=== PATIENT | male | born 1940 | race African-American/Black ===

== ENCOUNTER 2016-04-18 02:26 | Inpatient (IN) | payer MEDICARE, MEDICAID ==
[2016-04-18] VITALS (22 sets, daily range): BP systolic 93–148; BP diastolic 13–70
[~2016-04-18] VITALS: Ht 170.2 cm; Wt 54.4 kg
[~2016-04-18 02:26] MED LIST: ARICEPT23 MG ORAL; ATENOLOL5 GM GT; BENICAR20 MG ORAL; CLONIDINE HCL0.1 MG PO; DIGOXIN ELIX0.125 MG GT; DOXAZOSIN MESYLA2 MG ORAL; FERROUS SULFAT325 M2 ORAL; GUAIFENESI100 MG/5 M ORAL; HUMALOG 75/255 UNIT1 SUBQ; LACTULOSE20 GM/301 ORAL; LANTUS SOL100 UNIT/1 SUBQ; LO-DOSE ASPIRIN81 MG ORAL; LOVASTATIN40 MG ORAL; LOVENOX10 M4 SUBQ; MEMANTINE HCL5 MG PO; NORVASC5 MG ORAL; OMEPRAZOLE40 M1 ORAL; PROVENTIL2 MG ORAL; TYLENOL650 MG GT
[2016-04-18] MEDS ORDERED: NS 1000ml 1,600 ML IVLG ONE (02:30)
[2016-04-18] MEDS ORDERED: Ampicillin/Sulbactam Sod 3 GM in NS 100 ML IV SCH (02:30)
[2016-04-18] MEDS ORDERED: PREDNISONE10 MG ORAL (02:41)
[2016-04-18] MEDS ORDERED: Acetaminophen 650 MG SUPP RECTAL ONE (02:45)
[2016-04-18] MEDS ORDERED: Lidocaine 1% Plain 30 ml INJ ONE (02:47)
[2016-04-18] MEDS ORDERED: Lidocaine 1% MPF 10mg/ml 5ml ONE (02:49)
[2016-04-18] MEDS: metroNIDAZOLE 500mg 100 ML IV SCH ×4 (03:38→21:43)
[2016-04-18 03:40] LABS: ALANINE AMINOTRANSFERASE 57 U/L (3-41); ALBUMIN/GLOBULIN RATIO 0.6 (1.0-2.7); ANION GAP 11 (5-15); ASPARTATE AMINO TRANSFERASE 37 U/L (5-40); CALCIUM 9.3 mg/dL (8.6-10.2); CARBON DIOXIDE 35 mEQ/L (20-30); CHLORIDE 116 mEQ/L (98-107); HEMOLYSIS 11; LIPASE 74 U/L (< 60); TOTAL PROTEIN 7.2 g/dL (6.6-8.7)
[2016-04-18 03:41] LABS: TROPONIN I < 0.30 ng/mL (<=0.30)
[2016-04-18 03:43] LABS: REFLEX LACTIC ACID YES OR NO YES
[2016-04-18 03:44] LABS: SODIUM 162 mEQ/L (135-145)
[2016-04-18 03:51] LABS: BASOPHILS % (AUTO) 0.5 % (0.0-2.0); CKMB 1.6 ng/mL (< 6.7); EOSINOPHILS % (AUTO) 0.3 % (0.0-3.0); LYMPHOCYTES % (AUTO) 12.8 % (20.0-45.0); MEAN CORPUSCULAR HEMOGLOBIN 33.2 PG (27.0-31.0); MEAN CORPUSCULAR HGB CONC 31.8 G/DL (32.0-36.0); MEAN CORPUSCULAR VOLUME 104 FL (80-99); MEAN PLATELET VOLUME 9.2 FL (6.5-10.1); MONOCYTES % (AUTO) 2.9 % (1.0-10.0); NEUTROPHILS % (AUTO) 83.5 % (45.0-75.0); PLATELET COUNT 140 K/UL (150-450); RED CELL DISTRIBUTION WIDTH 13.3 % (11.6-14.8); WHITE BLOOD COUNT 13.3 K/UL (4.8-10.8)
--- NOTE | 2016-04-18 04:13 | Emergency Room Report ---
History of Present Illness General Chief Complaint: Fever Source: Patient, Medical Record, EMS Present Illness HPI Patient is a 75-year-old male was brought in by ambulance after increased fever. Patient noted have increased difficulty breathing. He was noted to be hypotensive. Patient was noted to have prior history of bullous impetigo. He has no known drug allergies. He was noted to have increased respiratory rate. Allergies: Coded Allergies: No Known Allergies (Unverified , 10/19/15) Patient History Reviewed Nursing Documentation: PMH: Agreed, PSxH: Agreed Nursing Documentation-PMH Past Medical History: No History, Except For Hx Cardiac Problems: Yes - Atrial flutter, Hypercholesterolemia Hx Hypertension: Yes Hx Diabetes: Yes Hx Cancer: No Hx Gastrointestinal Problems: Yes - dysphagia Hx Neurological Problems: Yes - Cognitive Deficits, Apraxia Hx Cerebrovascular Accident: Yes - Encephalopathy Hx Dementia: Yes Hx Speech Problem: Yes Hx Aphasia: Yes Review of Systems All Other Systems: limited - by nonverbal Physical Exam Vital Signs Date Time Temp Pulse Resp B/P Pulse Ox O2 Delivery O2 Flow Rate FiO2 04/18/16 02:21 104.0 138 17 96/54 95 Room Air Sp02 EP Interpretation: normal General Appearance: severe distress, thin, Chronically Ill ENT: dry mucus membranes Neck: limited range of motion Respiratory: rales Cardiovascular #1: no edema, tachycardia Gastrointestinal: non tender, soft Musculoskeletal: normal inspection, decreased range of motion Neurologic: alert, responsive, motor weakness Skin: other - multiple bullous lesions Procedures Critical Care Time Critical Care Time Patient had a critical medical condition which untreated could potentially result in life or limb threatening injury. Total critical care time excluding procedures approximately 45 minutes. Central Line Central Line : Consent: Emergent Central Line Lumen: triple Maximal Sterile Barrier Tech: yes cap, yes mask, yes sterile gown, yes sterile gloves, yes large sterile sheet, yes hand hygiene, yes chlorhexidine prep Central Line Postion: subclavian (L) Anesthesia: Lidocaine cc's of anesthesia: 3 Complications: none Central Line Post Position: sutured, good blood return, position confirmed w / CXR Attempts: Other - 3 initially attempted left IJ without success under ultrasound guidance Patient Tolerated: Well Complications: None Medical Decision Making Diagnostic Impression: Primary Impression: Septic shock Additional Impressions: Dehydration Hypernatremia ER Course The patient presented for fever. Differential diagnosis included wasn't limited to septic shock, dehydration, urinary tract infection, adrenal insufficiency among others.Because of complexity of patient's case laboratory testing and imaging studies were ordered. The patient was started on IV fluid. Patient was noted to have a poor IV access and a the left subclavian central line was placed emergently for IV access. The patient started on IV fluids as well as IV antibiotics. The patient noted be hypernatremic with a serum sodium greater than 160. Patient started on normal saline. Dr. Izaguirre was contacted for inpatient management because he is the covering physician for the patient long-term. Labs Test 04/18/16 03:08 04/18/16 03:55 04/18/16 04:01 White Blood Count 13.3 K/UL (4.8-10.8) Red Blood Count 3.40 M/UL (4.70-6.10) Hemoglobin 11.3 G/DL (14.2-18.0) Hematocrit 35.4 % (42.0-52.0) Mean Corpuscular Volume 104 FL (80-99) Mean Corpuscular Hemoglobin 33.2 PG (27.0-31.0) Mean Corpuscular Hemoglobin Concent 31.8 G/DL (32.0-36.0) Red Cell Distribution Width 13.3 % (11.6-14.8) Platelet Count 140 K/UL (150-450) Mean Platelet Volume 9.2 FL (6.5-10.1) Neutrophils (%) (Auto) 83.5 % (45.0-75.0) Lymphocytes (%) (Auto) 12.8 % (20.0-45.0) Monocytes (%) (Auto) 2.9 % (1.0-10.0) Eosinophils (%) (Auto) 0.3 % (0.0-3.0) Basophils (%) (Auto) 0.5 % (0.0-2.0) Sodium Level 162 mEQ/L (135-145) Potassium Level 4.0 mEQ/L (3.4-4.9) Chloride Level 116 mEQ/L (98-107) Carbon Dioxide Level 35 mEQ/L (20-30) Anion Gap 11 (5-15) Blood Urea Nitrogen 40 mg/dL (7-23) Creatinine 1.0 mg/dL (0.7-1.2) Estimat Glomerular Filtration Rate mL/min (>60) Glucose Level 246 mg/dL (74-106) Lactic Acid Level 2.00 mmol/L (0.66-2.22) Calcium Level 9.3 mg/dL (8.6-10.2) Total Bilirubin 0.4 mg/dL (0.0-1.2) Aspartate Amino Transf (AST/SGOT) 37 U/L (5-40) Alanine Aminotransferase (ALT/SGPT) 57 U/L (3-41) Alkaline Phosphatase 61 U/L (40-129) Total Creatine Kinase 125 U/L (38-174) Creatine Kinase MB 1.6 ng/mL (< 6.7) Creatine Kinase MB Relative Index 1.2 Troponin I < 0.30 ng/mL (<=0.30) Pro-B-Type Natriuretic Peptide 364 pg/mL (0-450) Total Protein 7.2 g/dL (6.6-8.7) Albumin 2.9 g/dL (3.5-5.2) Globulin 4.3 g/dL Albumin/Globulin Ratio 0.6 (1.0-2.7) Lipase 74 U/L (< 60) EKG Diagnostic Results Rate: tachycardiac - 145 Rhythm: other - sinus tachycardia ST Segments: no acute changes Rhythm Strip Diag. Results EP Interpretation: yes Rhythm: no PVC's, no ectopy Chest X-Ray Diagnostic Results EP Interpretation: Yes Findings: no consolidation, no effusion, no pneumothorax, no acute cardiopulmonary disease Number of Views: 1 Last Vital Signs Date Time Temp Pulse Resp B/P Pulse Ox O2 Delivery O2 Flow Rate FiO2 04/18/16 02:21 104.0 138 17 96/54 95 Room Air Status: unchanged Disposition: ADMITTED INPATIENT Condition: Critical Referrals: NON PHYSICIAN (PCP) Delfino Benitez Apr 18, 2016 04:13
[2016-04-18 04:17] LABS: APPEARANCE,URINE CLEAR; KETONES,URINE NEGATIVE (NEGATIVE); LEUKOCYTE ESTERASE ,URINE 1+ (NEGATIVE); NITRITE,URINE NEGATIVE (NEGATIVE); PH,URINE 6 (4.5-8.0); PROTEIN,URINE 2+ (NEGATIVE); UROBILINOGEN,URINE 4 MG/DL (0.0-1.0)
[2016-04-18] MEDS ORDERED: Unasyn 3gm Inj ONE (04:24)
[2016-04-18 04:32] LABS: RBC,URINE 0-2 /HPF (0 - 0); SQUAMOUS EPITHELIAL CELL,UR MANY /LPF (NONE/OCC); WBC,URINE 0-2 /HPF (0 - 0)
[2016-04-18 04:33] LABS: BACTERIA,URINE FEW /HPF
[2016-04-18] MEDS ORDERED: Nitroglycerin Subl 0.4mg tab (Bottle Of 25) SL PRN (07:45)
[2016-04-18] MEDS ORDERED: Miralax 17gm pkt ORAL PRN (07:45)
[2016-04-18] MEDS ORDERED: DuoNeb 0.5-3(2.5)mg/3ml neb HHN PRN (07:45)
[2016-04-18] MEDS ORDERED: Morphine Sulfate 2mg/ml Inj IVP PRN (07:45)
[2016-04-18] MEDS ORDERED: Lactulose 20gm/30ml UDC ORAL PRN (08:00)
--- NOTE | 2016-04-18 08:22 | Consultation ---
Consult Note Consult Note ID CONSULT: Dict# [id number] Assessment/Plan ASSESSMENT: 75 y/o male with: // Probable HCAP / aspiration PNA - CXR 04/18: pending - h/o MSSA // r/o bacteremia // Sepsis // Leukocytosis // Fever // Bullous impetigo, on chronic steroids // Hypernatremia / electrolyte imbalance // DM2 - HbA1c 8.1% // Dementia, h/o CVA // Functional quadriplegia / bedbound // Dysphagia SP PEG // NH resident // Negative MRSA, VRE screens // NKDA // Full Code PLAN: - continue IV vancomycin, cefepime, flagyl d# . DC unasyn - check influenza, legionella UAg - continue chronic steroids for impetigo, may need stress dose if unstable - f/u cultures - monitor CBC, temperatures - monitor BMP - monitor CXR - aspiration precautions - wound care Thanks! Will follow DOLORES FANG Apr 18, 2016 08:22
[2016-04-18] MEDS ORDERED: Ferrous Sulfate 300 MG/5 ML UDC NG SCH (09:00)
[2016-04-18] MEDS ORDERED: Aspirin EC 81mg tab ORAL SCH (09:00)
[2016-04-18] MEDS ORDERED: PredniSONE 20mg tab ORAL SCH (09:00)
[2016-04-18] MEDS ORDERED: Heparin 5000 units/ml inj SUBQ SCH (09:00)
--- NOTE | 2016-04-18 09:02 | Pulmonolgy Critical Care Note ---
Critical Care - Asmt/Plan Problems: (1) Septic shock (2) Hypernatremia (3) CVA (cerebral vascular accident) (4) halfway resident (5) Diabetes (6) G tube feedings (7) Left hemiparesis (8) ATN (acute tubular necrosis) Respiratory: monitor respiratory rate Cardiac: continue to monitor HR/BP Renal: F/U I&O, keep IV fluid, check electrolytes Infectious Disease: check cultures, continue antibiotics Gastrointestinal: continue feedings/current rate Endocrine: monitor blood sugar, continue sliding scale insulin Hematologic: monitor H/H, transfuse if hgb<8.5 Neurologic: PRN Ativan, PRN Morphine, keep patient comfortable Prophylaxis: Protonix Disposition: keep in ICU Discussed with: field nurse case managerpay station department manager - Objective Last 24 Hour Vital Signs Date Time Temp Pulse Resp B/P Pulse Ox O2 Delivery O2 Flow Rate FiO2 04/18/16 07:00 120 36 126/46 97 Nasal Cannula 3.0 04/18/16 06:00 97.4 120 36 110/58 98 Nasal Cannula 3.0 04/18/16 05:30 97.0 125 40 96/58 98 Nasal Cannula 3.0 04/18/16 05:00 100.4 125 36 97/59 98 Nasal Cannula 3.0 04/18/16 05:00 100.4 125 36 97/59 98 Nasal Cannula 3.0 04/18/16 04:27 100.4 130 35 98/61 98 Nasal Cannula 3.0 04/18/16 04:08 100.4 04/18/16 02:45 104.0 144 36 96/54 96 Room Air 04/18/16 02:21 104.0 138 17 96/54 95 Room Air Status: sedated Condition: critical HEENT: atraumatic Neck: full ROM Lungs: clear Heart: HR/BP stable, regular Abdomen: soft, active bowel sounds, feeding tube Extremities: no C/C/E, edema Critical Care - Subjective ROS Limited/Unobtainable: Yes ICU Day: 1 Interval Events: 75-year-old male with end stage dementia, Gtube, bed bound, spending last chapter of his life in a bed in a alf with multiple decubiti, was brought in by ambulance after increased fever increased difficulty breathing hypotensive. Patient was noted to have prior history of bullous impetigo. He was hypotensive with increased respiratory rate, therefore was admitted to ICU for further care Fluids: NS 100 cc.hour I&O: Intake and Output 04/17/16 04/18/16 19:00 07:00 Intake Total 1000 ml Balance 1000 ml Intake IV Total 1000 ml # Voids 100 CXR: clear Labs: Laboratory Tests Test 04/18/16 03:08 04/18/16 03:55 04/18/16 04:01 White Blood Count 13.3 K/UL (4.8-10.8) H Red Blood Count 3.40 M/UL (4.70-6.10) L Hemoglobin 11.3 G/DL (14.2-18.0) L Hematocrit 35.4 % (42.0-52.0) L Mean Corpuscular Volume 104 FL (80-99) H Mean Corpuscular Hemoglobin 33.2 PG (27.0-31.0) H Mean Corpuscular Hemoglobin Concent 31.8 G/DL (32.0-36.0) L Red Cell Distribution Width 13.3 % (11.6-14.8) Platelet Count 140 K/UL (150-450) L Mean Platelet Volume 9.2 FL (6.5-10.1) Neutrophils (%) (Auto) 83.5 % (45.0-75.0) H Lymphocytes (%) (Auto) 12.8 % (20.0-45.0) L Monocytes (%) (Auto) 2.9 % (1.0-10.0) Eosinophils (%) (Auto) 0.3 % (0.0-3.0) Basophils (%) (Auto) 0.5 % (0.0-2.0) Sodium Level 162 mEQ/L (135-145) *H Potassium Level 4.0 mEQ/L (3.4-4.9) Chloride Level 116 mEQ/L (98-107) H Carbon Dioxide Level 35 mEQ/L (20-30) H Anion Gap 11 (5-15) Blood Urea Nitrogen 40 mg/dL (7-23) H Creatinine 1.0 mg/dL (0.7-1.2) Estimat Glomerular Filtration Rate mL/min (>60) Glucose Level 246 mg/dL (74-106) H Plasma/Serum Osmolality Pending Lactic Acid Level 2.00 mmol/L (0.66-2.22) Calcium Level 9.3 mg/dL (8.6-10.2) Total Bilirubin 0.4 mg/dL (0.0-1.2) Aspartate Amino Transf (AST/SGOT) 37 U/L (5-40) Alanine Aminotransferase (ALT/SGPT) 57 U/L (3-41) H Alkaline Phosphatase 61 U/L (40-129) Total Creatine Kinase 125 U/L (38-174) Creatine Kinase MB 1.6 ng/mL (< 6.7) Creatine Kinase MB Relative Index 1.2 Troponin I < 0.30 ng/mL (<=0.30) Pro-B-Type Natriuretic Peptide 364 pg/mL (0-450) Total Protein 7.2 g/dL (6.6-8.7) Albumin 2.9 g/dL (3.5-5.2) L Globulin 4.3 g/dL Albumin/Globulin Ratio 0.6 (1.0-2.7) L Lipase 74 U/L (< 60) H Urine Color Yellow Urine Appearance Clear Urine pH 6 (4.5-8.0) Urine Specific Russell 1.010 (1.005-1.035) Urine Protein 2+ (NEGATIVE) H Urine Glucose (UA) 1+ (NEGATIVE) H Urine Ketones Negative (NEGATIVE) Urine Occult Blood 1+ (NEGATIVE) H Urine Nitrite Negative (NEGATIVE) Urine Bilirubin Negative (NEGATIVE) Urine Urobilinogen 4 MG/DL (0.0-1.0) H Urine Leukocyte Esterase 1+ (NEGATIVE) H Urine RBC 0-2 /HPF (0 - 0) H Urine WBC 0-2 /HPF (0 - 0) Urine Squamous Epithelial Cells Many /LPF (NONE/OCC) H Urine Bacteria Few /HPF (NONE) Prothrombin Time 10.0 SEC (9.30-11.50) Prothromb Time International Ratio 1.0 (0.9-1.1) Activated Partial Thromboplast Time 19 SEC (23-33) JAVIER WETZEL Apr 18, 2016 09:02
[2016-04-18 09:59] LABS: ALANINE AMINOTRANSFERASE 47 U/L (3-41); ALBUMIN/GLOBULIN RATIO 0.6 (1.0-2.7); ASPARTATE AMINO TRANSFERASE 28 U/L (5-40); CALCIUM 8.9 mg/dL (8.6-10.2); CARBON DIOXIDE 36 mEQ/L (20-30); CHLORIDE 121 mEQ/L (98-107); CREATININE 0.8 mg/dL (0.7-1.2); HEMOLYSIS 7; MAGNESIUM 2.5 mg/dL (1.7-2.5); PHOSPHORUS 4.4 mg/dL (2.5-4.8); POTASSIUM 3.7 mEQ/L (3.4-4.9); TOTAL PROTEIN 6.6 g/dL (6.6-8.7)
[2016-04-18] MEDS: Pantoprazole Inj IVP SCH (10:03)
[2016-04-18] MEDS: Digoxin 0.125mg tab ORAL SCH (10:03)
[2016-04-18] MEDS: Enoxaparin 40mg Inj SUBQ SCH (10:04)
[2016-04-18 10:12] LABS: ANION GAP 8 (5-15)
[2016-04-18 10:15] LABS: SODIUM 165 mEQ/L (135-145)
--- NOTE | 2016-04-18 10:22 | Consultation ---
Consult Note Consult Note asked to eval for renal failure- Chief Complaint: Fever Patient is a 75-year-old male was brought in by ambulance after increased fever. Patient noted have increased difficulty breathing. He was noted to be hypotensive. Patient was noted to have prior history of bullous impetigo. He has no known drug allergies. He was noted to have increased respiratory rate. Past Medical History: Hx Cardiac Problems: Yes - Atrial flutter, Hypercholesterolemia Hx Hypertension: Yes Hx Diabetes: Yes Hx Gastrointestinal Problems: Yes - dysphagia Hx Neurological Problems: Yes - Cognitive Deficits, Apraxia Hx Cerebrovascular Accident: Yes - Encephalopathy Hx Dementia: Yes Hx Speech Problem: Yes Hx Aphasia: Yes Patient examined- data reviewed- discussed with RN . Assessment/Plan Renal impression: Acute Renal failure- due to sepsis and shock Dehydration and volume depletion component- and HyperNatremia Other: -CVA (cerebral vascular accident) -Diabetes -G tube feedings -Left hemiparesis Plan: Hydrate- Antibiotics- Monitor renal parameters- Avoid Nephrotoxics- CRISTY MADDOX Apr 18, 2016 10:22
--- NOTE | 2016-04-18 10:37 | Consultation ---
DATE OF CONSULTATION: 04/18/2016 INFECTIOUS DISEASES CONSULTATION CONSULTING PHYSICIAN: Conner Bains M.D. REQUESTING PHYSICIAN: Adalid Izaguirre M.D. REASON FOR CONSULTATION: Sepsis. HISTORY OF PRESENT ILLNESS: This is a 75-year-old male, demented, diabetic male, half-way resident, admitted on 04/18/2016 with fever and shortness of breath. A chest x-ray is pending. He meets sepsis criteria, has evidence of a leukocytosis and fever at 104 degrees. Also evidence of non-bullous impetigo, for which he is on chronic steroids. Lesions are not grossly infected. Cultures and imaging are pending. He has been started on empiric vancomycin, Unasyn, cefepime, and Flagyl and ID now consulted to assist in management. PAST MEDICAL HISTORY: 1. Bullous impetigo, on chronic steroids. 2. Diabetes type 2, hemoglobin A1c 8.1%. 3. Stroke with functional quadriplegia and bedbound. 4. Hyperlipidemia. 5. Atrial fibrillation/flutter. 6. Dementia. 7. Dysphagia. PAST SURGICAL HISTORY: PEG tube placement. ALLERGIES: No known drug allergies. MEDICATIONS: 1. Vancomycin. 2. Unasyn. 3. Cefepime. 4. Flagyl. 5. Subcutaneous heparin. FAMILY HISTORY: Noncontributory. SOCIAL HISTORY: The patient is a resident of a half-way. No active tobacco, alcohol, or illicit drug abuse. REVIEW OF SYSTEMS: Unable to obtain. PHYSICAL EXAMINATION: VITAL SIGNS: Maximum temperature 104, blood pressure 124/46, heart rate 120, respiratory rate 36, and saturating 97% on three liters nasal cannula. GENERAL: The patient is nonverbal. HEENT: No thrush. CARDIOVASCULAR: Tachycardic, no murmurs. PULMONARY: Coarse breath sounds bilaterally. ABDOMINAL: Bowel sounds present. Soft, nondistended, and nontender. PEG tube in place. EXTREMITIES: Contracted and no edema. SKIN: Multiple skin lesions and bullae documented pectorally. LABORATORY DATA: White blood cell count 13.3 with left shift. Hemoglobin 11.3, platelets 140, sodium 162, potassium 4, chloride 116, bicarb 35, BUN 40, and creatinine 1. Lactic acid 2. AST 37, ALT 57, alkaline phosphatase 61, total bilirubin 0.4, albumin 3.9. Troponin negative x1. Lipase 74. Urinalysis is negative. MICROBIOLOGY: 1. 01// blood culture pending. 2. 04/18/2016 wound culture pending. IMAGIN. 04/18/2016 chest x-ray pending. 2. 04/18/2016 renal ultrasound pending. ASSESSMENT: 1. Probable healthcare-associated or aspiration pneumonia. Chest x-ray is pending. He has a history of MSSA pneumonia in October 2015. 2. Rule out bacteremia. 3. Sepsis. 4. Leukocytosis. 5. Fever. 6. Bullous impetigo, on chronic steroids. 7. Hypernatremia/electrolyte imbalance. 8. Diabetes type 2, hemoglobin A1c 8.1%. 9. Dementia and history of stroke. 10. Functional quadriplegia/bedbound. 11. Dysphagia, status post percutaneous endoscopic gastrostomy tube. 12. penitentiary resident. 13. Negative methicillin-resistant Staphylococcus aureus and vancomycin-resistant Enterococcus screens. 14. No known drug allergies. 15. Full Code. PLAN: 1. Continue IV vancomycin, cefepime, and Flagyl, day #1 of 7. Discontinue Unasyn. 2. Check influenza screen and Legionella urine antigen. 3. Follow up cultures. 4. Monitor CBC and temperatures. 5. Monitor BMP. 6. Monitor chest x-ray. 7. Aspiration precautions. 8. Wound care. Thank you. We will follow. Conner Bains M.D. DR: MADELYN JOB#: [id number] CC: Adalid Izaguirre M.D.; Fax#: [phone] Dwyer M.D; Fax#: [phone]
[2016-04-18] MEDS: Cefepime HCl 1 GM in D5W 55 ML IVPB SCH ×2 (10:46→20:56)
[2016-04-18] MEDS: Vancomycin 1250mg/D5W 250ml IVPB SCH ×2 (11:52)
[2016-04-18] MEDS: NovoLOG Insulin Flexpen SUBQ SCH ×2 (11:56→16:42)
[2016-04-18] MEDS: Levemir Flexpen SUBQ SCH ×2 (11:57→18:37)
[2016-04-18 13:16] LABS: ABG ALLEN TEST POSITIVE; ABG BASE EXCESS 4.3; ABG PCO2 42.7 mmHg (35.0-45.0)
[2016-04-18] MEDS: Hydrocortisone 100mg Inj IV SCH ×2 (14:17→21:43)
[2016-04-18 16:21] LABS: APPEARANCE,URINE CLEAR; KETONES,URINE 1+ (NEGATIVE); LEUKOCYTE ESTERASE ,URINE 1+ (NEGATIVE); NITRITE,URINE NEGATIVE (NEGATIVE); PH,URINE 5 (4.5-8.0); PROTEIN,URINE 2+ (NEGATIVE); UROBILINOGEN,URINE NORMAL MG/DL (0.0-1.0)
[2016-04-18 16:41] LABS: RBC,URINE 0-2 /HPF (0 - 0); WBC,URINE 0-2 /HPF (0 - 0)
[2016-04-18 16:42] LABS: BACTERIA,URINE MODERATE /HPF
--- NOTE | 2016-04-18 19:27 | History & Physical ---
History and Physical History & Physicial Dictated for Int Med-Dr Izaguirre no. [id number]. RENETTA OLVERA Apr 18, 2016 19:27
[2016-04-19] VITALS (25 sets, daily range): BP systolic 96–147; BP diastolic 36–85
[2016-04-19] MEDS: NovoLOG Insulin Flexpen SUBQ SCH ×4 (00:11→18:01)
[2016-04-19] MEDS ORDERED: Vancomycin 1 GM in D5W 275 ML IV SCH (00:30)
[2016-04-19 05:40] LABS: MEAN CORPUSCULAR HEMOGLOBIN 32.8 PG (27.0-31.0); MEAN CORPUSCULAR VOLUME 106 FL (80-99); MEAN PLATELET VOLUME 11.6 FL (6.5-10.1); PLATELET COUNT 122 K/UL (150-450); RED BLOOD COUNT 3.29 M/UL (4.70-6.10); RED CELL DISTRIBUTION WIDTH 13.1 % (11.6-14.8); WHITE BLOOD COUNT 15.2 K/UL (4.8-10.8)
[2016-04-19] MEDS: metroNIDAZOLE 500mg 100 ML IV SCH ×3 (06:25→22:11)
--- NOTE | 2016-04-19 06:27 | Consultation ---
DATE OF CONSULTATION: 04/18/2016 ENDOCRINOLOGY CONSULTATION CONSULTING PHYSICIAN: Ben Shankar M.D. REFERRING PHYSICIAN: Torsten Landeros M.D. REASON FOR CONSULTATION: Diabetes management and adrenal insufficiency. HISTORY OF PRESENT ILLNESS: This is a 75-year-old unfortunate male, who lives in a halfway facility. The patient was brought to the hospital with sepsis picture and has history of pemphigus, was started on IV antibiotic and since he was hypotensive, hydrocortisone 100 mg every [address] Landeros, which improved his blood pressure. Endocrinology was consulted in order to assist in the management of hyperglycemia as well as evaluation for adrenal insufficiency. There is no history of adrenal insufficiency per record. PAST MEDICAL HISTORY: 1. Dysphagia. 2. Diabetes. 3. G-tube feeding. 4. Left hemiparesis. 5. Pemphigus. SOCIAL HISTORY: Lives in a halfway facility. No smoking, alcohol, or drug use. FAMILY HISTORY: Noncontributory. REVIEW OF SYSTEMS: Unobtainable. PHYSICAL EXAMINATION: GENERAL: The patient is lethargic. VITAL SIGNS: Temperature 97.4, heart rate 120, pulse rate of 36, and blood pressure 110/58. HEENT: Pupils are equal and reactive to light. Sclerae are nonicteric. The patient appears wasted and cachectic. HEART: Regular. LUNGS: Crackles. ABDOMEN: Positive bowel sounds. EXTREMITIES: Positive for edema. LABORATORY VALUES: WBC 13.3, hemoglobin 11, hematocrit 35.4, and platelets of 140,000. Sodium 162, potassium 4.0, chloride 116, bicarb 35, BUN 40, creatinine 1.3, and glucose of 246. Lipase 74. DIAGNOSES: 1. Sepsis. 2. Pneumonia. 3. Pemphigus. 4. Possible adrenal insufficiency. 5. Diabetes out of control, exacerbated by steroids. PLAN: 1. Add Levemir 10 units twice a day. 2. Continue sliding scale with NovoLog. 3. Currently the patient in on stress dose hydrocortisone. Once the dose is tapered down, we will convert to dexamethasone and will perform a Cortrosyn stimulation test at that point. The clinical suspicion for adrenal insufficiency is low since the patient was hypernatremic on presentation. Thank you, Dr. Landeros, for the request of this consultation. Ben Shankar M.D. DR: LINDA JOB#: [id number] CC: SHELIA
[2016-04-19] MEDS: Levemir Flexpen SUBQ SCH ×2 (06:28→18:00)
[2016-04-19] MEDS: Hydrocortisone 100mg Inj IV SCH ×3 (06:35→22:11)
[2016-04-19 07:07] LABS: MAGNESIUM 2.5 mg/dL (1.7-2.5); PHOSPHORUS 3.7 mg/dL (2.5-4.8)
[2016-04-19 07:12] LABS: URIC ACID 5.5 mg/dL (3.0-7.5)
[2016-04-19 07:31] LABS: ALANINE AMINOTRANSFERASE 35 U/L (3-41); ALBUMIN/GLOBULIN RATIO 0.6 (1.0-2.7); ANION GAP 11 (5-15); ASPARTATE AMINO TRANSFERASE 18 U/L (5-40); CALCIUM 8.8 mg/dL (8.6-10.2); CARBON DIOXIDE 32 mEQ/L (20-30); CHLORIDE 117 mEQ/L (98-107); CREATININE 0.8 mg/dL (0.7-1.2); SODIUM 160 mEQ/L (135-145); TOTAL PROTEIN 6.8 g/dL (6.6-8.7)
[2016-04-19] MEDS: Enoxaparin 40mg Inj SUBQ SCH (08:11)
[2016-04-19] MEDS: Pantoprazole Inj IVP SCH (08:11)
[2016-04-19] MEDS: Cefepime HCl 1 GM in D5W 55 ML IVPB SCH ×2 (08:12→20:35)
[2016-04-19] MEDS: Digoxin 0.125mg tab ORAL SCH (08:12)
--- NOTE | 2016-04-19 08:31 | Infectious Diseases Prog Note ---
Assessment/Plan Assessment/Plan ASSESSMENT: 75 y/o male with: // Probable HCAP / aspiration PNA - CXR 04/18: pending - negative: influenza - h/o MSSA // r/o bacteremia - BCx NGTD // Sepsis // Leukocytosis - worse ( on stress steroids ) // Fever - improved // Bullous impetigo, on chronic steroids // Hypernatremia / electrolyte imbalance // DM2 - HbA1c 8.1% // Dementia, h/o CVA // Functional quadriplegia / bedbound // Dysphagia SP PEG // [facility] resident // Negative MRSA, VRE screens // NKDA // Full Code PLAN: - continue IV vancomycin, cefepime, flagyl d# . - taper steroids per pulm - f/u cultures, legionella UAg - monitor CBC, temperatures - monitor BMP - monitor CXR - aspiration precautions - wound care Subjective Allergies: Coded Allergies: No Known Allergies (Unverified , 10/19/15) Subjective fevers improved Objective Vital Signs Last 24 Hour Vital Signs Date Time Temp Pulse Resp B/P Pulse Ox O2 Delivery O2 Flow Rate FiO2 04/19/16 08:12 112 04/19/16 06:00 112 33 112/51 97 Nasal Cannula 3.0 04/19/16 05:00 115 33 96/51 97 Nasal Cannula 3.0 04/19/16 04:00 97.9 115 30 116/40 97 Nasal Cannula 3.0 04/19/16 04:00 111 04/19/16 03:00 117 34 111/36 97 Nasal Cannula 3.0 04/19/16 02:00 120 38 132/60 97 Nasal Cannula 3.0 04/19/16 01:00 119 39 132/60 97 Nasal Cannula 3.0 04/19/16 00:00 97.2 113 31 124/66 97 Nasal Cannula 3.0 04/19/16 00:00 108 04/18/16 23:00 110 31 127/50 97 Nasal Cannula 3.0 04/18/16 22:00 111 31 121/70 97 Nasal Cannula 3.0 113 04/18/16 21:00 111 30 108/41 97 Nasal Cannula 3.0 04/18/16 20:00 98.5 115 34 109/43 98 Nasal Cannula 3.0 04/18/16 20:00 115 04/18/16 19:00 110 30 102/55 99 Nasal Cannula 3.0 04/18/16 18:00 117 28 93/45 99 Nasal Cannula 3.0 04/18/16 17:00 122 35 118/19 98 Nasal Cannula 3.0 04/18/16 16:00 124 04/18/16 16:00 97.2 123 30 113/20 98 Nasal Cannula 3.0 04/18/16 15:00 128 38 113/70 98 Nasal Cannula 3.0 04/18/16 14:00 129 45 116/16 98 Nasal Cannula 3.0 04/18/16 13:00 132 48 121/28 93 Nasal Cannula 3.0 04/18/16 12:00 98.3 133 48 121/38 93 Nasal Cannula 3.0 04/18/16 12:00 134 04/18/16 11:00 124 38 110/25 93 Nasal Cannula 3.0 04/18/16 10:03 117 04/18/16 10:00 115 38 148/25 99 Nasal Cannula 3.0 04/18/16 09:00 98.5 117 36 127/13 98 Nasal Cannula 3.0 Height (Feet): 5 Height (Inches): 7.00 Weight (Pounds): 120 General Appearance: no acute distress Respiratory/Chest: no respiratory distress Cardiovascular: normal rate, regular rhythm Abdomen: normal bowel sounds, soft, non tender, non distended Microbiology Date/Time Source Procedure Growth Status 04/18/16 03:08 Blood Blood Culture - Preliminary NO GROWTH AFTER 24 HOURS Resulted 04/18/16 03:08 Blood Blood Culture - Preliminary NO GROWTH AFTER 24 HOURS Resulted 04/18/16 09:50 Nasopharynx Influenza Types A,B Antigen (DALJIT) - Final Complete Laboratory Tests Test 04/18/16 09:20 04/18/16 13:12 04/18/16 14:00 04/18/16 17:40 Sodium Level 165 mEQ/L (135-145) *H Potassium Level 3.7 mEQ/L (3.4-4.9) Chloride Level 121 mEQ/L (98-107) H Carbon Dioxide Level 36 mEQ/L (20-30) H Anion Gap 8 (5-15) Blood Urea Nitrogen 34 mg/dL (7-23) H Creatinine 0.8 mg/dL (0.7-1.2) Estimat Glomerular Filtration Rate mL/min (>60) Glucose Level 140 mg/dL (74-106) #H Lactic Acid Level 1.40 mmol/L (0.66-2.22) Uric Acid 5.0 mg/dL (3.0-7.5) Calcium Level 8.9 mg/dL (8.6-10.2) Phosphorus Level 4.4 mg/dL (2.5-4.8) Magnesium Level 2.5 mg/dL (1.7-2.5) Total Bilirubin 0.7 mg/dL (0.0-1.2) Aspartate Amino Transf (AST/SGOT) 28 U/L (5-40) Alanine Aminotransferase (ALT/SGPT) 47 U/L (3-41) H Alkaline Phosphatase 54 U/L (40-129) Total Creatine Kinase 153 U/L (38-174) Total Protein 6.6 g/dL (6.6-8.7) Albumin 2.7 g/dL (3.5-5.2) L Globulin 3.9 g/dL Albumin/Globulin Ratio 0.6 (1.0-2.7) L Free Thyroxine 0.74 ng/dL (0.86-1.85) L Arterial Blood pH 7.440 (7.350-7.450) Arterial Blood Partial Pressure CO2 42.7 mmHg (35.0-45.0) Arterial Blood Partial Pressure O2 58.3 mmHg (75.0-100.0) L Arterial Blood HCO3 28.8 mmol/L (22.0-26.0) H Arterial Blood Oxygen Saturation 90.3 % (92.0-98.0) L Arterial Blood Base Excess 4.3 Fredi Test Positive Urine Color Yellow Urine Appearance Clear Urine pH 5 (4.5-8.0) Urine Specific [place] 1.020 (1.005-1.035) Urine Protein 2+ (NEGATIVE) H Urine Glucose (UA) Negative (NEGATIVE) Urine Ketones 1+ (NEGATIVE) H Urine Occult Blood 1+ (NEGATIVE) H Urine Nitrite Negative (NEGATIVE) Urine Bilirubin Negative (NEGATIVE) Urine Urobilinogen Normal MG/DL (0.0-1.0) Urine Leukocyte Esterase 1+ (NEGATIVE) H Urine RBC 0-2 /HPF (0 - 0) H Urine WBC 0-2 /HPF (0 - 0) Urine Squamous Epithelial Cells None /LPF (NONE/OCC) Urine Bacteria Moderate /HPF (NONE) H Urine Eosinophils None seen Urine Random Sodium 14 mmol/L Urine Random Chloride 26 mmol/L Urine Potassium Timed 115 mmol/L Urine Legionella Antigen Pending Test 04/19/16 05:00 White Blood Count 15.2 K/UL (4.8-10.8) H Red Blood Count 3.29 M/UL (4.70-6.10) L Hemoglobin 10.8 G/DL (14.2-18.0) L Hematocrit 34.8 % (42.0-52.0) L Mean Corpuscular Volume 106 FL (80-99) H Mean Corpuscular Hemoglobin 32.8 PG (27.0-31.0) H Mean Corpuscular Hemoglobin Concent 31.0 G/DL (32.0-36.0) L Red Cell Distribution Width 13.1 % (11.6-14.8) Platelet Count 122 K/UL (150-450) L Mean Platelet Volume 11.6 FL (6.5-10.1) H Neutrophils (%) (Auto) % (45.0-75.0) Lymphocytes (%) (Auto) % (20.0-45.0) Monocytes (%) (Auto) % (1.0-10.0) Eosinophils (%) (Auto) % (0.0-3.0) Basophils (%) (Auto) % (0.0-2.0) Neutrophils % (Manual) Pending Lymphocytes % (Manual) Pending Platelet Estimate Pending Platelet Morphology Pending Sodium Level 160 mEQ/L (135-145) H Potassium Level 4.0 mEQ/L (3.4-4.9) Chloride Level 117 mEQ/L (98-107) H Carbon Dioxide Level 32 mEQ/L (20-30) H Anion Gap 11 (5-15) Blood Urea Nitrogen 36 mg/dL (7-23) H Creatinine 0.8 mg/dL (0.7-1.2) Estimat Glomerular Filtration Rate mL/min (>60) Glucose Level 161 mg/dL (74-106) H Uric Acid 5.5 mg/dL (3.0-7.5) Calcium Level 8.8 mg/dL (8.6-10.2) Phosphorus Level 3.7 mg/dL (2.5-4.8) Magnesium Level 2.5 mg/dL (1.7-2.5) Total Bilirubin 0.6 mg/dL (0.0-1.2) Gamma Glutamyl Transpeptidase 30 U/L (8-61) Aspartate Amino Transf (AST/SGOT) 18 U/L (5-40) Alanine Aminotransferase (ALT/SGPT) 35 U/L (3-41) Alkaline Phosphatase 54 U/L (40-129) Total Creatine Kinase 111 U/L (38-174) C-Reactive Protein, Quantitative 8.0 mg/dL (< 0.5) H Pro-B-Type Natriuretic Peptide 270 pg/mL (0-450) Total Protein 6.8 g/dL (6.6-8.7) Albumin 2.6 g/dL (3.5-5.2) L Globulin 4.2 g/dL Albumin/Globulin Ratio 0.6 (1.0-2.7) L Digoxin Level < 0.3 ng/mL (0.5-2.0) L Current Medications Medications (Trade) Dose Ordered Sig/Joy Route PRN Reason Start Time Stop Time Status Last Admin Dose Admin Acetaminophen (Tylenol) 650 mg Q4H PRN ORAL fever 04/18/16 07:45 05/18/16 07:44 Albuterol/ Ipratropium (DuoNeb 0.5-3(2.5)mg/3ml) 3 ml Q4H PRN HHN Shortness of Breath 04/18/16 07:45 04/23/16 07:44 Cefepime HCl/ Dextrose (Maxipime/D5W 50ml) 55 ml @ 110 mls/hr EVERY 12 HOURS IVPB 04/18/16 09:00 04/25/16 08:59 04/19/16 08:12 Dextrose (Dextrose 50%) STAT PRN IV Hypoglycemia 04/18/16 09:30 05/18/16 09:29 Digoxin (Lanoxin) 0.125 mg DAILY ORAL 04/18/16 09:00 05/18/16 08:59 04/19/16 08:12 Enoxaparin Sodium (Lovenox) 40 mg DAILY SUBQ 04/18/16 09:00 05/18/16 08:59 04/19/16 08:11 Hydrocortisone (Solu-CORTEF) 100 mg EVERY 8 HOURS IV 04/18/16 14:00 05/18/16 13:59 04/19/16 06:35 Insulin Aspart (NovoLOG) EVERY 6 HOURS SUBQ 04/19/16 00:00 05/19/16 00:00 04/19/16 06:27 Insulin Detemir (Levemir) 10 units Q12HR@0600,1800 SUBQ 04/19/16 06:00 05/19/16 05:59 04/19/16 06:28 Lactulose (Cephulac) 30 gm DAILYPRN PRN ORAL Constipation 04/18/16 08:00 05/18/16 07:59 Metronidazole 100 ml @ 100 mls/hr Q8HR IV 04/18/16 14:00 04/25/16 13:59 04/19/16 06:25 Morphine Sulfate (Morphine Sulfate) 2 mg Q4H PRN IVP Moderate Pain (Pain Scale 4-6) 04/18/16 07:45 04/25/16 07:44 04/18/16 15:10 Nitroglycerin 0.4 mg 0.4 mg Q5MIN X3 DOSES PRN SL Prn Chest Pain 04/18/16 07:45 05/18/16 07:44 Ondansetron HCl (Zofran) 4 mg Q4H PRN IVP Nausea & Vomiting 04/18/16 08:00 05/18/16 07:59 04/19/16 08:11 Pantoprazole (Protonix) 40 mg DAILY IVP 04/18/16 09:00 05/18/16 08:59 04/19/16 08:11 Polyethylene Glycol (Miralax) 17 gm DAILYPRN PRN ORAL Constipation 04/18/16 07:45 05/18/16 07:44 Sodium Chloride 1,000 ml @ 100 mls/hr Q10H IV 04/18/16 09:00 05/18/16 08:59 04/19/16 06:26 Temazepam (Restoril) 15 mg HSPRN PRN ORAL Insomnia 04/18/16 07:45 04/25/16 07:44 Vancomycin HCl 1 ea 1 ea DAILYPRN PRN MISC Per rx protocol 04/18/16 10:30 05/18/16 10:29 Vancomycin HCl/ Dextrose (Vancomycin/D5W 250ml) 275 ml @ 183.333 mls/hr Q24H IVPB 04/18/16 11:00 04/23/16 10:59 04/18/16 11:52 DOLORES FANG Apr 19, 2016 08:30
[2016-04-19 09:20] LABS: BAND NEUTROPHILS % (MANUAL) 10 % (0-8); BASOPHILS % (MANUAL) 0 % (0-2); EOSINOPHILS % (MANUAL) 0 % (0-3); LYMPHOCYTES % (MANUAL) 6 % (20-45); NEUTROPHILS % (MANUAL) 83 % (45-75); PLATELET ESTIMATE ADEQUATE; PLATELET MORPHOLOGY NORMAL; TOTAL CELLS COUNTED 100
[2016-04-19 09:21] LABS: HYPOCHROMASIA 1+; MACROCYTES 1+
--- NOTE | 2016-04-19 09:38 | History and Physical Report ---
DATE OF ADMISSION: 04/18/2016 CHIEF COMPLAINT: The patient is a 75-year-old male, presents with complaint of fever. HISTORY OF PRESENT ILLNESS: The [facility] is a resident of [facility]. According to staff at the [facility] facility, the patient began to experience fever yesterday, 04/17/2016. The patient presented to [place] emergency room. The patient was admitted for fever to rule out sepsis. PAST MEDICAL HISTORY: Significant for, 1. Cerebrovascular disease, status post cerebrovascular accident. 2. Left hemiplegia. 3. Dysphasia. 4. Atrial flutter. 5. Atrial fibrillation. 6. Hypertension. 7. Diabetes type 2. PAST SURGICAL HISTORY: Significant for PEG placement. CURRENT MEDICATIONS: 1. Tylenol 650 mg one tablet p.o. q.4 hours p.r.n. 2. Albuterol sulfate 3 mg p.r.n. 3. Aspirin 81 mg one tablet p.o. daily. 4. Atenolol 25 mg per G-tube daily. 5. Digoxin 50 mcg per G-tube daily. 6. Lovenox 40 mg subcutaneously daily. 7. Iron sulfate 325 mg one tablet p.o. daily. 8. Lantus insulin subcutaneously at nightly. 9. Lispro insulin sliding scale. 10. Lovastatin 40 mg one tablet p.o. at nightly. 11. Benicar 20 mg one tablet p.o. daily. 12. Omeprazole 40 mg one tablet p.o. daily. 13. Prednisone 10 mg one tablet p.o. daily. ALLERGIES: No known drug allergies. SOCIAL HISTORY: The patient is resident of a [facility] facility. The patient denies tobacco or alcohol use. REVIEW OF SYSTEMS: Unable to assess secondary to patient's mental status. PHYSICAL EXAMINATION: VITAL SIGNS: Temperature 97.2, pulse tachycardic at 123, respirations 30, blood pressure 113/45. GENERAL: The patient is thin-appearing frail elderly male in moderate respiratory distress. HEENT: Within normal limits. NECK: Supple without lymphadenopathy. CHEST: Coarse rales bilaterally without rhonchi. There are expiratory wheezes bilaterally. CARDIOVASCULAR: Irregular rhythm rate. S1, S2 normal without murmurs, rubs, or gallops. ABDOMEN: Soft, nontender, and nondistended. Positive bowel sounds. No hepatosplenomegaly. Currently, no rebound or guarding. EXTREMITIES: No clubbing, cyanosis, or edema. RECTAL: Refused. GENITAL: Refused. NEUROLOGIC: The patient does have a left weakness when compared to the right. LABORATORY STUDIES: WBC 13.3, hemoglobin 11.2, hematocrit 35.4, platelets 140,000. Sodium elevated 165, potassium 3.7, chloride 121, CO2 36, BUN 34, creatinine 0.8, and glucose 140. ASSESSMENT: This is a 75-year-old male. 1. Fever. 2. Leukocytosis. 3. Probable sepsis. 4. Hypernatremia. 5. Cerebrovascular disease. 6. Left hemiplegia. 7. Dysphagia. 8. Atrial fibrillation. 9. Hypertension. 10. Diabetes type 2. TREATMENT: 1. Leukocytosis/fever. The patient has been started empirically on vancomycin. The patient was started on cefepime in the emergency room. Influenza A and B were negative. Await blood culture results. Await urine culture results. 2. Cerebrovascular disease with left hemiplegia. 3. Dysphagia. 4. Atrial fibrillation. Continue digoxin as above. 5. Cardiology consultation with Dr. Conner Bains. 6. Hypertension. The patient is currently hypotensive. 7. Diabetes type 2. Continue NovoLog sliding scale. 8. Dysphagia. The patient currently has a PEG in place. Marco Thomas M.D. DR: Ananya JOB#: [id number] CC:
[2016-04-19 09:54] LABS: ABG BASE EXCESS -0.7; ABG PCO2 50.8 mmHg (35.0-45.0)
[2016-04-19 09:55] LABS: ABG ALLEN TEST POSITIVE
--- NOTE | 2016-04-19 09:58 | Diagnostic Imaging Report ---
Indications: Elevated renal function tests Technique: Transabdominal real-time grayscale and duplex Doppler imaging of the kidneys, retroperitoneum, and urinary bladder was performed Findings: Comparison: Abdominal ultrasound 10/22/15 Right kidney measures 10.8 cm in length. Normal contour, echotexture, cortical thickness. 11 mm circumscribed anechoic focus lower pole cortex. No stones, other focal lesions, hydronephrosis, or obvious perinephric abnormalities. Left kidney measures 11 cm in length. Normal contour, echotexture, cortical thickness. No stones, other focal lesions, hydronephrosis, or obvious perinephric abnormalities. The intrahepatic portion of inferior vena cava is patent and normal caliber. The urinary bladder is minimally distended, contains Pitts catheter. IMPRESSION: Right renal cortical cyst Otherwise sonographically unremarkable kidneys, unchanged
--- NOTE | 2016-04-19 10:30 | General Progress Note ---
Assessment/Plan Problem List: (1) Hypernatremia ICD Codes: E87.0 - Hyperosmolality and hypernatremia SNOMED: 73457252 (2) Altered level of consciousness ICD Codes: R40.4 - Transient alteration of awareness SNOMED: 6923040 (3) Diabetes ICD Codes: E11.9 - Type 2 diabetes mellitus without complications SNOMED: 85573404 Assessment/Plan reduce IVHC to 50 mg every 8 hours continue Levemir 10 units bid + SSI Subjective ROS Limited/Unobtainable: Yes Allergies: Coded Allergies: No Known Allergies (Unverified , 10/19/15) Subjective events noted - interval notes reviewed Objective Last 24 Hour Vital Signs Date Time Temp Pulse Resp B/P Pulse Ox O2 Delivery O2 Flow Rate FiO2 04/19/16 10:00 107 33 120/43 97 Nasal Cannula 3.0 04/19/16 09:00 99 33 124/56 100 Nasal Cannula 3.0 04/19/16 08:12 112 04/19/16 08:00 107 04/19/16 08:00 98.0 131 33 131/56 97 Nasal Cannula 3.0 04/19/16 07:13 100 Nasal Cannula 2.0 28 04/19/16 07:12 114 20 Nasal Cannula 2.0 28 04/19/16 07:10 Nasal Cannula 2.0 28 04/19/16 07:00 109 33 124/65 97 Nasal Cannula 3.0 04/19/16 06:00 112 33 112/51 97 Nasal Cannula 3.0 04/19/16 05:00 115 33 96/51 97 Nasal Cannula 3.0 04/19/16 04:00 97.9 115 30 116/40 97 Nasal Cannula 3.0 04/19/16 04:00 111 04/19/16 03:00 117 34 111/36 97 Nasal Cannula 3.0 04/19/16 02:00 120 38 132/60 97 Nasal Cannula 3.0 04/19/16 01:00 119 39 132/60 97 Nasal Cannula 3.0 04/19/16 00:00 97.2 113 31 124/66 97 Nasal Cannula 3.0 04/19/16 00:00 108 04/18/16 23:00 110 31 127/50 97 Nasal Cannula 3.0 04/18/16 22:00 111 31 121/70 97 Nasal Cannula 3.0 113 04/18/16 21:00 111 30 108/41 97 Nasal Cannula 3.0 04/18/16 20:00 98.5 115 34 109/43 98 Nasal Cannula 3.0 04/18/16 20:00 115 04/18/16 19:00 110 30 102/55 99 Nasal Cannula 3.0 04/18/16 18:00 117 28 93/45 99 Nasal Cannula 3.0 04/18/16 17:00 122 35 118/19 98 Nasal Cannula 3.0 04/18/16 16:00 124 04/18/16 16:00 97.2 123 30 113/20 98 Nasal Cannula 3.0 04/18/16 15:00 128 38 113/70 98 Nasal Cannula 3.0 04/18/16 14:00 129 45 116/16 98 Nasal Cannula 3.0 04/18/16 13:00 132 48 121/28 93 Nasal Cannula 3.0 04/18/16 12:00 98.3 133 48 121/38 93 Nasal Cannula 3.0 04/18/16 12:00 134 04/18/16 11:00 124 38 110/25 93 Nasal Cannula 3.0 Intake and Output 04/18/16 04/19/16 19:00 07:00 Intake Total 1650.333 ml 1855 ml Output Total 540 ml 420 ml Balance 1110.333 ml 1435 ml Intake Free Water 250 ml 160 ml IV Total 1330.333 ml 1305 ml Tube Feeding 70 ml 390 ml Output Urine Total 540 ml 420 ml Laboratory Tests 04/18/16 13:12: Arterial Blood pH 7.440, Arterial Blood Partial Pressure CO2 42.7, Arterial Blood Partial Pressure O2 58.3L, Arterial Blood HCO3 28.8H, Arterial Blood Oxygen Saturation 90.3L, Arterial Blood Base Excess 4.3, Fredi Test Positive 04/18/16 14:00: Urine Color Yellow, Urine Appearance Clear, Urine pH 5, Urine Specific [place] 1.020, Urine Protein 2+H, Urine Glucose (UA) Negative, Urine Ketones 1+H, Urine Occult Blood 1+H, Urine Nitrite Negative, Urine Bilirubin Negative, Urine Urobilinogen Normal, Urine Leukocyte Esterase 1+H, Urine RBC 0-2H, Urine WBC 0-2 , Urine Squamous Epithelial Cells None, Urine Bacteria ModerateH, Urine Eosinophils None seen, Urine Random Sodium 14, Urine Random Chloride 26, Urine Potassium Timed 115 04/18/16 17:40: Urine Legionella Antigen [Pending] 04/19/16 05:00: White Blood Count 15.2H, Red Blood Count 3.29L, Hemoglobin 10.8L, Hematocrit 34.8L, Mean Corpuscular Volume 106H, Mean Corpuscular Hemoglobin 32.8H, Mean Corpuscular Hemoglobin Concent 31.0L, Red Cell Distribution Width 13.1, Platelet Count 122L, Mean Platelet Volume 11.6H, Neutrophils (%) (Auto) , Lymphocytes (%) (Auto) , Monocytes (%) (Auto) , Eosinophils (%) (Auto) , Basophils (%) (Auto) , Differential Total Cells Counted 100, Neutrophils % ( Manual) 83H, Lymphocytes % (Manual) 6L, Monocytes % (Manual) 1, Eosinophils % ( Manual) 0, Basophils % (Manual) 0, Band Neutrophils 10H, Platelet Estimate Adequate, Platelet Morphology Normal, Hypochromasia 1+, Macrocytosis 1+, Sodium Level 160H, Potassium Level 4.0, Chloride Level 117H, Carbon Dioxide Level 32H, Anion Gap 11, Blood Urea Nitrogen 36H, Creatinine 0.8, Estimat Glomerular Filtration Rate , Glucose Level 161H, Uric Acid 5.5, Calcium Level 8.8, Phosphorus Level 3.7, Magnesium Level 2.5, Total Bilirubin 0.6, Gamma Glutamyl Transpeptidase 30, Aspartate Amino Transf (AST/SGOT) 18, Alanine Aminotransferase (ALT/SGPT) 35, Alkaline Phosphatase 54, Total Creatine Kinase 111, C-Reactive Protein, Quantitative 8.0H, Pro-B-Type Natriuretic Peptide 270, Total Protein 6.8, Albumin 2.6L, Globulin 4.2, Albumin/Globulin Ratio 0.6L, Digoxin Level < 0.3L 04/19/16 09:45: Arterial Blood pH 7.322L, Arterial Blood Partial Pressure CO2 50.8H, Arterial Blood Partial Pressure O2 103.6H, Arterial Blood HCO3 25.7, Arterial Blood Oxygen Saturation 96.9, Arterial Blood Base Excess -0.7, Fredi Test Positive Height (Feet): 5 Height (Inches): 7.00 Weight (Pounds): 120 General Appearance: moderate distress EENT: pale conjunctivae Neck: normal alignment Cardiovascular: normal rate Respiratory/Chest: decreased breath sounds Abdomen: normal bowel sounds Objective Current Medications Medications (Trade) Dose Ordered Sig/Joy Route PRN Reason Start Time Stop Time Status Last Admin Dose Admin Acetaminophen (Tylenol) 650 mg Q4H PRN ORAL fever 04/18/16 07:45 05/18/16 07:44 Albuterol/ Ipratropium (DuoNeb 0.5-3(2.5)mg/3ml) 3 ml Q4H PRN HHN Shortness of Breath 04/18/16 07:45 04/23/16 07:44 Cefepime HCl/ Dextrose (Maxipime/D5W 50ml) 55 ml @ 110 mls/hr EVERY 12 HOURS IVPB 04/18/16 09:00 04/25/16 08:59 04/19/16 08:12 Dextrose (Dextrose 50%) STAT PRN IV Hypoglycemia 04/18/16 09:30 05/18/16 09:29 Digoxin (Lanoxin) 0.125 mg DAILY ORAL 04/18/16 09:00 05/18/16 08:59 04/19/16 08:12 Enoxaparin Sodium (Lovenox) 40 mg DAILY SUBQ 04/18/16 09:00 05/18/16 08:59 04/19/16 08:11 Hydrocortisone (Solu-CORTEF) 100 mg EVERY 8 HOURS IV 04/18/16 14:00 05/18/16 13:59 04/19/16 06:35 Insulin Aspart (NovoLOG) EVERY 6 HOURS SUBQ 04/19/16 00:00 05/19/16 00:00 04/19/16 06:27 Insulin Detemir (Levemir) 10 units Q12HR@0600,1800 SUBQ 04/19/16 06:00 05/19/16 05:59 04/19/16 06:28 Lactulose (Cephulac) 30 gm DAILYPRN PRN ORAL Constipation 04/18/16 08:00 05/18/16 07:59 Metronidazole 100 ml @ 100 mls/hr Q8HR IV 04/18/16 14:00 04/25/16 13:59 04/19/16 06:25 Morphine Sulfate (Morphine Sulfate) 2 mg Q4H PRN IVP Moderate Pain (Pain Scale 4-6) 04/18/16 07:45 04/25/16 07:44 04/18/16 15:10 Nitroglycerin 0.4 mg 0.4 mg Q5MIN X3 DOSES PRN SL Prn Chest Pain 04/18/16 07:45 05/18/16 07:44 Ondansetron HCl (Zofran) 4 mg Q4H PRN IVP Nausea & Vomiting 04/18/16 08:00 05/18/16 07:59 04/19/16 08:11 Pantoprazole (Protonix) 40 mg DAILY IVP 04/18/16 09:00 05/18/16 08:59 04/19/16 08:11 Polyethylene Glycol (Miralax) 17 gm DAILYPRN PRN ORAL Constipation 04/18/16 07:45 05/18/16 07:44 Sodium Chloride 1,000 ml @ 100 mls/hr Q10H IV 04/18/16 09:00 05/18/16 08:59 04/19/16 06:26 Temazepam (Restoril) 15 mg HSPRN PRN ORAL Insomnia 04/18/16 07:45 04/25/16 07:44 Vancomycin HCl 1 ea 1 ea DAILYPRN PRN MISC Per rx protocol 04/18/16 10:30 05/18/16 10:29 Vancomycin HCl/ Dextrose (Vancomycin/D5W 250ml) 275 ml @ 183.333 mls/hr Q24H IVPB 04/18/16 11:00 04/23/16 10:59 04/18/16 11:52 Item Value Date Time Bedside Blood Glucose 127 mg/dl H 04/19/16 0628 Bedside Blood Glucose 219 mg/dl H 04/19/16 0011 Bedside Blood Glucose 183 mg/dl H 04/18/16 1845 Bedside Blood Glucose 192 mg/dl H 04/18/16 1157 Bedside Blood Glucose 141 mg/dl H 04/18/16 1027 JAGRUTI MANN Apr 19, 2016 10:30
[2016-04-19] MEDS: Vancomycin 1250mg/D5W 250ml IVPB SCH ×2 (11:00)
--- NOTE | 2016-04-19 11:55 | General Progress Note ---
Assessment/Plan Status: stable - from renal stand Assessment/Plan Acute Renal failure- due to sepsis and shock Dehydration and volume depletion component- and HyperNatremia Other: -CVA (cerebral vascular accident) -Diabetes -G tube feedings -Left hemiparesis Plan: Hydrate- Antibiotics- Monitor renal parameters- Avoid Nephrotoxics- Subjective ROS Limited/Unobtainable: No Constitutional: Reports: malaise, weakness Allergies: Coded Allergies: No Known Allergies (Unverified , 10/19/15) Objective Last 24 Hour Vital Signs Date Time Temp Pulse Resp B/P Pulse Ox O2 Delivery O2 Flow Rate FiO2 04/19/16 11:00 110 32 136/85 99 Nasal Cannula 3.0 04/19/16 10:00 107 33 120/43 97 Nasal Cannula 3.0 04/19/16 09:00 99 33 124/56 100 Nasal Cannula 3.0 04/19/16 08:12 112 04/19/16 08:00 107 04/19/16 08:00 98.0 131 33 131/56 97 Nasal Cannula 3.0 04/19/16 07:13 100 Nasal Cannula 2.0 28 04/19/16 07:12 114 20 Nasal Cannula 2.0 28 04/19/16 07:10 Nasal Cannula 2.0 28 04/19/16 07:00 109 33 124/65 97 Nasal Cannula 3.0 04/19/16 06:00 112 33 112/51 97 Nasal Cannula 3.0 04/19/16 05:00 115 33 96/51 97 Nasal Cannula 3.0 04/19/16 04:00 97.9 115 30 116/40 97 Nasal Cannula 3.0 04/19/16 04:00 111 04/19/16 03:00 117 34 111/36 97 Nasal Cannula 3.0 04/19/16 02:00 120 38 132/60 97 Nasal Cannula 3.0 04/19/16 01:00 119 39 132/60 97 Nasal Cannula 3.0 04/19/16 00:00 97.2 113 31 124/66 97 Nasal Cannula 3.0 04/19/16 00:00 108 04/18/16 23:00 110 31 127/50 97 Nasal Cannula 3.0 04/18/16 22:00 111 31 121/70 97 Nasal Cannula 3.0 113 04/18/16 21:00 111 30 108/41 97 Nasal Cannula 3.0 04/18/16 20:00 98.5 115 34 109/43 98 Nasal Cannula 3.0 04/18/16 20:00 115 04/18/16 19:00 110 30 102/55 99 Nasal Cannula 3.0 04/18/16 18:00 117 28 93/45 99 Nasal Cannula 3.0 04/18/16 17:00 122 35 118/19 98 Nasal Cannula 3.0 04/18/16 16:00 124 04/18/16 16:00 97.2 123 30 113/20 98 Nasal Cannula 3.0 04/18/16 15:00 128 38 113/70 98 Nasal Cannula 3.0 04/18/16 14:00 129 45 116/16 98 Nasal Cannula 3.0 04/18/16 13:00 132 48 121/28 93 Nasal Cannula 3.0 04/18/16 12:00 98.3 133 48 121/38 93 Nasal Cannula 3.0 04/18/16 12:00 134 Intake and Output 04/18/16 04/19/16 19:00 07:00 Intake Total 1650.333 ml 1855 ml Output Total 540 ml 420 ml Balance 1110.333 ml 1435 ml Intake Free Water 250 ml 160 ml IV Total 1330.333 ml 1305 ml Tube Feeding 70 ml 390 ml Output Urine Total 540 ml 420 ml Laboratory Tests 04/18/16 13:12: Arterial Blood pH 7.440, Arterial Blood Partial Pressure CO2 42.7, Arterial Blood Partial Pressure O2 58.3L, Arterial Blood HCO3 28.8H, Arterial Blood Oxygen Saturation 90.3L, Arterial Blood Base Excess 4.3, Fredi Test Positive 04/18/16 14:00: Urine Color Yellow, Urine Appearance Clear, Urine pH 5, Urine Specific [place] 1.020, Urine Protein 2+H, Urine Glucose (UA) Negative, Urine Ketones 1+H, Urine Occult Blood 1+H, Urine Nitrite Negative, Urine Bilirubin Negative, Urine Urobilinogen Normal, Urine Leukocyte Esterase 1+H, Urine RBC 0-2H, Urine WBC 0-2 , Urine Squamous Epithelial Cells None, Urine Bacteria ModerateH, Urine Eosinophils None seen, Urine Random Sodium 14, Urine Random Chloride 26, Urine Potassium Timed 115 04/18/16 17:40: Urine Legionella Antigen [Pending] 04/19/16 05:00: White Blood Count 15.2H, Red Blood Count 3.29L, Hemoglobin 10.8L, Hematocrit 34.8L, Mean Corpuscular Volume 106H, Mean Corpuscular Hemoglobin 32.8H, Mean Corpuscular Hemoglobin Concent 31.0L, Red Cell Distribution Width 13.1, Platelet Count 122L, Mean Platelet Volume 11.6H, Neutrophils (%) (Auto) , Lymphocytes (%) (Auto) , Monocytes (%) (Auto) , Eosinophils (%) (Auto) , Basophils (%) (Auto) , Differential Total Cells Counted 100, Neutrophils % ( Manual) 83H, Lymphocytes % (Manual) 6L, Monocytes % (Manual) 1, Eosinophils % ( Manual) 0, Basophils % (Manual) 0, Band Neutrophils 10H, Platelet Estimate Adequate, Platelet Morphology Normal, Hypochromasia 1+, Macrocytosis 1+, Sodium Level 160H, Potassium Level 4.0, Chloride Level 117H, Carbon Dioxide Level 32H, Anion Gap 11, Blood Urea Nitrogen 36H, Creatinine 0.8, Estimat Glomerular Filtration Rate , Glucose Level 161H, Uric Acid 5.5, Calcium Level 8.8, Phosphorus Level 3.7, Magnesium Level 2.5, Total Bilirubin 0.6, Gamma Glutamyl Transpeptidase 30, Aspartate Amino Transf (AST/SGOT) 18, Alanine Aminotransferase (ALT/SGPT) 35, Alkaline Phosphatase 54, Total Creatine Kinase 111, C-Reactive Protein, Quantitative 8.0H, Pro-B-Type Natriuretic Peptide 270, Total Protein 6.8, Albumin 2.6L, Globulin 4.2, Albumin/Globulin Ratio 0.6L, Digoxin Level < 0.3L 04/19/16 09:45: Arterial Blood pH 7.322L, Arterial Blood Partial Pressure CO2 50.8H, Arterial Blood Partial Pressure O2 103.6H, Arterial Blood HCO3 25.7, Arterial Blood Oxygen Saturation 96.9, Arterial Blood Base Excess -0.7, Fredi Test Positive Height (Feet): 5 Height (Inches): 7.00 Weight (Pounds): 120 General Appearance: mild distress Cardiovascular: tachycardia Respiratory/Chest: decreased breath sounds Abdomen: distended CRISTY MADDOX Apr 19, 2016 11:55
--- NOTE | 2016-04-19 11:58 | Pulmonolgy Critical Care Note ---
Critical Care - Asmt/Plan Problems: (1) Septic shock (2) Hypernatremia (3) CVA (cerebral vascular accident) (4) senior living resident (5) Diabetes (6) G tube feedings (7) Left hemiparesis (8) ATN (acute tubular necrosis) Respiratory: adjust tidal volume, monitor respiratory rate Cardiac: continue to monitor HR/BP Renal: F/U I&O, keep IV fluid, check electrolytes Infectious Disease: check cultures, continue antibiotics Gastrointestinal: continue feedings/current rate Endocrine: monitor blood sugar, check TSH Neurologic: PRN Ativan, PRN Morphine, keep patient comfortable Prophylaxis: Protonix Disposition: transfer to [facility] Notes Reviewed: pepper cutter, cardio, renal Discussed with: nurses, supervisor case loadinglearning and development manager - Objective Last 24 Hour Vital Signs Date Time Temp Pulse Resp B/P Pulse Ox O2 Delivery O2 Flow Rate FiO2 04/19/16 11:00 110 32 136/85 99 Nasal Cannula 3.0 04/19/16 10:00 107 33 120/43 97 Nasal Cannula 3.0 04/19/16 09:00 99 33 124/56 100 Nasal Cannula 3.0 04/19/16 08:12 112 04/19/16 08:00 107 04/19/16 08:00 98.0 131 33 131/56 97 Nasal Cannula 3.0 04/19/16 07:13 100 Nasal Cannula 2.0 28 04/19/16 07:12 114 20 Nasal Cannula 2.0 28 04/19/16 07:10 Nasal Cannula 2.0 28 04/19/16 07:00 109 33 124/65 97 Nasal Cannula 3.0 04/19/16 06:00 112 33 112/51 97 Nasal Cannula 3.0 04/19/16 05:00 115 33 96/51 97 Nasal Cannula 3.0 04/19/16 04:00 97.9 115 30 116/40 97 Nasal Cannula 3.0 04/19/16 04:00 111 04/19/16 03:00 117 34 111/36 97 Nasal Cannula 3.0 04/19/16 02:00 120 38 132/60 97 Nasal Cannula 3.0 04/19/16 01:00 119 39 132/60 97 Nasal Cannula 3.0 04/19/16 00:00 97.2 113 31 124/66 97 Nasal Cannula 3.0 04/19/16 00:00 108 04/18/16 23:00 110 31 127/50 97 Nasal Cannula 3.0 04/18/16 22:00 111 31 121/70 97 Nasal Cannula 3.0 113 04/18/16 21:00 111 30 108/41 97 Nasal Cannula 3.0 04/18/16 20:00 98.5 115 34 109/43 98 Nasal Cannula 3.0 04/18/16 20:00 115 04/18/16 19:00 110 30 102/55 99 Nasal Cannula 3.0 04/18/16 18:00 117 28 93/45 99 Nasal Cannula 3.0 04/18/16 17:00 122 35 118/19 98 Nasal Cannula 3.0 04/18/16 16:00 124 04/18/16 16:00 97.2 123 30 113/20 98 Nasal Cannula 3.0 04/18/16 15:00 128 38 113/70 98 Nasal Cannula 3.0 04/18/16 14:00 129 45 116/16 98 Nasal Cannula 3.0 04/18/16 13:00 132 48 121/28 93 Nasal Cannula 3.0 04/18/16 12:00 98.3 133 48 121/38 93 Nasal Cannula 3.0 04/18/16 12:00 134 Status: somnolent Condition: critical HEENT: atraumatic, normocephalic Lungs: clear Heart: HR/BP unstable Abdomen: soft, non-tender Extremities: no C/C/E, edema Decubiti: stage Micro: Microbiology Date/Time Source Procedure Growth Status 04/18/16 03:08 Blood Blood Culture - Preliminary NO GROWTH AFTER 24 HOURS Resulted 04/18/16 03:08 Blood Blood Culture - Preliminary Resulted 04/18/16 09:50 Nasopharynx Influenza Types A,B Antigen (DALJIT) - Final Complete 04/18/16 14:00 Urine,Clean Catch Urine Culture - Preliminary NO GROWTH Resulted 04/18/16 07:45 Arm Right Gram Stain - Final Resulted 04/18/16 07:45 Arm Right Wound Culture - Preliminary Resulted Accucheck: 127 Critical Care - Subjective ROS Limited/Unobtainable: No ICU Day: 3 Condition: critical FI02: 28 Sputum Amount: Small Fluids: 1/2 NS 100 cc.hour Tube Feeding Amount: 45 I&O: Intake and Output 04/18/16 04/19/16 19:00 07:00 Intake Total 1650.333 ml 1855 ml Output Total 540 ml 420 ml Balance 1110.333 ml 1435 ml Intake Free Water 250 ml 160 ml IV Total 1330.333 ml 1305 ml Tube Feeding 70 ml 390 ml Output Urine Total 540 ml 420 ml CXR: no change, elevated right diagphragm Labs: Laboratory Tests Test 04/18/16 13:12 04/18/16 14:00 04/18/16 17:40 04/19/16 05:00 Arterial Blood pH 7.440 (7.350-7.450) Arterial Blood Partial Pressure CO2 42.7 mmHg (35.0-45.0) Arterial Blood Partial Pressure O2 58.3 mmHg (75.0-100.0) L Arterial Blood HCO3 28.8 mmol/L (22.0-26.0) H Arterial Blood Oxygen Saturation 90.3 % (92.0-98.0) L Arterial Blood Base Excess 4.3 Fredi Test Positive Urine Color Yellow Urine Appearance Clear Urine pH 5 (4.5-8.0) Urine Specific [place] 1.020 (1.005-1.035) Urine Protein 2+ (NEGATIVE) H Urine Glucose (UA) Negative (NEGATIVE) Urine Ketones 1+ (NEGATIVE) H Urine Occult Blood 1+ (NEGATIVE) H Urine Nitrite Negative (NEGATIVE) Urine Bilirubin Negative (NEGATIVE) Urine Urobilinogen Normal MG/DL (0.0-1.0) Urine Leukocyte Esterase 1+ (NEGATIVE) H Urine RBC 0-2 /HPF (0 - 0) H Urine WBC 0-2 /HPF (0 - 0) Urine Squamous Epithelial Cells None /LPF (NONE/OCC) Urine Bacteria Moderate /HPF (NONE) H Urine Eosinophils None seen Urine Random Sodium 14 mmol/L Urine Random Chloride 26 mmol/L Urine Potassium Timed 115 mmol/L Urine Legionella Antigen Pending White Blood Count 15.2 K/UL (4.8-10.8) H Red Blood Count 3.29 M/UL (4.70-6.10) L Hemoglobin 10.8 G/DL (14.2-18.0) L Hematocrit 34.8 % (42.0-52.0) L Mean Corpuscular Volume 106 FL (80-99) H Mean Corpuscular Hemoglobin 32.8 PG (27.0-31.0) H Mean Corpuscular Hemoglobin Concent 31.0 G/DL (32.0-36.0) L Red Cell Distribution Width 13.1 % (11.6-14.8) Platelet Count 122 K/UL (150-450) L Mean Platelet Volume 11.6 FL (6.5-10.1) H Neutrophils (%) (Auto) % (45.0-75.0) Lymphocytes (%) (Auto) % (20.0-45.0) Monocytes (%) (Auto) % (1.0-10.0) Eosinophils (%) (Auto) % (0.0-3.0) Basophils (%) (Auto) % (0.0-2.0) Differential Total Cells Counted 100 Neutrophils % (Manual) 83 % (45-75) H Lymphocytes % (Manual) 6 % (20-45) L Monocytes % (Manual) 1 % (1-10) Eosinophils % (Manual) 0 % (0-3) Basophils % (Manual) 0 % (0-2) Band Neutrophils 10 % (0-8) H Platelet Estimate Adequate Platelet Morphology Normal Hypochromasia 1+ Macrocytosis 1+ Sodium Level 160 mEQ/L (135-145) H Potassium Level 4.0 mEQ/L (3.4-4.9) Chloride Level 117 mEQ/L (98-107) H Carbon Dioxide Level 32 mEQ/L (20-30) H Anion Gap 11 (5-15) Blood Urea Nitrogen 36 mg/dL (7-23) H Creatinine 0.8 mg/dL (0.7-1.2) Estimat Glomerular Filtration Rate mL/min (>60) Glucose Level 161 mg/dL (74-106) H Uric Acid 5.5 mg/dL (3.0-7.5) Calcium Level 8.8 mg/dL (8.6-10.2) Phosphorus Level 3.7 mg/dL (2.5-4.8) Magnesium Level 2.5 mg/dL (1.7-2.5) Total Bilirubin 0.6 mg/dL (0.0-1.2) Gamma Glutamyl Transpeptidase 30 U/L (8-61) Aspartate Amino Transf (AST/SGOT) 18 U/L (5-40) Alanine Aminotransferase (ALT/SGPT) 35 U/L (3-41) Alkaline Phosphatase 54 U/L (40-129) Total Creatine Kinase 111 U/L (38-174) C-Reactive Protein, Quantitative 8.0 mg/dL (< 0.5) H Pro-B-Type Natriuretic Peptide 270 pg/mL (0-450) Total Protein 6.8 g/dL (6.6-8.7) Albumin 2.6 g/dL (3.5-5.2) L Globulin 4.2 g/dL Albumin/Globulin Ratio 0.6 (1.0-2.7) L Digoxin Level < 0.3 ng/mL (0.5-2.0) L Test 04/19/16 09:45 Arterial Blood pH 7.322 (7.350-7.450) Arterial Blood Partial Pressure CO2 50.8 mmHg (35.0-45.0) H Arterial Blood Partial Pressure O2 103.6 mmHg (75.0-100.0) H Arterial Blood HCO3 25.7 mmol/L (22.0-26.0) Arterial Blood Oxygen Saturation 96.9 % (92.0-98.0) Arterial Blood Base Excess -0.7 Fredi Test Positive JAVIER BANKS Apr 19, 2016 11:58
--- NOTE | 2016-04-19 19:23 | Internal Med Progress Note ---
Subjective Date of Service: Apr 19, 2016 Physician Name Renetta Olvera Attending Physician Adalid Izaguirre MD Current Medications Medications (Trade) Dose Ordered Sig/Joy Route PRN Reason Start Time Stop Time Status Last Admin Dose Admin Acetaminophen (Tylenol) 650 mg Q4H PRN ORAL fever 04/18/16 07:45 05/18/16 07:44 Albuterol/ Ipratropium (DuoNeb 0.5-3(2.5)mg/3ml) 3 ml Q4H PRN HHN Shortness of Breath 04/18/16 07:45 04/23/16 07:44 Cefepime HCl/ Dextrose (Maxipime/D5W 50ml) 55 ml @ 110 mls/hr EVERY 12 HOURS IVPB 04/18/16 09:00 04/25/16 08:59 04/19/16 08:12 Dextrose (Dextrose 50%) STAT PRN IV Hypoglycemia 04/18/16 09:30 05/18/16 09:29 Digoxin (Lanoxin) 0.125 mg DAILY ORAL 04/18/16 09:00 05/18/16 08:59 04/19/16 08:12 Enoxaparin Sodium (Lovenox) 40 mg DAILY SUBQ 04/18/16 09:00 05/18/16 08:59 04/19/16 08:11 Hydrocortisone (Solu-CORTEF) 100 mg EVERY 8 HOURS IV 04/18/16 14:00 05/18/16 13:59 04/19/16 14:00 Insulin Aspart (NovoLOG) EVERY 6 HOURS SUBQ 04/19/16 00:00 05/19/16 00:00 04/19/16 18:01 Insulin Detemir (Levemir) 10 units Q12HR@0600,1800 SUBQ 04/19/16 06:00 05/19/16 05:59 04/19/16 18:00 Lactulose (Cephulac) 30 gm DAILYPRN PRN ORAL Constipation 04/18/16 08:00 05/18/16 07:59 Metronidazole 100 ml @ 100 mls/hr Q8HR IV 04/18/16 14:00 04/25/16 13:59 04/19/16 14:00 Morphine Sulfate (Morphine Sulfate) 2 mg Q4H PRN IVP Moderate Pain (Pain Scale 4-6) 04/18/16 07:45 04/25/16 07:44 04/18/16 15:10 Nitroglycerin 0.4 mg 0.4 mg Q5MIN X3 DOSES PRN SL Prn Chest Pain 04/18/16 07:45 05/18/16 07:44 Ondansetron HCl (Zofran) 4 mg Q4H PRN IVP Nausea & Vomiting 04/18/16 08:00 05/18/16 07:59 04/19/16 08:11 Pantoprazole (Protonix) 40 mg DAILY IVP 04/18/16 09:00 05/18/16 08:59 04/19/16 08:11 Polyethylene Glycol (Miralax) 17 gm DAILYPRN PRN ORAL Constipation 04/18/16 07:45 05/18/16 07:44 Sodium Chloride 1,000 ml @ 100 mls/hr Q10H IV 04/18/16 09:00 05/18/16 08:59 04/19/16 14:51 Temazepam (Restoril) 15 mg HSPRN PRN ORAL Insomnia 04/18/16 07:45 04/25/16 07:44 Vancomycin HCl 1 ea 1 ea DAILYPRN PRN MISC Per rx protocol 04/18/16 10:30 05/18/16 10:29 Vancomycin HCl/ Dextrose (Vancomycin/D5W 250ml) 275 ml @ 183.333 mls/hr Q24H IVPB 04/18/16 11:00 04/23/16 10:59 04/19/16 11:00 Allergies: Coded Allergies: No Known Allergies (Unverified , 10/19/15) ROS Limited/Unobtainable: Yes Subjective 75 YO M admitted with fever. Cover for Int Med-Dr Izaguirre. ICU Objective Last Vital Signs Date Time Temp Pulse Resp B/P Pulse Ox O2 Delivery O2 Flow Rate FiO2 04/19/16 19:00 95 22 131/59 99 Nasal Cannula 3.0 04/19/16 16:01 98.0 04/19/16 07:13 28 Laboratory Tests Test 04/19/16 05:00 04/19/16 09:45 White Blood Count 15.2 K/UL (4.8-10.8) H Red Blood Count 3.29 M/UL (4.70-6.10) L Hemoglobin 10.8 G/DL (14.2-18.0) L Hematocrit 34.8 % (42.0-52.0) L Mean Corpuscular Volume 106 FL (80-99) H Mean Corpuscular Hemoglobin 32.8 PG (27.0-31.0) H Mean Corpuscular Hemoglobin Concent 31.0 G/DL (32.0-36.0) L Red Cell Distribution Width 13.1 % (11.6-14.8) Platelet Count 122 K/UL (150-450) L Mean Platelet Volume 11.6 FL (6.5-10.1) H Neutrophils (%) (Auto) % (45.0-75.0) Lymphocytes (%) (Auto) % (20.0-45.0) Monocytes (%) (Auto) % (1.0-10.0) Eosinophils (%) (Auto) % (0.0-3.0) Basophils (%) (Auto) % (0.0-2.0) Differential Total Cells Counted 100 Neutrophils % (Manual) 83 % (45-75) H Lymphocytes % (Manual) 6 % (20-45) L Monocytes % (Manual) 1 % (1-10) Eosinophils % (Manual) 0 % (0-3) Basophils % (Manual) 0 % (0-2) Band Neutrophils 10 % (0-8) H Platelet Estimate Adequate Platelet Morphology Normal Hypochromasia 1+ Macrocytosis 1+ Sodium Level 160 mEQ/L (135-145) H Potassium Level 4.0 mEQ/L (3.4-4.9) Chloride Level 117 mEQ/L (98-107) H Carbon Dioxide Level 32 mEQ/L (20-30) H Anion Gap 11 (5-15) Blood Urea Nitrogen 36 mg/dL (7-23) H Creatinine 0.8 mg/dL (0.7-1.2) Estimat Glomerular Filtration Rate mL/min (>60) Glucose Level 161 mg/dL (74-106) H Uric Acid 5.5 mg/dL (3.0-7.5) Calcium Level 8.8 mg/dL (8.6-10.2) Phosphorus Level 3.7 mg/dL (2.5-4.8) Magnesium Level 2.5 mg/dL (1.7-2.5) Total Bilirubin 0.6 mg/dL (0.0-1.2) Gamma Glutamyl Transpeptidase 30 U/L (8-61) Aspartate Amino Transf (AST/SGOT) 18 U/L (5-40) Alanine Aminotransferase (ALT/SGPT) 35 U/L (3-41) Alkaline Phosphatase 54 U/L (40-129) Total Creatine Kinase 111 U/L (38-174) C-Reactive Protein, Quantitative 8.0 mg/dL (< 0.5) H Pro-B-Type Natriuretic Peptide 270 pg/mL (0-450) Total Protein 6.8 g/dL (6.6-8.7) Albumin 2.6 g/dL (3.5-5.2) L Globulin 4.2 g/dL Albumin/Globulin Ratio 0.6 (1.0-2.7) L Digoxin Level < 0.3 ng/mL (0.5-2.0) L Arterial Blood pH 7.322 (7.350-7.450) Arterial Blood Partial Pressure CO2 50.8 mmHg (35.0-45.0) H Arterial Blood Partial Pressure O2 103.6 mmHg (75.0-100.0) H Arterial Blood HCO3 25.7 mmol/L (22.0-26.0) Arterial Blood Oxygen Saturation 96.9 % (92.0-98.0) Arterial Blood Base Excess -0.7 Fredi Test Positive Microbiology Date/Time Source Procedure Growth Status 04/18/16 03:08 Blood Blood Culture - Preliminary NO GROWTH AFTER 24 HOURS Resulted 04/18/16 03:08 Blood Blood Culture - Preliminary Resulted 04/18/16 09:50 Nasopharynx Influenza Types A,B Antigen (DALJIT) - Final Complete 04/18/16 14:00 Urine,Clean Catch Urine Culture - Preliminary NO GROWTH Resulted 04/18/16 07:45 Arm Right Gram Stain - Final Resulted 04/18/16 07:45 Arm Right Wound Culture - Preliminary Resulted Intake and Output 04/18/16 04/19/16 19:00 07:00 Intake Total 1650.333 ml 1855 ml Output Total 540 ml 420 ml Balance 1110.333 ml 1435 ml Intake Free Water 250 ml 160 ml IV Total 1330.333 ml 1305 ml Tube Feeding 70 ml 390 ml Output Urine Total 540 ml 420 ml Assessment/Plan Problem List: (1) Leukocytosis (2) Pemphigus Assessment & Plan: On chronic prednisone therapy. (3) Sepsis Assessment & Plan: Await culture results. See ID note. (4) Cerebral vascular disease (5) Hemiplegia affecting left nondominant side (6) Aphasia as late effect of cerebrovascular accident (7) Atrial fibrillation Assessment & Plan: Cont novolog and levemir. See endocrinology note. (8) Hypertension (9) Diabetes mellitus (10) Dysphagia as late effect of cerebrovascular accident (CVA) (11) Pneumonia Assessment & Plan: ?aspiration? See pulmonary note. Cont vanco, flagyl and cefepime per ID (12) G tube feedings (13) Atrial fibrillation and flutter (14) Septic shock (15) Hypernatremia Assessment & Plan: See nephrology note. Status: not improved RENETTA OLVERA Apr 19, 2016 19:23
[2016-04-20] VITALS (10 sets, daily range): BP systolic 115–154; BP diastolic 51–77
[2016-04-20] MEDS: NovoLOG Insulin Flexpen SUBQ SCH ×4 (00:32→19:18)
[2016-04-20] MEDS ORDERED: Nitroglycerin Subl 0.4mg tab (Bottle Of 25) SL PRN (05:45)
[2016-04-20] MEDS: metroNIDAZOLE 500mg 100 ML IV SCH ×3 (06:02→22:59)
[2016-04-20] MEDS: Levemir Flexpen SUBQ SCH ×2 (06:07→19:18)
[2016-04-20] MEDS: Hydrocortisone 100mg Inj IV SCH ×3 (06:12→22:17)
[2016-04-20 06:23] LABS: ALANINE AMINOTRANSFERASE 26 U/L (3-41); ALBUMIN/GLOBULIN RATIO 0.5 (1.0-2.7); ANION GAP 9 (5-15); ASPARTATE AMINO TRANSFERASE 14 U/L (5-40); CALCIUM 8.5 mg/dL (8.6-10.2); CARBON DIOXIDE 29 mEQ/L (20-30); CHLORIDE 115 mEQ/L (98-107); CREATININE 0.7 mg/dL (0.7-1.2); CRP QUANT 5.1 mg/dL (< 0.5); HEMOLYSIS 8; MAGNESIUM 2.5 mg/dL (1.7-2.5); PHOSPHORUS 3.1 mg/dL (2.5-4.8); SODIUM 153 mEQ/L (135-145); TOTAL PROTEIN 6.4 g/dL (6.6-8.7)
[2016-04-20 06:31] LABS: MEAN CORPUSCULAR HEMOGLOBIN 33.4 PG (27.0-31.0); MEAN CORPUSCULAR HGB CONC 30.9 G/DL (32.0-36.0); MEAN CORPUSCULAR VOLUME 108 FL (80-99); MEAN PLATELET VOLUME 10.5 FL (6.5-10.1); PLATELET COUNT 100 K/UL (150-450); RED BLOOD COUNT 2.86 M/UL (4.70-6.10); RED CELL DISTRIBUTION WIDTH 13.2 % (11.6-14.8); WHITE BLOOD COUNT 12.6 K/UL (4.8-10.8)
[2016-04-20] MEDS ORDERED: Morphine Sulfate 2mg/ml Inj IVP PRN (07:45)
[2016-04-20] MEDS ORDERED: DuoNeb 0.5-3(2.5)mg/3ml neb HHN PRN (07:45)
[2016-04-20] MEDS ORDERED: Miralax 17gm pkt ORAL PRN (07:45)
[2016-04-20] MEDS ORDERED: Lactulose 20gm/30ml UDC ORAL PRN (08:00)
--- NOTE | 2016-04-20 08:20 | General Progress Note ---
Assessment/Plan Status: stable - from renal stand- Assessment/Plan Acute Renal failure- due to sepsis and shock Dehydration and volume depletion component- and HyperNatremia improving Other: -CVA (cerebral vascular accident) -Diabetes -G tube feedings -Left hemiparesis Plan: Hydrate- Antibiotics- Monitor renal parameters- Avoid Nephrotoxics- per orders- Subjective ROS Limited/Unobtainable: Yes Allergies: Coded Allergies: No Known Allergies (Unverified , 10/19/15) Objective Last 24 Hour Vital Signs Date Time Temp Pulse Resp B/P Pulse Ox O2 Delivery O2 Flow Rate FiO2 04/20/16 05:00 99 30 122/62 100 Nasal Cannula 1.0 04/20/16 04:22 101 04/20/16 04:00 97.6 90 28 136/51 100 Nasal Cannula 3.0 04/20/16 03:00 104 30 130/60 100 Nasal Cannula 3.0 04/20/16 02:00 103 34 154/77 99 Nasal Cannula 3.0 04/20/16 01:00 99 29 150/71 100 Nasal Cannula 3.0 04/20/16 00:00 97.0 85 24 115/51 100 Nasal Cannula 3.0 04/19/16 23:14 94 04/19/16 23:00 95 29 122/60 100 Nasal Cannula 3.0 04/19/16 22:00 101 31 137/71 99 Nasal Cannula 3.0 04/19/16 21:00 89 25 130/51 99 Nasal Cannula 3.0 04/19/16 20:00 103 04/19/16 20:00 97.2 103 29 136/52 99 Nasal Cannula 3.0 04/19/16 19:44 Nasal Cannula 2.0 28 04/19/16 19:44 100 Nasal Cannula 2.0 28 04/19/16 19:43 105 20 Nasal Cannula 2.0 28 04/19/16 19:00 95 22 131/59 99 Nasal Cannula 3.0 04/19/16 18:00 90 25 127/57 100 Nasal Cannula 3.0 04/19/16 17:00 100 27 118/50 100 Nasal Cannula 3.0 04/19/16 16:01 98.0 97 22 124/54 100 Nasal Cannula 3.0 04/19/16 16:00 97 22 124/54 100 Nasal Cannula 3.0 04/19/16 16:00 97 04/19/16 15:00 113 24 120/57 100 Nasal Cannula 3.0 04/19/16 14:00 103 24 131/50 99 Nasal Cannula 3.0 04/19/16 13:00 102 27 147/71 99 Nasal Cannula 3.0 04/19/16 12:00 102 04/19/16 12:00 98.1 102 32 131/82 99 Nasal Cannula 3.0 04/19/16 11:00 110 32 136/85 99 Nasal Cannula 3.0 04/19/16 10:00 107 33 120/43 97 Nasal Cannula 3.0 04/19/16 09:00 99 33 124/56 100 Nasal Cannula 3.0 Intake and Output 04/19/16 04/20/16 19:00 07:00 Intake Total 2381.3 ml 2050 ml Output Total 465 ml 375 ml Balance 1916.3 ml 1675 ml Intake Free Water 120 ml 500 ml IV Total 1721.3 ml 1100 ml Tube Feeding 540 ml 450 ml Output Urine Total 465 ml 375 ml Laboratory Tests 04/19/16 09:45: Arterial Blood pH 7.322L, Arterial Blood Partial Pressure CO2 50.8H, Arterial Blood Partial Pressure O2 103.6H, Arterial Blood HCO3 25.7, Arterial Blood Oxygen Saturation 96.9, Arterial Blood Base Excess -0.7, Fredi Test Positive 04/20/16 04:00: White Blood Count 12.6H, Red Blood Count 2.86L, Hemoglobin 9.5L, Hematocrit 30.9L, Mean Corpuscular Volume 108H, Mean Corpuscular Hemoglobin 33.4H, Mean Corpuscular Hemoglobin Concent 30.9L, Red Cell Distribution Width 13.2, Platelet Count 100L, Mean Platelet Volume 10.5H, Neutrophils (%) (Auto) , Lymphocytes (%) (Auto) , Monocytes (%) (Auto) , Eosinophils (%) (Auto) , Basophils (%) (Auto) , Neutrophils % (Manual) [Pending], Lymphocytes % (Manual) [Pending], Platelet Estimate [Pending], Platelet Morphology [Pending], Erythrocyte Sedimentation Rate [Pending], Sodium Level 153H, Potassium Level 4.0 , Chloride Level 115H, Carbon Dioxide Level 29, Anion Gap 9, Blood Urea Nitrogen 36H, Creatinine 0.7, Estimat Glomerular Filtration Rate , Glucose Level 238H, Calcium Level 8.5L, Phosphorus Level 3.1, Magnesium Level 2.5, Total Bilirubin 0.3, Aspartate Amino Transf (AST/SGOT) 14, Alanine Aminotransferase (ALT/SGPT) 26, Alkaline Phosphatase 52, C-Reactive Protein, Quantitative 5.1H, Total Protein 6.4L, Albumin 2.2L, Globulin 4.2, Albumin/ Globulin Ratio 0.5L Height (Feet): 5 Height (Inches): 7.00 Weight (Pounds): 120 General Appearance: no apparent distress Neck: stiff neck Cardiovascular: tachycardia Respiratory/Chest: decreased breath sounds Abdomen: distended Objective no change in PE CRISTY MADDOX Apr 20, 2016 08:20
[2016-04-20 08:42] LABS: ERYTHROCYTE SEDIMENTATION RATE 120 MM/HR (0-20)
[2016-04-20] MEDS: Pantoprazole Inj IVP SCH (08:59)
[2016-04-20] MEDS: Digoxin 0.125mg tab ORAL SCH (08:59)
[2016-04-20] MEDS: Enoxaparin 40mg Inj SUBQ SCH (09:00)
--- NOTE | 2016-04-20 09:08 | Cardiology Report ---
APPROVED REPORT EXAM: Two-dimensional and M-mode echocardiogram with Doppler and color Doppler. INDICATION Ejection Fraction Technically difficult study due to poor acoustic windows. Lack of parasternal windows. M-mode measurements not obtainable due to cardiac structure. Normal left ventricular chamber size, systolic function and wall motion. Left ventricular ejection fraction estimated to be 70-75 %. No evidence of left ventricular hypertrophy. Small posterior pericardial effusion. All other cardiac chamber sizes are within normal limits. Focal aortic valve sclerosis with adequate cusp excursion Thickened mitral valve leaflets with normal excursion. Mitral annulus and aortic root calcification. Pulmonic valve not well visualized. Normal tricuspid valve structure. IVC not obtainable. A color flow and spectral Doppler study was performed and revealed: No aortic regurgitation. Mild mitral regurgitation. Left ventricular diastolic dysfunction grade 1. No tricuspid regurgitation. Tricuspid systolic velocities suggests peak right ventricular systolic pressure of 17 mmHg
[2016-04-20] MEDS: Cefepime HCl 1 GM in D5W 55 ML IVPB SCH ×2 (09:45→22:17)
[2016-04-20 11:36] LABS: LYMPHOCYTES % (MANUAL) 12 % (20-45); NEUTROPHILS % (MANUAL) 86 % (45-75); NUCLEATED RED BLOOD CELLS 1 /100 WBC; TOTAL CELLS COUNTED 100
[2016-04-20 11:37] LABS: ANISOCYTOSIS 1+; BAND NEUTROPHILS % (MANUAL) 0 % (0-8); BASOPHILS % (MANUAL) 0 % (0-2); EOSINOPHILS % (MANUAL) 0 % (0-3); HYPOCHROMASIA 2+; MACROCYTES 1+; PLATELET ESTIMATE DECREASED; PLATELET MORPHOLOGY NORMAL
[2016-04-20] MEDS: Vancomycin 1.25 GM in D5W 275 ML IVPB SCH (12:00)
--- NOTE | 2016-04-20 16:23 | Pulmonology Progress Note ---
Assessment/Plan Assessment/Plan Assessment/Plan Problems: (1) Septic shock (2) Pneumonia (3) ATN (acute tubular necrosis) (4) Diabetes (5) G tube feedings (6) Left hemiparesis (7) CVA (cerebral vascular accident) (8) detention resident (9) Gastrostomy in place Assessment/Plan on Flagy, zoyn, vanco blood culture are most likely contaminated check electrolytes continue IV fluids aspiration precaution wound care gtube site care Subjective ROS Limited/Unobtainable: No Constitutional: Reports: anorexia Gastrointestinal/Abdominal: Reports: bloating, constipation, nausea Allergies: Coded Allergies: No Known Allergies (Unverified , 10/19/15) Objective Last 24 Hour Vital Signs Date Time Temp Pulse Resp B/P Pulse Ox O2 Delivery O2 Flow Rate FiO2 04/20/16 16:07 98.4 97 22 123/56 100 Nasal Cannula 2.0 04/20/16 12:00 97.9 79 19 124/61 100 Nasal Cannula 04/20/16 08:59 90 04/20/16 08:00 97.7 90 19 134/67 97 Nasal Cannula 04/20/16 05:00 99 30 122/62 100 Nasal Cannula 1.0 04/20/16 04:22 101 04/20/16 04:00 97.6 90 28 136/51 100 Nasal Cannula 3.0 04/20/16 03:00 104 30 130/60 100 Nasal Cannula 3.0 04/20/16 02:00 103 34 154/77 99 Nasal Cannula 3.0 04/20/16 01:00 99 29 150/71 100 Nasal Cannula 3.0 04/20/16 00:00 97.0 85 24 115/51 100 Nasal Cannula 3.0 04/19/16 23:14 94 04/19/16 23:00 95 29 122/60 100 Nasal Cannula 3.0 04/19/16 22:00 101 31 137/71 99 Nasal Cannula 3.0 04/19/16 21:00 89 25 130/51 99 Nasal Cannula 3.0 04/19/16 20:00 103 04/19/16 20:00 97.2 103 29 136/52 99 Nasal Cannula 3.0 04/19/16 19:44 Nasal Cannula 2.0 28 04/19/16 19:44 100 Nasal Cannula 2.0 28 04/19/16 19:43 105 20 Nasal Cannula 2.0 28 04/19/16 19:00 95 22 131/59 99 Nasal Cannula 3.0 04/19/16 18:00 90 25 127/57 100 Nasal Cannula 3.0 04/19/16 17:00 100 27 118/50 100 Nasal Cannula 3.0 Intake and Output 04/19/16 04/20/16 19:00 07:00 Intake Total 2381.3 ml 2095 ml Output Total 465 ml 375 ml Balance 1916.3 ml 1720 ml Intake Free Water 120 ml 500 ml IV Total 1721.3 ml 1100 ml Tube Feeding 540 ml 495 ml Output Urine Total 465 ml 375 ml General Appearance: no acute distress HEENT: normocephalic, atraumatic, PERRL Respiratory/Chest: chest wall non-tender, decreased breath sounds, accessory muscle use Cardiovascular: normal peripheral pulses, normal rate, regular rhythm, no JVD Abdomen: hypoactive bowel sounds, distended, guarding, tender, rebound tenderness Genitourinary: normal external genitalia Extremities: no cyanosis Skin: no rash, no lesions Neurologic/Psychiatric: machine preservative filler II-XII grossly normal, no motor/sensory deficits Microbiology Date/Time Source Procedure Growth Status 04/18/16 03:08 Blood Blood Culture - Preliminary Resulted 04/18/16 03:08 Blood Blood Culture - Preliminary Staphylococcus Sp Coag Neg Resulted 04/18/16 09:50 Nasopharynx Influenza Types A,B Antigen (DALJIT) - Final Complete 04/18/16 02:30 Nasal Nares MRSA Culture - Final NO METHICILLIN RESISTANT STAPH AUREUS... Complete 04/18/16 14:00 Urine,Clean Catch Urine Culture - Preliminary NO GROWTH AFTER 24 HOURS Resulted 04/18/16 07:45 Arm Right Gram Stain - Final Resulted 04/18/16 07:45 Wound Culture - Preliminary Gram Negative Bacillus 1 Resulted 04/18/16 02:30 Rectum VRE Culture - Final Enterococcus Faecalis - Vre Complete Laboratory Tests 04/20/16 04:00: White Blood Count 12.6H, Red Blood Count 2.86L, Hemoglobin 9.5L, Hematocrit 30.9L, Mean Corpuscular Volume 108H, Mean Corpuscular Hemoglobin 33.4H, Mean Corpuscular Hemoglobin Concent 30.9L, Red Cell Distribution Width 13.2, Platelet Count 100L, Mean Platelet Volume 10.5H, Neutrophils (%) (Auto) , Lymphocytes (%) (Auto) , Monocytes (%) (Auto) , Eosinophils (%) (Auto) , Basophils (%) (Auto) , Differential Total Cells Counted 100, Neutrophils % ( Manual) 86H, Lymphocytes % (Manual) 12L, Monocytes % (Manual) 2, Eosinophils % ( Manual) 0, Basophils % (Manual) 0, Band Neutrophils 0, Nucleated Red Blood Cells 1, Platelet Estimate DecreasedL, Platelet Morphology Normal, Hypochromasia 2+, Anisocytosis 1+, Macrocytosis 1+, Erythrocyte Sedimentation Rate 120H, Sodium Level 153H, Potassium Level 4.0, Chloride Level 115H, Carbon Dioxide Level 29, Anion Gap 9, Blood Urea Nitrogen 36H, Creatinine 0.7, Estimat Glomerular Filtration Rate , Glucose Level 238H, Calcium Level 8.5L, Phosphorus Level 3.1, Magnesium Level 2.5, Total Bilirubin 0.3, Aspartate Amino Transf (AST /SGOT) 14, Alanine Aminotransferase (ALT/SGPT) 26, Alkaline Phosphatase 52, C- Reactive Protein, Quantitative 5.1H, Total Protein 6.4L, Albumin 2.2L, Globulin 4.2, Albumin/Globulin Ratio 0.5L Current Medications Medications (Trade) Dose Ordered Sig/Joy Route PRN Reason Start Time Stop Time Status Last Admin Dose Admin Acetaminophen (Tylenol) 650 mg Q4H PRN ORAL fever 04/20/16 07:45 05/20/16 07:44 Albuterol/ Ipratropium (DuoNeb 0.5-3(2.5)mg/3ml) 3 ml Q4H PRN HHN Shortness of Breath 04/20/16 07:45 04/25/16 07:44 Cefepime HCl 1 gm/ Dextrose 55 ml @ 110 mls/hr EVERY 12 HOURS IVPB 04/20/16 09:00 04/27/16 08:59 04/20/16 09:45 Dextrose (Dextrose 50%) STAT PRN IV Hypoglycemia 04/20/16 09:30 05/20/16 09:29 Digoxin (Lanoxin) 0.125 mg DAILY ORAL 04/20/16 09:00 05/20/16 08:59 04/20/16 08:59 Enoxaparin Sodium (Lovenox) 40 mg DAILY SUBQ 04/20/16 09:00 05/20/16 08:59 Hydrocortisone (Solu-CORTEF) 100 mg EVERY 8 HOURS IV 04/20/16 06:00 05/20/16 05:59 04/20/16 14:18 Insulin Aspart (NovoLOG) EVERY 6 HOURS SUBQ 04/20/16 06:00 05/20/16 05:59 04/20/16 12:07 Insulin Detemir (Levemir) 10 units Q12HR@0600,1800 SUBQ 04/20/16 06:00 05/20/16 05:59 04/20/16 06:07 Lactulose (Cephulac) 30 gm DAILYPRN PRN ORAL Constipation 04/20/16 08:00 05/20/16 07:59 Metronidazole 100 ml @ 100 mls/hr Q8HR IV 04/20/16 06:00 04/27/16 05:59 04/20/16 14:18 Morphine Sulfate (Morphine Sulfate) 2 mg Q4H PRN IVP Moderate Pain (Pain Scale 4-6) 04/20/16 07:45 04/27/16 07:44 Nitroglycerin (Ntg) 0.4 mg Q5MIN X3 DOSES PRN SL Prn Chest Pain 04/20/16 05:45 05/20/16 05:44 Ondansetron HCl (Zofran) 4 mg Q4H PRN IVP Nausea & Vomiting 04/20/16 08:00 05/20/16 07:59 Pantoprazole (Protonix) 40 mg DAILY IVP 04/20/16 09:00 05/20/16 08:59 04/20/16 08:59 Polyethylene Glycol (Miralax) 17 gm DAILYPRN PRN ORAL Constipation 04/20/16 07:45 05/20/16 07:44 Sodium Chloride 1,000 ml @ 100 mls/hr Q10H IV 04/20/16 05:45 05/20/16 05:44 04/20/16 14:18 Temazepam (Restoril) 15 mg HSPRN PRN ORAL Insomnia 04/20/16 07:45 04/27/16 07:44 Vancomycin HCl (Vanco rx to dose) 1 ea DAILYPRN PRN MISC Per rx protocol 04/20/16 10:30 05/20/16 10:29 Vancomycin HCl/ Dextrose (Vancomycin/D5W 250ml) 275 ml @ 183.333 mls/hr Q24H IVPB 04/20/16 11:00 04/25/16 10:59 04/20/16 12:00 JAVIER BANKS Apr 20, 2016 16:23
--- NOTE | 2016-04-20 17:31 | Infectious Diseases Prog Note ---
Assessment/Plan Assessment/Plan ASSESSMENT: 75 y/o male with: // CONS bacteremia 05/09 - TTE(-) SBE // Probable HCAP / aspiration PNA - CXR 04/18: pending - negative: influenza - h/o MSSA // Sepsis // Leukocytosis - improved ( on stress steroids ) // Fever - resolved // Bullous impetigo, on chronic steroids // Hypernatremia / electrolyte imbalance // DM2 - HbA1c 8.1% // Dementia, h/o CVA // Functional quadriplegia / bedbound // Dysphagia SP PEG // [facility] resident // Negative MRSA, VRE screens // NKDA // Full Code PLAN: - continue IV vancomycin, cefepime, flagyl d# - - repeat BCx AM to document clearance. - taper steroids per pulm - f/u cultures, legionella UAg - monitor CBC, temperatures - monitor BMP - monitor CXR - aspiration precautions - wound care Subjective Allergies: Coded Allergies: No Known Allergies (Unverified , 10/19/15) Subjective fevers resolved BCx+ Objective Vital Signs Last 24 Hour Vital Signs Date Time Temp Pulse Resp B/P Pulse Ox O2 Delivery O2 Flow Rate FiO2 04/20/16 16:07 98.4 97 22 123/56 100 Nasal Cannula 2.0 04/20/16 12:00 97.9 79 19 124/61 100 Nasal Cannula 04/20/16 08:59 90 04/20/16 08:00 97.7 90 19 134/67 97 Nasal Cannula 04/20/16 05:00 99 30 122/62 100 Nasal Cannula 1.0 04/20/16 04:22 101 04/20/16 04:00 97.6 90 28 136/51 100 Nasal Cannula 3.0 04/20/16 03:00 104 30 130/60 100 Nasal Cannula 3.0 04/20/16 02:00 103 34 154/77 99 Nasal Cannula 3.0 04/20/16 01:00 99 29 150/71 100 Nasal Cannula 3.0 04/20/16 00:00 97.0 85 24 115/51 100 Nasal Cannula 3.0 04/19/16 23:14 94 04/19/16 23:00 95 29 122/60 100 Nasal Cannula 3.0 04/19/16 22:00 101 31 137/71 99 Nasal Cannula 3.0 04/19/16 21:00 89 25 130/51 99 Nasal Cannula 3.0 04/19/16 20:00 103 04/19/16 20:00 97.2 103 29 136/52 99 Nasal Cannula 3.0 04/19/16 19:44 Nasal Cannula 2.0 28 04/19/16 19:44 100 Nasal Cannula 2.0 28 04/19/16 19:43 105 20 Nasal Cannula 2.0 28 04/19/16 19:00 95 22 131/59 99 Nasal Cannula 3.0 04/19/16 18:00 90 25 127/57 100 Nasal Cannula 3.0 Height (Feet): 5 Height (Inches): 7.00 Weight (Pounds): 120 General Appearance: no acute distress Respiratory/Chest: no respiratory distress Cardiovascular: normal rate, regular rhythm Abdomen: normal bowel sounds, soft, non tender, non distended Microbiology Date/Time Source Procedure Growth Status 04/18/16 03:08 Blood Blood Culture - Preliminary Resulted 04/18/16 03:08 Blood Blood Culture - Preliminary Staphylococcus Sp Coag Neg Resulted 04/18/16 09:50 Nasopharynx Influenza Types A,B Antigen (DALJIT) - Final Complete 04/18/16 02:30 Nasal Nares MRSA Culture - Final NO METHICILLIN RESISTANT STAPH AUREUS... Complete 04/18/16 14:00 Urine,Clean Catch Urine Culture - Preliminary NO GROWTH AFTER 24 HOURS Resulted 04/18/16 07:45 Arm Right Gram Stain - Final Resulted 04/18/16 07:45 Wound Culture - Preliminary Gram Negative Bacillus 1 Resulted 04/18/16 02:30 Rectum VRE Culture - Final Enterococcus Faecalis - Vre Complete Laboratory Tests Test 04/20/16 04:00 White Blood Count 12.6 K/UL (4.8-10.8) H Red Blood Count 2.86 M/UL (4.70-6.10) L Hemoglobin 9.5 G/DL (14.2-18.0) L Hematocrit 30.9 % (42.0-52.0) L Mean Corpuscular Volume 108 FL (80-99) H Mean Corpuscular Hemoglobin 33.4 PG (27.0-31.0) H Mean Corpuscular Hemoglobin Concent 30.9 G/DL (32.0-36.0) L Red Cell Distribution Width 13.2 % (11.6-14.8) Platelet Count 100 K/UL (150-450) L Mean Platelet Volume 10.5 FL (6.5-10.1) H Neutrophils (%) (Auto) % (45.0-75.0) Lymphocytes (%) (Auto) % (20.0-45.0) Monocytes (%) (Auto) % (1.0-10.0) Eosinophils (%) (Auto) % (0.0-3.0) Basophils (%) (Auto) % (0.0-2.0) Differential Total Cells Counted 100 Neutrophils % (Manual) 86 % (45-75) H Lymphocytes % (Manual) 12 % (20-45) L Monocytes % (Manual) 2 % (1-10) Eosinophils % (Manual) 0 % (0-3) Basophils % (Manual) 0 % (0-2) Band Neutrophils 0 % (0-8) Nucleated Red Blood Cells 1 /100 WBC Platelet Estimate Decreased L Platelet Morphology Normal Hypochromasia 2+ Anisocytosis 1+ Macrocytosis 1+ Erythrocyte Sedimentation Rate 120 MM/HR (0-20) H Sodium Level 153 mEQ/L (135-145) H Potassium Level 4.0 mEQ/L (3.4-4.9) Chloride Level 115 mEQ/L (98-107) H Carbon Dioxide Level 29 mEQ/L (20-30) Anion Gap 9 (5-15) Blood Urea Nitrogen 36 mg/dL (7-23) H Creatinine 0.7 mg/dL (0.7-1.2) Estimat Glomerular Filtration Rate mL/min (>60) Glucose Level 238 mg/dL (74-106) H Calcium Level 8.5 mg/dL (8.6-10.2) L Phosphorus Level 3.1 mg/dL (2.5-4.8) Magnesium Level 2.5 mg/dL (1.7-2.5) Total Bilirubin 0.3 mg/dL (0.0-1.2) Aspartate Amino Transf (AST/SGOT) 14 U/L (5-40) Alanine Aminotransferase (ALT/SGPT) 26 U/L (3-41) Alkaline Phosphatase 52 U/L (40-129) C-Reactive Protein, Quantitative 5.1 mg/dL (< 0.5) H Total Protein 6.4 g/dL (6.6-8.7) L Albumin 2.2 g/dL (3.5-5.2) L Globulin 4.2 g/dL Albumin/Globulin Ratio 0.5 (1.0-2.7) L Current Medications Medications (Trade) Dose Ordered Sig/Joy Route PRN Reason Start Time Stop Time Status Last Admin Dose Admin Acetaminophen (Tylenol) 650 mg Q4H PRN ORAL fever 04/20/16 07:45 05/20/16 07:44 Albuterol/ Ipratropium (DuoNeb 0.5-3(2.5)mg/3ml) 3 ml Q4H PRN HHN Shortness of Breath 04/20/16 07:45 04/25/16 07:44 Cefepime HCl 1 gm/ Dextrose 55 ml @ 110 mls/hr EVERY 12 HOURS IVPB 04/20/16 09:00 04/27/16 08:59 04/20/16 09:45 Dextrose (Dextrose 50%) STAT PRN IV Hypoglycemia 04/20/16 09:30 05/20/16 09:29 Digoxin (Lanoxin) 0.125 mg DAILY ORAL 04/20/16 09:00 05/20/16 08:59 04/20/16 08:59 Enoxaparin Sodium (Lovenox) 40 mg DAILY SUBQ 04/20/16 09:00 05/20/16 08:59 Hydrocortisone (Solu-CORTEF) 100 mg EVERY 8 HOURS IV 04/20/16 06:00 05/20/16 05:59 04/20/16 14:18 Insulin Aspart (NovoLOG) EVERY 6 HOURS SUBQ 04/20/16 06:00 05/20/16 05:59 04/20/16 12:07 Insulin Detemir (Levemir) 10 units Q12HR@0600,1800 SUBQ 04/20/16 06:00 05/20/16 05:59 04/20/16 06:07 Lactulose (Cephulac) 30 gm DAILYPRN PRN ORAL Constipation 04/20/16 08:00 05/20/16 07:59 Metronidazole 100 ml @ 100 mls/hr Q8HR IV 04/20/16 06:00 04/27/16 05:59 04/20/16 14:18 Morphine Sulfate (Morphine Sulfate) 2 mg Q4H PRN IVP Moderate Pain (Pain Scale 4-6) 04/20/16 07:45 04/27/16 07:44 Nitroglycerin (Ntg) 0.4 mg Q5MIN X3 DOSES PRN SL Prn Chest Pain 04/20/16 05:45 05/20/16 05:44 Ondansetron HCl (Zofran) 4 mg Q4H PRN IVP Nausea & Vomiting 04/20/16 08:00 05/20/16 07:59 Pantoprazole (Protonix) 40 mg DAILY IVP 04/20/16 09:00 05/20/16 08:59 04/20/16 08:59 Polyethylene Glycol (Miralax) 17 gm DAILYPRN PRN ORAL Constipation 04/20/16 07:45 05/20/16 07:44 Sodium Chloride 1,000 ml @ 100 mls/hr Q10H IV 04/20/16 05:45 05/20/16 05:44 04/20/16 14:18 Temazepam (Restoril) 15 mg HSPRN PRN ORAL Insomnia 04/20/16 07:45 04/27/16 07:44 Vancomycin HCl (Vanco rx to dose) 1 ea DAILYPRN PRN MISC Per rx protocol 04/20/16 10:30 05/20/16 10:29 Vancomycin HCl/ Dextrose (Vancomycin/D5W 250ml) 275 ml @ 183.333 mls/hr Q24H IVPB 04/20/16 11:00 04/25/16 10:59 04/20/16 12:00 DOLORES FANG Apr 20, 2016 17:31
--- NOTE | 2016-04-20 20:11 | Internal Med Progress Note ---
Subjective Date of Service: Apr 20, 2016 Physician Name Renetta Olvera Attending Physician Adalid Izaguirre MD Current Medications Medications (Trade) Dose Ordered Sig/Joy Route PRN Reason Start Time Stop Time Status Last Admin Dose Admin Acetaminophen (Tylenol) 650 mg Q4H PRN ORAL fever 04/20/16 07:45 05/20/16 07:44 Albuterol/ Ipratropium (DuoNeb 0.5-3(2.5)mg/3ml) 3 ml Q4H PRN HHN Shortness of Breath 04/20/16 07:45 04/25/16 07:44 Cefepime HCl 1 gm/ Dextrose 55 ml @ 110 mls/hr EVERY 12 HOURS IVPB 04/20/16 09:00 04/27/16 08:59 04/20/16 09:45 Dextrose (Dextrose 50%) STAT PRN IV Hypoglycemia 04/20/16 09:30 05/20/16 09:29 Digoxin (Lanoxin) 0.125 mg DAILY ORAL 04/20/16 09:00 05/20/16 08:59 04/20/16 08:59 Enoxaparin Sodium (Lovenox) 40 mg DAILY SUBQ 04/20/16 09:00 05/20/16 08:59 Hydrocortisone (Solu-CORTEF) 100 mg EVERY 8 HOURS IV 04/20/16 06:00 05/20/16 05:59 04/20/16 14:18 Insulin Aspart (NovoLOG) EVERY 6 HOURS SUBQ 04/20/16 06:00 05/20/16 05:59 04/20/16 19:18 Insulin Detemir (Levemir) 10 units Q12HR@0600,1800 SUBQ 04/20/16 06:00 05/20/16 05:59 04/20/16 19:18 Lactulose (Cephulac) 30 gm DAILYPRN PRN ORAL Constipation 04/20/16 08:00 05/20/16 07:59 Metronidazole 100 ml @ 100 mls/hr Q8HR IV 04/20/16 06:00 04/27/16 05:59 04/20/16 14:18 Morphine Sulfate (Morphine Sulfate) 2 mg Q4H PRN IVP Moderate Pain (Pain Scale 4-6) 04/20/16 07:45 04/27/16 07:44 Nitroglycerin (Ntg) 0.4 mg Q5MIN X3 DOSES PRN SL Prn Chest Pain 04/20/16 05:45 05/20/16 05:44 Ondansetron HCl (Zofran) 4 mg Q4H PRN IVP Nausea & Vomiting 04/20/16 08:00 05/20/16 07:59 Pantoprazole (Protonix) 40 mg DAILY IVP 04/20/16 09:00 05/20/16 08:59 04/20/16 08:59 Polyethylene Glycol (Miralax) 17 gm DAILYPRN PRN ORAL Constipation 04/20/16 07:45 05/20/16 07:44 Sodium Chloride 1,000 ml @ 100 mls/hr Q10H IV 04/20/16 05:45 05/20/16 05:44 04/20/16 14:18 Temazepam (Restoril) 15 mg HSPRN PRN ORAL Insomnia 04/20/16 07:45 04/27/16 07:44 Vancomycin HCl (Vanco rx to dose) 1 ea DAILYPRN PRN MISC Per rx protocol 04/20/16 10:30 05/20/16 10:29 Vancomycin HCl/ Dextrose (Vancomycin/D5W 250ml) 275 ml @ 183.333 mls/hr Q24H IVPB 04/20/16 11:00 04/25/16 10:59 04/20/16 12:00 Allergies: Coded Allergies: No Known Allergies (Unverified , 10/19/15) ROS Limited/Unobtainable: Yes Subjective 75 YO M admitted with fever, now with pneumonia. Cover for Int Med-Dr Izaguirre. Tolerating nasal canula Objective Last Vital Signs Date Time Temp Pulse Resp B/P Pulse Ox O2 Delivery O2 Flow Rate FiO2 04/20/16 20:07 98.3 94 20 126/69 100 Nasal Cannula 2.0 04/20/16 19:44 28 General Appearance: lethargic, thin EENT: normal ENT inspection Neck: non-tender, normal alignment, supple Cardiovascular: normal peripheral pulses, normal rate, regular rhythm, no gallop/murmur, no JVD Respiratory/Chest: chest wall non-tender, crackles/rales, rhonchi - bilaterally , expiratory wheezing Abdomen: normal bowel sounds, non tender, soft, no organomegaly, no mass Skin: normal pigmentation, warm/dry Laboratory Tests Test 04/20/16 04:00 White Blood Count 12.6 K/UL (4.8-10.8) H Red Blood Count 2.86 M/UL (4.70-6.10) L Hemoglobin 9.5 G/DL (14.2-18.0) L Hematocrit 30.9 % (42.0-52.0) L Mean Corpuscular Volume 108 FL (80-99) H Mean Corpuscular Hemoglobin 33.4 PG (27.0-31.0) H Mean Corpuscular Hemoglobin Concent 30.9 G/DL (32.0-36.0) L Red Cell Distribution Width 13.2 % (11.6-14.8) Platelet Count 100 K/UL (150-450) L Mean Platelet Volume 10.5 FL (6.5-10.1) H Neutrophils (%) (Auto) % (45.0-75.0) Lymphocytes (%) (Auto) % (20.0-45.0) Monocytes (%) (Auto) % (1.0-10.0) Eosinophils (%) (Auto) % (0.0-3.0) Basophils (%) (Auto) % (0.0-2.0) Differential Total Cells Counted 100 Neutrophils % (Manual) 86 % (45-75) H Lymphocytes % (Manual) 12 % (20-45) L Monocytes % (Manual) 2 % (1-10) Eosinophils % (Manual) 0 % (0-3) Basophils % (Manual) 0 % (0-2) Band Neutrophils 0 % (0-8) Nucleated Red Blood Cells 1 /100 WBC Platelet Estimate Decreased L Platelet Morphology Normal Hypochromasia 2+ Anisocytosis 1+ Macrocytosis 1+ Erythrocyte Sedimentation Rate 120 MM/HR (0-20) H Sodium Level 153 mEQ/L (135-145) H Potassium Level 4.0 mEQ/L (3.4-4.9) Chloride Level 115 mEQ/L (98-107) H Carbon Dioxide Level 29 mEQ/L (20-30) Anion Gap 9 (5-15) Blood Urea Nitrogen 36 mg/dL (7-23) H Creatinine 0.7 mg/dL (0.7-1.2) Estimat Glomerular Filtration Rate mL/min (>60) Glucose Level 238 mg/dL (74-106) H Calcium Level 8.5 mg/dL (8.6-10.2) L Phosphorus Level 3.1 mg/dL (2.5-4.8) Magnesium Level 2.5 mg/dL (1.7-2.5) Total Bilirubin 0.3 mg/dL (0.0-1.2) Aspartate Amino Transf (AST/SGOT) 14 U/L (5-40) Alanine Aminotransferase (ALT/SGPT) 26 U/L (3-41) Alkaline Phosphatase 52 U/L (40-129) C-Reactive Protein, Quantitative 5.1 mg/dL (< 0.5) H Total Protein 6.4 g/dL (6.6-8.7) L Albumin 2.2 g/dL (3.5-5.2) L Globulin 4.2 g/dL Albumin/Globulin Ratio 0.5 (1.0-2.7) L Microbiology Date/Time Source Procedure Growth Status 04/18/16 03:08 Blood Blood Culture - Preliminary Resulted 04/18/16 03:08 Blood Blood Culture - Preliminary Staphylococcus Sp Coag Neg Resulted 04/18/16 09:50 Nasopharynx Influenza Types A,B Antigen (DALJIT) - Final Complete 04/18/16 02:30 Nasal Nares MRSA Culture - Final NO METHICILLIN RESISTANT STAPH AUREUS... Complete 04/18/16 14:00 Urine,Clean Catch Urine Culture - Preliminary NO GROWTH AFTER 24 HOURS Resulted 04/18/16 07:45 Arm Right Gram Stain - Final Resulted 04/18/16 07:45 Wound Culture - Preliminary Gram Negative Bacillus 1 Resulted 04/18/16 02:30 Rectum VRE Culture - Final Enterococcus Faecalis - Vre Complete Intake and Output 04/19/16 04/20/16 19:00 07:00 Intake Total 2381.3 ml 2095 ml Output Total 465 ml 375 ml Balance 1916.3 ml 1720 ml Intake Free Water 120 ml 500 ml IV Total 1721.3 ml 1100 ml Tube Feeding 540 ml 495 ml Output Urine Total 465 ml 375 ml Assessment/Plan Problem List: (1) Leukocytosis (2) Pemphigus Assessment & Plan: On chronic prednisone therapy. (3) Sepsis Assessment & Plan: Await culture results. See ID note. (4) Cerebral vascular disease (5) Hemiplegia affecting left nondominant side (6) Aphasia as late effect of cerebrovascular accident (7) Atrial fibrillation Assessment & Plan: Cont novolog and levemir. See endocrinology note. (8) Hypertension (9) Diabetes mellitus (10) Dysphagia as late effect of cerebrovascular accident (CVA) (11) Pneumonia Assessment & Plan: ?aspiration? See pulmonary note. Cont vanco, flagyl and cefepime per ID (12) G tube feedings (13) Atrial fibrillation and flutter (14) Septic shock (15) Hypernatremia Assessment & Plan: See nephrology note. Status: unchanged RENETTA OLVERA Apr 20, 2016 20:11
[2016-04-21] VITALS: BP 133/79
[2016-04-21] MEDS: NovoLOG Insulin Flexpen SUBQ SCH ×5 (00:18→23:56)
[2016-04-21 04:00] VITALS: BP 147/75
[2016-04-21] MEDS: metroNIDAZOLE 500mg 100 ML IV SCH ×3 (05:04→22:28)
[2016-04-21] MEDS: Hydrocortisone 100mg Inj IV SCH (05:20)
[2016-04-21] MEDS: Levemir Flexpen SUBQ SCH ×2 (06:39→18:41)
[2016-04-21 07:42] LABS: MEAN CORPUSCULAR HEMOGLOBIN 32.3 PG (27.0-31.0); MEAN CORPUSCULAR HGB CONC 30.6 G/DL (32.0-36.0); MEAN CORPUSCULAR VOLUME 106 FL (80-99); MEAN PLATELET VOLUME 11.5 FL (6.5-10.1); PLATELET COUNT 111 K/UL (150-450); RED BLOOD COUNT 3.01 M/UL (4.70-6.10); RED CELL DISTRIBUTION WIDTH 12.8 % (11.6-14.8); WHITE BLOOD COUNT 10.5 K/UL (4.8-10.8)
[2016-04-21 07:56] LABS: ALANINE AMINOTRANSFERASE 21 U/L (3-41); ALBUMIN/GLOBULIN RATIO 0.6 (1.0-2.7); ANION GAP 8 (5-15); ASPARTATE AMINO TRANSFERASE 14 U/L (5-40); CALCIUM 8.7 mg/dL (8.6-10.2); CARBON DIOXIDE 32 mEQ/L (20-30); CHLORIDE 114 mEQ/L (98-107); CREATININE 0.7 mg/dL (0.7-1.2); CRP QUANT 2.2 mg/dL (< 0.5); HEMOLYSIS 3; MAGNESIUM 2.5 mg/dL (1.7-2.5); PHOSPHORUS 2.4 mg/dL (2.5-4.8); SODIUM 154 mEQ/L (135-145); TOTAL PROTEIN 6.1 g/dL (6.6-8.7)
[2016-04-21 08:09] VITALS: BP 159/96
[2016-04-21 08:25] LABS: HEMOLYSIS 10; IRON 107 ug/dL (59-158); TOTAL IRON BINDING CAPACITY 143 ug/dL (250-400)
[2016-04-21 08:26] LABS: LACTATE DEHYDROGENASE 151 U/L (135-230)
[2016-04-21 08:35] LABS: BAND NEUTROPHILS % (MANUAL) 2 % (0-8); BASOPHILS % (MANUAL) 0 % (0-2); EOSINOPHILS % (MANUAL) 0 % (0-3); HYPOCHROMASIA 1+; LYMPHOCYTES % (MANUAL) 6 % (20-45); NEUTROPHILS % (MANUAL) 90 % (45-75); PLATELET ESTIMATE DECREASED; PLATELET MORPHOLOGY NORMAL; TOTAL CELLS COUNTED 100
[2016-04-21 08:54] LABS: ERYTHROCYTE SEDIMENTATION RATE 120 MM/HR (0-20)
[2016-04-21] MEDS: Enoxaparin 40mg Inj SUBQ SCH (09:00)
[2016-04-21 09:25] LABS: PATH BLOOD SMEAR/OMC SENT TO PATHOLOGIST
[2016-04-21] MEDS: Digoxin 0.125mg tab ORAL SCH (10:09)
[2016-04-21] MEDS: Pantoprazole Inj IVP SCH (10:09)
[2016-04-21] MEDS: Cefepime HCl 1 GM in D5W 55 ML IVPB SCH ×2 (10:16→21:30)
[2016-04-21 10:48] LABS: RETICULOCYTE COUNT 0.5 % (0.0-2.0)
[2016-04-21] MEDS: Vancomycin 1.25 GM in D5W 275 ML IVPB SCH (11:00)
--- NOTE | 2016-04-21 11:35 | General Progress Note ---
Assessment/Plan Status: stable - from renal stand Assessment/Plan Acute Renal failure- due to sepsis and shock Dehydration and volume depletion component- and HyperNatremia improving Other: -CVA (cerebral vascular accident) -Diabetes -G tube feedings -Left hemiparesis Plan: Hydrate- with D5 DC HydroCortisone Antibiotics- Monitor renal parameters- Avoid Nephrotoxics- per orders- Subjective ROS Limited/Unobtainable: Yes Allergies: Coded Allergies: No Known Allergies (Unverified , 10/19/15) Objective Last 24 Hour Vital Signs Date Time Temp Pulse Resp B/P Pulse Ox O2 Delivery O2 Flow Rate FiO2 04/21/16 10:09 88 04/21/16 08:09 98.8 103 22 159/96 100 Nasal Cannula 2.0 04/21/16 07:10 103 20 Nasal Cannula 2.0 28 04/21/16 07:10 99 Nasal Cannula 2.0 28 04/21/16 07:10 Nasal Cannula 2.0 28 04/21/16 04:00 98.2 106 22 147/75 99 Nasal Cannula 2.0 04/21/16 00:00 97.9 97 22 133/79 100 Nasal Cannula 2.0 04/20/16 20:07 98.3 94 20 126/69 100 Nasal Cannula 2.0 04/20/16 19:44 98 Nasal Cannula 2.0 28 04/20/16 19:44 Nasal Cannula 2.0 28 04/20/16 19:43 96 24 Nasal Cannula 2.0 28 04/20/16 16:07 98.4 97 22 123/56 100 Nasal Cannula 2.0 04/20/16 12:00 97.9 79 19 124/61 100 Nasal Cannula Intake and Output 04/20/16 04/21/16 19:00 07:00 Intake Total 2845 ml 935 ml Output Total 350 ml Balance 2495 ml 935 ml Intake Free Water 400 ml 100 ml IV Total 1950 ml 655 ml Tube Feeding 495 ml 180 ml Output Urine Total 350 ml # Bowel Movements 1 Laboratory Tests 04/21/16 05:15: White Blood Count 10.5, Red Blood Count 3.01L, Hemoglobin 9.7L, Hematocrit 31.8L , Mean Corpuscular Volume 106H, Mean Corpuscular Hemoglobin 32.3H, Mean Corpuscular Hemoglobin Concent 30.6L, Red Cell Distribution Width 12.8, Platelet Count 111L, Mean Platelet Volume 11.5H, Neutrophils (%) (Auto) , Lymphocytes (%) (Auto) , Monocytes (%) (Auto) , Eosinophils (%) (Auto) , Basophils (%) (Auto) , Differential Total Cells Counted 100, Neutrophils % ( Manual) 90H, Lymphocytes % (Manual) 6L, Monocytes % (Manual) 2, Eosinophils % ( Manual) 0, Basophils % (Manual) 0, Band Neutrophils 2, Platelet Estimate DecreasedL, Platelet Morphology Normal, Hypochromasia 1+, Erythrocyte Sedimentation Rate 120H, Reticulocyte Count 0.5, Prothrombin Time 10.0, Prothromb Time International Ratio 1.0, Activated Partial Thromboplast Time 24, Sodium Level 154H, Potassium Level 4.0, Chloride Level 114H, Carbon Dioxide Level 32H, Anion Gap 8, Blood Urea Nitrogen 30H, Creatinine 0.7, Estimat Glomerular Filtration Rate , Glucose Level 242H, Calcium Level 8.7, Phosphorus Level 2.4L, Magnesium Level 2.5, Iron Level 107, Total Iron Binding Capacity 143L, Percent Iron Saturation 75H, Unsaturated Iron Binding 36L, Total Bilirubin 0.3, Aspartate Amino Transf (AST/SGOT) 14, Alanine Aminotransferase ( ALT/SGPT) 21, Alkaline Phosphatase 51, Lactate Dehydrogenase 151, C-Reactive Protein, Quantitative 2.2H, Total Protein 6.1L, Albumin 2.5L, Globulin 3.6, Albumin/Globulin Ratio 0.6L, Carcinoembryonic Antigen 6.1H, Vitamin B12 Level 1091H, Folate [Pending] Height (Feet): 5 Height (Inches): 7.00 Weight (Pounds): 120 General Appearance: no apparent distress Objective no change in PE CRISTY MADDOX Apr 21, 2016 11:35
[2016-04-21 11:52] VITALS: BP 142/87
[2016-04-21] MEDS ORDERED: Vancomycin 1.5 GM in NS 325 ML IVPB ONE (13:30)
--- NOTE | 2016-04-21 15:34 | Infectious Diseases Prog Note ---
Assessment/Plan Assessment/Plan ASSESSMENT: 75 y/o male with: // CONS bacteremia 05/09 - repeat BCx pending - TTE(-) SBE // Probable HCAP / aspiration PNA - CXR 04/18: pending - negative: influenza, legionella UAg - h/o MSSA // Sepsis SP // Leukocytosis - resolved ( on stress steroids ) // Fever - resolved // Bullous impetigo, on chronic steroids // Hypernatremia / electrolyte imbalance // DM2 - HbA1c 8.1% // Dementia, h/o CVA // Functional quadriplegia / bedbound // Dysphagia SP PEG // [facility] resident // Negative MRSA, VRE screens // NKDA // Full Code PLAN: - continue IV vancomycin, cefepime, flagyl d# - - f/u repeat BCx to document clearance. - taper steroids per pulm - f/u cultures - monitor CBC, temperatures - monitor BMP - monitor CXR - aspiration precautions - wound care Subjective Allergies: Coded Allergies: No Known Allergies (Unverified , 10/19/15) Subjective fevers, leukocytosis resolved BCx CONS Objective Vital Signs Last 24 Hour Vital Signs Date Time Temp Pulse Resp B/P Pulse Ox O2 Delivery O2 Flow Rate FiO2 04/21/16 11:52 98.6 103 22 142/87 100 Nasal Cannula 2.0 04/21/16 10:09 88 04/21/16 08:09 98.8 103 22 159/96 100 Nasal Cannula 2.0 04/21/16 07:10 103 20 Nasal Cannula 2.0 28 04/21/16 07:10 99 Nasal Cannula 2.0 28 04/21/16 07:10 Nasal Cannula 2.0 28 04/21/16 04:00 98.2 106 22 147/75 99 Nasal Cannula 2.0 04/21/16 00:00 97.9 97 22 133/79 100 Nasal Cannula 2.0 04/20/16 20:07 98.3 94 20 126/69 100 Nasal Cannula 2.0 04/20/16 19:44 98 Nasal Cannula 2.0 28 04/20/16 19:44 Nasal Cannula 2.0 28 04/20/16 19:43 96 24 Nasal Cannula 2.0 28 04/20/16 16:07 98.4 97 22 123/56 100 Nasal Cannula 2.0 Height (Feet): 5 Height (Inches): 7.00 Weight (Pounds): 120 General Appearance: no acute distress Respiratory/Chest: no respiratory distress Cardiovascular: normal rate, regular rhythm Abdomen: normal bowel sounds, soft, non tender, non distended Laboratory Tests Test 04/21/16 05:15 04/21/16 11:25 White Blood Count 10.5 K/UL (4.8-10.8) Red Blood Count 3.01 M/UL (4.70-6.10) L Hemoglobin 9.7 G/DL (14.2-18.0) L Hematocrit 31.8 % (42.0-52.0) L Mean Corpuscular Volume 106 FL (80-99) H Mean Corpuscular Hemoglobin 32.3 PG (27.0-31.0) H Mean Corpuscular Hemoglobin Concent 30.6 G/DL (32.0-36.0) L Red Cell Distribution Width 12.8 % (11.6-14.8) Platelet Count 111 K/UL (150-450) L Mean Platelet Volume 11.5 FL (6.5-10.1) H Neutrophils (%) (Auto) % (45.0-75.0) Lymphocytes (%) (Auto) % (20.0-45.0) Monocytes (%) (Auto) % (1.0-10.0) Eosinophils (%) (Auto) % (0.0-3.0) Basophils (%) (Auto) % (0.0-2.0) Differential Total Cells Counted 100 Neutrophils % (Manual) 90 % (45-75) H Lymphocytes % (Manual) 6 % (20-45) L Monocytes % (Manual) 2 % (1-10) Eosinophils % (Manual) 0 % (0-3) Basophils % (Manual) 0 % (0-2) Band Neutrophils 2 % (0-8) Platelet Estimate Decreased L Platelet Morphology Normal Hypochromasia 1+ Erythrocyte Sedimentation Rate 120 MM/HR (0-20) H Reticulocyte Count 0.5 % (0.0-2.0) Prothrombin Time 10.0 SEC (9.30-11.50) Prothromb Time International Ratio 1.0 (0.9-1.1) Activated Partial Thromboplast Time 24 SEC (23-33) Sodium Level 154 mEQ/L (135-145) H Potassium Level 4.0 mEQ/L (3.4-4.9) Chloride Level 114 mEQ/L (98-107) H Carbon Dioxide Level 32 mEQ/L (20-30) H Anion Gap 8 (5-15) Blood Urea Nitrogen 30 mg/dL (7-23) H Creatinine 0.7 mg/dL (0.7-1.2) Estimat Glomerular Filtration Rate mL/min (>60) Glucose Level 242 mg/dL (74-106) H Calcium Level 8.7 mg/dL (8.6-10.2) Phosphorus Level 2.4 mg/dL (2.5-4.8) L Magnesium Level 2.5 mg/dL (1.7-2.5) Iron Level 107 ug/dL (59-158) Total Iron Binding Capacity 143 ug/dL (250-400) L Percent Iron Saturation 75 % (15-50) H Unsaturated Iron Binding 36 ug/dL (112-346) L Total Bilirubin 0.3 mg/dL (0.0-1.2) Aspartate Amino Transf (AST/SGOT) 14 U/L (5-40) Alanine Aminotransferase (ALT/SGPT) 21 U/L (3-41) Alkaline Phosphatase 51 U/L (40-129) Lactate Dehydrogenase 151 U/L (135-230) C-Reactive Protein, Quantitative 2.2 mg/dL (< 0.5) H Total Protein 6.1 g/dL (6.6-8.7) L Albumin 2.5 g/dL (3.5-5.2) L Globulin 3.6 g/dL Albumin/Globulin Ratio 0.6 (1.0-2.7) L Carcinoembryonic Antigen 6.1 ng/mL H Vitamin B12 Level 1091 pg/mL (211-946) H Folate Pending Vancomycin Level Trough 9.3 ug/mL (5.0-12.0) Current Medications Medications (Trade) Dose Ordered Sig/Joy Route PRN Reason Start Time Stop Time Status Last Admin Dose Admin Acetaminophen (Tylenol) 650 mg Q4H PRN ORAL fever 04/20/16 07:45 05/20/16 07:44 Albuterol/ Ipratropium (DuoNeb 0.5-3(2.5)mg/3ml) 3 ml Q4H PRN HHN Shortness of Breath 04/20/16 07:45 04/25/16 07:44 Cefepime HCl 1 gm/ Dextrose 55 ml @ 110 mls/hr EVERY 12 HOURS IVPB 04/20/16 09:00 04/27/16 08:59 04/21/16 10:16 Dextrose 1,000 ml @ 75 mls/hr [id number] IV 04/21/16 12:15 05/21/16 12:14 04/21/16 14:37 Dextrose (Dextrose 50%) STAT PRN IV Hypoglycemia 04/20/16 09:30 05/20/16 09:29 Digoxin (Lanoxin) 0.125 mg DAILY ORAL 04/20/16 09:00 05/20/16 08:59 04/21/16 10:09 Enoxaparin Sodium (Lovenox) 40 mg DAILY SUBQ 04/20/16 09:00 05/20/16 08:59 Insulin Aspart (NovoLOG) EVERY 6 HOURS SUBQ 04/20/16 06:00 05/20/16 05:59 04/21/16 13:00 Insulin Detemir (Levemir) 10 units Q12HR@0600,1800 SUBQ 04/20/16 06:00 05/20/16 05:59 04/21/16 06:39 Lactulose (Cephulac) 30 gm DAILYPRN PRN ORAL Constipation 04/20/16 08:00 05/20/16 07:59 Metronidazole (Flagyl) 100 ml @ 100 mls/hr Q8HR IV 04/20/16 06:00 04/27/16 05:59 04/21/16 13:17 Morphine Sulfate (Morphine Sulfate) 2 mg Q4H PRN IVP Moderate Pain (Pain Scale 4-6) 04/20/16 07:45 04/27/16 07:44 Nitroglycerin (Ntg) 0.4 mg Q5MIN X3 DOSES PRN SL Prn Chest Pain 04/20/16 05:45 05/20/16 05:44 Ondansetron HCl (Zofran) 4 mg Q4H PRN IVP Nausea & Vomiting 04/20/16 08:00 05/20/16 07:59 Pantoprazole (Protonix) 40 mg DAILY IVP 04/20/16 09:00 05/20/16 08:59 04/21/16 10:09 Polyethylene Glycol (Miralax) 17 gm DAILYPRN PRN ORAL Constipation 04/20/16 07:45 05/20/16 07:44 Temazepam (Restoril) 15 mg HSPRN PRN ORAL Insomnia 04/20/16 07:45 04/27/16 07:44 Vancomycin HCl 1 ea 1 ea DAILYPRN PRN MISC Per rx protocol 04/20/16 10:30 05/20/16 10:29 Vancomycin HCl/ Dextrose (Vancomycin/D5W) 275 ml @ 183.708 mls/hr Q12HR IVPB 04/21/16 21:00 04/26/16 20:59 DOLORES FANG Apr 21, 2016 15:34
--- NOTE | 2016-04-21 15:50 | Diagnostic Imaging Report ---
Indications: Shortness of breath Technique: Portable AP chest Findings: Comparison: 10/19/15 Left costophrenic angle excluded from image. Patient rotated. Patient's left hand versus other external artifact overlies lower left hemithorax. These factors limit evaluation. Elevation apparent hemidiaphragm with overlying right mid and lower lung linear densities, increased interstitial markings in both lung bases persist, unchanged. Cardiomediastinal silhouette stable, given differences due to patient rotation. Central venous catheter has been placed via left subclavian vein, tip in proximal aspect of superior vena cava. No pneumothorax, apical pleural cap, or mediastinal widening. No right pleural abnormality demonstrated. IMPRESSION: Interval central venous catheter placement, in acceptable position; no evidence of acute complication No evidence of acute cardiopulmonary disease, given limitations described, unchanged Stable chronic changes as described
--- NOTE | 2016-04-21 15:53 | Diagnostic Imaging Report ---
Indications: DYSPNEA Technique: Portable AP chest Findings: Comparison: 04/18/16 Elevation of the apparent right hemidiaphragm persists, decreased. Linear densities in the overlying right lung base persist, decreased. Left lung, bilateral pleural surfaces remain clear. Cardiomediastinal silhouette stable. Central venous catheter remains in place. No new abnormality identified. IMPRESSION: Improvement in right lung base atelectasis/volume loss since one day prior No new abnormality
--- NOTE | 2016-04-21 15:53 | Cardiology Report ---
APPROVED REPORT EKG Measurement Heart [id number] Sinus tachycardia T wave abnormality, consider inferior ischemia Abnormal ECG
[2016-04-21 15:56] VITALS: BP 152/96
--- NOTE | 2016-04-21 16:16 | Wound Care Consultation ---
Wound Assessment Wound Assessment #1: Wound Present on Admission: Yes New Wound: No Status Change of Wound: No Wound Location Body Site Modif: mid Wound Location Body Site: sacral Wound Type: pressure ulcer Rachel Test: Does not Rachel Pressure Ulcer Stage: deep tissue injury Wound Thickness: Full Thickness Wound Length: 3.0 Wound Width: 4.0 Wound Depth: utd Percent of Wound [place]/Red: 50 Percent of Wound Black/Brown: 50 Wound Drainage Amount: None Wound Drainage Odor: None/Absent Tissue Surrounding Wound: Intact Wound Assessment #2: Wound Number: #2 Wound Present on Admission: Yes New Wound: No Status Change of Wound: No Wound Location Body Site Modif: left, lateral Wound Location Body Site: metatarsal head - 5th Wound Type: pressure ulcer Rachel Test: Does not Rachel Pressure Ulcer Stage: deep tissue injury Wound Thickness: Full Thickness Wound Length: 3.0 Wound Width: 3.0 Wound Depth: utd Percent of Wound Purple/Maroon: 100 Wound Drainage Amount: None Wound Drainage Odor: None/Absent Tissue Surrounding Wound: Erythemic Wound General Appearance: Asymptomatic Wound Assessment #3: Wound Number: #3 Wound Present on Admission: Yes New Wound: No Status Change of Wound: No Wound Location Body Site Modif: right, lateral - big toe Wound Location Body Site: toe Wound Type: blister - open Rachel Test: Does not Rachel Blisters: Denuded Blister Wound Thickness: Partial Thickness Wound Length: 3.5 Wound Width: 4.0 Wound Depth: 0.1 Percent of Wound [place]/Red: 100 Wound Drainage Description: Serosanguineous Wound Drainage Amount: Scant Wound Drainage Odor: None/Absent Tissue Surrounding Wound: Erythemic Wound General Appearance: Well Approximated, Draining Wound Assessment #4: Wound Number: #4 Wound Present on Admission: Yes New Wound: No Status Change of Wound: No Wound Location Body Site Modif: right, anterior Wound Location Body Site: toe Wound Type: blister Rachel Test: Does not Rachel Blisters: Reabsorbed Blister Wound Drainage Amount: None Wound Drainage Odor: None/Absent Tissue Surrounding Wound: Erythemic Wound General Appearance: Reddened Wound Assessment #5: Wound Number: #5 Wound Present on Admission: Yes New Wound: No Status Change of Wound: No Wound Location Body Site Modif: left Wound Location Body Site: buttocks Wound Type: pressure ulcer Rachel Test: Does not Rachel Pressure Ulcer Stage: II Wound Thickness: Partial Thickness Wound Length: 1.0 Wound Width: 1.0 Wound Depth: 0.1 Percent of Wound [place]/Red: 100 Wound Drainage Description: Serosanguineous Wound Drainage Amount: None Wound Drainage Odor: None/Absent Tissue Surrounding Wound: Erythemic Wound General Appearance: Reddened Wound Comment #1 With multiple open draining and intact blister all over the body #2 Left lateral big toe open blister #3 Right anterior big toe reabsorbed blister #4 Sacral DTI with old full thickness scar #5 Left buttock stage II pressure ulcer #6 Left 5th metatarsal head DTI purple/maroon in color Recommendation -keep clean and dry -Turn and reposition -Local wound per protocol for intact blister and open blister -Local wound with Triad cream and dry drg for stage II on left buttock and DTI on sacral -Low air low overlay mattress -Optimize nutrition -Assess and f/u accordingly for any changes TIMA ESPINAL RN Apr 21, 2016 16:16
--- NOTE | 2016-04-21 17:02 | Cardiac Electrophysiology PN ---
Subjective Subjective [id number] Objective Last 24 Hour Vital Signs Date Time Temp Pulse Resp B/P Pulse Ox O2 Delivery O2 Flow Rate FiO2 04/21/16 15:56 97.9 112 23 152/96 95 Nasal Cannula 2.0 04/21/16 11:52 98.6 103 22 142/87 100 Nasal Cannula 2.0 04/21/16 10:09 88 04/21/16 08:09 98.8 103 22 159/96 100 Nasal Cannula 2.0 04/21/16 07:10 103 20 Nasal Cannula 2.0 28 04/21/16 07:10 99 Nasal Cannula 2.0 28 04/21/16 07:10 Nasal Cannula 2.0 28 04/21/16 04:00 98.2 106 22 147/75 99 Nasal Cannula 2.0 04/21/16 00:00 97.9 97 22 133/79 100 Nasal Cannula 2.0 04/20/16 20:07 98.3 94 20 126/69 100 Nasal Cannula 2.0 04/20/16 19:44 98 Nasal Cannula 2.0 28 04/20/16 19:44 Nasal Cannula 2.0 28 04/20/16 19:43 96 24 Nasal Cannula 2.0 28 Intake and Output 04/20/16 04/21/16 19:00 07:00 Intake Total 2845 ml 935 ml Output Total 350 ml Balance 2495 ml 935 ml Intake Free Water 400 ml 100 ml IV Total 1950 ml 655 ml Tube Feeding 495 ml 180 ml Output Urine Total 350 ml # Bowel Movements 1 Laboratory Tests Test 04/21/16 05:15 04/21/16 11:25 White Blood Count 10.5 K/UL (4.8-10.8) Red Blood Count 3.01 M/UL (4.70-6.10) L Hemoglobin 9.7 G/DL (14.2-18.0) L Hematocrit 31.8 % (42.0-52.0) L Mean Corpuscular Volume 106 FL (80-99) H Mean Corpuscular Hemoglobin 32.3 PG (27.0-31.0) H Mean Corpuscular Hemoglobin Concent 30.6 G/DL (32.0-36.0) L Red Cell Distribution Width 12.8 % (11.6-14.8) Platelet Count 111 K/UL (150-450) L Mean Platelet Volume 11.5 FL (6.5-10.1) H Neutrophils (%) (Auto) % (45.0-75.0) Lymphocytes (%) (Auto) % (20.0-45.0) Monocytes (%) (Auto) % (1.0-10.0) Eosinophils (%) (Auto) % (0.0-3.0) Basophils (%) (Auto) % (0.0-2.0) Differential Total Cells Counted 100 Neutrophils % (Manual) 90 % (45-75) H Lymphocytes % (Manual) 6 % (20-45) L Monocytes % (Manual) 2 % (1-10) Eosinophils % (Manual) 0 % (0-3) Basophils % (Manual) 0 % (0-2) Band Neutrophils 2 % (0-8) Platelet Estimate Decreased L Platelet Morphology Normal Hypochromasia 1+ Erythrocyte Sedimentation Rate 120 MM/HR (0-20) H Reticulocyte Count 0.5 % (0.0-2.0) Prothrombin Time 10.0 SEC (9.30-11.50) Prothromb Time International Ratio 1.0 (0.9-1.1) Activated Partial Thromboplast Time 24 SEC (23-33) Sodium Level 154 mEQ/L (135-145) H Potassium Level 4.0 mEQ/L (3.4-4.9) Chloride Level 114 mEQ/L (98-107) H Carbon Dioxide Level 32 mEQ/L (20-30) H Anion Gap 8 (5-15) Blood Urea Nitrogen 30 mg/dL (7-23) H Creatinine 0.7 mg/dL (0.7-1.2) Estimat Glomerular Filtration Rate mL/min (>60) Glucose Level 242 mg/dL (74-106) H Calcium Level 8.7 mg/dL (8.6-10.2) Phosphorus Level 2.4 mg/dL (2.5-4.8) L Magnesium Level 2.5 mg/dL (1.7-2.5) Iron Level 107 ug/dL (59-158) Total Iron Binding Capacity 143 ug/dL (250-400) L Percent Iron Saturation 75 % (15-50) H Unsaturated Iron Binding 36 ug/dL (112-346) L Total Bilirubin 0.3 mg/dL (0.0-1.2) Aspartate Amino Transf (AST/SGOT) 14 U/L (5-40) Alanine Aminotransferase (ALT/SGPT) 21 U/L (3-41) Alkaline Phosphatase 51 U/L (40-129) Lactate Dehydrogenase 151 U/L (135-230) C-Reactive Protein, Quantitative 2.2 mg/dL (< 0.5) H Total Protein 6.1 g/dL (6.6-8.7) L Albumin 2.5 g/dL (3.5-5.2) L Globulin 3.6 g/dL Albumin/Globulin Ratio 0.6 (1.0-2.7) L Carcinoembryonic Antigen 6.1 ng/mL H Vitamin B12 Level 1091 pg/mL (211-946) H Folate Pending Vancomycin Level Trough 9.3 ug/mL (5.0-12.0) HERLINDA BURNETT Apr 21, 2016 17:01
--- NOTE | 2016-04-21 17:03 | Pulmonology Progress Note ---
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 Assessment/Plan on bekah Dumont vanco blood culture are most likely contaminated check electrolytes continue IV fluids aspiration precaution wound care gtube site care Subjective Allergies: Coded Allergies: No Known Allergies (Unverified , 10/19/15) Objective Last 24 Hour Vital Signs Date Time Temp Pulse Resp B/P Pulse Ox O2 Delivery O2 Flow Rate FiO2 04/21/16 15:56 97.9 112 23 152/96 95 Nasal Cannula 2.0 04/21/16 11:52 98.6 103 22 142/87 100 Nasal Cannula 2.0 04/21/16 10:09 88 04/21/16 08:09 98.8 103 22 159/96 100 Nasal Cannula 2.0 04/21/16 07:10 103 20 Nasal Cannula 2.0 28 04/21/16 07:10 99 Nasal Cannula 2.0 28 04/21/16 07:10 Nasal Cannula 2.0 28 04/21/16 04:00 98.2 106 22 147/75 99 Nasal Cannula 2.0 04/21/16 00:00 97.9 97 22 133/79 100 Nasal Cannula 2.0 04/20/16 20:07 98.3 94 20 126/69 100 Nasal Cannula 2.0 04/20/16 19:44 98 Nasal Cannula 2.0 28 04/20/16 19:44 Nasal Cannula 2.0 28 04/20/16 19:43 96 24 Nasal Cannula 2.0 28 Intake and Output 04/20/16 04/21/16 19:00 07:00 Intake Total 2845 ml 935 ml Output Total 350 ml Balance 2495 ml 935 ml Intake Free Water 400 ml 100 ml IV Total 1950 ml 655 ml Tube Feeding 495 ml 180 ml Output Urine Total 350 ml # Bowel Movements 1 Laboratory Tests 04/21/16 05:15: White Blood Count 10.5, Red Blood Count 3.01L, Hemoglobin 9.7L, Hematocrit 31.8L , Mean Corpuscular Volume 106H, Mean Corpuscular Hemoglobin 32.3H, Mean Corpuscular Hemoglobin Concent 30.6L, Red Cell Distribution Width 12.8, Platelet Count 111L, Mean Platelet Volume 11.5H, Neutrophils (%) (Auto) , Lymphocytes (%) (Auto) , Monocytes (%) (Auto) , Eosinophils (%) (Auto) , Basophils (%) (Auto) , Differential Total Cells Counted 100, Neutrophils % ( Manual) 90H, Lymphocytes % (Manual) 6L, Monocytes % (Manual) 2, Eosinophils % ( Manual) 0, Basophils % (Manual) 0, Band Neutrophils 2, Platelet Estimate DecreasedL, Platelet Morphology Normal, Hypochromasia 1+, Erythrocyte Sedimentation Rate 120H, Reticulocyte Count 0.5, Prothrombin Time 10.0, Prothromb Time International Ratio 1.0, Activated Partial Thromboplast Time 24, Sodium Level 154H, Potassium Level 4.0, Chloride Level 114H, Carbon Dioxide Level 32H, Anion Gap 8, Blood Urea Nitrogen 30H, Creatinine 0.7, Estimat Glomerular Filtration Rate , Glucose Level 242H, Calcium Level 8.7, Phosphorus Level 2.4L, Magnesium Level 2.5, Iron Level 107, Total Iron Binding Capacity 143L, Percent Iron Saturation 75H, Unsaturated Iron Binding 36L, Total Bilirubin 0.3, Aspartate Amino Transf (AST/SGOT) 14, Alanine Aminotransferase ( ALT/SGPT) 21, Alkaline Phosphatase 51, Lactate Dehydrogenase 151, C-Reactive Protein, Quantitative 2.2H, Total Protein 6.1L, Albumin 2.5L, Globulin 3.6, Albumin/Globulin Ratio 0.6L, Carcinoembryonic Antigen 6.1H, Vitamin B12 Level 1091H, Folate [Pending] 04/21/16 11:25: Vancomycin Level Trough 9.3 Current Medications Medications (Trade) Dose Ordered Sig/Joy Route PRN Reason Start Time Stop Time Status Last Admin Dose Admin Acetaminophen (Tylenol) 650 mg Q4H PRN ORAL fever 04/20/16 07:45 05/20/16 07:44 Albuterol/ Ipratropium (DuoNeb 0.5-3(2.5)mg/3ml) 3 ml Q4H PRN HHN Shortness of Breath 04/20/16 07:45 04/25/16 07:44 Cefepime HCl 1 gm/ Dextrose 55 ml @ 110 mls/hr EVERY 12 HOURS IVPB 04/20/16 09:00 04/27/16 08:59 04/21/16 10:16 Dextrose 1,000 ml @ 75 mls/hr [id number] IV 04/21/16 12:15 05/21/16 12:14 04/21/16 14:37 Dextrose (Dextrose 50%) STAT PRN IV Hypoglycemia 04/20/16 09:30 05/20/16 09:29 Digoxin (Lanoxin) 0.125 mg DAILY ORAL 04/20/16 09:00 05/20/16 08:59 04/21/16 10:09 Enoxaparin Sodium (Lovenox) 40 mg DAILY SUBQ 04/20/16 09:00 05/20/16 08:59 Insulin Aspart (NovoLOG) EVERY 6 HOURS SUBQ 04/20/16 06:00 05/20/16 05:59 04/21/16 13:00 Insulin Detemir (Levemir) 10 units Q12HR@0600,1800 SUBQ 04/20/16 06:00 05/20/16 05:59 04/21/16 06:39 Lactulose (Cephulac) 30 gm DAILYPRN PRN ORAL Constipation 04/20/16 08:00 05/20/16 07:59 Metronidazole (Flagyl) 100 ml @ 100 mls/hr Q8HR IV 04/20/16 06:00 04/27/16 05:59 04/21/16 13:17 Morphine Sulfate (Morphine Sulfate) 2 mg Q4H PRN IVP Moderate Pain (Pain Scale 4-6) 04/20/16 07:45 04/27/16 07:44 Nitroglycerin (Ntg) 0.4 mg Q5MIN X3 DOSES PRN SL Prn Chest Pain 04/20/16 05:45 05/20/16 05:44 Ondansetron HCl (Zofran) 4 mg Q4H PRN IVP Nausea & Vomiting 04/20/16 08:00 05/20/16 07:59 Pantoprazole (Protonix) 40 mg DAILY IVP 04/20/16 09:00 05/20/16 08:59 04/21/16 10:09 Polyethylene Glycol (Miralax) 17 gm DAILYPRN PRN ORAL Constipation 04/20/16 07:45 05/20/16 07:44 Temazepam (Restoril) 15 mg HSPRN PRN ORAL Insomnia 04/20/16 07:45 04/27/16 07:44 Vancomycin HCl 1 ea 1 ea DAILYPRN PRN MISC Per rx protocol 04/20/16 10:30 05/20/16 10:29 Vancomycin HCl/ Dextrose (Vancomycin/D5W) 275 ml @ 183.708 mls/hr Q12HR IVPB 04/21/16 21:00 04/26/16 20:59 JAVIER BANKS Apr 21, 2016 17:03
--- NOTE | 2016-04-21 19:22 | Internal Med Progress Note ---
Subjective Date of Service: Apr 21, 2016 Physician Name Renetta Olvera Attending Physician Adalid Izaguirre MD Current Medications Medications (Trade) Dose Ordered Sig/Joy Route PRN Reason Start Time Stop Time Status Last Admin Dose Admin Acetaminophen (Tylenol) 650 mg Q4H PRN ORAL fever 04/20/16 07:45 05/20/16 07:44 Albuterol/ Ipratropium (DuoNeb 0.5-3(2.5)mg/3ml) 3 ml Q4H PRN HHN Shortness of Breath 04/20/16 07:45 04/25/16 07:44 Cefepime HCl 1 gm/ Dextrose 55 ml @ 110 mls/hr EVERY 12 HOURS IVPB 04/20/16 09:00 04/27/16 08:59 04/21/16 10:16 Dextrose 1,000 ml @ 75 mls/hr [id number] IV 04/21/16 12:15 05/21/16 12:14 04/21/16 14:37 Dextrose (Dextrose 50%) STAT PRN IV Hypoglycemia 04/20/16 09:30 05/20/16 09:29 Digoxin (Lanoxin) 0.125 mg DAILY ORAL 04/20/16 09:00 05/20/16 08:59 04/21/16 10:09 Enoxaparin Sodium (Lovenox) 40 mg DAILY SUBQ 04/20/16 09:00 05/20/16 08:59 Insulin Aspart (NovoLOG) EVERY 6 HOURS SUBQ 04/20/16 06:00 05/20/16 05:59 04/21/16 18:40 Insulin Detemir (Levemir) 10 units Q12HR@0600,1800 SUBQ 04/20/16 06:00 05/20/16 05:59 04/21/16 18:41 Lactulose (Cephulac) 30 gm DAILYPRN PRN ORAL Constipation 04/20/16 08:00 05/20/16 07:59 Metoprolol Tartrate (Lopressor) 25 mg Q12HR ORAL 04/21/16 21:00 05/21/16 20:59 Metronidazole (Flagyl) 100 ml @ 100 mls/hr Q8HR IV 04/20/16 06:00 04/27/16 05:59 04/21/16 13:17 Morphine Sulfate (Morphine Sulfate) 2 mg Q4H PRN IVP Moderate Pain (Pain Scale 4-6) 04/20/16 07:45 04/27/16 07:44 Nitroglycerin (Ntg) 0.4 mg Q5MIN X3 DOSES PRN SL Prn Chest Pain 04/20/16 05:45 05/20/16 05:44 Ondansetron HCl (Zofran) 4 mg Q4H PRN IVP Nausea & Vomiting 04/20/16 08:00 05/20/16 07:59 Pantoprazole (Protonix) 40 mg DAILY IVP 04/20/16 09:00 05/20/16 08:59 04/21/16 10:09 Polyethylene Glycol (Miralax) 17 gm DAILYPRN PRN ORAL Constipation 04/20/16 07:45 05/20/16 07:44 Temazepam (Restoril) 15 mg HSPRN PRN ORAL Insomnia 04/20/16 07:45 04/27/16 07:44 Vancomycin HCl 1 ea 1 ea DAILYPRN PRN MISC Per rx protocol 04/20/16 10:30 05/20/16 10:29 Vancomycin HCl/ Dextrose (Vancomycin/D5W) 275 ml @ 183.708 mls/hr Q12HR IVPB 04/21/16 21:00 04/26/16 20:59 Allergies: Coded Allergies: No Known Allergies (Unverified , 10/19/15) ROS Limited/Unobtainable: No Constitutional: Reports: no symptoms HEENT: Reports: no symptoms Cardiovascular: Reports: no symptoms Respiratory: Reports: cough, shortness of breath Gastrointestinal/Abdominal: Reports: no symptoms Genitourinary: Reports: no symptoms Neurologic/Psychiatric: Reports: no symptoms Subjective 75 YO M admitted with fever, now with pneumonia. Cover for Int Hernando-Dr Izaguirre. Tolerating nasal canula Objective Last Vital Signs Date Time Temp Pulse Resp B/P Pulse Ox O2 Delivery O2 Flow Rate FiO2 04/21/16 15:56 97.9 112 23 152/96 95 Nasal Cannula 2.0 04/21/16 07:10 28 Laboratory Tests Test 04/21/16 05:15 04/21/16 11:25 White Blood Count 10.5 K/UL (4.8-10.8) Red Blood Count 3.01 M/UL (4.70-6.10) L Hemoglobin 9.7 G/DL (14.2-18.0) L Hematocrit 31.8 % (42.0-52.0) L Mean Corpuscular Volume 106 FL (80-99) H Mean Corpuscular Hemoglobin 32.3 PG (27.0-31.0) H Mean Corpuscular Hemoglobin Concent 30.6 G/DL (32.0-36.0) L Red Cell Distribution Width 12.8 % (11.6-14.8) Platelet Count 111 K/UL (150-450) L Mean Platelet Volume 11.5 FL (6.5-10.1) H Neutrophils (%) (Auto) % (45.0-75.0) Lymphocytes (%) (Auto) % (20.0-45.0) Monocytes (%) (Auto) % (1.0-10.0) Eosinophils (%) (Auto) % (0.0-3.0) Basophils (%) (Auto) % (0.0-2.0) Differential Total Cells Counted 100 Neutrophils % (Manual) 90 % (45-75) H Lymphocytes % (Manual) 6 % (20-45) L Monocytes % (Manual) 2 % (1-10) Eosinophils % (Manual) 0 % (0-3) Basophils % (Manual) 0 % (0-2) Band Neutrophils 2 % (0-8) Platelet Estimate Decreased L Platelet Morphology Normal Hypochromasia 1+ Erythrocyte Sedimentation Rate 120 MM/HR (0-20) H Reticulocyte Count 0.5 % (0.0-2.0) Prothrombin Time 10.0 SEC (9.30-11.50) Prothromb Time International Ratio 1.0 (0.9-1.1) Activated Partial Thromboplast Time 24 SEC (23-33) Sodium Level 154 mEQ/L (135-145) H Potassium Level 4.0 mEQ/L (3.4-4.9) Chloride Level 114 mEQ/L (98-107) H Carbon Dioxide Level 32 mEQ/L (20-30) H Anion Gap 8 (5-15) Blood Urea Nitrogen 30 mg/dL (7-23) H Creatinine 0.7 mg/dL (0.7-1.2) Estimat Glomerular Filtration Rate mL/min (>60) Glucose Level 242 mg/dL (74-106) H Calcium Level 8.7 mg/dL (8.6-10.2) Phosphorus Level 2.4 mg/dL (2.5-4.8) L Magnesium Level 2.5 mg/dL (1.7-2.5) Iron Level 107 ug/dL (59-158) Total Iron Binding Capacity 143 ug/dL (250-400) L Percent Iron Saturation 75 % (15-50) H Unsaturated Iron Binding 36 ug/dL (112-346) L Total Bilirubin 0.3 mg/dL (0.0-1.2) Aspartate Amino Transf (AST/SGOT) 14 U/L (5-40) Alanine Aminotransferase (ALT/SGPT) 21 U/L (3-41) Alkaline Phosphatase 51 U/L (40-129) Lactate Dehydrogenase 151 U/L (135-230) C-Reactive Protein, Quantitative 2.2 mg/dL (< 0.5) H Total Protein 6.1 g/dL (6.6-8.7) L Albumin 2.5 g/dL (3.5-5.2) L Globulin 3.6 g/dL Albumin/Globulin Ratio 0.6 (1.0-2.7) L Carcinoembryonic Antigen 6.1 ng/mL H Vitamin B12 Level 1091 pg/mL (211-946) H Folate Pending Vancomycin Level Trough 9.3 ug/mL (5.0-12.0) Intake and Output 04/20/16 04/21/16 19:00 07:00 Intake Total 2845 ml 935 ml Output Total 350 ml Balance 2495 ml 935 ml Intake Free Water 400 ml 100 ml IV Total 1950 ml 655 ml Tube Feeding 495 ml 180 ml Output Urine Total 350 ml # Bowel Movements 1 Objective General Appearance: lethargic, thin EENT: normal ENT inspection Neck: non-tender, normal alignment, supple Cardiovascular: normal peripheral pulses, normal rate, regular rhythm, no gallop/murmur, no JVD Respiratory/Chest: chest wall non-tender, crackles/rales, rhonchi - bilaterally , expiratory wheezing Abdomen: normal bowel sounds, non tender, soft, no organomegaly, no mass Skin: normal pigmentation, warm/dry Assessment/Plan Problem List: (1) Leukocytosis (2) Pemphigus Assessment & Plan: On chronic prednisone therapy. (3) Sepsis Assessment & Plan: Await culture results. See ID note. (4) Cerebral vascular disease (5) Hemiplegia affecting left nondominant side (6) Aphasia as late effect of cerebrovascular accident (7) Atrial fibrillation Assessment & Plan: Cont novolog and levemir. See endocrinology note. (8) Hypertension (9) Diabetes mellitus (10) Dysphagia as late effect of cerebrovascular accident (CVA) (11) Pneumonia Assessment & Plan: ?aspiration? See pulmonary note. Cont vanco, flagyl and cefepime per ID (12) G tube feedings (13) Atrial fibrillation and flutter (14) Septic shock (15) Hypernatremia Assessment & Plan: See nephrology note. Status: not improved RENETTA OLVERA Apr 21, 2016 19:22
[2016-04-21 20:00] VITALS: BP 141/83
[2016-04-21] MEDS: Metoprolol 25mg tab ORAL SCH (21:29)
--- NOTE | 2016-04-21 22:07 | Consultation ---
DATE OF CONSULTATION: CARDIOLOGY CONSULTATION CONSULTING PHYSICIAN: Abilio Sauceda M.D. REFERRING PHYSICIAN: Adalid Izaguirre M.D. REASON FOR CONSULTATION: Tachycardia and atrial fibrillation. HISTORY OF PRESENT ILLNESS: The patient is a 75-year-old gentleman with history of dementia and dysphagia status post G-tube placement. 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 The patient was admitted on 04/18/2015 with fever and shortness of breath and was diagnosed with sepsis. The patient had leukocytosis and temperature of 104 degrees. Initial EKG showed sinus tachycardia at a rate of 145 beats per minute with T-wave abnormalities and inferior ischemia. The patient, however, is nonverbal and is unable to provide any information. A Cardiology consultation is obtained for further evaluation. PAST MEDICAL HISTORY: Includes: 1. Hypertension. 2. Diabetes. 3. Hyperlipidemia. 4. Atrial fibrillation. 5. Bullous-impetigo, on chronic steroids. 6. Stroke with functional quadriplegia. 7. Dementia. 8. Dysphagia, status post PEG placement. MEDICATIONS: Per reconciliation. ALLERGIES: He has no known drug allergies. SOCIAL HISTORY: He lives in a [facility]. He does not smoke or drink alcohol. REVIEW OF SYSTEMS: Cannot be obtained. PHYSICAL EXAMINATION: VITAL SIGNS: Blood pressure is 152/96, pulse 112, respirations 22, and temperature 97.9 degrees. HEENT: Head and neck shows no JVD. LUNGS: Coarse rhonchi bilaterally. CARDIOVASCULAR: Shows tachycardic. S1 and S2 with no gallop or murmur. ABDOMEN: Soft. Status post G-tube. EXTREMITIES: No pitting edema. Lower extremities are contracted. DIAGNOSTIC DATA: Echocardiogram showed ejection fraction of 75% with no evidence of pericardial effusion. LABORATORY DATA: Labs show white count of 10.5, hemoglobin 9.7, hematocrit 31.8, and platelet count of 111,000. Sodium 154, potassium is 4.0, BUN of 30, creatinine of 0.7, and glucose of 242. His INR is 1. Digoxin level is negative. ASSESSMENT AND PLAN: 1. Atrial fibrillation with rapid ventricular response. The patient has been in sinus tachycardia. We will continue on digoxin 4.5 mg through G-tube daily. Since his blood pressure is also elevated, I will start him on beta allyssa, that would also help with his atrial fibrillation and tachycardia. At this time, the patient is not a candidate for anticoagulation. 2. Broad-spectrum sepsis. The patient is on intravenous antibiotic by vancomycin and cefepime under the management of Dr. Bains for bacteremia and aspiration pneumonia. 3. Severe hypernatremia. The patient needs more free water through the G-tube. Further evaluation by Dr. Caro. 4. Dysphagia, status post PEG placement. 5. Dementia with functional quadriplegia. Thank very much, Dr. Izaguirre, for allowing me to participate in the care of this patient. Please do not hesitate to contact me for any questions regarding my evaluation. Abilio Sauceda M.D. DR: LEE JOB#: [id number] CC:
[2016-04-21] MEDS: Vancomycin 750mg/D5W 275ml IVPB SCH ×2 (23:36)
[2016-04-22] VITALS (7 sets, daily range): BP systolic 113–165; BP diastolic 64–77
[2016-04-22] MEDS: metroNIDAZOLE 500mg 100 ML IV SCH ×2 (05:02→14:06)
[2016-04-22 06:41] LABS: BASOPHILS % (AUTO) 0.2 % (0.0-2.0); EOSINOPHILS % (AUTO) 0.8 % (0.0-3.0); LYMPHOCYTES % (AUTO) 19.3 % (20.0-45.0); MEAN CORPUSCULAR HEMOGLOBIN 32.7 PG (27.0-31.0); MEAN CORPUSCULAR VOLUME 106 FL (80-99); MEAN PLATELET VOLUME 11.5 FL (6.5-10.1); MONOCYTES % (AUTO) 3.9 % (1.0-10.0); NEUTROPHILS % (AUTO) 75.7 % (45.0-75.0); PLATELET COUNT 102 K/UL (150-450); RED BLOOD COUNT 2.86 M/UL (4.70-6.10); RED CELL DISTRIBUTION WIDTH 12.8 % (11.6-14.8); WHITE BLOOD COUNT 7.6 K/UL (4.8-10.8)
--- NOTE | 2016-04-22 07:04 | General Progress Note ---
Assessment/Plan Problem List: (1) Hypernatremia ICD Codes: E87.0 - Hyperosmolality and hypernatremia SNOMED: 05517683 (2) Altered level of consciousness ICD Codes: R40.4 - Transient alteration of awareness SNOMED: 0416570 (3) Diabetes ICD Codes: E11.9 - Type 2 diabetes mellitus without complications SNOMED: 73422451 Assessment/Plan he is off of IVHC since yesterday am will order random serum Cortisol and ACTH glucose values on the lower side DC Levemir continue Novolog sliding scale Subjective ROS Limited/Unobtainable: Yes Allergies: Coded Allergies: No Known Allergies (Unverified , 10/19/15) Subjective events noted - interval notes reviewed Objective Last 24 Hour Vital Signs Date Time Temp Pulse Resp B/P Pulse Ox O2 Delivery O2 Flow Rate FiO2 04/22/16 04:00 99.1 107 24 116/71 99 Nasal Cannula 5.0 04/22/16 02:37 105 18 100 Nasal Cannula 4.0 04/22/16 02:35 100 18 99 Nasal Cannula 4.0 04/22/16 00:00 98.4 89 24 113/77 100 Nasal Cannula 5.0 04/21/16 21:29 90 145/85 04/21/16 20:26 Nasal Cannula 2.0 28 04/21/16 20:25 99 Nasal Cannula 2.0 28 04/21/16 20:25 108 18 Nasal Cannula 2.0 28 04/21/16 20:00 98.3 101 21 141/83 100 Nasal Cannula 2.0 04/21/16 15:56 97.9 112 23 152/96 95 Nasal Cannula 2.0 04/21/16 11:52 98.6 103 22 142/87 100 Nasal Cannula 2.0 04/21/16 10:09 88 04/21/16 08:09 98.8 103 22 159/96 100 Nasal Cannula 2.0 04/21/16 07:10 103 20 Nasal Cannula 2.0 28 04/21/16 07:10 99 Nasal Cannula 2.0 28 04/21/16 07:10 Nasal Cannula 2.0 28 Intake and Output 04/21/16 04/22/16 19:00 07:00 Intake Total 1370 ml 875 ml Output Total 250 ml 800 ml Balance 1120 ml 75 ml Intake Free Water 350 ml 250 ml IV Total 700 ml 505 ml Tube Feeding 320 ml 120 ml Output Urine Total 250 ml 800 ml # Voids 1 Laboratory Tests 04/21/16 11:25: Vancomycin Level Trough 9.3 04/22/16 04:30: White Blood Count 7.6, Red Blood Count 2.86L, Hemoglobin 9.4L, Hematocrit 30.2L , Mean Corpuscular Volume 106H, Mean Corpuscular Hemoglobin 32.7H, Mean Corpuscular Hemoglobin Concent 31.0L, Red Cell Distribution Width 12.8, Platelet Count 102L, Mean Platelet Volume 11.5H, Neutrophils (%) (Auto) 75.7H, Lymphocytes (%) (Auto) 19.3L, Monocytes (%) (Auto) 3.9, Eosinophils (%) (Auto) 0.8, Basophils (%) (Auto) 0.2, Sodium Level [Pending], Potassium Level [Pending] , Chloride Level [Pending], Carbon Dioxide Level [Pending], Blood Urea Nitrogen [Pending], Creatinine [Pending], Estimat Glomerular Filtration Rate [Pending], Glucose Level [Pending], Uric Acid [Pending], Calcium Level [Pending], Phosphorus Level [Pending], Magnesium Level [Pending], Total Bilirubin [Pending] , Aspartate Amino Transf (AST/SGOT) [Pending], Alanine Aminotransferase (ALT/ SGPT) [Pending], Alkaline Phosphatase [Pending], C-Reactive Protein, Quantitative [Pending], Pro-B-Type Natriuretic Peptide [Pending], Total Protein [Pending], Albumin [Pending], Globulin [Pending] Height (Feet): 5 Height (Inches): 7.00 Weight (Pounds): 120 General Appearance: moderate distress EENT: pale conjunctivae Neck: normal alignment Cardiovascular: tachycardia Respiratory/Chest: decreased breath sounds Abdomen: normal bowel sounds Edema: no edema noted Arm (L), no edema noted Arm (R), no edema noted Leg (L), no edema noted Leg (R), no edema noted Pedal (L), no edema noted Pedal (R), no edema noted Generalized Objective Current Medications Medications (Trade) Dose Ordered Sig/Joy Route PRN Reason Start Time Stop Time Status Last Admin Dose Admin Acetaminophen (Tylenol) 650 mg Q4H PRN ORAL fever 04/20/16 07:45 05/20/16 07:44 Albuterol/ Ipratropium (DuoNeb 0.5-3(2.5)mg/3ml) 3 ml Q4H PRN HHN Shortness of Breath 04/20/16 07:45 04/25/16 07:44 04/22/16 02:33 Cefepime HCl 1 gm/ Dextrose 55 ml @ 110 mls/hr EVERY 12 HOURS IVPB 04/20/16 09:00 04/27/16 08:59 04/21/16 21:30 Dextrose 1,000 ml @ 75 mls/hr [id number] IV 04/21/16 12:15 05/21/16 12:14 04/22/16 01:22 Dextrose (Dextrose 50%) STAT PRN IV Hypoglycemia 04/20/16 09:30 05/20/16 09:29 Digoxin (Lanoxin) 0.125 mg DAILY ORAL 04/20/16 09:00 05/20/16 08:59 04/21/16 10:09 Enoxaparin Sodium (Lovenox) 40 mg DAILY SUBQ 04/20/16 09:00 05/20/16 08:59 Lactulose (Cephulac) 30 gm DAILYPRN PRN ORAL Constipation 04/20/16 08:00 05/20/16 07:59 Metoprolol Tartrate (Lopressor) 25 mg Q12HR ORAL 04/21/16 21:00 05/21/16 20:59 04/21/16 21:29 Metronidazole (Flagyl) 100 ml @ 100 mls/hr Q8HR IV 04/20/16 06:00 04/27/16 05:59 04/22/16 05:02 Morphine Sulfate (Morphine Sulfate) 2 mg Q4H PRN IVP Moderate Pain (Pain Scale 4-6) 04/20/16 07:45 04/27/16 07:44 Nitroglycerin (Ntg) 0.4 mg Q5MIN X3 DOSES PRN SL Prn Chest Pain 04/20/16 05:45 05/20/16 05:44 Ondansetron HCl (Zofran) 4 mg Q4H PRN IVP Nausea & Vomiting 04/20/16 08:00 05/20/16 07:59 Pantoprazole (Protonix) 40 mg DAILY IVP 04/20/16 09:00 05/20/16 08:59 04/21/16 10:09 Polyethylene Glycol (Miralax) 17 gm DAILYPRN PRN ORAL Constipation 04/20/16 07:45 05/20/16 07:44 Temazepam (Restoril) 15 mg HSPRN PRN ORAL Insomnia 04/20/16 07:45 04/27/16 07:44 Vancomycin HCl 1 ea 1 ea DAILYPRN PRN MISC Per rx protocol 04/20/16 10:30 05/20/16 10:29 Vancomycin HCl/ Dextrose (Vancomycin/D5W) 275 ml @ 183.708 mls/hr Q12HR IVPB 04/21/16 21:00 04/26/16 20:59 04/21/16 23:36 Item Value Date Time Bedside Blood Glucose 124 mg/dl H 04/22/16 0548 Bedside Blood Glucose 61 mg/dl L 04/22/16 0000 Bedside Blood Glucose 252 mg/dl H 04/21/16 1841 Bedside Blood Glucose 329 mg/dl H 04/21/16 1300 Bedside Blood Glucose 192 mg/dl H 04/21/16 0639 JAGRUTI MANN Apr 22, 2016 07:04
[2016-04-22 07:15] LABS: ALANINE AMINOTRANSFERASE 16 U/L (3-41); ALBUMIN/GLOBULIN RATIO 0.7 (1.0-2.7); ANION GAP 3 (5-15); ASPARTATE AMINO TRANSFERASE 16 U/L (5-40); CARBON DIOXIDE 35 mEQ/L (20-30); CHLORIDE 115 mEQ/L (98-107); CREATININE 0.6 mg/dL (0.7-1.2); CRP QUANT 1.1 mg/dL (< 0.5); HEMOLYSIS 17; MAGNESIUM 2.1 mg/dL (1.7-2.5); PHOSPHORUS 1.8 mg/dL (2.5-4.8); POTASSIUM 3.8 mEQ/L (3.4-4.9); SODIUM 153 mEQ/L (135-145); TOTAL PROTEIN 5.3 g/dL (6.6-8.7); URIC ACID 4.3 mg/dL (3.0-7.5)
[2016-04-22] MEDS: Digoxin 0.125mg tab ORAL SCH (08:55)
[2016-04-22] MEDS: Metoprolol 25mg tab ORAL SCH ×2 (08:55→21:53)
[2016-04-22] MEDS: Pantoprazole Inj IVP SCH (08:56)
[2016-04-22] MEDS: Cefepime HCl 1 GM in D5W 55 ML IVPB SCH ×2 (08:57→21:53)
[2016-04-22] MEDS: Enoxaparin 40mg Inj SUBQ SCH (09:00)
[2016-04-22] MEDS: Vancomycin 750mg/D5W 275ml IVPB SCH ×4 (10:12→22:58)
[2016-04-22] MEDS: NovoLOG Insulin Flexpen SUBQ SCH ×2 (12:05→19:25)
--- NOTE | 2016-04-22 12:09 | Internal Med Progress Note ---
Subjective Date of Service: Apr 22, 2016 Physician Name Renetta Olvera Attending Physician Adalid Izaguirre MD Current Medications Medications (Trade) Dose Ordered Sig/Joy Route PRN Reason Start Time Stop Time Status Last Admin Dose Admin Acetaminophen (Tylenol) 650 mg Q4H PRN ORAL fever 04/20/16 07:45 05/20/16 07:44 Albuterol/ Ipratropium (DuoNeb 0.5-3(2.5)mg/3ml) 3 ml Q4H PRN HHN Shortness of Breath 04/20/16 07:45 04/25/16 07:44 04/22/16 02:33 Cefepime HCl 1 gm/ Dextrose 55 ml @ 110 mls/hr EVERY 12 HOURS IVPB 04/20/16 09:00 04/27/16 08:59 04/22/16 08:57 Dextrose 1,000 ml @ 75 mls/hr [id number] IV 04/21/16 12:15 05/21/16 12:14 04/22/16 01:22 Dextrose (Dextrose 50%) STAT PRN IV Hypoglycemia 04/20/16 09:30 05/20/16 09:29 Digoxin (Lanoxin) 0.125 mg DAILY ORAL 04/20/16 09:00 05/20/16 08:59 04/22/16 08:55 Enoxaparin Sodium (Lovenox) 40 mg DAILY SUBQ 04/20/16 09:00 05/20/16 08:59 Insulin Aspart (NovoLOG) EVERY 6 HOURS SUBQ 04/22/16 12:00 05/22/16 11:59 04/22/16 12:05 Lactulose (Cephulac) 30 gm DAILYPRN PRN ORAL Constipation 04/20/16 08:00 05/20/16 07:59 Metoprolol Tartrate (Lopressor) 25 mg Q12HR ORAL 04/21/16 21:00 05/21/16 20:59 04/22/16 08:55 Metronidazole (Flagyl) 100 ml @ 100 mls/hr Q8HR IV 04/20/16 06:00 04/27/16 05:59 04/22/16 05:02 Morphine Sulfate (Morphine Sulfate) 2 mg Q4H PRN IVP Moderate Pain (Pain Scale 4-6) 04/20/16 07:45 04/27/16 07:44 Nitroglycerin (Ntg) 0.4 mg Q5MIN X3 DOSES PRN SL Prn Chest Pain 04/20/16 05:45 05/20/16 05:44 Ondansetron HCl (Zofran) 4 mg Q4H PRN IVP Nausea & Vomiting 04/20/16 08:00 05/20/16 07:59 Pantoprazole (Protonix) 40 mg DAILY IVP 04/20/16 09:00 05/20/16 08:59 04/22/16 08:56 Polyethylene Glycol (Miralax) 17 gm DAILYPRN PRN ORAL Constipation 04/20/16 07:45 05/20/16 07:44 Temazepam (Restoril) 15 mg HSPRN PRN ORAL Insomnia 04/20/16 07:45 04/27/16 07:44 Vancomycin HCl 1 ea 1 ea DAILYPRN PRN MISC Per rx protocol 04/20/16 10:30 05/20/16 10:29 Vancomycin HCl/ Dextrose (Vancomycin/D5W) 275 ml @ 183.708 mls/hr Q12HR IVPB 04/21/16 21:00 04/26/16 20:59 04/22/16 10:12 Allergies: Coded Allergies: No Known Allergies (Unverified , 10/19/15) ROS Limited/Unobtainable: Yes Subjective 75 YO M admitted with fever, now with pneumonia. Cover for Int Hernando-Dr Izaguirre. Tolerating nasal canula Objective Last Vital Signs Date Time Temp Pulse Resp B/P Pulse Ox O2 Delivery O2 Flow Rate FiO2 04/22/16 11:42 98.8 99 18 140/76 99 Nasal Cannula 4.0 04/22/16 07:54 28 Laboratory Tests Test 04/22/16 04:30 04/22/16 06:00 White Blood Count 7.6 K/UL (4.8-10.8) Red Blood Count 2.86 M/UL (4.70-6.10) L Hemoglobin 9.4 G/DL (14.2-18.0) L Hematocrit 30.2 % (42.0-52.0) L Mean Corpuscular Volume 106 FL (80-99) H Mean Corpuscular Hemoglobin 32.7 PG (27.0-31.0) H Mean Corpuscular Hemoglobin Concent 31.0 G/DL (32.0-36.0) L Red Cell Distribution Width 12.8 % (11.6-14.8) Platelet Count 102 K/UL (150-450) L Mean Platelet Volume 11.5 FL (6.5-10.1) H Neutrophils (%) (Auto) 75.7 % (45.0-75.0) H Lymphocytes (%) (Auto) 19.3 % (20.0-45.0) L Monocytes (%) (Auto) 3.9 % (1.0-10.0) Eosinophils (%) (Auto) 0.8 % (0.0-3.0) Basophils (%) (Auto) 0.2 % (0.0-2.0) Sodium Level 153 mEQ/L (135-145) H Potassium Level 3.8 mEQ/L (3.4-4.9) Chloride Level 115 mEQ/L (98-107) H Carbon Dioxide Level 35 mEQ/L (20-30) H Anion Gap 3 (5-15) L Blood Urea Nitrogen 22 mg/dL (7-23) Creatinine 0.6 mg/dL (0.7-1.2) L Estimat Glomerular Filtration Rate mL/min (>60) Glucose Level 116 mg/dL (74-106) #H Uric Acid 4.3 mg/dL (3.0-7.5) Calcium Level 8.0 mg/dL (8.6-10.2) L Phosphorus Level 1.8 mg/dL (2.5-4.8) L Magnesium Level 2.1 mg/dL (1.7-2.5) Total Bilirubin < 0.2 mg/dL (0.0-1.2) Aspartate Amino Transf (AST/SGOT) 16 U/L (5-40) Alanine Aminotransferase (ALT/SGPT) 16 U/L (3-41) Alkaline Phosphatase 43 U/L (40-129) C-Reactive Protein, Quantitative 1.1 mg/dL (< 0.5) H Pro-B-Type Natriuretic Peptide 586 pg/mL (0-450) H Total Protein 5.3 g/dL (6.6-8.7) L Albumin 2.2 g/dL (3.5-5.2) L Globulin 3.1 g/dL Albumin/Globulin Ratio 0.7 (1.0-2.7) L Stool Occult Blood Pending Microbiology Date/Time Source Procedure Growth Status 04/21/16 05:15 Blood Blood Culture - Preliminary Resulted Intake and Output 04/21/16 04/22/16 19:00 07:00 Intake Total 1370 ml 875 ml Output Total 250 ml 800 ml Balance 1120 ml 75 ml Intake Free Water 350 ml 250 ml IV Total 700 ml 505 ml Tube Feeding 320 ml 120 ml Output Urine Total 250 ml 800 ml # Voids 1 Objective General Appearance: lethargic, thin EENT: normal ENT inspection Neck: non-tender, normal alignment, supple Cardiovascular: normal peripheral pulses, normal rate, regular rhythm, no gallop/murmur, no JVD Respiratory/Chest: chest wall non-tender, crackles/rales, rhonchi - bilaterally , expiratory wheezing Abdomen: normal bowel sounds, non tender, soft, no organomegaly, no mass Skin: normal pigmentation, warm/dry Assessment/Plan Problem List: (1) Leukocytosis (2) Pemphigus Assessment & Plan: On chronic prednisone therapy. (3) Sepsis Assessment & Plan: Await culture results. See ID note. (4) Cerebral vascular disease (5) Hemiplegia affecting left nondominant side (6) Aphasia as late effect of cerebrovascular accident (7) Atrial fibrillation Assessment & Plan: Cont novolog; D/C levemir. See endocrinology note. (8) Hypertension (9) Diabetes mellitus (10) Dysphagia as late effect of cerebrovascular accident (CVA) (11) Pneumonia Assessment & Plan: ?aspiration? See pulmonary note. Cont vanco, flagyl and cefepime per ID (12) G tube feedings (13) Atrial fibrillation and flutter (14) Septic shock (15) Hypernatremia Assessment & Plan: See nephrology note. Status: not improved RENETTA OLVERA Apr 22, 2016 12:09
[2016-04-22] MEDS ORDERED: Potassium Phosphate 30 MM in NS 275 ML IV ONE (15:00)
--- NOTE | 2016-04-22 15:43 | Cardiac Electrophysiology PN ---
Assessment/Plan Assessment/Plan 1. Atrial fibrillation with rapid ventricular response. We will continue on digoxin 0.125 mg through G-tube daily and Lopressor 25 bid. At this time, the patient is not a candidate for anticoagulation. 2. Broad-spectrum sepsis. On vancomycin and cefepime under the management of Dr. Bains for bacteremia and aspiration pneumonia. 3. Severe hypernatremia. Na still 153 today. The patient needs more free water through the G-tube. Further evaluation by Dr. Caro. 4. Dysphagia, status post PEG placement. 5. Dementia with functional quadriplegia. Subjective Subjective Opens eyes but nonverbal on Med Surge. On IV antibiotics. Objective Last 24 Hour Vital Signs Date Time Temp Pulse Resp B/P Pulse Ox O2 Delivery O2 Flow Rate FiO2 04/22/16 11:42 98.8 99 18 140/76 99 Nasal Cannula 4.0 04/22/16 08:55 101 144/73 04/22/16 08:55 101 04/22/16 08:23 98.4 97 18 165/76 99 Nasal Cannula 4.0 04/22/16 07:54 Nasal Cannula 2.0 28 04/22/16 07:53 99 Nasal Cannula 2.0 28 04/22/16 07:52 99 18 Nasal Cannula 2.0 28 04/22/16 04:00 99.1 107 24 116/71 99 Nasal Cannula 5.0 04/22/16 02:37 105 18 100 Nasal Cannula 4.0 04/22/16 02:35 100 18 99 Nasal Cannula 4.0 04/22/16 00:00 98.4 89 24 113/77 100 Nasal Cannula 5.0 04/21/16 21:29 90 145/85 04/21/16 20:26 Nasal Cannula 2.0 28 04/21/16 20:25 99 Nasal Cannula 2.0 28 04/21/16 20:25 108 18 Nasal Cannula 2.0 28 04/21/16 20:00 98.3 101 21 141/83 100 Nasal Cannula 2.0 04/21/16 15:56 97.9 112 23 152/96 95 Nasal Cannula 2.0 Intake and Output 04/21/16 04/22/16 19:00 07:00 Intake Total 1370 ml 875 ml Output Total 250 ml 800 ml Balance 1120 ml 75 ml Intake Free Water 350 ml 250 ml IV Total 700 ml 505 ml Tube Feeding 320 ml 120 ml Output Urine Total 250 ml 800 ml # Voids 1 Laboratory Tests Test 04/22/16 04:30 04/22/16 06:00 White Blood Count 7.6 K/UL (4.8-10.8) Red Blood Count 2.86 M/UL (4.70-6.10) L Hemoglobin 9.4 G/DL (14.2-18.0) L Hematocrit 30.2 % (42.0-52.0) L Mean Corpuscular Volume 106 FL (80-99) H Mean Corpuscular Hemoglobin 32.7 PG (27.0-31.0) H Mean Corpuscular Hemoglobin Concent 31.0 G/DL (32.0-36.0) L Red Cell Distribution Width 12.8 % (11.6-14.8) Platelet Count 102 K/UL (150-450) L Mean Platelet Volume 11.5 FL (6.5-10.1) H Neutrophils (%) (Auto) 75.7 % (45.0-75.0) H Lymphocytes (%) (Auto) 19.3 % (20.0-45.0) L Monocytes (%) (Auto) 3.9 % (1.0-10.0) Eosinophils (%) (Auto) 0.8 % (0.0-3.0) Basophils (%) (Auto) 0.2 % (0.0-2.0) Sodium Level 153 mEQ/L (135-145) H Potassium Level 3.8 mEQ/L (3.4-4.9) Chloride Level 115 mEQ/L (98-107) H Carbon Dioxide Level 35 mEQ/L (20-30) H Anion Gap 3 (5-15) L Blood Urea Nitrogen 22 mg/dL (7-23) Creatinine 0.6 mg/dL (0.7-1.2) L Estimat Glomerular Filtration Rate mL/min (>60) Glucose Level 116 mg/dL (74-106) #H Uric Acid 4.3 mg/dL (3.0-7.5) Calcium Level 8.0 mg/dL (8.6-10.2) L Phosphorus Level 1.8 mg/dL (2.5-4.8) L Magnesium Level 2.1 mg/dL (1.7-2.5) Total Bilirubin < 0.2 mg/dL (0.0-1.2) Aspartate Amino Transf (AST/SGOT) 16 U/L (5-40) Alanine Aminotransferase (ALT/SGPT) 16 U/L (3-41) Alkaline Phosphatase 43 U/L (40-129) C-Reactive Protein, Quantitative 1.1 mg/dL (< 0.5) H Pro-B-Type Natriuretic Peptide 586 pg/mL (0-450) H Total Protein 5.3 g/dL (6.6-8.7) L Albumin 2.2 g/dL (3.5-5.2) L Globulin 3.1 g/dL Albumin/Globulin Ratio 0.7 (1.0-2.7) L Stool Occult Blood Negative (NEGATIVE) Microbiology Date/Time Source Procedure Growth Status 04/21/16 05:15 Blood Blood Culture - Preliminary Resulted Objective HEENT: Head and neck shows no JVD. LUNGS: Coarse rhonchi bilaterally. CARDIOVASCULAR: Tachycardic with no gallop or murmur. ABDOMEN: Soft. Status post G-tube. EXTREMITIES: No pitting edema. Lower extremities are contracted with multiple ulcers.. HERLINDA BURNETT Apr 22, 2016 15:43
--- NOTE | 2016-04-22 17:41 | Infectious Diseases Prog Note ---
Assessment/Plan Assessment/Plan ASSESSMENT: 75 y/o male with: // CONS bacteremia 05/09 - repeat BCx GPC clusters 04/08 - TTE(-) SBE // Probable HCAP / aspiration PNA - CXR 04/19: Improvement in right lung base atelectasis/volume loss - negative: influenza, legionella UAg - h/o MSSA // Sepsis SP // Leukocytosis - resolved ( on stress steroids ) // Fever - resolved // Bullous impetigo, on chronic steroids // Hypernatremia / electrolyte imbalance // DM2 - HbA1c 8.1% // Dementia, h/o CVA // Functional quadriplegia / bedbound // Dysphagia SP PEG // [facility] resident // Negative MRSA, VRE screens // NKDA // Full Code PLAN: - continue IV vancomycin, cefepime, flagyl d# / - f/u repeat BCx AM - taper steroids per pulm - f/u cultures - monitor CBC, temperatures - monitor BMP - monitor CXR - aspiration precautions - wound care Subjective Allergies: Coded Allergies: No Known Allergies (Unverified , 10/19/15) Subjective fevers, leukocytosis resolved repeat BCx again positive Objective Vital Signs Last 24 Hour Vital Signs Date Time Temp Pulse Resp B/P Pulse Ox O2 Delivery O2 Flow Rate FiO2 04/22/16 16:19 98.4 95 18 138/72 99 Nasal Cannula 4.0 04/22/16 11:42 98.8 99 18 140/76 99 Nasal Cannula 4.0 04/22/16 08:55 101 144/73 04/22/16 08:55 101 04/22/16 08:23 98.4 97 18 165/76 99 Nasal Cannula 4.0 04/22/16 07:54 Nasal Cannula 2.0 28 04/22/16 07:53 99 Nasal Cannula 2.0 28 04/22/16 07:52 99 18 Nasal Cannula 2.0 28 04/22/16 04:00 99.1 107 24 116/71 99 Nasal Cannula 5.0 04/22/16 02:37 105 18 100 Nasal Cannula 4.0 04/22/16 02:35 100 18 99 Nasal Cannula 4.0 04/22/16 00:00 98.4 89 24 113/77 100 Nasal Cannula 5.0 04/21/16 21:29 90 145/85 04/21/16 20:26 Nasal Cannula 2.0 28 04/21/16 20:25 99 Nasal Cannula 2.0 28 04/21/16 20:25 108 18 Nasal Cannula 2.0 28 04/21/16 20:00 98.3 101 21 141/83 100 Nasal Cannula 2.0 Height (Feet): 5 Height (Inches): 7.00 Weight (Pounds): 120 General Appearance: no acute distress Respiratory/Chest: no respiratory distress Cardiovascular: normal rate, regular rhythm Abdomen: normal bowel sounds, soft, non tender, non distended Skin: lesions Microbiology Date/Time Source Procedure Growth Status 04/21/16 05:15 Blood Blood Culture - Preliminary Resulted Laboratory Tests Test 04/22/16 04:30 04/22/16 06:00 White Blood Count 7.6 K/UL (4.8-10.8) Red Blood Count 2.86 M/UL (4.70-6.10) L Hemoglobin 9.4 G/DL (14.2-18.0) L Hematocrit 30.2 % (42.0-52.0) L Mean Corpuscular Volume 106 FL (80-99) H Mean Corpuscular Hemoglobin 32.7 PG (27.0-31.0) H Mean Corpuscular Hemoglobin Concent 31.0 G/DL (32.0-36.0) L Red Cell Distribution Width 12.8 % (11.6-14.8) Platelet Count 102 K/UL (150-450) L Mean Platelet Volume 11.5 FL (6.5-10.1) H Neutrophils (%) (Auto) 75.7 % (45.0-75.0) H Lymphocytes (%) (Auto) 19.3 % (20.0-45.0) L Monocytes (%) (Auto) 3.9 % (1.0-10.0) Eosinophils (%) (Auto) 0.8 % (0.0-3.0) Basophils (%) (Auto) 0.2 % (0.0-2.0) Sodium Level 153 mEQ/L (135-145) H Potassium Level 3.8 mEQ/L (3.4-4.9) Chloride Level 115 mEQ/L (98-107) H Carbon Dioxide Level 35 mEQ/L (20-30) H Anion Gap 3 (5-15) L Blood Urea Nitrogen 22 mg/dL (7-23) Creatinine 0.6 mg/dL (0.7-1.2) L Estimat Glomerular Filtration Rate mL/min (>60) Glucose Level 116 mg/dL (74-106) #H Uric Acid 4.3 mg/dL (3.0-7.5) Calcium Level 8.0 mg/dL (8.6-10.2) L Phosphorus Level 1.8 mg/dL (2.5-4.8) L Magnesium Level 2.1 mg/dL (1.7-2.5) Total Bilirubin < 0.2 mg/dL (0.0-1.2) Aspartate Amino Transf (AST/SGOT) 16 U/L (5-40) Alanine Aminotransferase (ALT/SGPT) 16 U/L (3-41) Alkaline Phosphatase 43 U/L (40-129) C-Reactive Protein, Quantitative 1.1 mg/dL (< 0.5) H Pro-B-Type Natriuretic Peptide 586 pg/mL (0-450) H Total Protein 5.3 g/dL (6.6-8.7) L Albumin 2.2 g/dL (3.5-5.2) L Globulin 3.1 g/dL Albumin/Globulin Ratio 0.7 (1.0-2.7) L Stool Occult Blood Negative (NEGATIVE) Current Medications Medications (Trade) Dose Ordered Sig/Joy Route PRN Reason Start Time Stop Time Status Last Admin Dose Admin Acetaminophen (Tylenol) 650 mg Q4H PRN ORAL fever 04/20/16 07:45 05/20/16 07:44 Albuterol/ Ipratropium (DuoNeb 0.5-3(2.5)mg/3ml) 3 ml Q4H PRN HHN Shortness of Breath 04/20/16 07:45 04/25/16 07:44 04/22/16 02:33 Cefepime HCl 1 gm/ Dextrose 55 ml @ 110 mls/hr EVERY 12 HOURS IVPB 04/20/16 09:00 04/27/16 08:59 04/22/16 08:57 Dextrose 1,000 ml @ 75 mls/hr [id number] IV 04/21/16 12:15 05/21/16 12:14 04/22/16 14:08 Dextrose (Dextrose 50%) STAT PRN IV Hypoglycemia 04/20/16 09:30 05/20/16 09:29 Digoxin (Lanoxin) 0.125 mg DAILY ORAL 04/20/16 09:00 05/20/16 08:59 04/22/16 08:55 Enoxaparin Sodium (Lovenox) 40 mg DAILY SUBQ 04/20/16 09:00 05/20/16 08:59 Insulin Aspart EVERY 6 HOURS SUBQ 04/22/16 12:00 05/22/16 11:59 04/22/16 12:05 Lactulose (Cephulac) 30 gm DAILYPRN PRN ORAL Constipation 04/20/16 08:00 05/20/16 07:59 Metoprolol Tartrate (Lopressor) 25 mg Q12HR ORAL 04/21/16 21:00 05/21/16 20:59 04/22/16 08:55 Metronidazole (Flagyl) 100 ml @ 100 mls/hr Q8HR IV 04/20/16 06:00 04/27/16 05:59 04/22/16 14:06 Morphine Sulfate (Morphine Sulfate) 2 mg Q4H PRN IVP Moderate Pain (Pain Scale 4-6) 04/20/16 07:45 04/27/16 07:44 Nitroglycerin (Ntg) 0.4 mg Q5MIN X3 DOSES PRN SL Prn Chest Pain 04/20/16 05:45 05/20/16 05:44 Ondansetron HCl (Zofran) 4 mg Q4H PRN IVP Nausea & Vomiting 04/20/16 08:00 05/20/16 07:59 Pantoprazole (Protonix) 40 mg DAILY IVP 04/20/16 09:00 05/20/16 08:59 04/22/16 08:56 Polyethylene Glycol (Miralax) 17 gm DAILYPRN PRN ORAL Constipation 04/20/16 07:45 05/20/16 07:44 Potassium Phosphate/Sodium Chloride (Potassium Phosphate/Sodium Chloride) 285 ml @ 47.5 mls/hr ONCE ONCE IV 04/22/16 15:00 04/22/16 20:59 04/22/16 17:26 Temazepam (Restoril) 15 mg HSPRN PRN ORAL Insomnia 04/20/16 07:45 04/27/16 07:44 Vancomycin HCl 1 ea 1 ea DAILYPRN PRN MISC Per rx protocol 04/20/16 10:30 05/20/16 10:29 Vancomycin HCl/ Dextrose (Vancomycin/D5W) 275 ml @ 183.708 mls/hr Q12HR IVPB 04/21/16 21:00 04/26/16 20:59 04/22/16 10:12 DOLORES FANG Apr 22, 2016 17:41
--- NOTE | 2016-04-22 18:00 | Pulmonology Progress Note ---
Assessment/Plan Problems: (1) Septic shock (2) Pneumonia (3) ATN (acute tubular necrosis) (4) Diabetes (5) G tube feedings (6) Left hemiparesis (7) CVA (cerebral vascular accident) (8) prison resident (9) Gastrostomy in place Assessment/Plan on bekah Dumont vanco blood culture are most likely contaminated check electrolytes continue IV fluids aspiration precaution wound care gtube site care Subjective ROS Limited/Unobtainable: Yes Constitutional: Reports: anorexia, fatigue Respiratory: Reports: dyspnea at rest, dyspnea on exertion, productive cough, shortness of breath, sputum Neurologic: Reports: confusion, numbness, weakness Allergies: Coded Allergies: No Known Allergies (Unverified , 10/19/15) Objective Last 24 Hour Vital Signs Date Time Temp Pulse Resp B/P Pulse Ox O2 Delivery O2 Flow Rate FiO2 04/22/16 16:19 98.4 95 18 138/72 99 Nasal Cannula 4.0 04/22/16 11:42 98.8 99 18 140/76 99 Nasal Cannula 4.0 04/22/16 08:55 101 144/73 04/22/16 08:55 101 04/22/16 08:23 98.4 97 18 165/76 99 Nasal Cannula 4.0 04/22/16 07:54 Nasal Cannula 2.0 28 04/22/16 07:53 99 Nasal Cannula 2.0 28 04/22/16 07:52 99 18 Nasal Cannula 2.0 28 04/22/16 04:00 99.1 107 24 116/71 99 Nasal Cannula 5.0 04/22/16 02:37 105 18 100 Nasal Cannula 4.0 04/22/16 02:35 100 18 99 Nasal Cannula 4.0 04/22/16 00:00 98.4 89 24 113/77 100 Nasal Cannula 5.0 04/21/16 21:29 90 145/85 04/21/16 20:26 Nasal Cannula 2.0 28 04/21/16 20:25 99 Nasal Cannula 2.0 28 04/21/16 20:25 108 18 Nasal Cannula 2.0 28 04/21/16 20:00 98.3 101 21 141/83 100 Nasal Cannula 2.0 Intake and Output 04/21/16 04/22/16 19:00 07:00 Intake Total 1370 ml 875 ml Output Total 250 ml 800 ml Balance 1120 ml 75 ml Intake Free Water 350 ml 250 ml IV Total 700 ml 505 ml Tube Feeding 320 ml 120 ml Output Urine Total 250 ml 800 ml # Voids 1 General Appearance: no acute distress HEENT: normocephalic, atraumatic, PERRL Respiratory/Chest: chest wall non-tender, decreased breath sounds, accessory muscle use, rhonchi Cardiovascular: normal peripheral pulses, normal rate, regular rhythm, no JVD Abdomen: normal bowel sounds, soft, non tender, no organomegaly Genitourinary: normal external genitalia Extremities: no cyanosis Skin: no rash, no lesions Neurologic/Psychiatric: abnormal CN, motor weakness, sensory deficit, disoriented, aphasia Microbiology Date/Time Source Procedure Growth Status 04/21/16 05:15 Blood Blood Culture - Preliminary Resulted Laboratory Tests 04/22/16 04:30: White Blood Count 7.6, Red Blood Count 2.86L, Hemoglobin 9.4L, Hematocrit 30.2L , Mean Corpuscular Volume 106H, Mean Corpuscular Hemoglobin 32.7H, Mean Corpuscular Hemoglobin Concent 31.0L, Red Cell Distribution Width 12.8, Platelet Count 102L, Mean Platelet Volume 11.5H, Neutrophils (%) (Auto) 75.7H, Lymphocytes (%) (Auto) 19.3L, Monocytes (%) (Auto) 3.9, Eosinophils (%) (Auto) 0.8, Basophils (%) (Auto) 0.2, Sodium Level 153H, Potassium Level 3.8, Chloride Level 115H, Carbon Dioxide Level 35H, Anion Gap 3L, Blood Urea Nitrogen 22, Creatinine 0.6L, Estimat Glomerular Filtration Rate , Glucose Level 116#H, Uric Acid 4.3, Calcium Level 8.0L, Phosphorus Level 1.8L, Magnesium Level 2.1, Total Bilirubin < 0.2, Aspartate Amino Transf (AST/SGOT) 16, Alanine Aminotransferase (ALT/SGPT) 16, Alkaline Phosphatase 43, C-Reactive Protein, Quantitative 1.1H, Pro-B-Type Natriuretic Peptide 586H, Total Protein 5.3L, Albumin 2.2L, Globulin 3.1, Albumin/Globulin Ratio 0.7L 04/22/16 06:00: Stool Occult Blood Negative Current Medications Medications (Trade) Dose Ordered Sig/Joy Route PRN Reason Start Time Stop Time Status Last Admin Dose Admin Acetaminophen (Tylenol) 650 mg Q4H PRN ORAL fever 04/20/16 07:45 05/20/16 07:44 Albuterol/ Ipratropium (DuoNeb 0.5-3(2.5)mg/3ml) 3 ml Q4H PRN HHN Shortness of Breath 04/20/16 07:45 04/25/16 07:44 04/22/16 02:33 Cefepime HCl 1 gm/ Dextrose 55 ml @ 110 mls/hr EVERY 12 HOURS IVPB 04/20/16 09:00 04/27/16 08:59 04/22/16 08:57 Dextrose 1,000 ml @ 75 mls/hr [id number] IV 04/21/16 12:15 05/21/16 12:14 04/22/16 14:08 Dextrose (Dextrose 50%) STAT PRN IV Hypoglycemia 04/20/16 09:30 05/20/16 09:29 Digoxin (Lanoxin) 0.125 mg DAILY ORAL 04/20/16 09:00 05/20/16 08:59 04/22/16 08:55 Enoxaparin Sodium (Lovenox) 40 mg DAILY SUBQ 04/20/16 09:00 05/20/16 08:59 Insulin Aspart EVERY 6 HOURS SUBQ 04/22/16 12:00 05/22/16 11:59 04/22/16 12:05 Lactulose (Cephulac) 30 gm DAILYPRN PRN ORAL Constipation 04/20/16 08:00 05/20/16 07:59 Metoprolol Tartrate (Lopressor) 25 mg Q12HR ORAL 04/21/16 21:00 05/21/16 20:59 04/22/16 08:55 Metronidazole (Flagyl) 100 ml @ 100 mls/hr Q8HR IV 04/20/16 06:00 04/27/16 05:59 04/22/16 14:06 Morphine Sulfate (Morphine Sulfate) 2 mg Q4H PRN IVP Moderate Pain (Pain Scale 4-6) 04/20/16 07:45 04/27/16 07:44 Nitroglycerin (Ntg) 0.4 mg Q5MIN X3 DOSES PRN SL Prn Chest Pain 04/20/16 05:45 05/20/16 05:44 Ondansetron HCl (Zofran) 4 mg Q4H PRN IVP Nausea & Vomiting 04/20/16 08:00 05/20/16 07:59 Pantoprazole (Protonix) 40 mg DAILY IVP 04/20/16 09:00 05/20/16 08:59 04/22/16 08:56 Polyethylene Glycol (Miralax) 17 gm DAILYPRN PRN ORAL Constipation 04/20/16 07:45 05/20/16 07:44 Potassium Phosphate/Sodium Chloride (Potassium Phosphate/Sodium Chloride) 285 ml @ 47.5 mls/hr ONCE ONCE IV 04/22/16 15:00 04/22/16 20:59 04/22/16 17:26 Temazepam (Restoril) 15 mg HSPRN PRN ORAL Insomnia 04/20/16 07:45 04/27/16 07:44 Vancomycin HCl 1 ea 1 ea DAILYPRN PRN MISC Per rx protocol 04/20/16 10:30 05/20/16 10:29 Vancomycin HCl/ Dextrose (Vancomycin/D5W) 275 ml @ 183.708 mls/hr Q12HR IVPB 04/21/16 21:00 04/26/16 20:59 04/22/16 10:12 JAVIER BANKS Apr 22, 2016 18:00
[2016-04-22] MEDS: metroNIDAZOLE 500mg tab GT SCH (21:53)
[2016-04-23] MEDS: NovoLOG Insulin Flexpen SUBQ SCH ×4 (00:02→19:04)
[2016-04-23 04:00] VITALS: BP 158/80
[2016-04-23] MEDS: metroNIDAZOLE 500mg tab GT SCH ×3 (05:00→20:23)
[2016-04-23 06:57] LABS: MEAN CORPUSCULAR HEMOGLOBIN 32.9 PG (27.0-31.0); MEAN CORPUSCULAR HGB CONC 31.6 G/DL (32.0-36.0); MEAN CORPUSCULAR VOLUME 104 FL (80-99); MEAN PLATELET VOLUME 10.4 FL (6.5-10.1); PLATELET COUNT 91 K/UL (150-450); RED BLOOD COUNT 2.82 M/UL (4.70-6.10); RED CELL DISTRIBUTION WIDTH 12.4 % (11.6-14.8); WHITE BLOOD COUNT 7.8 K/UL (4.8-10.8)
[2016-04-23 07:13] LABS: ALANINE AMINOTRANSFERASE 17 U/L (3-41); ALBUMIN/GLOBULIN RATIO 0.7 (1.0-2.7); ANION GAP 9 (5-15); ASPARTATE AMINO TRANSFERASE 17 U/L (5-40); CALCIUM 8.3 mg/dL (8.6-10.2); CARBON DIOXIDE 32 mEQ/L (20-30); CHLORIDE 106 mEQ/L (98-107); CREATININE 0.5 mg/dL (0.7-1.2); HEMOLYSIS 3; POTASSIUM 4.4 mEQ/L (3.4-4.9); SODIUM 147 mEQ/L (135-145); TOTAL PROTEIN 5.4 g/dL (6.6-8.7)
[2016-04-23 07:15] LABS: CRP QUANT 1.1 mg/dL (< 0.5); MAGNESIUM 1.9 mg/dL (1.7-2.5); PHOSPHORUS 2.5 mg/dL (2.5-4.8); URIC ACID 3.3 mg/dL (3.0-7.5)
[2016-04-23 07:38] LABS: TROPONIN I < 0.30 ng/mL (<=0.30)
[2016-04-23 08:10] VITALS: BP 152/83
[2016-04-23] MEDS: Enoxaparin 40mg Inj SUBQ SCH (09:00)
[2016-04-23] MEDS: Pantoprazole Inj IVP SCH (09:18)
[2016-04-23] MEDS: Cefepime HCl 1 GM in D5W 55 ML IVPB SCH ×2 (09:19→20:14)
[2016-04-23] MEDS: Metoprolol 25mg tab ORAL SCH ×2 (09:21→20:23)
[2016-04-23] MEDS: Digoxin 0.125mg tab ORAL SCH (09:21)
[2016-04-23 10:12] LABS: BAND NEUTROPHILS % (MANUAL) 0 % (0-8); BASOPHILS % (MANUAL) 0 % (0-2); EOSINOPHILS % (MANUAL) 2 % (0-3); HYPOCHROMASIA 1+; LYMPHOCYTES % (MANUAL) 7 % (20-45); MACROCYTES 1+; NEUTROPHILS % (MANUAL) 88 % (45-75); PLATELET ESTIMATE DECREASED; PLATELET MORPHOLOGY NORMAL; TOTAL CELLS COUNTED 100
[2016-04-23 12:01] VITALS: BP 148/80
[2016-04-23] MEDS: Vancomycin 750mg/D5W 275ml IVPB SCH ×4 (12:36→21:32)
--- NOTE | 2016-04-23 15:05 | General Progress Note ---
Assessment/Plan Status: stable - from renal stand Status Narrative Na lower- Assessment/Plan Acute Renal failure- due to sepsis and shock Dehydration and volume depletion component- and HyperNatremia improving Other: -CVA (cerebral vascular accident) -Diabetes -G tube feedings -Left hemiparesis Plan: Hydrate- with D5 DC HydroCortisone Antibiotics- Monitor renal parameters- Avoid Nephrotoxics- per orders- Subjective ROS Limited/Unobtainable: No Constitutional: Reports: malaise Allergies: Coded Allergies: No Known Allergies (Unverified , 10/19/15) Objective Last 24 Hour Vital Signs Date Time Temp Pulse Resp B/P Pulse Ox O2 Delivery O2 Flow Rate FiO2 04/23/16 12:01 98.6 102 22 148/80 100 Nasal Cannula 4.0 04/23/16 09:21 113 150/77 04/23/16 09:21 113 04/23/16 08:10 98.8 107 22 152/83 100 Nasal Cannula 4.0 04/23/16 07:53 Nasal Cannula 3.0 32 04/23/16 07:53 99 Nasal Cannula 3.0 32 04/23/16 07:53 101 18 Nasal Cannula 3.0 32 04/23/16 04:00 98.2 98 22 158/80 100 Nasal Cannula 3.0 04/22/16 23:04 97.9 79 22 152/73 100 Nasal Cannula 3.0 04/22/16 21:53 96 156/64 04/22/16 20:00 97.9 96 22 156/64 100 Nasal Cannula 2.0 04/22/16 19:00 96 18 Nasal Cannula 3.0 32 04/22/16 19:00 99 Nasal Cannula 3.0 32 04/22/16 19:00 Nasal Cannula 3.0 32 04/22/16 16:19 98.4 95 18 138/72 99 Nasal Cannula 4.0 Intake and Output 04/22/16 04/23/16 19:00 07:00 Intake Total 2245 ml 1935.000 ml Output Total 400 ml 550 ml Balance 1845 ml 1385.000 ml Intake Free Water 200 ml 265 ml IV Total 1305 ml 890.000 ml Tube Feeding 740 ml 780 ml Output Urine Total 400 ml 550 ml # Bowel Movements 1 2 Laboratory Tests 04/22/16 20:00: Vancomycin Level Trough 18.0H 1/19/17 05:20: White Blood Count 7.8, Red Blood Count 2.82L, Hemoglobin 9.3L, Hematocrit 29.4L , Mean Corpuscular Volume 104H, Mean Corpuscular Hemoglobin 32.9H, Mean Corpuscular Hemoglobin Concent 31.6L, Red Cell Distribution Width 12.4, Platelet Count 91L, Mean Platelet Volume 10.4H, Neutrophils (%) (Auto) , Lymphocytes (%) (Auto) , Monocytes (%) (Auto) , Eosinophils (%) (Auto) , Basophils (%) (Auto) , Differential Total Cells Counted 100, Neutrophils % ( Manual) 88H, Lymphocytes % (Manual) 7L, Monocytes % (Manual) 3, Eosinophils % ( Manual) 2, Basophils % (Manual) 0, Band Neutrophils 0, Platelet Estimate DecreasedL, Platelet Morphology Normal, Hypochromasia 1+, Macrocytosis 1+, Sodium Level 147H, Potassium Level 4.4, Chloride Level 106, Carbon Dioxide Level 32H, Anion Gap 9, Blood Urea Nitrogen 17, Creatinine 0.5L, Estimat Glomerular Filtration Rate , Glucose Level 258#H, Uric Acid 3.3, Calcium Level 8.3L, Phosphorus Level 2.5, Magnesium Level 1.9, Total Bilirubin 0.2, Aspartate Amino Transf (AST/SGOT) 17, Alanine Aminotransferase (ALT/SGPT) 17, Alkaline Phosphatase 51, Troponin I < 0.30, C-Reactive Protein, Quantitative 1.1H, Pro-B- Type Natriuretic Peptide 602H, Total Protein 5.4L, Albumin 2.3L, Globulin 3.1, Albumin/Globulin Ratio 0.7L Height (Feet): 5 Height (Inches): 7.00 Weight (Pounds): 120 General Appearance: no apparent distress Objective no change in PE CRISTY MADDOX Apr 23, 2016 15:05
--- NOTE | 2016-04-23 15:59 | Cardiac Electrophysiology PN ---
Assessment/Plan Assessment/Plan 1. Atrial fibrillation with rapid ventricular response. Continue digoxin 0.125 mg and Lopressor 25 bid. Not a candidate for anticoagulation. 2. Broad-spectrum sepsis. On vancomycin and cefepime under the management of Dr. Bains for bacteremia and aspiration pneumonia. 3. Severe hypernatremia. Na 153 down to 17 . On free water through the G-tube by Dr. Caro. 4. Dysphagia, status post PEG placement. 5. Dementia with functional quadriplegia. Subjective Subjective Nonverbal on Med Surge, on IV antibiotics.No events overnight. Objective Last 24 Hour Vital Signs Date Time Temp Pulse Resp B/P Pulse Ox O2 Delivery O2 Flow Rate FiO2 04/23/16 12:01 98.6 102 22 148/80 100 Nasal Cannula 4.0 04/23/16 09:21 113 150/77 04/23/16 09:21 113 04/23/16 08:10 98.8 107 22 152/83 100 Nasal Cannula 4.0 04/23/16 07:53 Nasal Cannula 3.0 32 04/23/16 07:53 99 Nasal Cannula 3.0 32 04/23/16 07:53 101 18 Nasal Cannula 3.0 32 04/23/16 04:00 98.2 98 22 158/80 100 Nasal Cannula 3.0 04/22/16 23:04 97.9 79 22 152/73 100 Nasal Cannula 3.0 04/22/16 21:53 96 156/64 04/22/16 20:00 97.9 96 22 156/64 100 Nasal Cannula 2.0 04/22/16 19:00 96 18 Nasal Cannula 3.0 32 04/22/16 19:00 99 Nasal Cannula 3.0 32 04/22/16 19:00 Nasal Cannula 3.0 32 04/22/16 16:19 98.4 95 18 138/72 99 Nasal Cannula 4.0 Intake and Output 04/22/16 04/23/16 19:00 07:00 Intake Total 2245 ml 1935.000 ml Output Total 400 ml 550 ml Balance 1845 ml 1385.000 ml Intake Free Water 200 ml 265 ml IV Total 1305 ml 890.000 ml Tube Feeding 740 ml 780 ml Output Urine Total 400 ml 550 ml # Bowel Movements 1 2 Laboratory Tests Test 04/22/16 20:00 04/23/16 05:20 Vancomycin Level Trough 18.0 ug/mL (5.0-12.0) H White Blood Count 7.8 K/UL (4.8-10.8) Red Blood Count 2.82 M/UL (4.70-6.10) L Hemoglobin 9.3 G/DL (14.2-18.0) L Hematocrit 29.4 % (42.0-52.0) L Mean Corpuscular Volume 104 FL (80-99) H Mean Corpuscular Hemoglobin 32.9 PG (27.0-31.0) H Mean Corpuscular Hemoglobin Concent 31.6 G/DL (32.0-36.0) L Red Cell Distribution Width 12.4 % (11.6-14.8) Platelet Count 91 K/UL (150-450) L Mean Platelet Volume 10.4 FL (6.5-10.1) H Neutrophils (%) (Auto) % (45.0-75.0) Lymphocytes (%) (Auto) % (20.0-45.0) Monocytes (%) (Auto) % (1.0-10.0) Eosinophils (%) (Auto) % (0.0-3.0) Basophils (%) (Auto) % (0.0-2.0) Differential Total Cells Counted 100 Neutrophils % (Manual) 88 % (45-75) H Lymphocytes % (Manual) 7 % (20-45) L Monocytes % (Manual) 3 % (1-10) Eosinophils % (Manual) 2 % (0-3) Basophils % (Manual) 0 % (0-2) Band Neutrophils 0 % (0-8) Platelet Estimate Decreased L Platelet Morphology Normal Hypochromasia 1+ Macrocytosis 1+ Sodium Level 147 mEQ/L (135-145) H Potassium Level 4.4 mEQ/L (3.4-4.9) Chloride Level 106 mEQ/L (98-107) Carbon Dioxide Level 32 mEQ/L (20-30) H Anion Gap 9 (5-15) Blood Urea Nitrogen 17 mg/dL (7-23) Creatinine 0.5 mg/dL (0.7-1.2) L Estimat Glomerular Filtration Rate mL/min (>60) Glucose Level 258 mg/dL (74-106) #H Uric Acid 3.3 mg/dL (3.0-7.5) Calcium Level 8.3 mg/dL (8.6-10.2) L Phosphorus Level 2.5 mg/dL (2.5-4.8) Magnesium Level 1.9 mg/dL (1.7-2.5) Total Bilirubin 0.2 mg/dL (0.0-1.2) Aspartate Amino Transf (AST/SGOT) 17 U/L (5-40) Alanine Aminotransferase (ALT/SGPT) 17 U/L (3-41) Alkaline Phosphatase 51 U/L (40-129) Troponin I < 0.30 ng/mL (<=0.30) C-Reactive Protein, Quantitative 1.1 mg/dL (< 0.5) H Pro-B-Type Natriuretic Peptide 602 pg/mL (0-450) H Total Protein 5.4 g/dL (6.6-8.7) L Albumin 2.3 g/dL (3.5-5.2) L Globulin 3.1 g/dL Albumin/Globulin Ratio 0.7 (1.0-2.7) L Microbiology Date/Time Source Procedure Growth Status 04/21/16 08:50 Blood Blood Culture - Preliminary NO GROWTH AFTER 24 HOURS Resulted 04/21/16 05:15 Blood Blood Culture - Preliminary Staphylococcus Sp Coag Neg Resulted Objective HEENT: No JVD. LUNGS: Coarse rhonchi bilaterally. CARDIOVASCULAR: Tachycardic with no gallop or murmur. ABDOMEN: Soft. Status post G-tube. EXTREMITIES: No pitting edema. Lower extremities are contracted with multiple ulcers. HERLINDA BURNETT Apr 23, 2016 15:59
[2016-04-23 16:00] VITALS: BP 164/91
--- NOTE | 2016-04-23 16:03 | Infectious Diseases Prog Note ---
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 // Hypernatremia / electrolyte imbalance // DM2 - HbA1c 8.1% // Dementia, h/o CVA // Functional quadriplegia / bedbound // Dysphagia SP PEG // [facility] resident // Negative MRSA, VRE screens // NKDA // Full Code PLAN: - continue IV vancomycin, cefepime, flagyl d# 6 / 10 - taper steroids per pulm - f/u cultures - monitor CBC, temperatures - monitor BMP - monitor CXR - aspiration precautions - wound care Subjective Allergies: Coded Allergies: No Known Allergies (Unverified , 10/19/15) Subjective fevers, leukocytosis resolved Objective Vital Signs Last 24 Hour Vital Signs Date Time Temp Pulse Resp B/P Pulse Ox O2 Delivery O2 Flow Rate FiO2 04/23/16 12:01 98.6 102 22 148/80 100 Nasal Cannula 4.0 04/23/16 09:21 113 150/77 04/23/16 09:21 113 04/23/16 08:10 98.8 107 22 152/83 100 Nasal Cannula 4.0 04/23/16 07:53 Nasal Cannula 3.0 32 04/23/16 07:53 99 Nasal Cannula 3.0 32 04/23/16 07:53 101 18 Nasal Cannula 3.0 32 04/23/16 04:00 98.2 98 22 158/80 100 Nasal Cannula 3.0 04/22/16 23:04 97.9 79 22 152/73 100 Nasal Cannula 3.0 04/22/16 21:53 96 156/64 04/22/16 20:00 97.9 96 22 156/64 100 Nasal Cannula 2.0 04/22/16 19:00 96 18 Nasal Cannula 3.0 32 04/22/16 19:00 99 Nasal Cannula 3.0 32 04/22/16 19:00 Nasal Cannula 3.0 32 04/22/16 16:19 98.4 95 18 138/72 99 Nasal Cannula 4.0 Height (Feet): 5 Height (Inches): 7.00 Weight (Pounds): 120 General Appearance: no acute distress Respiratory/Chest: no respiratory distress Cardiovascular: normal rate, regular rhythm Abdomen: normal bowel sounds, soft, non tender, non distended Skin: lesions Microbiology Date/Time Source Procedure Growth Status 04/21/16 08:50 Blood Blood Culture - Preliminary NO GROWTH AFTER 24 HOURS Resulted 04/21/16 05:15 Blood Blood Culture - Preliminary Staphylococcus Sp Coag Neg Resulted Laboratory Tests Test 04/22/16 20:00 04/23/16 05:20 Vancomycin Level Trough 18.0 ug/mL (5.0-12.0) H White Blood Count 7.8 K/UL (4.8-10.8) Red Blood Count 2.82 M/UL (4.70-6.10) L Hemoglobin 9.3 G/DL (14.2-18.0) L Hematocrit 29.4 % (42.0-52.0) L Mean Corpuscular Volume 104 FL (80-99) H Mean Corpuscular Hemoglobin 32.9 PG (27.0-31.0) H Mean Corpuscular Hemoglobin Concent 31.6 G/DL (32.0-36.0) L Red Cell Distribution Width 12.4 % (11.6-14.8) Platelet Count 91 K/UL (150-450) L Mean Platelet Volume 10.4 FL (6.5-10.1) H Neutrophils (%) (Auto) % (45.0-75.0) Lymphocytes (%) (Auto) % (20.0-45.0) Monocytes (%) (Auto) % (1.0-10.0) Eosinophils (%) (Auto) % (0.0-3.0) Basophils (%) (Auto) % (0.0-2.0) Differential Total Cells Counted 100 Neutrophils % (Manual) 88 % (45-75) H Lymphocytes % (Manual) 7 % (20-45) L Monocytes % (Manual) 3 % (1-10) Eosinophils % (Manual) 2 % (0-3) Basophils % (Manual) 0 % (0-2) Band Neutrophils 0 % (0-8) Platelet Estimate Decreased L Platelet Morphology Normal Hypochromasia 1+ Macrocytosis 1+ Sodium Level 147 mEQ/L (135-145) H Potassium Level 4.4 mEQ/L (3.4-4.9) Chloride Level 106 mEQ/L (98-107) Carbon Dioxide Level 32 mEQ/L (20-30) H Anion Gap 9 (5-15) Blood Urea Nitrogen 17 mg/dL (7-23) Creatinine 0.5 mg/dL (0.7-1.2) L Estimat Glomerular Filtration Rate mL/min (>60) Glucose Level 258 mg/dL (74-106) #H Uric Acid 3.3 mg/dL (3.0-7.5) Calcium Level 8.3 mg/dL (8.6-10.2) L Phosphorus Level 2.5 mg/dL (2.5-4.8) Magnesium Level 1.9 mg/dL (1.7-2.5) Total Bilirubin 0.2 mg/dL (0.0-1.2) Aspartate Amino Transf (AST/SGOT) 17 U/L (5-40) Alanine Aminotransferase (ALT/SGPT) 17 U/L (3-41) Alkaline Phosphatase 51 U/L (40-129) Troponin I < 0.30 ng/mL (<=0.30) C-Reactive Protein, Quantitative 1.1 mg/dL (< 0.5) H Pro-B-Type Natriuretic Peptide 602 pg/mL (0-450) H Total Protein 5.4 g/dL (6.6-8.7) L Albumin 2.3 g/dL (3.5-5.2) L Globulin 3.1 g/dL Albumin/Globulin Ratio 0.7 (1.0-2.7) L Current Medications Medications (Trade) Dose Ordered Sig/Joy Route PRN Reason Start Time Stop Time Status Last Admin Dose Admin Acetaminophen (Tylenol) 650 mg Q4H PRN ORAL fever 04/20/16 07:45 05/20/16 07:44 Albuterol/ Ipratropium (DuoNeb 0.5-3(2.5)mg/3ml) 3 ml Q4H PRN HHN Shortness of Breath 04/20/16 07:45 04/25/16 07:44 04/22/16 02:33 Cefepime HCl/ Dextrose (Maxipime/D5W 50ml) 55 ml @ 110 mls/hr EVERY 12 HOURS IVPB 04/20/16 09:00 04/27/16 08:59 04/23/16 09:19 Dextrose 1,000 ml @ 75 mls/hr [id number] IV 04/21/16 12:15 05/21/16 12:14 04/23/16 05:00 Dextrose (Dextrose 50%) STAT PRN IV Hypoglycemia 04/20/16 09:30 05/20/16 09:29 Digoxin (Lanoxin) 0.125 mg DAILY ORAL 04/20/16 09:00 05/20/16 08:59 04/23/16 09:21 Enoxaparin Sodium (Lovenox) 40 mg DAILY SUBQ 04/20/16 09:00 05/20/16 08:59 Insulin Aspart (NovoLOG) EVERY 6 HOURS SUBQ 04/22/16 12:00 05/22/16 11:59 04/23/16 12:33 Lactulose (Cephulac) 30 gm DAILYPRN PRN ORAL Constipation 04/20/16 08:00 05/20/16 07:59 Metoprolol Tartrate (Lopressor) 25 mg Q12HR ORAL 04/21/16 21:00 05/21/16 20:59 04/23/16 09:21 Metronidazole (Flagyl) 500 mg Q8HR GT 04/22/16 22:00 04/29/16 21:59 04/23/16 14:26 Morphine Sulfate (Morphine Sulfate) 2 mg Q4H PRN IVP Moderate Pain (Pain Scale 4-6) 04/20/16 07:45 04/27/16 07:44 Nitroglycerin (Ntg) 0.4 mg Q5MIN X3 DOSES PRN SL Prn Chest Pain 04/20/16 05:45 05/20/16 05:44 Ondansetron HCl (Zofran) 4 mg Q4H PRN IVP Nausea & Vomiting 04/20/16 08:00 05/20/16 07:59 Pantoprazole (Protonix) 40 mg DAILY IVP 04/20/16 09:00 05/20/16 08:59 04/23/16 09:18 Polyethylene Glycol (Miralax) 17 gm DAILYPRN PRN ORAL Constipation 04/20/16 07:45 05/20/16 07:44 Temazepam (Restoril) 15 mg HSPRN PRN ORAL Insomnia 04/20/16 07:45 04/27/16 07:44 Vancomycin HCl 1 ea 1 ea DAILYPRN PRN MISC Per rx protocol 04/20/16 10:30 05/20/16 10:29 Vancomycin HCl/ Dextrose (Vancomycin/D5W) 275 ml @ 183.708 mls/hr Q12HR IVPB 04/21/16 21:00 04/26/16 20:59 04/23/16 12:36 DOLORES FANG Apr 23, 2016 16:03
--- NOTE | 2016-04-23 17:23 | Internal Med Progress Note ---
Subjective Date of Service: Apr 23, 2016 Physician Name Renetta Olvera Attending Physician Adalid Izaguirre MD Current Medications Medications (Trade) Dose Ordered Sig/Joy Route PRN Reason Start Time Stop Time Status Last Admin Dose Admin Acetaminophen (Tylenol) 650 mg Q4H PRN ORAL fever 04/20/16 07:45 05/20/16 07:44 Albuterol/ Ipratropium (DuoNeb 0.5-3(2.5)mg/3ml) 3 ml Q4H PRN HHN Shortness of Breath 04/20/16 07:45 04/25/16 07:44 04/22/16 02:33 Cefepime HCl/ Dextrose (Maxipime/D5W 50ml) 55 ml @ 110 mls/hr EVERY 12 HOURS IVPB 04/20/16 09:00 04/27/16 08:59 04/23/16 09:19 Dextrose 1,000 ml @ 75 mls/hr [id number] IV 04/21/16 12:15 05/21/16 12:14 04/23/16 05:00 Dextrose (Dextrose 50%) STAT PRN IV Hypoglycemia 04/20/16 09:30 05/20/16 09:29 Digoxin (Lanoxin) 0.125 mg DAILY ORAL 04/20/16 09:00 05/20/16 08:59 04/23/16 09:21 Enoxaparin Sodium (Lovenox) 40 mg DAILY SUBQ 04/20/16 09:00 05/20/16 08:59 Insulin Aspart (NovoLOG) EVERY 6 HOURS SUBQ 04/22/16 12:00 05/22/16 11:59 04/23/16 12:33 Lactulose (Cephulac) 30 gm DAILYPRN PRN ORAL Constipation 04/20/16 08:00 05/20/16 07:59 Metoprolol Tartrate (Lopressor) 25 mg Q12HR ORAL 04/21/16 21:00 05/21/16 20:59 04/23/16 09:21 Metronidazole (Flagyl) 500 mg Q8HR GT 04/22/16 22:00 04/29/16 21:59 04/23/16 14:26 Morphine Sulfate (Morphine Sulfate) 2 mg Q4H PRN IVP Moderate Pain (Pain Scale 4-6) 04/20/16 07:45 04/27/16 07:44 Nitroglycerin (Ntg) 0.4 mg Q5MIN X3 DOSES PRN SL Prn Chest Pain 04/20/16 05:45 05/20/16 05:44 Ondansetron HCl (Zofran) 4 mg Q4H PRN IVP Nausea & Vomiting 04/20/16 08:00 05/20/16 07:59 Pantoprazole (Protonix) 40 mg DAILY IVP 04/20/16 09:00 05/20/16 08:59 04/23/16 09:18 Polyethylene Glycol (Miralax) 17 gm DAILYPRN PRN ORAL Constipation 04/20/16 07:45 05/20/16 07:44 Temazepam (Restoril) 15 mg HSPRN PRN ORAL Insomnia 04/20/16 07:45 04/27/16 07:44 Vancomycin HCl 1 ea 1 ea DAILYPRN PRN MISC Per rx protocol 04/20/16 10:30 05/20/16 10:29 Vancomycin HCl/ Dextrose (Vancomycin/D5W) 275 ml @ 183.708 mls/hr Q12HR IVPB 04/21/16 21:00 04/26/16 20:59 04/23/16 12:36 Allergies: Coded Allergies: No Known Allergies (Unverified , 10/19/15) ROS Limited/Unobtainable: Yes Subjective 75 YO M admitted with fever, now with pneumonia. Cover for Int [facility]-Dr Izaguirre. Tolerating nasal canula Objective Last Vital Signs Date Time Temp Pulse Resp B/P Pulse Ox O2 Delivery O2 Flow Rate FiO2 04/23/16 16:00 98.4 103 23 164/91 98 Nasal Cannula 3.0 04/23/16 07:53 32 Laboratory Tests Test 04/22/16 20:00 04/23/16 05:20 Vancomycin Level Trough 18.0 ug/mL (5.0-12.0) H White Blood Count 7.8 K/UL (4.8-10.8) Red Blood Count 2.82 M/UL (4.70-6.10) L Hemoglobin 9.3 G/DL (14.2-18.0) L Hematocrit 29.4 % (42.0-52.0) L Mean Corpuscular Volume 104 FL (80-99) H Mean Corpuscular Hemoglobin 32.9 PG (27.0-31.0) H Mean Corpuscular Hemoglobin Concent 31.6 G/DL (32.0-36.0) L Red Cell Distribution Width 12.4 % (11.6-14.8) Platelet Count 91 K/UL (150-450) L Mean Platelet Volume 10.4 FL (6.5-10.1) H Neutrophils (%) (Auto) % (45.0-75.0) Lymphocytes (%) (Auto) % (20.0-45.0) Monocytes (%) (Auto) % (1.0-10.0) Eosinophils (%) (Auto) % (0.0-3.0) Basophils (%) (Auto) % (0.0-2.0) Differential Total Cells Counted 100 Neutrophils % (Manual) 88 % (45-75) H Lymphocytes % (Manual) 7 % (20-45) L Monocytes % (Manual) 3 % (1-10) Eosinophils % (Manual) 2 % (0-3) Basophils % (Manual) 0 % (0-2) Band Neutrophils 0 % (0-8) Platelet Estimate Decreased L Platelet Morphology Normal Hypochromasia 1+ Macrocytosis 1+ Sodium Level 147 mEQ/L (135-145) H Potassium Level 4.4 mEQ/L (3.4-4.9) Chloride Level 106 mEQ/L (98-107) Carbon Dioxide Level 32 mEQ/L (20-30) H Anion Gap 9 (5-15) Blood Urea Nitrogen 17 mg/dL (7-23) Creatinine 0.5 mg/dL (0.7-1.2) L Estimat Glomerular Filtration Rate mL/min (>60) Glucose Level 258 mg/dL (74-106) #H Uric Acid 3.3 mg/dL (3.0-7.5) Calcium Level 8.3 mg/dL (8.6-10.2) L Phosphorus Level 2.5 mg/dL (2.5-4.8) Magnesium Level 1.9 mg/dL (1.7-2.5) Total Bilirubin 0.2 mg/dL (0.0-1.2) Aspartate Amino Transf (AST/SGOT) 17 U/L (5-40) Alanine Aminotransferase (ALT/SGPT) 17 U/L (3-41) Alkaline Phosphatase 51 U/L (40-129) Troponin I < 0.30 ng/mL (<=0.30) C-Reactive Protein, Quantitative 1.1 mg/dL (< 0.5) H Pro-B-Type Natriuretic Peptide 602 pg/mL (0-450) H Total Protein 5.4 g/dL (6.6-8.7) L Albumin 2.3 g/dL (3.5-5.2) L Globulin 3.1 g/dL Albumin/Globulin Ratio 0.7 (1.0-2.7) L Microbiology Date/Time Source Procedure Growth Status 04/21/16 08:50 Blood Blood Culture - Preliminary NO GROWTH AFTER 24 HOURS Resulted 04/21/16 05:15 Blood Blood Culture - Preliminary Staphylococcus Sp Coag Neg Resulted Intake and Output 04/22/16 04/23/16 18:59 06:59 Intake Total 2105 ml 1935.000 ml Output Total 400 ml 550 ml Balance 1705 ml 1385.000 ml Intake Free Water 200 ml 265 ml IV Total 1230 ml 890.000 ml Tube Feeding 675 ml 780 ml Output Urine Total 400 ml 550 ml # Bowel Movements 1 2 Objective General Appearance: lethargic, thin EENT: normal ENT inspection Neck: non-tender, normal alignment, supple Cardiovascular: normal peripheral pulses, normal rate, regular rhythm, no gallop/murmur, no JVD Respiratory/Chest: chest wall non-tender, crackles/rales, rhonchi - bilaterally , expiratory wheezing Abdomen: normal bowel sounds, non tender, soft, no organomegaly, no mass Skin: normal pigmentation, warm/dry Assessment/Plan Problem List: (1) Leukocytosis (2) Pemphigus Assessment & Plan: D/C chronic prednisone therapy per nephrology. (3) Sepsis Assessment & Plan: Await culture results. See ID note. (4) Cerebral vascular disease (5) Hemiplegia affecting left nondominant side (6) Aphasia as late effect of cerebrovascular accident (7) Atrial fibrillation Assessment & Plan: Cont novolog; D/C levemir. See endocrinology note. (8) Hypertension (9) Diabetes mellitus (10) Dysphagia as late effect of cerebrovascular accident (CVA) (11) Pneumonia Assessment & Plan: ?aspiration? See pulmonary note. Cont vanco, flagyl and cefepime per ID (12) G tube feedings (13) Atrial fibrillation and flutter (14) Septic shock (15) Hypernatremia Assessment & Plan: See nephrology note. Status: progressing RENETTA OLVERA Apr 23, 2016 17:23
--- NOTE | 2016-04-23 18:07 | Pulmonology Progress Note ---
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 Assessment/Plan on bekah Dumont vanco blood culture are most likely contaminated check electrolytes continue IV fluids aspiration precaution wound care gtube site care all labs and notes reviewed Subjective ROS Limited/Unobtainable: Yes Allergies: Coded Allergies: No Known Allergies (Unverified , 10/19/15) All Systems: reviewed and negative except above Objective Last 24 Hour Vital Signs Date Time Temp Pulse Resp B/P Pulse Ox O2 Delivery O2 Flow Rate FiO2 04/23/16 16:00 98.4 103 23 164/91 98 Nasal Cannula 3.0 04/23/16 12:01 98.6 102 22 148/80 100 Nasal Cannula 4.0 04/23/16 09:21 113 150/77 04/23/16 09:21 113 04/23/16 08:10 98.8 107 22 152/83 100 Nasal Cannula 4.0 04/23/16 07:53 Nasal Cannula 3.0 32 04/23/16 07:53 99 Nasal Cannula 3.0 32 04/23/16 07:53 101 18 Nasal Cannula 3.0 32 04/23/16 04:00 98.2 98 22 158/80 100 Nasal Cannula 3.0 04/22/16 23:04 97.9 79 22 152/73 100 Nasal Cannula 3.0 04/22/16 21:53 96 156/64 04/22/16 20:00 97.9 96 22 156/64 100 Nasal Cannula 2.0 04/22/16 19:00 96 18 Nasal Cannula 3.0 32 04/22/16 19:00 99 Nasal Cannula 3.0 32 04/22/16 19:00 Nasal Cannula 3.0 32 Intake and Output 04/22/16 04/23/16 19:00 07:00 Intake Total 2245 ml 1935.000 ml Output Total 400 ml 550 ml Balance 1845 ml 1385.000 ml Intake Free Water 200 ml 265 ml IV Total 1305 ml 890.000 ml Tube Feeding 740 ml 780 ml Output Urine Total 400 ml 550 ml # Bowel Movements 1 2 HEENT: normocephalic, atraumatic Respiratory/Chest: chest wall non-tender, accessory muscle use, crackles/rales Cardiovascular: normal peripheral pulses, normal rate Abdomen: normal bowel sounds, no organomegaly Extremities: no cyanosis Neurologic/Psychiatric: caddy packer II-XII grossly normal, normal mood/affect Microbiology Date/Time Source Procedure Growth Status 04/21/16 08:50 Blood Blood Culture - Preliminary NO GROWTH AFTER 24 HOURS Resulted 04/21/16 05:15 Blood Blood Culture - Preliminary Staphylococcus Sp Coag Neg Resulted Laboratory Tests 04/22/16 20:00: Vancomycin Level Trough 18.0H 04/23/16 05:20: White Blood Count 7.8, Red Blood Count 2.82L, Hemoglobin 9.3L, Hematocrit 29.4L , Mean Corpuscular Volume 104H, Mean Corpuscular Hemoglobin 32.9H, Mean Corpuscular Hemoglobin Concent 31.6L, Red Cell Distribution Width 12.4, Platelet Count 91L, Mean Platelet Volume 10.4H, Neutrophils (%) (Auto) , Lymphocytes (%) (Auto) , Monocytes (%) (Auto) , Eosinophils (%) (Auto) , Basophils (%) (Auto) , Differential Total Cells Counted 100, Neutrophils % ( Manual) 88H, Lymphocytes % (Manual) 7L, Monocytes % (Manual) 3, Eosinophils % ( Manual) 2, Basophils % (Manual) 0, Band Neutrophils 0, Platelet Estimate DecreasedL, Platelet Morphology Normal, Hypochromasia 1+, Macrocytosis 1+, Sodium Level 147H, Potassium Level 4.4, Chloride Level 106, Carbon Dioxide Level 32H, Anion Gap 9, Blood Urea Nitrogen 17, Creatinine 0.5L, Estimat Glomerular Filtration Rate , Glucose Level 258#H, Uric Acid 3.3, Calcium Level 8.3L, Phosphorus Level 2.5, Magnesium Level 1.9, Total Bilirubin 0.2, Aspartate Amino Transf (AST/SGOT) 17, Alanine Aminotransferase (ALT/SGPT) 17, Alkaline Phosphatase 51, Troponin I < 0.30, C-Reactive Protein, Quantitative 1.1H, Pro-B- Type Natriuretic Peptide 602H, Total Protein 5.4L, Albumin 2.3L, Globulin 3.1, Albumin/Globulin Ratio 0.7L Current Medications Medications (Trade) Dose Ordered Sig/Joy Route PRN Reason Start Time Stop Time Status Last Admin Dose Admin Acetaminophen (Tylenol) 650 mg Q4H PRN ORAL fever 04/20/16 07:45 05/20/16 07:44 Albuterol/ Ipratropium (DuoNeb 0.5-3(2.5)mg/3ml) 3 ml Q4H PRN HHN Shortness of Breath 04/20/16 07:45 04/25/16 07:44 04/22/16 02:33 Cefepime HCl/ Dextrose (Maxipime/D5W 50ml) 55 ml @ 110 mls/hr EVERY 12 HOURS IVPB 04/20/16 09:00 04/27/16 08:59 04/23/16 09:19 Dextrose 1,000 ml @ 75 mls/hr [id number] IV 04/21/16 12:15 05/21/16 12:14 04/23/16 05:00 Dextrose (Dextrose 50%) STAT PRN IV Hypoglycemia 04/20/16 09:30 05/20/16 09:29 Digoxin (Lanoxin) 0.125 mg DAILY ORAL 04/20/16 09:00 05/20/16 08:59 04/23/16 09:21 Enoxaparin Sodium (Lovenox) 40 mg DAILY SUBQ 04/20/16 09:00 05/20/16 08:59 Insulin Aspart (NovoLOG) EVERY 6 HOURS SUBQ 04/22/16 12:00 05/22/16 11:59 04/23/16 12:33 Lactulose (Cephulac) 30 gm DAILYPRN PRN ORAL Constipation 04/20/16 08:00 05/20/16 07:59 Metoprolol Tartrate (Lopressor) 25 mg Q12HR ORAL 04/21/16 21:00 05/21/16 20:59 04/23/16 09:21 Metronidazole (Flagyl) 500 mg Q8HR GT 04/22/16 22:00 04/29/16 21:59 04/23/16 14:26 Morphine Sulfate (Morphine Sulfate) 2 mg Q4H PRN IVP Moderate Pain (Pain Scale 4-6) 04/20/16 07:45 04/27/16 07:44 Nitroglycerin (Ntg) 0.4 mg Q5MIN X3 DOSES PRN SL Prn Chest Pain 04/20/16 05:45 05/20/16 05:44 Ondansetron HCl (Zofran) 4 mg Q4H PRN IVP Nausea & Vomiting 04/20/16 08:00 05/20/16 07:59 Pantoprazole (Protonix) 40 mg DAILY IVP 04/20/16 09:00 05/20/16 08:59 04/23/16 09:18 Polyethylene Glycol (Miralax) 17 gm DAILYPRN PRN ORAL Constipation 04/20/16 07:45 05/20/16 07:44 Temazepam (Restoril) 15 mg HSPRN PRN ORAL Insomnia 04/20/16 07:45 04/27/16 07:44 Vancomycin HCl 1 ea 1 ea DAILYPRN PRN MISC Per rx protocol 04/20/16 10:30 05/20/16 10:29 Vancomycin HCl/ Dextrose (Vancomycin/D5W) 275 ml @ 183.708 mls/hr Q12HR IVPB 04/21/16 21:00 04/26/16 20:59 04/23/16 12:36 JAVIER BANKS Apr 23, 2016 18:07
[2016-04-23 20:00] VITALS: BP 156/86
[2016-04-24] VITALS: BP 163/74
[2016-04-24] MEDS: NovoLOG Insulin Flexpen SUBQ SCH ×4 (00:41→18:02)
[2016-04-24 03:58] VITALS: BP 162/76
[2016-04-24] MEDS: metroNIDAZOLE 500mg tab GT SCH ×3 (06:21→22:41)
[2016-04-24 07:43] LABS: ANION GAP 4 (5-15); CARBON DIOXIDE 36 mEQ/L (20-30); CHLORIDE 103 mEQ/L (98-107); CREATININE 0.5 mg/dL (0.7-1.2); HEMOLYSIS 1; POTASSIUM 4.2 mEQ/L (3.4-4.9); SODIUM 143 mEQ/L (135-145)
[2016-04-24 08:05] LABS: MEAN CORPUSCULAR HGB CONC 30.9 G/DL (32.0-36.0); MEAN CORPUSCULAR VOLUME 104 FL (80-99); MEAN PLATELET VOLUME 11.6 FL (6.5-10.1); PLATELET COUNT 81 K/UL (150-450); RED BLOOD COUNT 2.76 M/UL (4.70-6.10); RED CELL DISTRIBUTION WIDTH 12.6 % (11.6-14.8); WHITE BLOOD COUNT 7.7 K/UL (4.8-10.8)
[2016-04-24 08:28] VITALS: BP 163/82
[2016-04-24] MEDS: Enoxaparin 40mg Inj SUBQ SCH (09:00)
[2016-04-24] MEDS: Pantoprazole Inj IVP SCH (10:36)
[2016-04-24] MEDS: Cefepime HCl 1 GM in D5W 55 ML IVPB SCH ×2 (10:39→19:57)
[2016-04-24 10:40] LABS: BAND NEUTROPHILS % (MANUAL) 7 % (0-8); BASOPHILS % (MANUAL) 0 % (0-2); EOSINOPHILS % (MANUAL) 2 % (0-3); HYPOCHROMASIA 1+; LYMPHOCYTES % (MANUAL) 10 % (20-45); MACROCYTES 1+; NEUTROPHILS % (MANUAL) 75 % (45-75); PLATELET ESTIMATE DECREASED; PLATELET MORPHOLOGY NORMAL; TOTAL CELLS COUNTED 100
[2016-04-24] MEDS: Digoxin 0.125mg tab ORAL SCH (10:40)
[2016-04-24] MEDS: Metoprolol 25mg tab ORAL SCH ×2 (10:40→20:34)
[2016-04-24] MEDS: Vancomycin 750mg/D5W 275ml IVPB SCH ×4 (11:08→20:34)
[2016-04-24 11:47] VITALS: BP 169/77
--- NOTE | 2016-04-24 15:42 | General Progress Note ---
Assessment/Plan Status: stable - from renal stand Assessment/Plan Acute Renal failure- due to sepsis and shock Dehydration and volume depletion component- and HyperNatremia improving Other: -CVA (cerebral vascular accident) -Diabetes -G tube feedings -Left hemiparesis Plan: Hydrate- Antibiotics- Monitor renal parameters- Avoid Nephrotoxics- per orders- ? DC planning? Subjective ROS Limited/Unobtainable: No Allergies: Coded Allergies: No Known Allergies (Unverified , 10/19/15) Objective Last 24 Hour Vital Signs Date Time Temp Pulse Resp B/P Pulse Ox O2 Delivery O2 Flow Rate FiO2 04/24/16 11:47 98.4 107 20 169/77 95 Nasal Cannula 4.0 04/24/16 10:40 107 169/77 04/24/16 10:40 107 04/24/16 08:28 98.8 111 20 163/82 95 Nasal Cannula 4.0 04/24/16 07:47 Nasal Cannula 3.0 04/24/16 07:46 100 Nasal Cannula 3.0 04/24/16 07:45 101 20 Nasal Cannula 3.0 04/24/16 03:58 98.4 101 22 162/76 100 Nasal Cannula 3.0 04/24/16 00:00 98.4 97 22 163/74 100 Nasal Cannula 3.0 04/23/16 20:23 115 156/86 04/23/16 20:00 98.1 115 23 156/86 95 Nasal Cannula 3.0 04/23/16 19:30 Nasal Cannula 3.0 32 04/23/16 19:30 98 16 Nasal Cannula 3.0 32 04/23/16 19:30 99 Nasal Cannula 3.0 32 04/23/16 16:00 98.4 103 23 164/91 98 Nasal Cannula 3.0 Intake and Output 04/23/16 04/24/16 19:00 07:00 Intake Total 1755 ml 1393.708 ml Output Total 750 ml 560 ml Balance 1005 ml 833.708 ml Intake Free Water 300 ml 300 ml IV Total 675 ml 313.708 ml Tube Feeding 780 ml 780 ml Output Urine Total 750 ml 560 ml # Voids 1 # Bowel Movements 1 1 Laboratory Tests 04/24/16 04:45: White Blood Count 7.7, Red Blood Count 2.76L, Hemoglobin 8.8L, Hematocrit 28.5L , Mean Corpuscular Volume 104H, Mean Corpuscular Hemoglobin 32.0H, Mean Corpuscular Hemoglobin Concent 30.9L, Red Cell Distribution Width 12.6, Platelet Count 81L, Mean Platelet Volume 11.6H, Neutrophils (%) (Auto) , Lymphocytes (%) (Auto) , Monocytes (%) (Auto) , Eosinophils (%) (Auto) , Basophils (%) (Auto) , Differential Total Cells Counted 100, Neutrophils % ( Manual) 75, Lymphocytes % (Manual) 10L, Monocytes % (Manual) 6, Eosinophils % ( Manual) 2, Basophils % (Manual) 0, Band Neutrophils 7, Platelet Estimate DecreasedL, Platelet Morphology Normal, Hypochromasia 1+, Macrocytosis 1+ 04/24/16 06:00: Sodium Level 143, Potassium Level 4.2, Chloride Level 103, Carbon Dioxide Level 36H, Anion Gap 4L, Blood Urea Nitrogen 12, Creatinine 0.5L, Estimat Glomerular Filtration Rate , Glucose Level 210H, Calcium Level 8.0L Height (Feet): 5 Height (Inches): 7.00 Weight (Pounds): 120 General Appearance: no apparent distress Objective no change in PE CRISTY MADDOX Apr 24, 2016 15:42
[2016-04-24 16:06] VITALS: BP 165/75
--- NOTE | 2016-04-24 16:12 | Infectious Diseases Prog Note ---
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 // Hypernatremia / electrolyte imbalance // DM2 - HbA1c 8.1% // Dementia, h/o CVA // Functional quadriplegia / bedbound // Dysphagia SP PEG // [facility] resident // Negative MRSA, VRE screens // NKDA // Full Code PLAN: - continue IV vancomycin, cefepime, flagyl d# 7 / 10 - taper steroids per pulm - f/u cultures - monitor CBC, temperatures - monitor BMP - monitor CXR - aspiration precautions - wound care Subjective Allergies: Coded Allergies: No Known Allergies (Unverified , 10/19/15) Subjective fevers, leukocytosis resolved Objective Vital Signs Last 24 Hour Vital Signs Date Time Temp Pulse Resp B/P Pulse Ox O2 Delivery O2 Flow Rate FiO2 04/24/16 16:06 98.2 109 20 165/75 95 Nasal Cannula 4.0 04/24/16 11:47 98.4 107 20 169/77 95 Nasal Cannula 4.0 04/24/16 10:40 107 169/77 04/24/16 10:40 107 04/24/16 08:28 98.8 111 20 163/82 95 Nasal Cannula 4.0 04/24/16 07:47 Nasal Cannula 3.0 04/24/16 07:46 100 Nasal Cannula 3.0 04/24/16 07:45 101 20 Nasal Cannula 3.0 04/24/16 03:58 98.4 101 22 162/76 100 Nasal Cannula 3.0 04/24/16 00:00 98.4 97 22 163/74 100 Nasal Cannula 3.0 04/23/16 20:23 115 156/86 04/23/16 20:00 98.1 115 23 156/86 95 Nasal Cannula 3.0 04/23/16 19:30 Nasal Cannula 3.0 32 04/23/16 19:30 98 16 Nasal Cannula 3.0 32 04/23/16 19:30 99 Nasal Cannula 3.0 32 Height (Feet): 5 Height (Inches): 7.00 Weight (Pounds): 120 General Appearance: no acute distress Respiratory/Chest: no respiratory distress Cardiovascular: normal rate, regular rhythm Abdomen: normal bowel sounds, soft, non tender, non distended Laboratory Tests Test 04/24/16 04:45 04/24/16 06:00 White Blood Count 7.7 K/UL (4.8-10.8) Red Blood Count 2.76 M/UL (4.70-6.10) L Hemoglobin 8.8 G/DL (14.2-18.0) L Hematocrit 28.5 % (42.0-52.0) L Mean Corpuscular Volume 104 FL (80-99) H Mean Corpuscular Hemoglobin 32.0 PG (27.0-31.0) H Mean Corpuscular Hemoglobin Concent 30.9 G/DL (32.0-36.0) L Red Cell Distribution Width 12.6 % (11.6-14.8) Platelet Count 81 K/UL (150-450) L Mean Platelet Volume 11.6 FL (6.5-10.1) H Neutrophils (%) (Auto) % (45.0-75.0) Lymphocytes (%) (Auto) % (20.0-45.0) Monocytes (%) (Auto) % (1.0-10.0) Eosinophils (%) (Auto) % (0.0-3.0) Basophils (%) (Auto) % (0.0-2.0) Differential Total Cells Counted 100 Neutrophils % (Manual) 75 % (45-75) Lymphocytes % (Manual) 10 % (20-45) L Monocytes % (Manual) 6 % (1-10) Eosinophils % (Manual) 2 % (0-3) Basophils % (Manual) 0 % (0-2) Band Neutrophils 7 % (0-8) Platelet Estimate Decreased L Platelet Morphology Normal Hypochromasia 1+ Macrocytosis 1+ Sodium Level 143 mEQ/L (135-145) Potassium Level 4.2 mEQ/L (3.4-4.9) Chloride Level 103 mEQ/L (98-107) Carbon Dioxide Level 36 mEQ/L (20-30) H Anion Gap 4 (5-15) L Blood Urea Nitrogen 12 mg/dL (7-23) Creatinine 0.5 mg/dL (0.7-1.2) L Estimat Glomerular Filtration Rate mL/min (>60) Glucose Level 210 mg/dL (74-106) H Calcium Level 8.0 mg/dL (8.6-10.2) L Current Medications Medications (Trade) Dose Ordered Sig/Joy Route PRN Reason Start Time Stop Time Status Last Admin Dose Admin Acetaminophen (Tylenol) 650 mg Q4H PRN ORAL fever 04/20/16 07:45 05/20/16 07:44 Albuterol/ Ipratropium (DuoNeb 0.5-3(2.5)mg/3ml) 3 ml Q4H PRN HHN Shortness of Breath 04/20/16 07:45 04/25/16 07:44 04/22/16 02:33 Cefepime HCl/ Dextrose (Maxipime/D5W 50ml) 55 ml @ 110 mls/hr EVERY 12 HOURS IVPB 04/20/16 09:00 04/27/16 08:59 04/24/16 10:39 Dextrose 1,000 ml @ 75 mls/hr [id number] IV 04/21/16 12:15 05/21/16 12:14 04/23/16 18:55 Dextrose (Dextrose 50%) STAT PRN IV Hypoglycemia 04/20/16 09:30 05/20/16 09:29 Digoxin (Lanoxin) 0.125 mg DAILY ORAL 04/20/16 09:00 05/20/16 08:59 04/24/16 10:40 Insulin Aspart (NovoLOG) EVERY 6 HOURS SUBQ 04/22/16 12:00 05/22/16 11:59 04/24/16 12:26 Lactulose (Cephulac) 30 gm DAILYPRN PRN ORAL Constipation 04/20/16 08:00 05/20/16 07:59 Metoprolol Tartrate (Lopressor) 25 mg Q12HR ORAL 04/21/16 21:00 05/21/16 20:59 04/24/16 10:40 Metronidazole (Flagyl) 500 mg Q8HR GT 04/22/16 22:00 04/29/16 21:59 04/24/16 14:36 Morphine Sulfate (Morphine Sulfate) 2 mg Q4H PRN IVP Moderate Pain (Pain Scale 4-6) 04/20/16 07:45 04/27/16 07:44 Nitroglycerin (Ntg) 0.4 mg Q5MIN X3 DOSES PRN SL Prn Chest Pain 04/20/16 05:45 05/20/16 05:44 Ondansetron HCl (Zofran) 4 mg Q4H PRN IVP Nausea & Vomiting 04/20/16 08:00 05/20/16 07:59 Pantoprazole (Protonix) 40 mg DAILY IVP 04/20/16 09:00 05/20/16 08:59 04/24/16 10:36 Polyethylene Glycol (Miralax) 17 gm DAILYPRN PRN ORAL Constipation 04/20/16 07:45 05/20/16 07:44 Temazepam (Restoril) 15 mg HSPRN PRN ORAL Insomnia 04/20/16 07:45 04/27/16 07:44 Vancomycin HCl 1 ea 1 ea DAILYPRN PRN MISC Per rx protocol 04/20/16 10:30 05/20/16 10:29 Vancomycin HCl/ Dextrose (Vancomycin/D5W) 275 ml @ 183.708 mls/hr Q12HR IVPB 04/21/16 21:00 04/26/16 20:59 04/24/16 11:08 DOLORES FANG Apr 24, 2016 16:12
--- NOTE | 2016-04-24 16:46 | Cardiac Electrophysiology PN ---
Assessment/Plan Assessment/Plan 1. Atrial fibrillation with rapid ventricular response. Continue digoxin 0.125 mg and Lopressor 25 bid. Not a candidate for full anticoagulation.Add aspirin 325 mg GT daily. 2. Broad-spectrum sepsis. On vancomycin and cefepime under the management of Dr. Bains for bacteremia and aspiration pneumonia. 3. Severe hypernatremia. Na 153 down to 143 . On free water through the G- tube by Dr. Caro. 4. Dysphagia, status post PEG placement. 5. Dementia with functional quadriplegia. Subjective Subjective Nonverbal on IV antibiotics.No events overnight.Comfortable. Objective Last 24 Hour Vital Signs Date Time Temp Pulse Resp B/P Pulse Ox O2 Delivery O2 Flow Rate FiO2 04/24/16 16:06 98.2 109 20 165/75 95 Nasal Cannula 4.0 04/24/16 11:47 98.4 107 20 169/77 95 Nasal Cannula 4.0 04/24/16 10:40 107 169/77 04/24/16 10:40 107 04/24/16 08:28 98.8 111 20 163/82 95 Nasal Cannula 4.0 04/24/16 07:47 Nasal Cannula 3.0 04/24/16 07:46 100 Nasal Cannula 3.0 04/24/16 07:45 101 20 Nasal Cannula 3.0 04/24/16 03:58 98.4 101 22 162/76 100 Nasal Cannula 3.0 04/24/16 00:00 98.4 97 22 163/74 100 Nasal Cannula 3.0 04/23/16 20:23 115 156/86 04/23/16 20:00 98.1 115 23 156/86 95 Nasal Cannula 3.0 04/23/16 19:30 Nasal Cannula 3.0 32 04/23/16 19:30 98 16 Nasal Cannula 3.0 32 04/23/16 19:30 99 Nasal Cannula 3.0 32 Intake and Output 04/23/16 04/24/16 19:00 07:00 Intake Total 1755 ml 1393.708 ml Output Total 750 ml 560 ml Balance 1005 ml 833.708 ml Intake Free Water 300 ml 300 ml IV Total 675 ml 313.708 ml Tube Feeding 780 ml 780 ml Output Urine Total 750 ml 560 ml # Voids 1 # Bowel Movements 1 1 Laboratory Tests Test 04/24/16 04:45 04/24/16 06:00 White Blood Count 7.7 K/UL (4.8-10.8) Red Blood Count 2.76 M/UL (4.70-6.10) L Hemoglobin 8.8 G/DL (14.2-18.0) L Hematocrit 28.5 % (42.0-52.0) L Mean Corpuscular Volume 104 FL (80-99) H Mean Corpuscular Hemoglobin 32.0 PG (27.0-31.0) H Mean Corpuscular Hemoglobin Concent 30.9 G/DL (32.0-36.0) L Red Cell Distribution Width 12.6 % (11.6-14.8) Platelet Count 81 K/UL (150-450) L Mean Platelet Volume 11.6 FL (6.5-10.1) H Neutrophils (%) (Auto) % (45.0-75.0) Lymphocytes (%) (Auto) % (20.0-45.0) Monocytes (%) (Auto) % (1.0-10.0) Eosinophils (%) (Auto) % (0.0-3.0) Basophils (%) (Auto) % (0.0-2.0) Differential Total Cells Counted 100 Neutrophils % (Manual) 75 % (45-75) Lymphocytes % (Manual) 10 % (20-45) L Monocytes % (Manual) 6 % (1-10) Eosinophils % (Manual) 2 % (0-3) Basophils % (Manual) 0 % (0-2) Band Neutrophils 7 % (0-8) Platelet Estimate Decreased L Platelet Morphology Normal Hypochromasia 1+ Macrocytosis 1+ Sodium Level 143 mEQ/L (135-145) Potassium Level 4.2 mEQ/L (3.4-4.9) Chloride Level 103 mEQ/L (98-107) Carbon Dioxide Level 36 mEQ/L (20-30) H Anion Gap 4 (5-15) L Blood Urea Nitrogen 12 mg/dL (7-23) Creatinine 0.5 mg/dL (0.7-1.2) L Estimat Glomerular Filtration Rate mL/min (>60) Glucose Level 210 mg/dL (74-106) H Calcium Level 8.0 mg/dL (8.6-10.2) L Objective HEENT: No JVD. LUNGS: Coarse rhonchi bilaterally. CARDIOVASCULAR: Tachycardic with no gallop or murmur. ABDOMEN: Soft. Status post G-tube. EXTREMITIES: No pitting edema. Lower extremities are contracted with multiple ulcers. HERLINDA BURNETT Apr 24, 2016 16:46
--- NOTE | 2016-04-24 17:46 | Internal Med Progress Note ---
Subjective Date of Service: Apr 24, 2016 Physician Name Marco Thomas Attending Physician Adalid Izaguirre MD Current Medications Medications (Trade) Dose Ordered Sig/Joy Route PRN Reason Start Time Stop Time Status Last Admin Dose Admin Acetaminophen (Tylenol) 650 mg Q4H PRN ORAL fever 04/20/16 07:45 05/20/16 07:44 Albuterol/ Ipratropium (DuoNeb 0.5-3(2.5)mg/3ml) 3 ml Q4H PRN HHN Shortness of Breath 04/20/16 07:45 04/25/16 07:44 04/22/16 02:33 Aspirin (ASA) 325 mg DAILY GT 04/25/16 09:00 05/25/16 08:59 Cefepime HCl/ Dextrose (Maxipime/D5W 50ml) 55 ml @ 110 mls/hr EVERY 12 HOURS IVPB 04/20/16 09:00 04/27/16 08:59 04/24/16 10:39 Dextrose 1,000 ml @ 75 mls/hr [id number] IV 04/21/16 12:15 05/21/16 12:14 04/23/16 18:55 Dextrose (Dextrose 50%) STAT PRN IV Hypoglycemia 04/20/16 09:30 05/20/16 09:29 Digoxin (Lanoxin) 0.125 mg DAILY ORAL 04/20/16 09:00 05/20/16 08:59 04/24/16 10:40 Insulin Aspart (NovoLOG) EVERY 6 HOURS SUBQ 04/22/16 12:00 05/22/16 11:59 04/24/16 12:26 Lactulose (Cephulac) 30 gm DAILYPRN PRN ORAL Constipation 04/20/16 08:00 05/20/16 07:59 Metoprolol Tartrate (Lopressor) 25 mg Q12HR ORAL 04/21/16 21:00 05/21/16 20:59 04/24/16 10:40 Metronidazole (Flagyl) 500 mg Q8HR GT 04/22/16 22:00 04/29/16 21:59 04/24/16 14:36 Morphine Sulfate (Morphine Sulfate) 2 mg Q4H PRN IVP Moderate Pain (Pain Scale 4-6) 04/20/16 07:45 04/27/16 07:44 Nitroglycerin (Ntg) 0.4 mg Q5MIN X3 DOSES PRN SL Prn Chest Pain 04/20/16 05:45 05/20/16 05:44 Ondansetron HCl (Zofran) 4 mg Q4H PRN IVP Nausea & Vomiting 04/20/16 08:00 05/20/16 07:59 Pantoprazole (Protonix) 40 mg DAILY IVP 04/20/16 09:00 05/20/16 08:59 04/24/16 10:36 Polyethylene Glycol (Miralax) 17 gm DAILYPRN PRN ORAL Constipation 04/20/16 07:45 05/20/16 07:44 Temazepam (Restoril) 15 mg HSPRN PRN ORAL Insomnia 04/20/16 07:45 04/27/16 07:44 Vancomycin HCl 1 ea 1 ea DAILYPRN PRN MISC Per rx protocol 04/20/16 10:30 05/20/16 10:29 Vancomycin HCl/ Dextrose (Vancomycin/D5W) 275 ml @ 183.708 mls/hr Q12HR IVPB 04/21/16 21:00 04/26/16 20:59 04/24/16 11:08 Allergies: Coded Allergies: No Known Allergies (Unverified , 10/19/15) ROS Limited/Unobtainable: Yes Subjective 75 YO M admitted with fever, now with pneumonia. Cover for Int Med-Dr Izaguirre. Tolerating nasal canula Objective Last Vital Signs Date Time Temp Pulse Resp B/P Pulse Ox O2 Delivery O2 Flow Rate FiO2 04/24/16 16:06 98.2 109 20 165/75 95 Nasal Cannula 4.0 04/23/16 19:30 32 Laboratory Tests Test 04/24/16 04:45 04/24/16 06:00 White Blood Count 7.7 K/UL (4.8-10.8) Red Blood Count 2.76 M/UL (4.70-6.10) L Hemoglobin 8.8 G/DL (14.2-18.0) L Hematocrit 28.5 % (42.0-52.0) L Mean Corpuscular Volume 104 FL (80-99) H Mean Corpuscular Hemoglobin 32.0 PG (27.0-31.0) H Mean Corpuscular Hemoglobin Concent 30.9 G/DL (32.0-36.0) L Red Cell Distribution Width 12.6 % (11.6-14.8) Platelet Count 81 K/UL (150-450) L Mean Platelet Volume 11.6 FL (6.5-10.1) H Neutrophils (%) (Auto) % (45.0-75.0) Lymphocytes (%) (Auto) % (20.0-45.0) Monocytes (%) (Auto) % (1.0-10.0) Eosinophils (%) (Auto) % (0.0-3.0) Basophils (%) (Auto) % (0.0-2.0) Differential Total Cells Counted 100 Neutrophils % (Manual) 75 % (45-75) Lymphocytes % (Manual) 10 % (20-45) L Monocytes % (Manual) 6 % (1-10) Eosinophils % (Manual) 2 % (0-3) Basophils % (Manual) 0 % (0-2) Band Neutrophils 7 % (0-8) Platelet Estimate Decreased L Platelet Morphology Normal Hypochromasia 1+ Macrocytosis 1+ Sodium Level 143 mEQ/L (135-145) Potassium Level 4.2 mEQ/L (3.4-4.9) Chloride Level 103 mEQ/L (98-107) Carbon Dioxide Level 36 mEQ/L (20-30) H Anion Gap 4 (5-15) L Blood Urea Nitrogen 12 mg/dL (7-23) Creatinine 0.5 mg/dL (0.7-1.2) L Estimat Glomerular Filtration Rate mL/min (>60) Glucose Level 210 mg/dL (74-106) H Calcium Level 8.0 mg/dL (8.6-10.2) L Intake and Output 04/23/16 04/24/16 19:00 07:00 Intake Total 1755 ml 1393.708 ml Output Total 750 ml 560 ml Balance 1005 ml 833.708 ml Intake Free Water 300 ml 300 ml IV Total 675 ml 313.708 ml Tube Feeding 780 ml 780 ml Output Urine Total 750 ml 560 ml # Voids 1 # Bowel Movements 1 1 Objective General Appearance: lethargic, thin EENT: normal ENT inspection Neck: non-tender, normal alignment, supple Cardiovascular: normal peripheral pulses, normal rate, regular rhythm, no gallop/murmur, no JVD Respiratory/Chest: chest wall non-tender, crackles/rales, rhonchi - bilaterally , expiratory wheezing Abdomen: normal bowel sounds, non tender, soft, no organomegaly, no mass Skin: normal pigmentation, warm/dry Assessment/Plan Problem List: (1) Leukocytosis (2) Pemphigus Assessment & Plan: D/C chronic prednisone therapy per nephrology. (3) Sepsis Assessment & Plan: Coag neg staph. See ID note. Cont vanco (4) Cerebral vascular disease (5) Hemiplegia affecting left nondominant side (6) Aphasia as late effect of cerebrovascular accident (7) Atrial fibrillation Assessment & Plan: Cont novolog; D/C levemir. See endocrinology note. (8) Hypertension (9) Diabetes mellitus (10) Dysphagia as late effect of cerebrovascular accident (CVA) (11) Pneumonia Assessment & Plan: ?aspiration? See pulmonary note. Cont vanco, flagyl and cefepime per ID (12) G tube feedings (13) Atrial fibrillation and flutter (14) Septic shock (15) Hypernatremia Assessment & Plan: See nephrology note. Status: progressing Assessment/Plan Discharge planning: MARCO Sutton Apr 24, 2016 17:46
[2016-04-24] MEDS: DuoNeb 0.5-3(2.5)mg/3ml neb HHN SCH ×2 (19:50→23:20)
[2016-04-24 20:00] VITALS: BP 144/64
[2016-04-25] VITALS: BP 135/67
[2016-04-25] MEDS: NovoLOG Insulin Flexpen SUBQ SCH ×4 (00:37→17:10)
[2016-04-25] MEDS: DuoNeb 0.5-3(2.5)mg/3ml neb HHN SCH ×7 (03:24→23:23)
[2016-04-25 04:00] VITALS: BP 155/78
[2016-04-25] MEDS: metroNIDAZOLE 500mg tab GT SCH ×3 (06:12→21:05)
--- NOTE | 2016-04-25 07:27 | Geriatric Medicine Prog Note ---
DATE: 04/24/2016 SUBJECTIVE: The patient is more comfortable today. OBJECTIVE: VITAL SIGNS: Blood pressure 135/67, pulse 70, respiratory rate 22, and temperature 98 degrees. RESPIRATORY: Clear. CARDIOVASCULAR: Regular. LABORATORY DATA: Glucose [phone]. ASSESSMENT: Diabetes mellitus.stable PLAN: Increase Glucerna to 65 mL/hour per G-tube and Levemir insulin will be given at 5 units q.12 h. with sliding scale Novolog q.6 hrs..rs Eddie Dean M.D. DR: SEYMOUR JOB#: [id number] CC: SHELIA
[2016-04-25 08:00] VITALS: BP 131/63
[2016-04-25 08:17] LABS: ANION GAP 4 (5-15); CALCIUM 8.1 mg/dL (8.6-10.2); CARBON DIOXIDE 38 mEQ/L (20-30); CHLORIDE 100 mEQ/L (98-107); CREATININE 0.5 mg/dL (0.7-1.2); HEMOLYSIS 4; SODIUM 142 mEQ/L (135-145)
[2016-04-25] MEDS: Levemir Flexpen SUBQ SCH ×2 (09:00→21:06)
[2016-04-25 09:01] LABS: MEAN CORPUSCULAR HEMOGLOBIN 32.6 PG (27.0-31.0); MEAN CORPUSCULAR VOLUME 105 FL (80-99); MEAN PLATELET VOLUME 9.6 FL (6.5-10.1); PLATELET COUNT 86 K/UL (150-450); RED CELL DISTRIBUTION WIDTH 12.4 % (11.6-14.8); WHITE BLOOD COUNT 6.3 K/UL (4.8-10.8)
[2016-04-25] MEDS: Cefepime HCl 1 GM in D5W 55 ML IVPB SCH ×2 (09:08→21:47)
[2016-04-25] MEDS: Pantoprazole Inj IVP SCH (09:09)
--- NOTE | 2016-04-25 09:20 | Wound Care Consultation ---
Wound Assessment Wound Assessment : Wound Number: #1 Wound Present on Admission: No New Wound: Yes Status Change of Wound: No Wound Location Body Site: other - Scrotum Wound Type: blister - Ruptured Rachel Test: Does not Rachel Wound Thickness: Partial Thickness Wound Length: 8.0 Wound Width: 8.0 Wound Depth: 0.1 Percent of Wound [place]/Red: 100 Wound Drainage Amount: None Wound Drainage Odor: None/Absent Tissue Surrounding Wound: Erythemic Wound General Appearance: Reddened, Open to air Wound Comment #1 Ruptured blister to scrotum. Recommendation. -Gentle jase-care. -Keep clean and dry. -Local wound care as ordered. -Turn and reposition. -Optimize Nutrition. -Offload affected area. -Heel Protectors. -Offload feet and heels. -Assess and follow up with MD if any further changes of condition are noted. Patient has a diagnosis of Pemphigus and has history of multiple scattered blisters to generalize body since admission date. LUIS LAKE Apr 25, 2016 09:20
[2016-04-25] MEDS: Metoprolol 25mg tab ORAL SCH ×2 (09:22→21:05)
[2016-04-25] MEDS: Digoxin 0.125mg tab ORAL SCH (09:22)
[2016-04-25] MEDS: Vancomycin 750mg/D5W 275ml IVPB SCH ×4 (09:47→21:48)
--- NOTE | 2016-04-25 10:04 | Diagnostic Imaging Report ---
Indication: Shortness of breath Technique: XRAY CHEST 1 V Comparison: 04/19/16 Findings: Cardiomediastinal silhouette is stable. Left subclavian central line is again noted. Linear and interstitial opacities are again noted of the mid and lower lung mcgee. No new infiltrates are seen. Osseous structures are stable. Atherosclerotic changes are present. Impression: No significant change from 04/19/16 as above.
[2016-04-25 11:56] LABS: BAND NEUTROPHILS % (MANUAL) 4 % (0-8); BASOPHILS % (MANUAL) 0 % (0-2); EOSINOPHILS % (MANUAL) 5 % (0-3); LYMPHOCYTES % (MANUAL) 9 % (20-45); NEUTROPHILS % (MANUAL) 77 % (45-75); PLATELET ESTIMATE DECREASED; PLATELET MORPHOLOGY NORMAL; TOTAL CELLS COUNTED 100
[2016-04-25 12:01] VITALS: BP 149/57
--- NOTE | 2016-04-25 14:08 | Internal Med Progress Note ---
Subjective Date of Service: Apr 25, 2016 Physician Name Renetta Thomas Attending Physician Adalid Izaguirre MD Current Medications Medications (Trade) Dose Ordered Sig/Joy Route PRN Reason Start Time Stop Time Status Last Admin Dose Admin Acetaminophen (Tylenol) 650 mg Q4H PRN ORAL fever 04/20/16 07:45 05/20/16 07:44 Albuterol/ Ipratropium (DuoNeb 0.5-3(2.5)mg/3ml) 3 ml Q4H HHN 04/24/16 19:00 04/29/16 18:59 04/25/16 11:56 Aspirin (ASA) 325 mg DAILY GT 04/25/16 09:00 05/25/16 08:59 04/25/16 09:22 Cefepime HCl/ Dextrose (Maxipime/D5W 50ml) 55 ml @ 110 mls/hr EVERY 12 HOURS IVPB 04/20/16 09:00 04/27/16 08:59 04/25/16 09:08 Dextrose 1,000 ml @ 75 mls/hr [id number] IV 04/21/16 12:15 05/21/16 12:14 04/25/16 06:51 Dextrose (Dextrose 50%) STAT PRN IV Hypoglycemia 04/20/16 09:30 05/20/16 09:29 Digoxin (Lanoxin) 0.125 mg DAILY ORAL 04/20/16 09:00 05/20/16 08:59 04/25/16 09:22 Insulin Aspart (NovoLOG) EVERY 6 HOURS SUBQ 04/22/16 12:00 05/22/16 11:59 04/25/16 12:46 Insulin Detemir (Levemir) 5 units Q12HR SUBQ 04/25/16 09:00 05/25/16 08:59 Lactulose (Cephulac) 30 gm DAILYPRN PRN ORAL Constipation 04/20/16 08:00 05/20/16 07:59 Metoprolol Tartrate (Lopressor) 25 mg Q12HR ORAL 04/21/16 21:00 05/21/16 20:59 04/25/16 09:22 Metronidazole (Flagyl) 500 mg Q8HR GT 04/22/16 22:00 04/29/16 21:59 04/25/16 13:47 Morphine Sulfate (Morphine Sulfate) 2 mg Q4H PRN IVP Moderate Pain (Pain Scale 4-6) 04/20/16 07:45 04/27/16 07:44 Nitroglycerin (Ntg) 0.4 mg Q5MIN X3 DOSES PRN SL Prn Chest Pain 04/20/16 05:45 05/20/16 05:44 Ondansetron HCl (Zofran) 4 mg Q4H PRN IVP Nausea & Vomiting 04/20/16 08:00 05/20/16 07:59 Pantoprazole (Protonix) 40 mg DAILY IVP 04/20/16 09:00 05/20/16 08:59 04/25/16 09:09 Polyethylene Glycol (Miralax) 17 gm DAILYPRN PRN ORAL Constipation 04/20/16 07:45 05/20/16 07:44 Temazepam (Restoril) 15 mg HSPRN PRN ORAL Insomnia 04/20/16 07:45 04/27/16 07:44 Vancomycin HCl 1 ea 1 ea DAILYPRN PRN MISC Per rx protocol 04/20/16 10:30 05/20/16 10:29 Vancomycin HCl/ Dextrose (Vancomycin/D5W) 275 ml @ 183.708 mls/hr Q12HR IVPB 04/21/16 21:00 04/26/16 20:59 04/25/16 09:47 Allergies: Coded Allergies: No Known Allergies (Unverified , 10/19/15) ROS Limited/Unobtainable: Yes Subjective 75 YO M admitted with fever, now with pneumonia. Cover for Int [place]-Dr Izaguirre. Tolerating nasal canula. Increased congestion Objective Last Vital Signs Date Time Temp Pulse Resp B/P Pulse Ox O2 Delivery O2 Flow Rate FiO2 04/25/16 12:01 97.8 80 19 149/57 97 Nasal Cannula 04/25/16 11:55 3.0 04/25/16 03:35 32 Laboratory Tests Test 04/25/16 04:40 White Blood Count 6.3 K/UL (4.8-10.8) Red Blood Count 2.50 M/UL (4.70-6.10) L Hemoglobin 8.1 G/DL (14.2-18.0) L Hematocrit 26.2 % (42.0-52.0) L Mean Corpuscular Volume 105 FL (80-99) H Mean Corpuscular Hemoglobin 32.6 PG (27.0-31.0) H Mean Corpuscular Hemoglobin Concent 31.0 G/DL (32.0-36.0) L Red Cell Distribution Width 12.4 % (11.6-14.8) Platelet Count 86 K/UL (150-450) L Mean Platelet Volume 9.6 FL (6.5-10.1) Neutrophils (%) (Auto) % (45.0-75.0) Lymphocytes (%) (Auto) % (20.0-45.0) Monocytes (%) (Auto) % (1.0-10.0) Eosinophils (%) (Auto) % (0.0-3.0) Basophils (%) (Auto) % (0.0-2.0) Differential Total Cells Counted 100 Neutrophils % (Manual) 77 % (45-75) H Lymphocytes % (Manual) 9 % (20-45) L Monocytes % (Manual) 5 % (1-10) Eosinophils % (Manual) 5 % (0-3) H Basophils % (Manual) 0 % (0-2) Band Neutrophils 4 % (0-8) Platelet Estimate Decreased L Platelet Morphology Normal Red Blood Cell Morphology Normal Sodium Level 142 mEQ/L (135-145) Potassium Level 4.0 mEQ/L (3.4-4.9) Chloride Level 100 mEQ/L (98-107) Carbon Dioxide Level 38 mEQ/L (20-30) H Anion Gap 4 (5-15) L Blood Urea Nitrogen 11 mg/dL (7-23) Creatinine 0.5 mg/dL (0.7-1.2) L Estimat Glomerular Filtration Rate mL/min (>60) Glucose Level 179 mg/dL (74-106) H Calcium Level 8.1 mg/dL (8.6-10.2) L Microbiology Date/Time Source Procedure Growth Status 04/23/16 06:20 Blood Blood Culture - Preliminary NO GROWTH AFTER 48 HOURS Resulted 04/23/16 05:20 Blood Blood Culture - Preliminary NO GROWTH AFTER 48 HOURS Resulted Intake and Output 04/24/16 04/25/16 19:00 07:00 Intake Total 2095 ml 1115.00 ml Output Total 1750 ml 600 ml Balance 345 ml 515.00 ml Intake Free Water 300 ml 200 ml IV Total 1080 ml 330.00 ml Tube Feeding 715 ml 585 ml Output Urine Total 1750 ml 600 ml # Bowel Movements 1 1 Objective General Appearance: lethargic, thin EENT: normal ENT inspection Neck: non-tender, normal alignment, supple Cardiovascular: normal peripheral pulses, normal rate, regular rhythm, no gallop/murmur, no JVD Respiratory/Chest: chest wall non-tender, crackles/rales, rhonchi - bilaterally , expiratory wheezing Abdomen: normal bowel sounds, non tender, soft, no organomegaly, no mass Skin: normal pigmentation, warm/dry Assessment/Plan Problem List: (1) Leukocytosis (2) Pemphigus Assessment & Plan: D/C chronic prednisone therapy per nephrology. (3) Sepsis Assessment & Plan: Coag neg staph. See ID note. Cont vanco (4) Cerebral vascular disease (5) Hemiplegia affecting left nondominant side (6) Aphasia as late effect of cerebrovascular accident (7) Atrial fibrillation Assessment & Plan: Cont novolog; D/C levemir. See endocrinology note. (8) Hypertension (9) Diabetes mellitus (10) Dysphagia as late effect of cerebrovascular accident (CVA) (11) Pneumonia Assessment & Plan: ?aspiration? Repeat chest xray=no new infiltrates. See pulmonary note. Cont vanco, flagyl and cefepime per ID (12) G tube feedings (13) Atrial fibrillation and flutter (14) Septic shock (15) Hypernatremia Assessment & Plan: See nephrology note. Status: not improved Assessment/Plan Discharge planning: RENETTA Sutton Apr 25, 2016 14:08
[2016-04-25] MEDS ORDERED: 1/2 NS 1000ml IV ONE (15:06)
--- NOTE | 2016-04-25 15:27 | General Progress Note ---
Assessment/Plan Status: stable - from renal stand Assessment/Plan Acute Renal failure- due to sepsis and shock & Dehydration and volume depletion component- and HyperNatremia ALL IMPROVED Other: -CVA (cerebral vascular accident) -Diabetes -G tube feedings -Left hemiparesis Plan: Hydrate- Antibiotics- Monitor renal parameters- Avoid Nephrotoxics- per orders- ? DC planning? Subjective ROS Limited/Unobtainable: Yes Allergies: Coded Allergies: No Known Allergies (Unverified , 10/19/15) Objective Last 24 Hour Vital Signs Date Time Temp Pulse Resp B/P Pulse Ox O2 Delivery O2 Flow Rate FiO2 04/25/16 12:01 97.8 80 19 149/57 97 Nasal Cannula 04/25/16 11:55 99 20 100 Nasal Cannula 3.0 04/25/16 11:45 94 20 98 Nasal Cannula 3.0 04/25/16 09:22 114 131/63 04/25/16 09:22 114 04/25/16 08:00 98.1 114 18 131/63 98 Nasal Cannula 04/25/16 07:35 108 20 100 Nasal Cannula 3.0 04/25/16 07:24 101 20 97 Nasal Cannula 3.0 04/25/16 07:23 Nasal Cannula 3.0 04/25/16 07:22 97 Nasal Cannula 3.0 04/25/16 04:00 98.1 124 24 155/78 97 Nasal Cannula 3.0 04/25/16 03:35 112 16 100 Nasal Cannula 3.0 32 04/25/16 03:25 32 04/25/16 03:25 110 16 97 Nasal Cannula 3.0 32 04/25/16 00:00 98.2 89 22 135/67 Nasal Cannula 2.0 04/24/16 23:29 110 16 100 Nasal Cannula 3.0 32 04/24/16 23:22 32 04/24/16 23:21 101 16 98 Nasal Cannula 3.0 32 04/24/16 20:34 111 144/64 04/24/16 20:05 102 18 100 Nasal Cannula 3.0 32 04/24/16 20:00 98.2 111 24 144/64 100 Nasal Cannula 2.0 04/24/16 19:54 32 04/24/16 19:53 Nasal Cannula 3.0 32 04/24/16 19:53 84 20 99 Nasal Cannula 3.0 32 04/24/16 19:53 100 Nasal Cannula 3.0 32 04/24/16 19:51 113 20 Nasal Cannula 3.0 32 04/24/16 16:06 98.2 109 20 165/75 95 Nasal Cannula 4.0 Intake and Output 04/24/16 04/25/16 19:00 07:00 Intake Total 2095 ml 1115.00 ml Output Total 1750 ml 600 ml Balance 345 ml 515.00 ml Intake Free Water 300 ml 200 ml IV Total 1080 ml 330.00 ml Tube Feeding 715 ml 585 ml Output Urine Total 1750 ml 600 ml # Bowel Movements 1 1 Laboratory Tests 04/25/16 04:40: White Blood Count 6.3, Red Blood Count 2.50L, Hemoglobin 8.1L, Hematocrit 26.2L , Mean Corpuscular Volume 105H, Mean Corpuscular Hemoglobin 32.6H, Mean Corpuscular Hemoglobin Concent 31.0L, Red Cell Distribution Width 12.4, Platelet Count 86L, Mean Platelet Volume 9.6, Neutrophils (%) (Auto) , Lymphocytes (%) (Auto) , Monocytes (%) (Auto) , Eosinophils (%) (Auto) , Basophils (%) (Auto) , Differential Total Cells Counted 100, Neutrophils % ( Manual) 77H, Lymphocytes % (Manual) 9L, Monocytes % (Manual) 5, Eosinophils % ( Manual) 5H, Basophils % (Manual) 0, Band Neutrophils 4, Platelet Estimate DecreasedL, Platelet Morphology Normal, Red Blood Cell Morphology Normal, Sodium Level 142, Potassium Level 4.0, Chloride Level 100, Carbon Dioxide Level 38H, Anion Gap 4L, Blood Urea Nitrogen 11, Creatinine 0.5L, Estimat Glomerular Filtration Rate , Glucose Level 179H, Calcium Level 8.1L Height (Feet): 5 Height (Inches): 7.00 Weight (Pounds): 120 General Appearance: no apparent distress Objective no change in PE CRISTY MADDOX Apr 25, 2016 15:27
[2016-04-25] MEDS ORDERED: Tubing IV Secondary IV ONE (15:55)
[2016-04-25] MEDS ORDERED: Sterile Water Irrig 1000ml IRRIG ONE ×2 (15:55→16:05)
[2016-04-25 16:00] VITALS: BP 136/63
--- NOTE | 2016-04-25 16:04 | Infectious Diseases Prog Note ---
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 // Hypernatremia / electrolyte imbalance // DM2 - HbA1c 8.1% // Dementia, h/o CVA // Functional quadriplegia / bedbound // Dysphagia SP PEG // [facility] resident // Negative MRSA, VRE screens // NKDA // Full Code PLAN: - continue IV vancomycin, cefepime, flagyl d# 8 / 10 - taper steroids per pulm - f/u cultures - monitor CBC, temperatures - monitor BMP - monitor CXR - aspiration precautions - wound care Subjective Constitutional: Denies: anorexia, chills, drenching sweats, fatigue, fever, no symptoms, other Allergies: Coded Allergies: No Known Allergies (Unverified , 10/19/15) Objective Vital Signs Last 24 Hour Vital Signs Date Time Temp Pulse Resp B/P Pulse Ox O2 Delivery O2 Flow Rate FiO2 04/25/16 12:01 97.8 80 19 149/57 97 Nasal Cannula 04/25/16 11:55 99 20 100 Nasal Cannula 3.0 04/25/16 11:45 94 20 98 Nasal Cannula 3.0 04/25/16 09:22 114 131/63 04/25/16 09:22 114 04/25/16 08:00 98.1 114 18 131/63 98 Nasal Cannula 04/25/16 07:35 108 20 100 Nasal Cannula 3.0 04/25/16 07:24 101 20 97 Nasal Cannula 3.0 04/25/16 07:23 Nasal Cannula 3.0 04/25/16 07:22 97 Nasal Cannula 3.0 04/25/16 04:00 98.1 124 24 155/78 97 Nasal Cannula 3.0 04/25/16 03:35 112 16 100 Nasal Cannula 3.0 32 04/25/16 03:25 32 04/25/16 03:25 110 16 97 Nasal Cannula 3.0 32 04/25/16 00:00 98.2 89 22 135/67 Nasal Cannula 2.0 04/24/16 23:29 110 16 100 Nasal Cannula 3.0 32 04/24/16 23:22 32 04/24/16 23:21 101 16 98 Nasal Cannula 3.0 32 04/24/16 20:34 111 144/64 04/24/16 20:05 102 18 100 Nasal Cannula 3.0 32 04/24/16 20:00 98.2 111 24 144/64 100 Nasal Cannula 2.0 04/24/16 19:54 32 04/24/16 19:53 Nasal Cannula 3.0 32 04/24/16 19:53 84 20 99 Nasal Cannula 3.0 32 04/24/16 19:53 100 Nasal Cannula 3.0 32 04/24/16 19:51 113 20 Nasal Cannula 3.0 32 04/24/16 16:06 98.2 109 20 165/75 95 Nasal Cannula 4.0 Height (Feet): 5 Height (Inches): 7.00 Weight (Pounds): 120 HEENT: anicteric Respiratory/Chest: normal breath sounds Cardiovascular: regularly irregular Abdomen: no organomegaly Microbiology Date/Time Source Procedure Growth Status 04/23/16 06:20 Blood Blood Culture - Preliminary NO GROWTH AFTER 48 HOURS Resulted 04/23/16 05:20 Blood Blood Culture - Preliminary NO GROWTH AFTER 48 HOURS Resulted Laboratory Tests Test 04/25/16 04:40 White Blood Count 6.3 K/UL (4.8-10.8) Red Blood Count 2.50 M/UL (4.70-6.10) L Hemoglobin 8.1 G/DL (14.2-18.0) L Hematocrit 26.2 % (42.0-52.0) L Mean Corpuscular Volume 105 FL (80-99) H Mean Corpuscular Hemoglobin 32.6 PG (27.0-31.0) H Mean Corpuscular Hemoglobin Concent 31.0 G/DL (32.0-36.0) L Red Cell Distribution Width 12.4 % (11.6-14.8) Platelet Count 86 K/UL (150-450) L Mean Platelet Volume 9.6 FL (6.5-10.1) Neutrophils (%) (Auto) % (45.0-75.0) Lymphocytes (%) (Auto) % (20.0-45.0) Monocytes (%) (Auto) % (1.0-10.0) Eosinophils (%) (Auto) % (0.0-3.0) Basophils (%) (Auto) % (0.0-2.0) Differential Total Cells Counted 100 Neutrophils % (Manual) 77 % (45-75) H Lymphocytes % (Manual) 9 % (20-45) L Monocytes % (Manual) 5 % (1-10) Eosinophils % (Manual) 5 % (0-3) H Basophils % (Manual) 0 % (0-2) Band Neutrophils 4 % (0-8) Platelet Estimate Decreased L Platelet Morphology Normal Red Blood Cell Morphology Normal Sodium Level 142 mEQ/L (135-145) Potassium Level 4.0 mEQ/L (3.4-4.9) Chloride Level 100 mEQ/L (98-107) Carbon Dioxide Level 38 mEQ/L (20-30) H Anion Gap 4 (5-15) L Blood Urea Nitrogen 11 mg/dL (7-23) Creatinine 0.5 mg/dL (0.7-1.2) L Estimat Glomerular Filtration Rate mL/min (>60) Glucose Level 179 mg/dL (74-106) H Calcium Level 8.1 mg/dL (8.6-10.2) L Current Medications Medications (Trade) Dose Ordered Sig/Joy Route PRN Reason Start Time Stop Time Status Last Admin Dose Admin Acetaminophen (Tylenol) 650 mg Q4H PRN ORAL fever 04/20/16 07:45 05/20/16 07:44 Albuterol/ Ipratropium (DuoNeb 0.5-3(2.5)mg/3ml) 3 ml Q4H HHN 04/24/16 19:00 04/29/16 18:59 04/25/16 16:02 Aspirin (ASA) 325 mg DAILY GT 04/25/16 09:00 05/25/16 08:59 04/25/16 09:22 Cefepime HCl/ Dextrose (Maxipime/D5W 50ml) 55 ml @ 110 mls/hr EVERY 12 HOURS IVPB 04/20/16 09:00 04/27/16 08:59 04/25/16 09:08 Dextrose 1,000 ml @ 75 mls/hr [id number] IV 04/21/16 12:15 05/21/16 12:14 04/25/16 06:51 Dextrose (Dextrose 50%) STAT PRN IV Hypoglycemia 04/20/16 09:30 05/20/16 09:29 Digoxin (Lanoxin) 0.125 mg DAILY ORAL 04/20/16 09:00 05/20/16 08:59 04/25/16 09:22 Insulin Aspart (NovoLOG) EVERY 6 HOURS SUBQ 04/22/16 12:00 05/22/16 11:59 04/25/16 12:46 Insulin Detemir (Levemir) 5 units Q12HR SUBQ 04/25/16 09:00 05/25/16 08:59 Lactulose (Cephulac) 30 gm DAILYPRN PRN ORAL Constipation 04/20/16 08:00 05/20/16 07:59 Metoprolol Tartrate (Lopressor) 25 mg Q12HR ORAL 04/21/16 21:00 05/21/16 20:59 04/25/16 09:22 Metronidazole (Flagyl) 500 mg Q8HR GT 04/22/16 22:00 04/29/16 21:59 04/25/16 13:47 Morphine Sulfate (Morphine Sulfate) 2 mg Q4H PRN IVP Moderate Pain (Pain Scale 4-6) 04/20/16 07:45 04/27/16 07:44 Nitroglycerin (Ntg) 0.4 mg Q5MIN X3 DOSES PRN SL Prn Chest Pain 04/20/16 05:45 05/20/16 05:44 Ondansetron HCl (Zofran) 4 mg Q4H PRN IVP Nausea & Vomiting 04/20/16 08:00 05/20/16 07:59 Pantoprazole (Protonix) 40 mg DAILY IVP 04/20/16 09:00 05/20/16 08:59 04/25/16 09:09 Polyethylene Glycol (Miralax) 17 gm DAILYPRN PRN ORAL Constipation 04/20/16 07:45 05/20/16 07:44 Temazepam (Restoril) 15 mg HSPRN PRN ORAL Insomnia 04/20/16 07:45 04/27/16 07:44 Vancomycin HCl 1 ea 1 ea DAILYPRN PRN MISC Per rx protocol 04/20/16 10:30 05/20/16 10:29 Vancomycin HCl/ Dextrose (Vancomycin/D5W) 275 ml @ 183.708 mls/hr Q12HR IVPB 04/21/16 21:00 04/26/16 20:59 04/25/16 09:47 PAUL FORRESTER M.D. Apr 25, 2016 16:04
[2016-04-25] MEDS ORDERED: D5 1/2NS 1000ml IV ONE (16:05)
--- NOTE | 2016-04-25 18:00 | Cardiac Electrophysiology PN ---
Assessment/Plan Assessment/Plan 1. Atrial fibrillation with rapid ventricular response. Controlled on digoxin 0.125 mg, aspirin 325 and Lopressor 25 bid. Not a candidate for full anticoagulation. 2. Broad-spectrum sepsis. On vancomycin and cefepime under the management of Dr. Bains for bacteremia and aspiration pneumonia. 3. Severe hypernatremia. Na 153 down to 143 . On free water through the G- tube by Dr. Caro. 4. Dysphagia, status post PEG placement. 5. Dementia with functional quadriplegia. DW RN Subjective Subjective Nonverbal on IV antibiotics.No events overnight. RN at bedside. Comfortable. Objective Last 24 Hour Vital Signs Date Time Temp Pulse Resp B/P Pulse Ox O2 Delivery O2 Flow Rate FiO2 04/25/16 16:00 97.9 97 20 136/63 99 Nasal Cannula 3.0 04/25/16 15:59 117 20 100 Nasal Cannula 3.0 04/25/16 15:50 107 18 99 Nasal Cannula 3.0 04/25/16 12:01 97.8 80 19 149/57 97 Nasal Cannula 04/25/16 11:55 99 20 100 Nasal Cannula 3.0 04/25/16 11:45 94 20 98 Nasal Cannula 3.0 04/25/16 09:22 114 131/63 04/25/16 09:22 114 04/25/16 08:00 98.1 114 18 131/63 98 Nasal Cannula 04/25/16 07:35 108 20 100 Nasal Cannula 3.0 04/25/16 07:24 101 20 97 Nasal Cannula 3.0 04/25/16 07:23 Nasal Cannula 3.0 04/25/16 07:22 97 Nasal Cannula 3.0 04/25/16 04:00 98.1 124 24 155/78 97 Nasal Cannula 3.0 04/25/16 03:35 112 16 100 Nasal Cannula 3.0 32 04/25/16 03:25 32 04/25/16 03:25 110 16 97 Nasal Cannula 3.0 32 04/25/16 00:00 98.2 89 22 135/67 Nasal Cannula 2.0 04/24/16 23:29 110 16 100 Nasal Cannula 3.0 32 04/24/16 23:22 32 04/24/16 23:21 101 16 98 Nasal Cannula 3.0 32 04/24/16 20:34 111 144/64 04/24/16 20:05 102 18 100 Nasal Cannula 3.0 32 04/24/16 20:00 98.2 111 24 144/64 100 Nasal Cannula 2.0 04/24/16 19:54 32 04/24/16 19:53 Nasal Cannula 3.0 32 04/24/16 19:53 84 20 99 Nasal Cannula 3.0 32 04/24/16 19:53 100 Nasal Cannula 3.0 32 04/24/16 19:51 113 20 Nasal Cannula 3.0 32 Intake and Output 04/24/16 04/25/16 19:00 07:00 Intake Total 2095 ml 1115.00 ml Output Total 1750 ml 600 ml Balance 345 ml 515.00 ml Intake Free Water 300 ml 200 ml IV Total 1080 ml 330.00 ml Tube Feeding 715 ml 585 ml Output Urine Total 1750 ml 600 ml # Bowel Movements 1 1 Laboratory Tests Test 04/25/16 04:40 White Blood Count 6.3 K/UL (4.8-10.8) Red Blood Count 2.50 M/UL (4.70-6.10) L Hemoglobin 8.1 G/DL (14.2-18.0) L Hematocrit 26.2 % (42.0-52.0) L Mean Corpuscular Volume 105 FL (80-99) H Mean Corpuscular Hemoglobin 32.6 PG (27.0-31.0) H Mean Corpuscular Hemoglobin Concent 31.0 G/DL (32.0-36.0) L Red Cell Distribution Width 12.4 % (11.6-14.8) Platelet Count 86 K/UL (150-450) L Mean Platelet Volume 9.6 FL (6.5-10.1) Neutrophils (%) (Auto) % (45.0-75.0) Lymphocytes (%) (Auto) % (20.0-45.0) Monocytes (%) (Auto) % (1.0-10.0) Eosinophils (%) (Auto) % (0.0-3.0) Basophils (%) (Auto) % (0.0-2.0) Differential Total Cells Counted 100 Neutrophils % (Manual) 77 % (45-75) H Lymphocytes % (Manual) 9 % (20-45) L Monocytes % (Manual) 5 % (1-10) Eosinophils % (Manual) 5 % (0-3) H Basophils % (Manual) 0 % (0-2) Band Neutrophils 4 % (0-8) Platelet Estimate Decreased L Platelet Morphology Normal Red Blood Cell Morphology Normal Sodium Level 142 mEQ/L (135-145) Potassium Level 4.0 mEQ/L (3.4-4.9) Chloride Level 100 mEQ/L (98-107) Carbon Dioxide Level 38 mEQ/L (20-30) H Anion Gap 4 (5-15) L Blood Urea Nitrogen 11 mg/dL (7-23) Creatinine 0.5 mg/dL (0.7-1.2) L Estimat Glomerular Filtration Rate mL/min (>60) Glucose Level 179 mg/dL (74-106) H Calcium Level 8.1 mg/dL (8.6-10.2) L Microbiology Date/Time Source Procedure Growth Status 04/23/16 06:20 Blood Blood Culture - Preliminary NO GROWTH AFTER 48 HOURS Resulted 04/23/16 05:20 Blood Blood Culture - Preliminary NO GROWTH AFTER 48 HOURS Resulted Objective HEENT: No JVD. LUNGS: Coarse rhonchi bilaterally. CARDIOVASCULAR: Tachycardic with no gallop or murmur. ABDOMEN: Soft. Status post G-tube. EXTREMITIES: No pitting edema. Lower extremities are contracted with multiple ulcers. HERLINDA BURNTET Apr 25, 2016 18:00
[2016-04-25 19:00] VITALS: BP 130/60
[2016-04-26] VITALS (7 sets, daily range): BP systolic 106–150; BP diastolic 61–81
[2016-04-26] MEDS: NovoLOG Insulin Flexpen SUBQ SCH ×4 (00:58→17:26)
[2016-04-26] MEDS: DuoNeb 0.5-3(2.5)mg/3ml neb HHN SCH ×5 (03:24→20:13)
[2016-04-26] MEDS: metroNIDAZOLE 500mg tab GT SCH ×3 (05:45→21:00)
[2016-04-26 06:42] LABS: MEAN CORPUSCULAR HEMOGLOBIN 32.7 PG (27.0-31.0); MEAN CORPUSCULAR HGB CONC 31.1 G/DL (32.0-36.0); MEAN CORPUSCULAR VOLUME 105 FL (80-99); MEAN PLATELET VOLUME 8.7 FL (6.5-10.1); PLATELET COUNT 115 K/UL (150-450); RED BLOOD COUNT 2.39 M/UL (4.70-6.10); RED CELL DISTRIBUTION WIDTH 12.4 % (11.6-14.8); WHITE BLOOD COUNT 5.3 K/UL (4.8-10.8)
[2016-04-26 06:59] LABS: ANION GAP 5 (5-15); CALCIUM 8.1 mg/dL (8.6-10.2); CARBON DIOXIDE 39 mEQ/L (20-30); CHLORIDE 98 mEQ/L (98-107); CREATININE 0.5 mg/dL (0.7-1.2); HEMOLYSIS 5; POTASSIUM 4.2 mEQ/L (3.4-4.9); SODIUM 142 mEQ/L (135-145)
[2016-04-26] MEDS: Digoxin 0.125mg tab ORAL SCH (08:35)
[2016-04-26] MEDS: Metoprolol 25mg tab ORAL SCH ×2 (08:37→20:59)
[2016-04-26] MEDS: Levemir Flexpen SUBQ SCH ×2 (08:37→21:01)
[2016-04-26] MEDS: Pantoprazole Inj IVP SCH (09:44)
[2016-04-26] MEDS: Cefepime HCl 1 GM in D5W 55 ML IVPB SCH ×2 (09:45→20:59)
[2016-04-26] MEDS: Vancomycin 750mg/D5W 275ml IVPB SCH ×4 (10:19→21:44)
[2016-04-26 10:42] LABS: BAND NEUTROPHILS % (MANUAL) 1 % (0-8); BASOPHILS % (MANUAL) 0 % (0-2); EOSINOPHILS % (MANUAL) 0 % (0-3); LYMPHOCYTES % (MANUAL) 20 % (20-45); NEUTROPHILS % (MANUAL) 75 % (45-75); PLATELET ESTIMATE DECREASED; PLATELET MORPHOLOGY NORMAL; TOTAL CELLS COUNTED 100
[2016-04-26 10:43] LABS: HYPOCHROMASIA 1+; MACROCYTES 1+
--- NOTE | 2016-04-26 11:44 | General Progress Note ---
Assessment/Plan Status: stable - from renal stand, deteriorating - Anemia- H&H lower Assessment/Plan Acute Renal failure- due to sepsis and shock & Dehydration and volume depletion component- and HyperNatremia ALL IMPROVED Other: -CVA (cerebral vascular accident) -Diabetes -G tube feedings -Left hemiparesis Plan: Hydrate- Antibiotics- Monitor renal parameters- Avoid Nephrotoxics- per orders- ? DC planning? Subjective ROS Limited/Unobtainable: No Constitutional: Reports: malaise, weakness Allergies: Coded Allergies: No Known Allergies (Unverified , 10/19/15) Objective Last 24 Hour Vital Signs Date Time Temp Pulse Resp B/P Pulse Ox O2 Delivery O2 Flow Rate FiO2 04/26/16 11:05 102 20 99 Nasal Cannula 3.0 04/26/16 11:00 101 20 99 Nasal Cannula 3.0 04/26/16 08:37 119 146/74 04/26/16 08:35 119 04/26/16 08:00 97.9 119 19 146/74 98 Nasal Cannula 04/26/16 07:20 99 Nasal Cannula 3.0 04/26/16 07:20 103 22 99 Nasal Cannula 3.0 04/26/16 07:20 103 22 99 Nasal Cannula 3.0 04/26/16 07:20 Nasal Cannula 3.0 04/26/16 04:00 98.8 96 20 127/62 99 Nasal Cannula 2.0 04/26/16 03:32 104 20 100 Nasal Cannula 3.0 04/26/16 03:24 104 18 97 Nasal Cannula 3.0 04/26/16 00:00 98.2 101 20 122/61 96 Nasal Cannula 2.0 04/25/16 23:10 105 20 100 Nasal Cannula 3.0 04/25/16 23:03 101 18 95 Nasal Cannula 3.0 04/25/16 21:05 117 130/60 04/25/16 19:29 117 20 99 Nasal Cannula 3.0 04/25/16 19:20 93 Nasal Cannula 3.0 04/25/16 19:20 Nasal Cannula 3.0 04/25/16 19:20 115 18 93 Nasal Cannula 3.0 04/25/16 19:00 98.2 91 20 130/60 96 Nasal Cannula 3.0 04/25/16 16:00 97.9 97 20 136/63 99 Nasal Cannula 3.0 04/25/16 15:59 117 20 100 Nasal Cannula 3.0 04/25/16 15:50 107 18 99 Nasal Cannula 3.0 04/25/16 12:01 97.8 80 19 149/57 97 Nasal Cannula 04/25/16 11:55 99 20 100 Nasal Cannula 3.0 04/25/16 11:45 94 20 98 Nasal Cannula 3.0 Intake and Output 04/25/16 04/26/16 18:59 06:59 Intake Total 2187.416 ml 2170 ml Output Total 700 ml 1250 ml Balance 1487.416 ml 920 ml Intake Free Water 330 ml 330 ml IV Total 1077.416 ml 1060 ml Tube Feeding 780 ml 780 ml Output Urine Total 700 ml 1250 ml Laboratory Tests 04/26/16 06:00: White Blood Count 5.3, Red Blood Count 2.39L, Hemoglobin 7.8L, Hematocrit 25.2L , Mean Corpuscular Volume 105H, Mean Corpuscular Hemoglobin 32.7H, Mean Corpuscular Hemoglobin Concent 31.1L, Red Cell Distribution Width 12.4, Platelet Count 115L, Mean Platelet Volume 8.7, Neutrophils (%) (Auto) , Lymphocytes (%) (Auto) , Monocytes (%) (Auto) , Eosinophils (%) (Auto) , Basophils (%) (Auto) , Differential Total Cells Counted 100, Neutrophils % ( Manual) 75, Lymphocytes % (Manual) 20, Monocytes % (Manual) 4, Eosinophils % ( Manual) 0, Basophils % (Manual) 0, Band Neutrophils 1, Platelet Estimate DecreasedL, Platelet Morphology Normal, Hypochromasia 1+, Macrocytosis 1+, Sodium Level 142, Potassium Level 4.2, Chloride Level 98, Carbon Dioxide Level 39H, Anion Gap 5, Blood Urea Nitrogen 8, Creatinine 0.5L, Estimat Glomerular Filtration Rate , Glucose Level 138H, Calcium Level 8.1L Height (Feet): 5 Height (Inches): 7.00 Weight (Pounds): 120 General Appearance: no apparent distress, lethargic, confused Cardiovascular: tachycardia Respiratory/Chest: decreased breath sounds Objective no change in PE CRISTY MADDOX Apr 26, 2016 11:44
--- NOTE | 2016-04-26 17:47 | Internal Med Progress Note ---
Subjective Date of Service: Apr 26, 2016 Physician Name Marco Thomas Attending Physician Adalid Izaguirre MD Current Medications Medications (Trade) Dose Ordered Sig/Joy Route PRN Reason Start Time Stop Time Status Last Admin Dose Admin Acetaminophen (Tylenol) 650 mg Q4H PRN ORAL fever 04/20/16 07:45 05/20/16 07:44 Albuterol/ Ipratropium (DuoNeb 0.5-3(2.5)mg/3ml) 3 ml Q4H HHN 04/24/16 19:00 04/29/16 18:59 04/26/16 15:12 Aspirin (ASA) 325 mg DAILY GT 04/25/16 09:00 05/25/16 08:59 04/26/16 08:35 Cefepime HCl/ Dextrose (Maxipime/D5W) 55 ml @ 110 mls/hr EVERY 12 HOURS IVPB 04/20/16 09:00 04/28/16 00:00 04/26/16 09:45 Dextrose 1,000 ml @ 75 mls/hr [id number] IV 04/21/16 12:15 05/21/16 12:14 04/26/16 12:12 Dextrose (Dextrose 50%) STAT PRN IV Hypoglycemia 04/20/16 09:30 05/20/16 09:29 Digoxin (Lanoxin) 0.125 mg DAILY ORAL 04/20/16 09:00 05/20/16 08:59 04/26/16 08:35 Insulin Aspart (NovoLOG) EVERY 6 HOURS SUBQ 04/22/16 12:00 05/22/16 11:59 04/26/16 12:12 Insulin Detemir (Levemir) 10 units Q12HR SUBQ 04/26/16 09:00 05/26/16 08:59 04/26/16 08:37 Lactulose (Cephulac) 30 gm DAILYPRN PRN ORAL Constipation 04/20/16 08:00 05/20/16 07:59 Metoprolol Tartrate (Lopressor) 25 mg Q12HR ORAL 04/21/16 21:00 05/21/16 20:59 04/26/16 08:37 Metronidazole (Flagyl) 500 mg Q8HR GT 04/22/16 22:00 04/29/16 21:59 04/26/16 14:04 Morphine Sulfate (Morphine Sulfate) 2 mg Q4H PRN IVP Moderate Pain (Pain Scale 4-6) 04/20/16 07:45 04/27/16 07:44 Nitroglycerin (Ntg) 0.4 mg Q5MIN X3 DOSES PRN SL Prn Chest Pain 04/20/16 05:45 05/20/16 05:44 Ondansetron HCl (Zofran) 4 mg Q4H PRN IVP Nausea & Vomiting 04/20/16 08:00 05/20/16 07:59 Pantoprazole (Protonix) 40 mg DAILY IVP 04/20/16 09:00 05/20/16 08:59 04/26/16 09:44 Polyethylene Glycol (Miralax) 17 gm DAILYPRN PRN ORAL Constipation 04/20/16 07:45 05/20/16 07:44 Temazepam (Restoril) 15 mg HSPRN PRN ORAL Insomnia 04/20/16 07:45 04/27/16 07:44 Vancomycin HCl 1 ea 1 ea DAILYPRN PRN MISC Per rx protocol 04/20/16 10:30 05/20/16 10:29 Vancomycin HCl/ Dextrose (Vancomycin/D5W) 275 ml @ 183.708 mls/hr Q12HR IVPB 04/21/16 21:00 04/28/16 00:00 04/26/16 10:19 Allergies: Coded Allergies: No Known Allergies (Unverified , 10/19/15) ROS Limited/Unobtainable: Yes Subjective 75 YO M admitted with fever, now with pneumonia. Cover for Int Med-Dr Izaguirre. Tolerating nasal canula. Objective Last Vital Signs Date Time Temp Pulse Resp B/P Pulse Ox O2 Delivery O2 Flow Rate FiO2 04/26/16 16:00 98.4 45 20 150/81 96 Nasal Cannula 04/26/16 15:00 3.0 04/25/16 03:35 32 Laboratory Tests Test 04/26/16 06:00 White Blood Count 5.3 K/UL (4.8-10.8) Red Blood Count 2.39 M/UL (4.70-6.10) L Hemoglobin 7.8 G/DL (14.2-18.0) L Hematocrit 25.2 % (42.0-52.0) L Mean Corpuscular Volume 105 FL (80-99) H Mean Corpuscular Hemoglobin 32.7 PG (27.0-31.0) H Mean Corpuscular Hemoglobin Concent 31.1 G/DL (32.0-36.0) L Red Cell Distribution Width 12.4 % (11.6-14.8) Platelet Count 115 K/UL (150-450) L Mean Platelet Volume 8.7 FL (6.5-10.1) Neutrophils (%) (Auto) % (45.0-75.0) Lymphocytes (%) (Auto) % (20.0-45.0) Monocytes (%) (Auto) % (1.0-10.0) Eosinophils (%) (Auto) % (0.0-3.0) Basophils (%) (Auto) % (0.0-2.0) Differential Total Cells Counted 100 Neutrophils % (Manual) 75 % (45-75) Lymphocytes % (Manual) 20 % (20-45) Monocytes % (Manual) 4 % (1-10) Eosinophils % (Manual) 0 % (0-3) Basophils % (Manual) 0 % (0-2) Band Neutrophils 1 % (0-8) Platelet Estimate Decreased L Platelet Morphology Normal Hypochromasia 1+ Macrocytosis 1+ Sodium Level 142 mEQ/L (135-145) Potassium Level 4.2 mEQ/L (3.4-4.9) Chloride Level 98 mEQ/L (98-107) Carbon Dioxide Level 39 mEQ/L (20-30) H Anion Gap 5 (5-15) Blood Urea Nitrogen 8 mg/dL (7-23) Creatinine 0.5 mg/dL (0.7-1.2) L Estimat Glomerular Filtration Rate mL/min (>60) Glucose Level 138 mg/dL (74-106) H Calcium Level 8.1 mg/dL (8.6-10.2) L Intake and Output 04/25/16 04/26/16 19:00 07:00 Intake Total 2262.416 ml 2095 ml Output Total 700 ml 1250 ml Balance 1562.416 ml 845 ml Intake Free Water 330 ml 330 ml IV Total 1152.416 ml 985 ml Tube Feeding 780 ml 780 ml Output Urine Total 700 ml 1250 ml Objective General Appearance: lethargic, thin EENT: normal ENT inspection Neck: non-tender, normal alignment, supple Cardiovascular: normal peripheral pulses, normal rate, regular rhythm, no gallop/murmur, no JVD Respiratory/Chest: chest wall non-tender, crackles/rales, rhonchi - bilaterally , expiratory wheezing Abdomen: normal bowel sounds, non tender, soft, no organomegaly, no mass Skin: normal pigmentation, warm/dry Assessment/Plan Problem List: (1) Leukocytosis (2) Pemphigus Assessment & Plan: D/C chronic prednisone therapy per nephrology. (3) Sepsis Assessment & Plan: Coag neg staph. See ID note. Cont vanco and cefepime (4) Cerebral vascular disease (5) Hemiplegia affecting left nondominant side (6) Aphasia as late effect of cerebrovascular accident (7) Atrial fibrillation Assessment & Plan: Cont novolog; D/C levemir. See endocrinology note. (8) Hypertension (9) Diabetes mellitus (10) Dysphagia as late effect of cerebrovascular accident (CVA) (11) Pneumonia Assessment & Plan: ?aspiration? Repeat chest xray=no new infiltrates. See pulmonary note. Cont vanco, flagyl and cefepime per ID (12) G tube feedings (13) Atrial fibrillation and flutter (14) Septic shock (15) Hypernatremia Assessment & Plan: See nephrology note. Status: not improved Assessment/Plan Discharge planning: MARCO Sutton Apr 26, 2016 17:46
[2016-04-27] MEDS: DuoNeb 0.5-3(2.5)mg/3ml neb HHN SCH ×6 (03:21→23:28)
[2016-04-27 04:00] VITALS: BP 151/87
[2016-04-27] MEDS: NovoLOG Insulin Flexpen SUBQ SCH ×5 (06:00→23:52)
[2016-04-27] MEDS: metroNIDAZOLE 500mg tab GT SCH (06:03)
--- NOTE | 2016-04-27 06:37 | Geriatric Medicine Prog Note ---
DATE: 04/26/2016 SUBJECTIVE: The patient is more comfortable today. OBJECTIVE: VITAL SIGNS: Blood pressure 123/61, pulse 101, respiratory rate 20, and temperature 99.2. RESPIRATORY: Clear. LABORATORY DATA: Glucose 221,- 215. ASSESSMENT:Diabetes Mellitus in improve dcontrol control PLANS:Levemir Insuli n10u sc q12hrs and Diabetic source 30 cc/hr per GT.. Eddie Dean M.D. DR: SEYMOUR JOB#: [id number] CC: SHELIA
[2016-04-27 07:11] LABS: MEAN CORPUSCULAR HGB CONC 31.8 G/DL (32.0-36.0); MEAN CORPUSCULAR VOLUME 104 FL (80-99); MEAN PLATELET VOLUME 7.9 FL (6.5-10.1); PLATELET COUNT 107 K/UL (150-450); RED BLOOD COUNT 2.07 M/UL (4.70-6.10); RED CELL DISTRIBUTION WIDTH 13.2 % (11.6-14.8); WHITE BLOOD COUNT 5.5 K/UL (4.8-10.8)
[2016-04-27 07:25] LABS: ANION GAP 6 (5-15); CALCIUM 8.5 mg/dL (8.6-10.2); CARBON DIOXIDE 38 mEQ/L (20-30); CHLORIDE 102 mEQ/L (98-107); CREATININE 0.4 mg/dL (0.7-1.2); HEMOLYSIS 3; POTASSIUM 3.8 mEQ/L (3.4-4.9); SODIUM 146 mEQ/L (135-145)
[2016-04-27 08:32] VITALS: BP 167/75
[2016-04-27 08:39] VITALS: BP 167/75
[2016-04-27 08:55] LABS: BAND NEUTROPHILS % (MANUAL) 2 % (0-8); BASOPHILS % (MANUAL) 0 % (0-2); EOSINOPHILS % (MANUAL) 0 % (0-3); HYPOCHROMASIA 1+; LYMPHOCYTES % (MANUAL) 11 % (20-45); MACROCYTES 1+; NEUTROPHILS % (MANUAL) 83 % (45-75); PLATELET ESTIMATE DECREASED; PLATELET MORPHOLOGY NORMAL; TOTAL CELLS COUNTED 100
--- NOTE | 2016-04-27 09:04 | Infectious Diseases Prog Note ---
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 // Hypernatremia / electrolyte imbalance // DM2 - HbA1c 8.1% // Dementia, h/o CVA // Functional quadriplegia / bedbound // Dysphagia SP PEG // NH resident // Negative MRSA, VRE screens // NKDA // Full Code PLAN: - DC IV vancomycin d# -15 , DC cefepime, flagyl d# - taper steroids per pulm - f/u cultures - monitor CBC, temperatures - monitor BMP - monitor CXR - aspiration precautions - wound care - Removal of Ctr line and tip Cx - PICC if needed Subjective Allergies: Coded Allergies: No Known Allergies (Unverified , 10/19/15) Subjective low grade fever x 1 Objective Vital Signs Last 24 Hour Vital Signs Date Time Temp Pulse Resp B/P Pulse Ox O2 Delivery O2 Flow Rate FiO2 04/27/16 08:39 97.3 92 19 167/75 97 Nasal Cannula 2.0 04/27/16 04:00 98.8 110 24 151/87 97 Nasal Cannula 2.0 04/27/16 03:30 107 20 99 Nasal Cannula 3.0 04/27/16 03:21 111 22 96 Nasal Cannula 3.0 04/26/16 23:31 111 20 100 Nasal Cannula 3.0 04/26/16 23:27 99.3 120 22 106/61 100 Nasal Cannula 2.0 04/26/16 23:23 106 20 99 Nasal Cannula 3.0 04/26/16 20:59 124 147/79 04/26/16 20:00 100.0 124 24 147/79 98 Nasal Cannula 2.0 04/26/16 19:29 117 20 98 Nasal Cannula 3.0 04/26/16 19:29 117 20 96 Nasal Cannula 3.0 04/26/16 19:29 96 Nasal Cannula 3.0 04/26/16 19:29 Nasal Cannula 3.0 04/26/16 16:00 98.4 45 20 150/81 96 Nasal Cannula 04/26/16 15:00 102 20 96 Nasal Cannula 3.0 04/26/16 15:00 103 20 99 Nasal Cannula 3.0 04/26/16 12:00 97.7 105 19 124/69 100 Nasal Cannula 04/26/16 11:05 102 20 99 Nasal Cannula 3.0 04/26/16 11:00 101 20 99 Nasal Cannula 3.0 Height (Feet): 5 Height (Inches): 7.00 Weight (Pounds): 120 HEENT: atraumatic Respiratory/Chest: normal breath sounds Cardiovascular: regular rhythm Abdomen: no mass Laboratory Tests Test 04/27/16 06:00 White Blood Count 5.5 K/UL (4.8-10.8) Red Blood Count 2.07 M/UL (4.70-6.10) L Hemoglobin 6.8 G/DL (14.2-18.0) *L Hematocrit 21.5 % (42.0-52.0) L Mean Corpuscular Volume 104 FL (80-99) H Mean Corpuscular Hemoglobin 33.0 PG (27.0-31.0) H Mean Corpuscular Hemoglobin Concent 31.8 G/DL (32.0-36.0) L Red Cell Distribution Width 13.2 % (11.6-14.8) Platelet Count 107 K/UL (150-450) L Mean Platelet Volume 7.9 FL (6.5-10.1) Neutrophils (%) (Auto) % (45.0-75.0) Lymphocytes (%) (Auto) % (20.0-45.0) Monocytes (%) (Auto) % (1.0-10.0) Eosinophils (%) (Auto) % (0.0-3.0) Basophils (%) (Auto) % (0.0-2.0) Neutrophils % (Manual) Pending Lymphocytes % (Manual) Pending Platelet Estimate Pending Platelet Morphology Pending Sodium Level 146 mEQ/L (135-145) H Potassium Level 3.8 mEQ/L (3.4-4.9) Chloride Level 102 mEQ/L (98-107) Carbon Dioxide Level 38 mEQ/L (20-30) H Anion Gap 6 (5-15) Blood Urea Nitrogen 7 mg/dL (7-23) Creatinine 0.4 mg/dL (0.7-1.2) L Estimat Glomerular Filtration Rate mL/min (>60) Glucose Level 48 mg/dL (74-106) L Calcium Level 8.5 mg/dL (8.6-10.2) L Current Medications Medications (Trade) Dose Ordered Sig/Joy Route PRN Reason Start Time Stop Time Status Last Admin Dose Admin Acetaminophen (Tylenol) 650 mg Q4H PRN ORAL fever 04/20/16 07:45 05/20/16 07:44 Albuterol/ Ipratropium (DuoNeb 0.5-3(2.5)mg/3ml) 3 ml Q4H HHN 04/24/16 19:00 04/29/16 18:59 04/27/16 07:48 Aspirin (ASA) 325 mg DAILY GT 04/25/16 09:00 05/25/16 08:59 04/26/16 08:35 Cefepime HCl/ Dextrose (Maxipime/D5W) 55 ml @ 110 mls/hr EVERY 12 HOURS IVPB 04/20/16 09:00 04/28/16 00:00 04/26/16 20:59 Dextrose 1,000 ml @ 75 mls/hr [id number] IV 04/21/16 12:15 05/21/16 12:14 04/26/16 12:12 Dextrose (Dextrose 50%) STAT PRN IV Hypoglycemia 04/20/16 09:30 05/20/16 09:29 04/27/16 06:04 Digoxin (Lanoxin) 0.125 mg DAILY ORAL 04/20/16 09:00 05/20/16 08:59 04/26/16 08:35 Insulin Aspart (NovoLOG) EVERY 6 HOURS SUBQ 04/22/16 12:00 05/22/16 11:59 04/26/16 12:12 Insulin Detemir (Levemir) 10 units Q12HR SUBQ 04/26/16 09:00 05/26/16 08:59 04/26/16 21:01 Lactulose (Cephulac) 30 gm DAILYPRN PRN ORAL Constipation 04/20/16 08:00 05/20/16 07:59 Metoprolol Tartrate (Lopressor) 25 mg Q12HR ORAL 04/21/16 21:00 05/21/16 20:59 04/26/16 20:59 Metronidazole (Flagyl) 500 mg Q8HR GT 04/22/16 22:00 04/29/16 21:59 04/27/16 06:03 Nitroglycerin (Ntg) 0.4 mg Q5MIN X3 DOSES PRN SL Prn Chest Pain 04/20/16 05:45 05/20/16 05:44 Ondansetron HCl (Zofran) 4 mg Q4H PRN IVP Nausea & Vomiting 04/20/16 08:00 05/20/16 07:59 Pantoprazole (Protonix) 40 mg DAILY IVP 04/20/16 09:00 05/20/16 08:59 04/26/16 09:44 Polyethylene Glycol (Miralax) 17 gm DAILYPRN PRN ORAL Constipation 04/20/16 07:45 05/20/16 07:44 Vancomycin HCl 1 ea 1 ea DAILYPRN PRN MISC Per rx protocol 04/20/16 10:30 05/20/16 10:29 Vancomycin HCl/ Dextrose (Vancomycin/D5W) 275 ml @ 183.708 mls/hr Q12HR IVPB 04/21/16 21:00 04/28/16 23:00 04/26/16 21:44 PAUL FORRESTER M.D. Apr 27, 2016 09:04
[2016-04-27] MEDS: Vancomycin 750mg/D5W 275ml IVPB SCH ×4 (09:21→21:08)
[2016-04-27] MEDS: Metoprolol 25mg tab ORAL SCH ×2 (09:22→21:09)
[2016-04-27] MEDS: Pantoprazole Inj IVP SCH (09:22)
[2016-04-27] MEDS: Digoxin 0.125mg tab ORAL SCH (09:23)
--- NOTE | 2016-04-27 10:25 | General Progress Note ---
Assessment/Plan Status: stable - from renal stand Status Narrative worsening Anemia Assessment/Plan status: Acute Renal failure- due to sepsis and shock & Dehydration and volume depletion component- and HyperNatremia ALL IMPROVED Other: -CVA (cerebral vascular accident) -Diabetes -G tube feedings -Left hemiparesis Plan: Hydrate- Antibiotics- Monitor renal parameters- Avoid Nephrotoxics- per orders- ? transfusion? Subjective ROS Limited/Unobtainable: Yes Allergies: Coded Allergies: No Known Allergies (Unverified , 10/19/15) Objective Last 24 Hour Vital Signs Date Time Temp Pulse Resp B/P Pulse Ox O2 Delivery O2 Flow Rate FiO2 04/27/16 09:23 92 04/27/16 09:22 92 167/75 04/27/16 08:39 97.3 92 19 167/75 97 Nasal Cannula 2.0 04/27/16 07:58 99 20 99 Nasal Cannula 3.0 04/27/16 07:47 95 20 97 Nasal Cannula 3.0 04/27/16 07:46 Nasal Cannula 3.0 04/27/16 07:45 97 Nasal Cannula 3.0 04/27/16 04:00 98.8 110 24 151/87 97 Nasal Cannula 2.0 04/27/16 03:30 107 20 99 Nasal Cannula 3.0 04/27/16 03:21 111 22 96 Nasal Cannula 3.0 04/26/16 23:31 111 20 100 Nasal Cannula 3.0 04/26/16 23:27 99.3 120 22 106/61 100 Nasal Cannula 2.0 04/26/16 23:23 106 20 99 Nasal Cannula 3.0 04/26/16 20:59 124 147/79 04/26/16 20:00 100.0 124 24 147/79 98 Nasal Cannula 2.0 04/26/16 19:29 117 20 98 Nasal Cannula 3.0 04/26/16 19:29 117 20 96 Nasal Cannula 3.0 04/26/16 19:29 96 Nasal Cannula 3.0 04/26/16 19:29 Nasal Cannula 3.0 04/26/16 16:00 98.4 45 20 150/81 96 Nasal Cannula 04/26/16 15:00 102 20 96 Nasal Cannula 3.0 04/26/16 15:00 103 20 99 Nasal Cannula 3.0 04/26/16 12:00 97.7 105 19 124/69 100 Nasal Cannula 04/26/16 11:05 102 20 99 Nasal Cannula 3.0 04/26/16 11:00 101 20 99 Nasal Cannula 3.0 Intake and Output 04/26/16 04/27/16 19:00 07:00 Intake Total 1852.416 ml 1295 ml Output Total 700 ml 2025 ml Balance 1152.416 ml -730 ml Intake Free Water 360 ml 200 ml IV Total 777.416 ml 225 ml Tube Feeding 715 ml 520 ml Blood Product 250 ml Other 100 ml Output Urine Total 700 ml 2025 ml Laboratory Tests 04/27/16 06:00: White Blood Count 5.5, Red Blood Count 2.07L, Hemoglobin 6.8*L, Hematocrit 21.5L , Mean Corpuscular Volume 104H, Mean Corpuscular Hemoglobin 33.0H, Mean Corpuscular Hemoglobin Concent 31.8L, Red Cell Distribution Width 13.2, Platelet Count 107L, Mean Platelet Volume 7.9, Neutrophils (%) (Auto) , Lymphocytes (%) (Auto) , Monocytes (%) (Auto) , Eosinophils (%) (Auto) , Basophils (%) (Auto) , Differential Total Cells Counted 100, Neutrophils % ( Manual) 83H, Lymphocytes % (Manual) 11L, Monocytes % (Manual) 4, Eosinophils % ( Manual) 0, Basophils % (Manual) 0, Band Neutrophils 2, Platelet Estimate DecreasedL, Platelet Morphology Normal, Hypochromasia 1+, Macrocytosis 1+, Sodium Level 146H, Potassium Level 3.8, Chloride Level 102, Carbon Dioxide Level 38H, Anion Gap 6, Blood Urea Nitrogen 7, Creatinine 0.4L, Estimat Glomerular Filtration Rate , Glucose Level 48L, Calcium Level 8.5L Height (Feet): 5 Height (Inches): 7.00 Weight (Pounds): 120 General Appearance: no apparent distress Objective no change in PE CRISTY MADDOX Apr 27, 2016 10:25
[2016-04-27 10:48] LABS: BASOPHILS % (AUTO) 0.4 % (0.0-2.0); EOSINOPHILS % (AUTO) 0.6 % (0.0-3.0); LYMPHOCYTES % (AUTO) 13.9 % (20.0-45.0); MEAN CORPUSCULAR HEMOGLOBIN 32.6 PG (27.0-31.0); MEAN CORPUSCULAR HGB CONC 32.2 G/DL (32.0-36.0); MEAN CORPUSCULAR VOLUME 101 FL (80-99); MEAN PLATELET VOLUME 8.6 FL (6.5-10.1); MONOCYTES % (AUTO) 6.4 % (1.0-10.0); NEUTROPHILS % (AUTO) 78.7 % (45.0-75.0); PLATELET COUNT 145 K/UL (150-450); RED BLOOD COUNT 2.87 M/UL (4.70-6.10); RED CELL DISTRIBUTION WIDTH 13.4 % (11.6-14.8); WHITE BLOOD COUNT 7.3 K/UL (4.8-10.8)
--- NOTE | 2016-04-27 11:07 | Internal Med Progress Note ---
Subjective Date of Service: Apr 27, 2016 Physician Name Thomas,Renetta Attending Physician Adalid Izaguirre MD Current Medications Medications (Trade) Dose Ordered Sig/Joy Route PRN Reason Start Time Stop Time Status Last Admin Dose Admin Acetaminophen (Tylenol) 650 mg Q4H PRN ORAL fever 04/20/16 07:45 05/20/16 07:44 Albuterol/ Ipratropium (DuoNeb 0.5-3(2.5)mg/3ml) 3 ml Q4H HHN 04/24/16 19:00 04/29/16 18:59 04/27/16 07:48 Aspirin (ASA) 325 mg DAILY GT 04/25/16 09:00 05/25/16 08:59 04/27/16 09:23 Dextrose 1,000 ml @ 75 mls/hr [id number] IV 04/21/16 12:15 05/21/16 12:14 04/26/16 12:12 Dextrose (Dextrose 50%) STAT PRN IV Hypoglycemia 04/20/16 09:30 05/20/16 09:29 04/27/16 06:04 Digoxin (Lanoxin) 0.125 mg DAILY ORAL 04/20/16 09:00 05/20/16 08:59 04/27/16 09:23 Insulin Aspart (NovoLOG) EVERY 6 HOURS SUBQ 04/22/16 12:00 05/22/16 11:59 04/26/16 12:12 Lactulose (Cephulac) 30 gm DAILYPRN PRN ORAL Constipation 04/20/16 08:00 05/20/16 07:59 Metoprolol Tartrate (Lopressor) 25 mg Q12HR ORAL 04/21/16 21:00 05/21/16 20:59 04/27/16 09:22 Nitroglycerin (Ntg) 0.4 mg Q5MIN X3 DOSES PRN SL Prn Chest Pain 04/20/16 05:45 05/20/16 05:44 Ondansetron HCl (Zofran) 4 mg Q4H PRN IVP Nausea & Vomiting 04/20/16 08:00 05/20/16 07:59 Pantoprazole (Protonix) 40 mg DAILY IVP 04/20/16 09:00 05/20/16 08:59 04/27/16 09:22 Polyethylene Glycol (Miralax) 17 gm DAILYPRN PRN ORAL Constipation 04/20/16 07:45 05/20/16 07:44 Vancomycin HCl 1 ea 1 ea DAILYPRN PRN MISC Per rx protocol 04/20/16 10:30 05/20/16 10:29 Vancomycin HCl/ Dextrose (Vancomycin/D5W) 275 ml @ 183.708 mls/hr Q12HR IVPB 04/21/16 21:00 04/28/16 23:00 04/27/16 09:21 Allergies: Coded Allergies: No Known Allergies (Unverified , 10/19/15) ROS Limited/Unobtainable: Yes Subjective 75 YO M admitted with fever, now with pneumonia. Cover for Int Med-Dr Izaguirre. Tolerating nasal canula. Objective Last Vital Signs Date Time Temp Pulse Resp B/P Pulse Ox O2 Delivery O2 Flow Rate FiO2 04/27/16 09:23 92 04/27/16 09:22 167/75 04/27/16 08:39 97.3 19 97 Nasal Cannula 2.0 04/25/16 03:35 32 Laboratory Tests Test 04/27/16 06:00 04/27/16 09:45 White Blood Count 5.5 K/UL (4.8-10.8) 7.3 K/UL (4.8-10.8) Red Blood Count 2.07 M/UL (4.70-6.10) L 2.87 M/UL (4.70-6.10) L Hemoglobin 6.8 G/DL (14.2-18.0) *L 9.3 G/DL (14.2-18.0) #L Hematocrit 21.5 % (42.0-52.0) L 29.0 % (42.0-52.0) #L Mean Corpuscular Volume 104 FL (80-99) H 101 FL (80-99) H Mean Corpuscular Hemoglobin 33.0 PG (27.0-31.0) H 32.6 PG (27.0-31.0) H Mean Corpuscular Hemoglobin Concent 31.8 G/DL (32.0-36.0) L 32.2 G/DL (32.0-36.0) Red Cell Distribution Width 13.2 % (11.6-14.8) 13.4 % (11.6-14.8) Platelet Count 107 K/UL (150-450) L 145 K/UL (150-450) L Mean Platelet Volume 7.9 FL (6.5-10.1) 8.6 FL (6.5-10.1) Neutrophils (%) (Auto) % (45.0-75.0) 78.7 % (45.0-75.0) H Lymphocytes (%) (Auto) % (20.0-45.0) 13.9 % (20.0-45.0) L Monocytes (%) (Auto) % (1.0-10.0) 6.4 % (1.0-10.0) Eosinophils (%) (Auto) % (0.0-3.0) 0.6 % (0.0-3.0) Basophils (%) (Auto) % (0.0-2.0) 0.4 % (0.0-2.0) Differential Total Cells Counted 100 Neutrophils % (Manual) 83 % (45-75) H Lymphocytes % (Manual) 11 % (20-45) L Monocytes % (Manual) 4 % (1-10) Eosinophils % (Manual) 0 % (0-3) Basophils % (Manual) 0 % (0-2) Band Neutrophils 2 % (0-8) Platelet Estimate Decreased L Platelet Morphology Normal Hypochromasia 1+ Macrocytosis 1+ Sodium Level 146 mEQ/L (135-145) H Potassium Level 3.8 mEQ/L (3.4-4.9) Chloride Level 102 mEQ/L (98-107) Carbon Dioxide Level 38 mEQ/L (20-30) H Anion Gap 6 (5-15) Blood Urea Nitrogen 7 mg/dL (7-23) Creatinine 0.4 mg/dL (0.7-1.2) L Estimat Glomerular Filtration Rate mL/min (>60) Glucose Level 48 mg/dL (74-106) L Calcium Level 8.5 mg/dL (8.6-10.2) L Intake and Output 04/26/16 04/27/16 19:00 07:00 Intake Total 1852.416 ml 1295 ml Output Total 700 ml 2025 ml Balance 1152.416 ml -730 ml Intake Free Water 360 ml 200 ml IV Total 777.416 ml 225 ml Tube Feeding 715 ml 520 ml Blood Product 250 ml Other 100 ml Output Urine Total 700 ml 2025 ml Objective General Appearance: lethargic, thin EENT: normal ENT inspection Neck: non-tender, normal alignment, supple Cardiovascular: normal peripheral pulses, normal rate, regular rhythm, no gallop/murmur, no JVD Respiratory/Chest: chest wall non-tender, crackles/rales, rhonchi - bilaterally , expiratory wheezing Abdomen: normal bowel sounds, non tender, soft, no organomegaly, no mass Skin: normal pigmentation, warm/dry Assessment/Plan Problem List: (1) Leukocytosis (2) Pemphigus Assessment & Plan: D/C chronic prednisone therapy per nephrology. (3) Sepsis Assessment & Plan: Coag neg staph. See ID note. D/C vanco and cefepime. Culture PICC line tip per ID (4) Cerebral vascular disease (5) Hemiplegia affecting left nondominant side (6) Aphasia as late effect of cerebrovascular accident (7) Atrial fibrillation Assessment & Plan: Cont novolog; D/C levemir. See endocrinology note. (8) Hypertension (9) Diabetes mellitus (10) Dysphagia as late effect of cerebrovascular accident (CVA) (11) Pneumonia Assessment & Plan: ?aspiration? Repeat chest xray=no new infiltrates. See pulmonary note. D/C vanco and cefepime per ID (12) G tube feedings (13) Atrial fibrillation and flutter (14) Septic shock (15) Hypernatremia Assessment & Plan: See nephrology note. (16) Anemia Assessment & Plan: S/P transfusion 1 unit PRBC on 04/26/16. Assessment/Plan Discharge planning: RENETTA Sutton Apr 27, 2016 11:07
[2016-04-27 12:39] VITALS: BP 119/83
[2016-04-27 16:00] VITALS: BP 127/76
[2016-04-27] MEDS: Levemir Flexpen SUBQ SCH (17:58)
--- NOTE | 2016-04-27 18:49 | Cardiac Electrophysiology PN ---
Assessment/Plan Assessment/Plan 1. Atrial fibrillation with rapid ventricular response. Controlled on digoxin 0.125 mg, aspirin 325 and Lopressor 25 bid. 2. Broad-spectrum sepsis. On vancomycin and cefepime under the management of Dr. Bains for bacteremia and aspiration pneumonia. 3. Severe hypernatremia. Na 46 today . On free water through the G-tube by Dr. Caro. 4. Dysphagia, status post PEG placement. 5. Dementia with functional quadriplegia. DW RN Subjective Subjective Nonverbal on IV antibiotics. Comfortable. Objective Last 24 Hour Vital Signs Date Time Temp Pulse Resp B/P Pulse Ox O2 Delivery O2 Flow Rate FiO2 04/27/16 15:31 104 20 99 Nasal Cannula 3.0 04/27/16 15:22 97 20 98 Nasal Cannula 3.0 04/27/16 12:39 97.0 97 19 119/83 96 Nasal Cannula 2.0 04/27/16 11:46 102 20 99 Nasal Cannula 3.0 04/27/16 11:34 98 20 98 Nasal Cannula 3.0 04/27/16 09:23 92 04/27/16 09:22 92 167/75 04/27/16 08:39 97.3 92 19 167/75 97 Nasal Cannula 2.0 04/27/16 07:58 99 20 99 Nasal Cannula 3.0 04/27/16 07:47 95 20 97 Nasal Cannula 3.0 04/27/16 07:46 Nasal Cannula 3.0 04/27/16 07:45 97 Nasal Cannula 3.0 04/27/16 04:00 98.8 110 24 151/87 97 Nasal Cannula 2.0 04/27/16 03:30 107 20 99 Nasal Cannula 3.0 04/27/16 03:21 111 22 96 Nasal Cannula 3.0 04/26/16 23:31 111 20 100 Nasal Cannula 3.0 04/26/16 23:27 99.3 120 22 106/61 100 Nasal Cannula 2.0 04/26/16 23:23 106 20 99 Nasal Cannula 3.0 04/26/16 20:59 124 147/79 04/26/16 20:00 100.0 124 24 147/79 98 Nasal Cannula 2.0 04/26/16 19:29 117 20 98 Nasal Cannula 3.0 04/26/16 19:29 117 20 96 Nasal Cannula 3.0 04/26/16 19:29 96 Nasal Cannula 3.0 04/26/16 19:29 Nasal Cannula 3.0 Intake and Output 04/26/16 04/27/16 19:00 07:00 Intake Total 1852.416 ml 1370 ml Output Total 700 ml 2025 ml Balance 1152.416 ml -655 ml Intake Free Water 360 ml 200 ml IV Total 777.416 ml 300 ml Tube Feeding 715 ml 520 ml Blood Product 250 ml Other 100 ml Output Urine Total 700 ml 2025 ml Laboratory Tests Test 04/27/16 06:00 04/27/16 09:45 White Blood Count 5.5 K/UL (4.8-10.8) 7.3 K/UL (4.8-10.8) Red Blood Count 2.07 M/UL (4.70-6.10) L 2.87 M/UL (4.70-6.10) L Hemoglobin 6.8 G/DL (14.2-18.0) *L 9.3 G/DL (14.2-18.0) #L Hematocrit 21.5 % (42.0-52.0) L 29.0 % (42.0-52.0) #L Mean Corpuscular Volume 104 FL (80-99) H 101 FL (80-99) H Mean Corpuscular Hemoglobin 33.0 PG (27.0-31.0) H 32.6 PG (27.0-31.0) H Mean Corpuscular Hemoglobin Concent 31.8 G/DL (32.0-36.0) L 32.2 G/DL (32.0-36.0) Red Cell Distribution Width 13.2 % (11.6-14.8) 13.4 % (11.6-14.8) Platelet Count 107 K/UL (150-450) L 145 K/UL (150-450) L Mean Platelet Volume 7.9 FL (6.5-10.1) 8.6 FL (6.5-10.1) Neutrophils (%) (Auto) % (45.0-75.0) 78.7 % (45.0-75.0) H Lymphocytes (%) (Auto) % (20.0-45.0) 13.9 % (20.0-45.0) L Monocytes (%) (Auto) % (1.0-10.0) 6.4 % (1.0-10.0) Eosinophils (%) (Auto) % (0.0-3.0) 0.6 % (0.0-3.0) Basophils (%) (Auto) % (0.0-2.0) 0.4 % (0.0-2.0) Differential Total Cells Counted 100 Neutrophils % (Manual) 83 % (45-75) H Lymphocytes % (Manual) 11 % (20-45) L Monocytes % (Manual) 4 % (1-10) Eosinophils % (Manual) 0 % (0-3) Basophils % (Manual) 0 % (0-2) Band Neutrophils 2 % (0-8) Platelet Estimate Decreased L Platelet Morphology Normal Hypochromasia 1+ Macrocytosis 1+ Sodium Level 146 mEQ/L (135-145) H Potassium Level 3.8 mEQ/L (3.4-4.9) Chloride Level 102 mEQ/L (98-107) Carbon Dioxide Level 38 mEQ/L (20-30) H Anion Gap 6 (5-15) Blood Urea Nitrogen 7 mg/dL (7-23) Creatinine 0.4 mg/dL (0.7-1.2) L Estimat Glomerular Filtration Rate mL/min (>60) Glucose Level 48 mg/dL (74-106) L Calcium Level 8.5 mg/dL (8.6-10.2) L Objective HEENT: No JVD. LUNGS: Clear bilaterally. CARDIOVASCULAR: Tachycardic with no gallop or murmur. ABDOMEN: Status post G-tube. EXTREMITIES: No pitting edema. Lower extremities contracted with multiple ulcers. HERLINDA BURNETT Apr 27, 2016 18:49
[2016-04-27 20:00] VITALS: BP 157/76
[2016-04-27] MEDS: Heparin 5000 units/ml inj SUBQ SCH (21:12)
--- NOTE | 2016-04-27 23:29 | Pulmonology Progress Note ---
Assessment/Plan Problems: (1) Septic shock (2) Pneumonia (3) ATN (acute tubular necrosis) (4) Diabetes (5) G tube feedings (6) Left hemiparesis (7) CVA (cerebral vascular accident) (8) skilled nursing resident (9) Gastrostomy in place Assessment/Plan sepsis improved H/h unstable poor prognosis, I recommend bioethics about de-escalating the care. pt is already DNR. extremely debilitated, Subjective ROS Limited/Unobtainable: Yes Interval Events: awake Allergies: Coded Allergies: No Known Allergies (Unverified , 10/19/15) Objective Last 24 Hour Vital Signs Date Time Temp Pulse Resp B/P Pulse Ox O2 Delivery O2 Flow Rate FiO2 04/27/16 21:09 106 157/76 04/27/16 20:00 98.6 106 22 157/76 92 Nasal Cannula 3.0 04/27/16 19:30 123 16 93 Nasal Cannula 3.0 32 04/27/16 19:30 Nasal Cannula 3.0 32 04/27/16 19:30 94 Nasal Cannula 3.0 32 04/27/16 19:30 Nasal Cannula 3.0 32 04/27/16 16:00 98.2 110 18 127/76 96 Nasal Cannula 2.0 04/27/16 15:31 104 20 99 Nasal Cannula 3.0 04/27/16 15:22 97 20 98 Nasal Cannula 3.0 04/27/16 12:39 97.0 97 19 119/83 96 Nasal Cannula 2.0 04/27/16 11:46 102 20 99 Nasal Cannula 3.0 04/27/16 11:34 98 20 98 Nasal Cannula 3.0 04/27/16 09:23 92 04/27/16 09:22 92 167/75 04/27/16 08:39 97.3 92 19 167/75 97 Nasal Cannula 2.0 04/27/16 07:58 99 20 99 Nasal Cannula 3.0 04/27/16 07:47 95 20 97 Nasal Cannula 3.0 04/27/16 07:46 Nasal Cannula 3.0 04/27/16 07:45 97 Nasal Cannula 3.0 04/27/16 04:00 98.8 110 24 151/87 97 Nasal Cannula 2.0 04/27/16 03:30 107 20 99 Nasal Cannula 3.0 04/27/16 03:21 111 22 96 Nasal Cannula 3.0 04/26/16 23:31 111 20 100 Nasal Cannula 3.0 Intake and Output 04/26/16 04/27/16 19:00 07:00 Intake Total 1852.416 ml 1370 ml Output Total 700 ml 2025 ml Balance 1152.416 ml -655 ml Intake Free Water 360 ml 200 ml IV Total 777.416 ml 300 ml Tube Feeding 715 ml 520 ml Blood Product 250 ml Other 100 ml Output Urine Total 700 ml 2025 ml General Appearance: WD/WN HEENT: normocephalic Respiratory/Chest: chest wall non-tender, lungs clear Cardiovascular: normal peripheral pulses, normal rate Abdomen: normal bowel sounds, soft, non tender Genitourinary: normal external genitalia Neurologic/Psychiatric: auxiliary equipment tender II-XII grossly normal Laboratory Tests 04/27/16 06:00: White Blood Count 5.5, Red Blood Count 2.07L, Hemoglobin 6.8*L, Hematocrit 21.5L , Mean Corpuscular Volume 104H, Mean Corpuscular Hemoglobin 33.0H, Mean Corpuscular Hemoglobin Concent 31.8L, Red Cell Distribution Width 13.2, Platelet Count 107L, Mean Platelet Volume 7.9, Neutrophils (%) (Auto) , Lymphocytes (%) (Auto) , Monocytes (%) (Auto) , Eosinophils (%) (Auto) , Basophils (%) (Auto) , Differential Total Cells Counted 100, Neutrophils % ( Manual) 83H, Lymphocytes % (Manual) 11L, Monocytes % (Manual) 4, Eosinophils % ( Manual) 0, Basophils % (Manual) 0, Band Neutrophils 2, Platelet Estimate DecreasedL, Platelet Morphology Normal, Hypochromasia 1+, Macrocytosis 1+, Sodium Level 146H, Potassium Level 3.8, Chloride Level 102, Carbon Dioxide Level 38H, Anion Gap 6, Blood Urea Nitrogen 7, Creatinine 0.4L, Estimat Glomerular Filtration Rate , Glucose Level 48L, Calcium Level 8.5L 04/27/16 09:45: White Blood Count 7.3, Red Blood Count 2.87L, Hemoglobin 9.3#L, Hematocrit 29.0# L, Mean Corpuscular Volume 101H, Mean Corpuscular Hemoglobin 32.6H, Mean Corpuscular Hemoglobin Concent 32.2, Red Cell Distribution Width 13.4, Platelet Count 145L, Mean Platelet Volume 8.6, Neutrophils (%) (Auto) 78.7H, Lymphocytes (%) (Auto) 13.9L, Monocytes (%) (Auto) 6.4, Eosinophils (%) (Auto) 0.6, Basophils (%) (Auto) 0.4 Current Medications Medications (Trade) Dose Ordered Sig/Joy Route PRN Reason Start Time Stop Time Status Last Admin Dose Admin Acetaminophen (Tylenol) 650 mg Q4H PRN ORAL fever 04/20/16 07:45 05/20/16 07:44 Albuterol/ Ipratropium (DuoNeb 0.5-3(2.5)mg/3ml) 3 ml Q4H HHN 04/24/16 19:00 04/29/16 18:59 04/27/16 15:26 Aspirin (ASA) 325 mg DAILY GT 04/25/16 09:00 05/25/16 08:59 04/27/16 09:23 Dextrose 1,000 ml @ 75 mls/hr [id number] IV 04/21/16 12:15 05/21/16 12:14 04/27/16 13:00 Dextrose (Dextrose 50%) STAT PRN IV Hypoglycemia 04/20/16 09:30 05/20/16 09:29 04/27/16 06:04 Digoxin (Lanoxin) 0.125 mg DAILY ORAL 04/20/16 09:00 05/20/16 08:59 04/27/16 09:23 Heparin Sodium (Porcine) (Heparin 5000 units/ml) 5,000 units Q12HR SUBQ 04/27/16 21:00 05/27/16 20:59 04/27/16 21:12 Insulin Aspart (NovoLOG) EVERY 6 HOURS SUBQ 04/22/16 12:00 05/22/16 11:59 04/27/16 17:57 Insulin Detemir (Levemir) 5 units Q12HR@0600,1800 SUBQ 04/27/16 18:00 05/27/16 17:59 04/27/16 17:58 Lactulose (Cephulac) 30 gm DAILYPRN PRN ORAL Constipation 04/20/16 08:00 05/20/16 07:59 Metoprolol Tartrate (Lopressor) 25 mg Q12HR ORAL 04/21/16 21:00 05/21/16 20:59 04/27/16 21:09 Nitroglycerin (Ntg) 0.4 mg Q5MIN X3 DOSES PRN SL Prn Chest Pain 04/20/16 05:45 05/20/16 05:44 Ondansetron HCl (Zofran) 4 mg Q4H PRN IVP Nausea & Vomiting 04/20/16 08:00 05/20/16 07:59 Pantoprazole (Protonix) 40 mg DAILY IVP 04/20/16 09:00 05/20/16 08:59 04/27/16 09:22 Polyethylene Glycol (Miralax) 17 gm DAILYPRN PRN ORAL Constipation 04/20/16 07:45 05/20/16 07:44 Vancomycin HCl 1 ea 1 ea DAILYPRN PRN MISC Per rx protocol 04/20/16 10:30 05/20/16 10:29 Vancomycin HCl/ Dextrose (Vancomycin/D5W) 275 ml @ 183.708 mls/hr Q12HR IVPB 04/21/16 21:00 04/28/16 23:00 04/27/16 21:08 JAVIER BANKS Apr 27, 2016 23:29
[2016-04-28] VITALS (9 sets, daily range): BP systolic 120–161; BP diastolic 76–100
[2016-04-28] MEDS: DuoNeb 0.5-3(2.5)mg/3ml neb HHN SCH ×6 (03:00→23:00)
[2016-04-28] MEDS: Metoprolol 25mg tab ORAL SCH ×2 (04:03→20:10)
--- NOTE | 2016-04-28 04:37 | Geriatric Medicine Prog Note ---
04/17/16 SUBJECTIVE: He is tolerating _G- tube. OBJECTIVE: VITAL SIGNS: Blood pressure 141/70 pulse 115, and respiratory rate 16.,T98.0 RESPIRATORY: Clear. LABORATORY DATA: glucose 171. ASSESSMENT: _Diabetes Mellitus stabe Malnutrition _. PLAN: Continue diabetic source 30 cc/h with sliding saclae 6ghrs. Eddie Dean M.D. DR: SEYMOUR JOB#: [id number] CC: SHELIA
[2016-04-28] MEDS: Levemir Flexpen SUBQ SCH ×2 (05:57→17:29)
[2016-04-28] MEDS: NovoLOG Insulin Flexpen SUBQ SCH ×3 (05:59→17:28)
[2016-04-28] MEDS: Vancomycin 750mg/D5W 275ml IVPB SCH ×2 (07:58)
[2016-04-28] MEDS: Digoxin 0.125mg tab ORAL SCH (07:59)
[2016-04-28] MEDS: Pantoprazole Inj IVP SCH (08:05)
[2016-04-28] MEDS: Heparin 5000 units/ml inj SUBQ SCH ×2 (09:00→20:13)
[2016-04-28 10:37] LABS: BASOPHILS % (AUTO) 0.8 % (0.0-2.0); EOSINOPHILS % (AUTO) 1.1 % (0.0-3.0); LYMPHOCYTES % (AUTO) 12.8 % (20.0-45.0); MEAN CORPUSCULAR HEMOGLOBIN 32.8 PG (27.0-31.0); MEAN CORPUSCULAR HGB CONC 31.9 G/DL (32.0-36.0); MEAN CORPUSCULAR VOLUME 103 FL (80-99); MEAN PLATELET VOLUME 7.4 FL (6.5-10.1); MONOCYTES % (AUTO) 3.6 % (1.0-10.0); NEUTROPHILS % (AUTO) 81.7 % (45.0-75.0); PLATELET COUNT 166 K/UL (150-450); RED BLOOD COUNT 3.02 M/UL (4.70-6.10); WHITE BLOOD COUNT 10.3 K/UL (4.8-10.8)
--- NOTE | 2016-04-28 10:41 | Infectious Diseases Prog Note ---
Assessment/Plan Assessment/Plan ASSESSMENT: 75 y/o male with: // CONS bacteremia 2/ - repeat BCx CONS 04/08, probable Ctr line infection - 04/27 Cath tip NGTD - TTE(-) SBE // Probable HCAP / aspiration PNA SP Rx - CXR 04/24: Linear and interstitial opacities are again noted of the mid and lower lung mcgee. No new infiltrates are seen. 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 // Hypernatremia / electrolyte imbalance // DM2 - HbA1c 8.1% // Dementia, h/o CVA // Functional quadriplegia / bedbound // Dysphagia SP PEG // [facility] resident // Negative MRSA, VRE screens // NKDA // Full Code PLAN: - Monitor pt off of ABX for now ( 04/27 SP IV vancomycin, cefepime, flagyl d# ) - f/u final cultures - monitor CBC, temperatures - monitor BMP - monitor CXR - aspiration precautions - wound care Subjective Allergies: Coded Allergies: No Known Allergies (Unverified , 10/19/15) Subjective intermittent low grade fever, leukocytosis resolved Objective Vital Signs Last 24 Hour Vital Signs Date Time Temp Pulse Resp B/P Pulse Ox O2 Delivery O2 Flow Rate FiO2 04/28/16 08:39 97.5 110 21 161/97 97 Room Air 04/28/16 07:59 110 04/28/16 07:58 Nasal Cannula 3.0 32 04/28/16 07:57 118 20 98 Nasal Cannula 3.0 32 04/28/16 07:42 110 24 94 Nasal Cannula 3.0 04/28/16 07:40 94 Nasal Cannula 3.0 32 04/28/16 05:08 98.8 04/28/16 05:05 98.8 83 22 135/80 92 Nasal Cannula 3.0 04/28/16 04:03 146 154/83 04/28/16 03:56 100.8 146 24 154/83 92 Nasal Cannula 3.0 04/28/16 03:45 Nasal Cannula 3.0 32 04/28/16 03:44 Nasal Cannula 3.0 32 04/28/16 00:03 99.9 118 20 141/100 96 Nasal Cannula 3.0 04/27/16 23:29 120 20 98 Nasal Cannula 3.0 32 04/27/16 23:29 118 20 94 Nasal Cannula 3.0 32 04/27/16 21:09 106 157/76 04/27/16 20:00 98.6 106 22 157/76 92 Nasal Cannula 3.0 04/27/16 19:30 123 16 93 Nasal Cannula 3.0 32 04/27/16 19:30 Nasal Cannula 3.0 32 04/27/16 19:30 94 Nasal Cannula 3.0 32 04/27/16 19:30 Nasal Cannula 3.0 32 04/27/16 16:00 98.2 110 18 127/76 96 Nasal Cannula 2.0 04/27/16 15:31 104 20 99 Nasal Cannula 3.0 04/27/16 15:22 97 20 98 Nasal Cannula 3.0 04/27/16 12:39 97.0 97 19 119/83 96 Nasal Cannula 2.0 04/27/16 11:46 102 20 99 Nasal Cannula 3.0 04/27/16 11:34 98 20 98 Nasal Cannula 3.0 Height (Feet): 5 Height (Inches): 7.00 Weight (Pounds): 120 General Appearance: no acute distress Respiratory/Chest: no respiratory distress Cardiovascular: normal rate, regular rhythm Abdomen: normal bowel sounds, soft, non tender, non distended Microbiology Date/Time Source Procedure Growth Status 04/27/16 14:15 Other(Specify in comment) Catheter Tip Culture - Preliminary NO GROWTH Resulted Laboratory Tests Test 04/28/16 10:30 White Blood Count Pending Red Blood Count Pending Hemoglobin Pending Hematocrit Pending Mean Corpuscular Volume Pending Mean Corpuscular Hemoglobin Pending Mean Corpuscular Hemoglobin Concent Pending Red Cell Distribution Width Pending Platelet Count Pending Mean Platelet Volume Pending Neutrophils (%) (Auto) Pending Lymphocytes (%) (Auto) Pending Monocytes (%) (Auto) Pending Eosinophils (%) (Auto) Pending Basophils (%) (Auto) Pending Sodium Level Pending Potassium Level Pending Chloride Level Pending Carbon Dioxide Level Pending Blood Urea Nitrogen Pending Creatinine Pending Estimat Glomerular Filtration Rate Pending Glucose Level Pending Calcium Level Pending Current Medications Medications (Trade) Dose Ordered Sig/Joy Route PRN Reason Start Time Stop Time Status Last Admin Dose Admin Acetaminophen (Tylenol) 650 mg Q4H PRN ORAL fever 04/20/16 07:45 05/20/16 07:44 04/28/16 04:04 Albuterol/ Ipratropium (DuoNeb 0.5-3(2.5)mg/3ml) 3 ml Q4H HHN 04/24/16 19:00 04/29/16 18:59 04/28/16 07:49 Aspirin (ASA) 325 mg DAILY GT 04/25/16 09:00 05/25/16 08:59 04/28/16 07:59 Dextrose 1,000 ml @ 75 mls/hr [id number] IV 04/21/16 12:15 05/21/16 12:14 04/28/16 04:04 Dextrose (Dextrose 50%) STAT PRN IV Hypoglycemia 04/20/16 09:30 05/20/16 09:29 04/27/16 06:04 Digoxin (Lanoxin) 0.125 mg DAILY ORAL 04/20/16 09:00 05/20/16 08:59 04/28/16 07:59 Heparin Sodium (Porcine) (Heparin 5000 units/ml) 5,000 units Q12HR SUBQ 04/27/16 21:00 05/27/16 20:59 04/27/16 21:12 Insulin Aspart (NovoLOG) EVERY 6 HOURS SUBQ 04/22/16 12:00 05/22/16 11:59 04/28/16 05:59 Insulin Detemir (Levemir) 5 units Q12HR@0600,1800 SUBQ 04/27/16 18:00 05/27/16 17:59 04/28/16 05:57 Lactulose (Cephulac) 30 gm DAILYPRN PRN ORAL Constipation 04/20/16 08:00 05/20/16 07:59 Metoprolol Tartrate (Lopressor) 25 mg Q12HR ORAL 04/21/16 21:00 05/21/16 20:59 04/28/16 04:03 Nitroglycerin (Ntg) 0.4 mg Q5MIN X3 DOSES PRN SL Prn Chest Pain 04/20/16 05:45 05/20/16 05:44 Ondansetron HCl (Zofran) 4 mg Q4H PRN IVP Nausea & Vomiting 04/20/16 08:00 05/20/16 07:59 Pantoprazole (Protonix) 40 mg DAILY IVP 04/20/16 09:00 05/20/16 08:59 04/28/16 08:05 Polyethylene Glycol (Miralax) 17 gm DAILYPRN PRN ORAL Constipation 04/20/16 07:45 05/20/16 07:44 Vancomycin HCl 1 ea 1 ea DAILYPRN PRN MISC Per rx protocol 04/20/16 10:30 05/20/16 10:29 Vancomycin HCl/ Dextrose (Vancomycin/D5W) 275 ml @ 183.708 mls/hr Q12HR IVPB 04/21/16 21:00 04/28/16 23:00 04/28/16 07:58 DOLORES FANG Apr 28, 2016 10:41
[2016-04-28 10:54] LABS: ANION GAP 7 (5-15); CALCIUM 8.1 mg/dL (8.6-10.2); CARBON DIOXIDE 33 mEQ/L (20-30); CHLORIDE 96 mEQ/L (98-107); CREATININE 0.4 mg/dL (0.7-1.2); HEMOLYSIS 7; POTASSIUM 4.4 mEQ/L (3.4-4.9); SODIUM 136 mEQ/L (135-145)
--- NOTE | 2016-04-28 16:08 | Internal Med Progress Note ---
Subjective Date of Service: Apr 28, 2016 Physician Name Renetta Olvera Attending Physician Adalid Izaguirre MD Current Medications Medications (Trade) Dose Ordered Sig/Joy Route PRN Reason Start Time Stop Time Status Last Admin Dose Admin Acetaminophen (Tylenol) 650 mg Q4H PRN ORAL fever 04/20/16 07:45 05/20/16 07:44 04/28/16 04:04 Albuterol/ Ipratropium (DuoNeb 0.5-3(2.5)mg/3ml) 3 ml Q4H HHN 04/24/16 19:00 04/29/16 18:59 04/28/16 15:38 Aspirin (ASA) 325 mg DAILY GT 04/25/16 09:00 05/25/16 08:59 04/28/16 07:59 Dextrose (D5W 1000ml) 1,000 ml @ 75 mls/hr [id number] IV 04/21/16 12:15 05/21/16 12:14 04/28/16 04:04 Dextrose (Dextrose 50%) STAT PRN IV Hypoglycemia 04/20/16 09:30 05/20/16 09:29 04/27/16 06:04 Digoxin (Lanoxin) 0.125 mg DAILY ORAL 04/20/16 09:00 05/20/16 08:59 04/28/16 07:59 Heparin Sodium (Porcine) (Heparin 5000 units/ml) 5,000 units Q12HR SUBQ 04/27/16 21:00 05/27/16 20:59 04/27/16 21:12 Insulin Aspart (NovoLOG) EVERY 6 HOURS SUBQ 04/22/16 12:00 05/22/16 11:59 04/28/16 12:15 Insulin Detemir (Levemir) 5 units Q12HR@0600,1800 SUBQ 04/27/16 18:00 05/27/16 17:59 04/28/16 05:57 Lactulose (Cephulac) 30 gm DAILYPRN PRN ORAL Constipation 04/20/16 08:00 05/20/16 07:59 Metoprolol Tartrate (Lopressor) 25 mg Q12HR ORAL 04/21/16 21:00 05/21/16 20:59 04/28/16 04:03 Nitroglycerin (Ntg) 0.4 mg Q5MIN X3 DOSES PRN SL Prn Chest Pain 04/20/16 05:45 05/20/16 05:44 Ondansetron HCl (Zofran) 4 mg Q4H PRN IVP Nausea & Vomiting 04/20/16 08:00 05/20/16 07:59 Pantoprazole (Protonix) 40 mg DAILY IVP 04/20/16 09:00 05/20/16 08:59 04/28/16 08:05 Polyethylene Glycol 17 gm 17 gm DAILYPRN PRN ORAL Constipation 04/20/16 07:45 05/20/16 07:44 Allergies: Coded Allergies: No Known Allergies (Unverified , 10/19/15) ROS Limited/Unobtainable: Yes Subjective 75 YO M admitted with fever, now with pneumonia. Cover for Int Med-Dr Izaguirre. Tolerating nasal canula. Await hospice eval-see soc work note. Objective Last Vital Signs Date Time Temp Pulse Resp B/P Pulse Ox O2 Delivery O2 Flow Rate FiO2 04/28/16 15:46 106 24 Nasal Cannula 3.0 32 04/28/16 11:52 98.1 120/76 97 Laboratory Tests Test 04/28/16 10:30 White Blood Count 10.3 K/UL (4.8-10.8) Red Blood Count 3.02 M/UL (4.70-6.10) L Hemoglobin 9.9 G/DL (14.2-18.0) L Hematocrit 31.0 % (42.0-52.0) L Mean Corpuscular Volume 103 FL (80-99) H Mean Corpuscular Hemoglobin 32.8 PG (27.0-31.0) H Mean Corpuscular Hemoglobin Concent 31.9 G/DL (32.0-36.0) L Red Cell Distribution Width 13.0 % (11.6-14.8) Platelet Count 166 K/UL (150-450) Mean Platelet Volume 7.4 FL (6.5-10.1) Neutrophils (%) (Auto) 81.7 % (45.0-75.0) H Lymphocytes (%) (Auto) 12.8 % (20.0-45.0) L Monocytes (%) (Auto) 3.6 % (1.0-10.0) Eosinophils (%) (Auto) 1.1 % (0.0-3.0) Basophils (%) (Auto) 0.8 % (0.0-2.0) Sodium Level 136 mEQ/L (135-145) Potassium Level 4.4 mEQ/L (3.4-4.9) Chloride Level 96 mEQ/L (98-107) L Carbon Dioxide Level 33 mEQ/L (20-30) H Anion Gap 7 (5-15) Blood Urea Nitrogen 8 mg/dL (7-23) Creatinine 0.4 mg/dL (0.7-1.2) L Estimat Glomerular Filtration Rate mL/min (>60) Glucose Level 142 mg/dL (74-106) H Calcium Level 8.1 mg/dL (8.6-10.2) L Microbiology Date/Time Source Procedure Growth Status 04/27/16 14:15 Other(Specify in comment) Catheter Tip Culture - Preliminary NO GROWTH Resulted Intake and Output 04/27/16 04/28/16 19:00 07:00 Intake Total 2247.4 ml 2255 ml Output Total 350 ml 250 ml Balance 1897.4 ml 2005 ml Intake Free Water 500 ml 500 ml IV Total 967.4 ml 975 ml Tube Feeding 780 ml 780 ml Output Urine Total 350 ml 250 ml # Voids 1 Objective General Appearance: lethargic, thin EENT: normal ENT inspection Neck: non-tender, normal alignment, supple Cardiovascular: normal peripheral pulses, normal rate, regular rhythm, no gallop/murmur, no JVD Respiratory/Chest: chest wall non-tender, crackles/rales, rhonchi - bilaterally , expiratory wheezing Abdomen: normal bowel sounds, non tender, soft, no organomegaly, no mass Skin: normal pigmentation, warm/dry Assessment/Plan Problem List: (1) Leukocytosis (2) Pemphigus Assessment & Plan: D/C chronic prednisone therapy per nephrology. (3) Sepsis Assessment & Plan: Coag neg staph. See ID note. D/C vanco and cefepime. Culture PICC line tip per ID (4) Cerebral vascular disease (5) Hemiplegia affecting left nondominant side (6) Aphasia as late effect of cerebrovascular accident (7) Atrial fibrillation Assessment & Plan: Cont novolog; D/C levemir. See endocrinology note. (8) Hypertension (9) Diabetes mellitus (10) Dysphagia as late effect of cerebrovascular accident (CVA) (11) Pneumonia Assessment & Plan: ?aspiration? Repeat chest xray=no new infiltrates. See pulmonary note. D/C vanco and cefepime per ID (12) G tube feedings (13) Atrial fibrillation and flutter (14) Septic shock (15) Hypernatremia Assessment & Plan: See nephrology note. (16) Anemia Assessment & Plan: S/P transfusion 1 unit PRBC on 04/26/16. Status: not improved Assessment/Plan Discharge planning: Toshia HE[facility]. Await hospice evvalerie. RENETTA OLVERA Apr 28, 2016 16:08
--- NOTE | 2016-04-28 16:27 | Cardiac Electrophysiology PN ---
Assessment/Plan Assessment/Plan 1. Atrial fibrillation with rapid ventricular response. Controlled on digoxin 0.125 mg, aspirin 325 and Lopressor 25 bid. 2. Broad-spectrum sepsis. On vancomycin and cefepime under the management of Dr. Bains for bacteremia and aspiration pneumonia. 3. Severe hypernatremia.Corrected to 136 today . 4. Dysphagia, status post PEG placement. 5. Dementia with functional quadriplegia. DW RN Subjective Subjective Nonverbal on IV antibiotics. Comfortable.Placement pending. Objective Last 24 Hour Vital Signs Date Time Temp Pulse Resp B/P Pulse Ox O2 Delivery O2 Flow Rate FiO2 04/28/16 15:46 106 24 Nasal Cannula 3.0 32 04/28/16 15:36 99 20 Nasal Cannula 3.0 04/28/16 11:52 98.1 103 19 120/76 97 Nasal Cannula 2.0 04/28/16 11:39 116 22 Nasal Cannula 3.0 32 04/28/16 11:26 105 20 Nasal Cannula 3.0 04/28/16 08:39 97.5 110 21 161/97 97 Room Air 04/28/16 07:59 110 04/28/16 07:58 Nasal Cannula 3.0 32 04/28/16 07:57 118 20 98 Nasal Cannula 3.0 32 04/28/16 07:42 110 24 94 Nasal Cannula 3.0 04/28/16 07:40 94 Nasal Cannula 3.0 32 04/28/16 05:08 98.8 04/28/16 05:05 98.8 83 22 135/80 92 Nasal Cannula 3.0 04/28/16 04:03 146 154/83 04/28/16 03:56 100.8 146 24 154/83 92 Nasal Cannula 3.0 04/28/16 03:45 Nasal Cannula 3.0 32 04/28/16 03:44 Nasal Cannula 3.0 32 04/28/16 00:03 99.9 118 20 141/100 96 Nasal Cannula 3.0 04/27/16 23:29 120 20 98 Nasal Cannula 3.0 32 04/27/16 23:29 118 20 94 Nasal Cannula 3.0 32 04/27/16 21:09 106 157/76 04/27/16 20:00 98.6 106 22 157/76 92 Nasal Cannula 3.0 04/27/16 19:30 123 16 93 Nasal Cannula 3.0 32 04/27/16 19:30 Nasal Cannula 3.0 32 04/27/16 19:30 94 Nasal Cannula 3.0 32 04/27/16 19:30 Nasal Cannula 3.0 32 Intake and Output 04/27/16 04/28/16 19:00 07:00 Intake Total 2247.4 ml 2255 ml Output Total 350 ml 250 ml Balance 1897.4 ml 2005 ml Intake Free Water 500 ml 500 ml IV Total 967.4 ml 975 ml Tube Feeding 780 ml 780 ml Output Urine Total 350 ml 250 ml # Voids 1 Laboratory Tests Test 04/28/16 10:30 White Blood Count 10.3 K/UL (4.8-10.8) Red Blood Count 3.02 M/UL (4.70-6.10) L Hemoglobin 9.9 G/DL (14.2-18.0) L Hematocrit 31.0 % (42.0-52.0) L Mean Corpuscular Volume 103 FL (80-99) H Mean Corpuscular Hemoglobin 32.8 PG (27.0-31.0) H Mean Corpuscular Hemoglobin Concent 31.9 G/DL (32.0-36.0) L Red Cell Distribution Width 13.0 % (11.6-14.8) Platelet Count 166 K/UL (150-450) Mean Platelet Volume 7.4 FL (6.5-10.1) Neutrophils (%) (Auto) 81.7 % (45.0-75.0) H Lymphocytes (%) (Auto) 12.8 % (20.0-45.0) L Monocytes (%) (Auto) 3.6 % (1.0-10.0) Eosinophils (%) (Auto) 1.1 % (0.0-3.0) Basophils (%) (Auto) 0.8 % (0.0-2.0) Sodium Level 136 mEQ/L (135-145) Potassium Level 4.4 mEQ/L (3.4-4.9) Chloride Level 96 mEQ/L (98-107) L Carbon Dioxide Level 33 mEQ/L (20-30) H Anion Gap 7 (5-15) Blood Urea Nitrogen 8 mg/dL (7-23) Creatinine 0.4 mg/dL (0.7-1.2) L Estimat Glomerular Filtration Rate mL/min (>60) Glucose Level 142 mg/dL (74-106) H Calcium Level 8.1 mg/dL (8.6-10.2) L Microbiology Date/Time Source Procedure Growth Status 04/27/16 14:15 Other(Specify in comment) Catheter Tip Culture - Preliminary NO GROWTH Resulted Objective HEENT: No JVD. LUNGS: Clear CARDIOVASCULAR: Nl S1,S2 with no gallop or murmur. ABDOMEN: Status post G-tube. EXTREMITIES: Lower extremities contracted with multiple ulcers. HERLINDA BURNETT Apr 28, 2016 16:27
--- NOTE | 2016-04-28 16:53 | General Progress Note ---
Assessment/Plan Status: stable Assessment/Plan status: Acute Renal failure- due to sepsis and shock & Dehydration and volume depletion component- and HyperNatremia ALL IMPROVED Other: -CVA (cerebral vascular accident) -Diabetes -G tube feedings -Left hemiparesis Plan: Hydrate- Antibiotics- Monitor renal parameters- Avoid Nephrotoxics- per orders- ? transfusion? Subjective ROS Limited/Unobtainable: No Constitutional: Reports: malaise Allergies: Coded Allergies: No Known Allergies (Unverified , 10/19/15) Objective Last 24 Hour Vital Signs Date Time Temp Pulse Resp B/P Pulse Ox O2 Delivery O2 Flow Rate FiO2 04/28/16 16:00 98.8 116 17 142/81 96 Room Air 04/28/16 15:46 106 24 Nasal Cannula 3.0 32 04/28/16 15:36 99 20 Nasal Cannula 3.0 04/28/16 11:52 98.1 103 19 120/76 97 Nasal Cannula 2.0 04/28/16 11:39 116 22 Nasal Cannula 3.0 32 04/28/16 11:26 105 20 Nasal Cannula 3.0 04/28/16 08:39 97.5 110 21 161/97 97 Room Air 04/28/16 07:59 110 04/28/16 07:58 Nasal Cannula 3.0 32 04/28/16 07:57 118 20 98 Nasal Cannula 3.0 32 04/28/16 07:42 110 24 94 Nasal Cannula 3.0 04/28/16 07:40 94 Nasal Cannula 3.0 32 04/28/16 05:08 98.8 04/28/16 05:05 98.8 83 22 135/80 92 Nasal Cannula 3.0 04/28/16 04:03 146 154/83 04/28/16 03:56 100.8 146 24 154/83 92 Nasal Cannula 3.0 04/28/16 03:45 Nasal Cannula 3.0 32 04/28/16 03:44 Nasal Cannula 3.0 32 04/28/16 00:03 99.9 118 20 141/100 96 Nasal Cannula 3.0 04/27/16 23:29 120 20 98 Nasal Cannula 3.0 32 04/27/16 23:29 118 20 94 Nasal Cannula 3.0 32 04/27/16 21:09 106 157/76 04/27/16 20:00 98.6 106 22 157/76 92 Nasal Cannula 3.0 04/27/16 19:30 123 16 93 Nasal Cannula 3.0 32 04/27/16 19:30 Nasal Cannula 3.0 32 04/27/16 19:30 94 Nasal Cannula 3.0 32 04/27/16 19:30 Nasal Cannula 3.0 32 Intake and Output 04/27/16 04/28/16 19:00 07:00 Intake Total 2247.4 ml 2255 ml Output Total 350 ml 250 ml Balance 1897.4 ml 2005 ml Intake Free Water 500 ml 500 ml IV Total 967.4 ml 975 ml Tube Feeding 780 ml 780 ml Output Urine Total 350 ml 250 ml # Voids 1 Laboratory Tests 04/28/16 10:30: White Blood Count 10.3, Red Blood Count 3.02L, Hemoglobin 9.9L, Hematocrit 31.0L , Mean Corpuscular Volume 103H, Mean Corpuscular Hemoglobin 32.8H, Mean Corpuscular Hemoglobin Concent 31.9L, Red Cell Distribution Width 13.0, Platelet Count 166, Mean Platelet Volume 7.4, Neutrophils (%) (Auto) 81.7H, Lymphocytes (%) (Auto) 12.8L, Monocytes (%) (Auto) 3.6, Eosinophils (%) (Auto) 1.1, Basophils (%) (Auto) 0.8, Sodium Level 136, Potassium Level 4.4, Chloride Level 96L, Carbon Dioxide Level 33H, Anion Gap 7, Blood Urea Nitrogen 8, Creatinine 0.4L, Estimat Glomerular Filtration Rate , Glucose Level 142H, Calcium Level 8.1L Height (Feet): 5 Height (Inches): 7.00 Weight (Pounds): 120 General Appearance: no apparent distress Objective no change in PE CRISTY MADDOX Apr 28, 2016 16:53
--- NOTE | 2016-04-28 23:58 | Pulmonology Progress Note ---
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 pt is already DNR. extremely debilitated, Subjective ROS Limited/Unobtainable: Yes Allergies: Coded Allergies: No Known Allergies (Unverified , 10/19/15) Objective Last 24 Hour Vital Signs Date Time Temp Pulse Resp B/P Pulse Ox O2 Delivery O2 Flow Rate FiO2 04/28/16 23:47 Non-Rebreather 15.0 04/28/16 23:47 125 Non-Rebreather 15.0 04/28/16 21:00 98.0 127 26 136/98 97 Non-Rebreather 10.0 04/28/16 20:30 98.2 136 40 156/76 92 Nasal Cannula 2.0 04/28/16 20:10 133 142/81 04/28/16 20:00 97.6 128 17 136/98 100 Room Air 04/28/16 19:06 Nasal Cannula 3.0 04/28/16 19:05 133 Nasal Cannula 3.0 04/28/16 19:04 94 Nasal Cannula 3.0 32 04/28/16 19:04 Nasal Cannula 3.0 32 04/28/16 16:00 98.8 116 17 142/81 96 Room Air 04/28/16 15:46 106 24 Nasal Cannula 3.0 32 04/28/16 15:36 99 20 Nasal Cannula 3.0 04/28/16 11:52 98.1 103 19 120/76 97 Nasal Cannula 2.0 04/28/16 11:39 116 22 Nasal Cannula 3.0 32 04/28/16 11:26 105 20 Nasal Cannula 3.0 04/28/16 08:39 97.5 110 21 161/97 97 Room Air 04/28/16 07:59 110 04/28/16 07:58 Nasal Cannula 3.0 32 04/28/16 07:57 118 20 98 Nasal Cannula 3.0 32 04/28/16 07:42 110 24 94 Nasal Cannula 3.0 04/28/16 07:40 94 Nasal Cannula 3.0 32 04/28/16 05:08 98.8 04/28/16 05:05 98.8 83 22 135/80 92 Nasal Cannula 3.0 04/28/16 04:03 146 154/83 04/28/16 03:56 100.8 146 24 154/83 92 Nasal Cannula 3.0 04/28/16 03:45 Nasal Cannula 3.0 32 04/28/16 03:44 Nasal Cannula 3.0 32 04/28/16 00:03 99.9 118 20 141/100 96 Nasal Cannula 3.0 Intake and Output 04/27/16 04/28/16 19:00 07:00 Intake Total 2247.4 ml 2255 ml Output Total 350 ml 250 ml Balance 1897.4 ml 2005 ml Intake Free Water 500 ml 500 ml IV Total 967.4 ml 975 ml Tube Feeding 780 ml 780 ml Output Urine Total 350 ml 250 ml # Voids 1 General Appearance: no acute distress HEENT: normocephalic, atraumatic, PERRL Respiratory/Chest: chest wall non-tender, decreased breath sounds, accessory muscle use, crackles/rales Cardiovascular: bradycardia Abdomen: normal bowel sounds, soft, non tender, no organomegaly, non distended Genitourinary: normal external genitalia Extremities: no cyanosis, no clubbing Skin: rash, lesions Neurologic/Psychiatric: unresponsiveness Microbiology Date/Time Source Procedure Growth Status 04/27/16 14:15 Other(Specify in comment) Catheter Tip Culture - Preliminary NO GROWTH Resulted Laboratory Tests 04/28/16 10:30: White Blood Count 10.3, Red Blood Count 3.02L, Hemoglobin 9.9L, Hematocrit 31.0L , Mean Corpuscular Volume 103H, Mean Corpuscular Hemoglobin 32.8H, Mean Corpuscular Hemoglobin Concent 31.9L, Red Cell Distribution Width 13.0, Platelet Count 166, Mean Platelet Volume 7.4, Neutrophils (%) (Auto) 81.7H, Lymphocytes (%) (Auto) 12.8L, Monocytes (%) (Auto) 3.6, Eosinophils (%) (Auto) 1.1, Basophils (%) (Auto) 0.8, Sodium Level 136, Potassium Level 4.4, Chloride Level 96L, Carbon Dioxide Level 33H, Anion Gap 7, Blood Urea Nitrogen 8, Creatinine 0.4L, Estimat Glomerular Filtration Rate , Glucose Level 142H, Calcium Level 8.1L Current Medications Medications (Trade) Dose Ordered Sig/Joy Route PRN Reason Start Time Stop Time Status Last Admin Dose Admin Acetaminophen (Tylenol) 650 mg Q4H PRN ORAL fever 04/20/16 07:45 05/20/16 07:44 04/28/16 04:04 Albuterol/ Ipratropium (DuoNeb 0.5-3(2.5)mg/3ml) 3 ml Q4H HHN 04/24/16 19:00 04/29/16 18:59 04/28/16 15:38 Aspirin (ASA) 325 mg DAILY GT 04/25/16 09:00 05/25/16 08:59 04/28/16 07:59 Dextrose (D5W 1000ml) 1,000 ml @ 75 mls/hr [id number] IV 04/21/16 12:15 05/21/16 12:14 04/28/16 17:42 Dextrose (Dextrose 50%) STAT PRN IV Hypoglycemia 04/20/16 09:30 05/20/16 09:29 04/27/16 06:04 Digoxin (Lanoxin) 0.125 mg DAILY ORAL 04/20/16 09:00 05/20/16 08:59 04/28/16 07:59 Heparin Sodium (Porcine) (Heparin 5000 units/ml) 5,000 units Q12HR SUBQ 04/27/16 21:00 05/27/16 20:59 04/28/16 20:13 Insulin Aspart (NovoLOG) EVERY 6 HOURS SUBQ 04/22/16 12:00 05/22/16 11:59 04/28/16 17:28 Insulin Detemir (Levemir) 5 units Q12HR@0600,1800 SUBQ 04/27/16 18:00 05/27/16 17:59 04/28/16 17:29 Lactulose (Cephulac) 30 gm DAILYPRN PRN ORAL Constipation 04/20/16 08:00 05/20/16 07:59 Metoprolol Tartrate (Lopressor) 25 mg Q12HR ORAL 04/21/16 21:00 05/21/16 20:59 04/28/16 20:10 Nitroglycerin (Ntg) 0.4 mg Q5MIN X3 DOSES PRN SL Prn Chest Pain 04/20/16 05:45 05/20/16 05:44 Ondansetron HCl (Zofran) 4 mg Q4H PRN IVP Nausea & Vomiting 04/20/16 08:00 05/20/16 07:59 Pantoprazole (Protonix) 40 mg DAILY IVP 04/20/16 09:00 05/20/16 08:59 04/28/16 08:05 Polyethylene Glycol 17 gm 17 gm DAILYPRN PRN ORAL Constipation 04/20/16 07:45 05/20/16 07:44 JAVIER BANKS Apr 28, 2016 23:57
[2016-04-29] VITALS: BP_SYST 121; BP_SYST 94; BP_DIAS 51; BP_DIAS 53
[2016-04-29] MEDS: NovoLOG Insulin Flexpen SUBQ SCH ×4 (00:15→17:26)
[2016-04-29] MEDS: DuoNeb 0.5-3(2.5)mg/3ml neb HHN SCH ×4 (03:08→14:47)
[2016-04-29 04:00] VITALS: BP 122/58
[2016-04-29] MEDS: Levemir Flexpen SUBQ SCH ×2 (06:00→17:27)
[2016-04-29 08:00] VITALS: BP 130/74
[2016-04-29] MEDS: Heparin 5000 units/ml inj SUBQ SCH ×2 (09:00→20:08)
[2016-04-29] MEDS: Digoxin 0.125mg tab ORAL SCH (10:12)
[2016-04-29] MEDS: Metoprolol 25mg tab ORAL SCH ×2 (10:12→20:09)
[2016-04-29] MEDS: Pantoprazole Inj IVP SCH (10:13)
[2016-04-29 10:14] LABS: BASOPHILS % (AUTO) 0.5 % (0.0-2.0); EOSINOPHILS % (AUTO) 1.1 % (0.0-3.0); LYMPHOCYTES % (AUTO) 7.5 % (20.0-45.0); MEAN CORPUSCULAR HEMOGLOBIN 32.5 PG (27.0-31.0); MEAN CORPUSCULAR HGB CONC 31.4 G/DL (32.0-36.0); MEAN CORPUSCULAR VOLUME 104 FL (80-99); MEAN PLATELET VOLUME 7.1 FL (6.5-10.1); MONOCYTES % (AUTO) 6.1 % (1.0-10.0); NEUTROPHILS % (AUTO) 84.8 % (45.0-75.0); PLATELET COUNT 190 K/UL (150-450); RED CELL DISTRIBUTION WIDTH 12.6 % (11.6-14.8); WHITE BLOOD COUNT 11.4 K/UL (4.8-10.8)
[2016-04-29 10:34] LABS: ANION GAP 6 (5-15); CALCIUM 8.2 mg/dL (8.6-10.2); CARBON DIOXIDE 36 mEQ/L (20-30); CHLORIDE 100 mEQ/L (98-107); CREATININE 0.4 mg/dL (0.7-1.2); HEMOLYSIS 1; POTASSIUM 4.2 mEQ/L (3.4-4.9); SODIUM 142 mEQ/L (135-145)
[2016-04-29 12:00] VITALS: BP 109/65
--- NOTE | 2016-04-29 12:52 | Internal Med Progress Note ---
Subjective Date of Service: Apr 29, 2016 Physician Name Marco Olvera Attending Physician Adalid Izaguirre MD Current Medications Medications (Trade) Dose Ordered Sig/Joy Route PRN Reason Start Time Stop Time Status Last Admin Dose Admin Acetaminophen (Tylenol) 650 mg Q4H PRN ORAL fever 04/20/16 07:45 05/20/16 07:44 04/29/16 00:12 Albuterol/ Ipratropium (DuoNeb 0.5-3(2.5)mg/3ml) 3 ml Q4H HHN 04/24/16 19:00 04/29/16 18:59 04/29/16 11:12 Aspirin (ASA) 325 mg DAILY GT 04/25/16 09:00 05/25/16 08:59 04/29/16 10:11 Dextrose (D5W 1000ml) 1,000 ml @ 75 mls/hr [id number] IV 04/21/16 12:15 05/21/16 12:14 04/29/16 06:23 Dextrose (Dextrose 50%) STAT PRN IV Hypoglycemia 04/20/16 09:30 05/20/16 09:29 04/27/16 06:04 Digoxin (Lanoxin) 0.125 mg DAILY ORAL 04/20/16 09:00 05/20/16 08:59 04/29/16 10:12 Heparin Sodium (Porcine) (Heparin 5000 units/ml) 5,000 units Q12HR SUBQ 04/27/16 21:00 05/27/16 20:59 04/28/16 20:13 Insulin Aspart (NovoLOG) EVERY 6 HOURS SUBQ 04/22/16 12:00 05/22/16 11:59 04/29/16 11:31 Insulin Detemir (Levemir) 5 units Q12HR@0600,1800 SUBQ 04/27/16 18:00 05/27/16 17:59 04/29/16 06:00 Lactulose (Cephulac) 30 gm DAILYPRN PRN ORAL Constipation 04/20/16 08:00 05/20/16 07:59 Metoprolol Tartrate (Lopressor) 25 mg Q12HR ORAL 04/21/16 21:00 05/21/16 20:59 04/29/16 10:12 Nitroglycerin (Ntg) 0.4 mg Q5MIN X3 DOSES PRN SL Prn Chest Pain 04/20/16 05:45 05/20/16 05:44 Ondansetron HCl (Zofran) 4 mg Q4H PRN IVP Nausea & Vomiting 04/20/16 08:00 05/20/16 07:59 Pantoprazole (Protonix) 40 mg DAILY IVP 04/20/16 09:00 05/20/16 08:59 04/29/16 10:13 Polyethylene Glycol 17 gm 17 gm DAILYPRN PRN ORAL Constipation 04/20/16 07:45 05/20/16 07:44 Allergies: Coded Allergies: No Known Allergies (Unverified , 10/19/15) ROS Limited/Unobtainable: Yes Subjective 75 YO M admitted with fever, now with pneumonia. Cover for Int Med-Dr Izaguirre. Deteriorating respiratory status-on nonrebreather. Await hospice eval-see soc work note. Objective Last Vital Signs Date Time Temp Pulse Resp B/P Pulse Ox O2 Delivery O2 Flow Rate FiO2 04/29/16 12:00 97.6 94 19 109/65 100 Venturi Mask 04/29/16 11:12 15.0 100 Laboratory Tests Test 04/29/16 09:45 White Blood Count 11.4 K/UL (4.8-10.8) H Red Blood Count 2.90 M/UL (4.70-6.10) L Hemoglobin 9.4 G/DL (14.2-18.0) L Hematocrit 30.0 % (42.0-52.0) L Mean Corpuscular Volume 104 FL (80-99) H Mean Corpuscular Hemoglobin 32.5 PG (27.0-31.0) H Mean Corpuscular Hemoglobin Concent 31.4 G/DL (32.0-36.0) L Red Cell Distribution Width 12.6 % (11.6-14.8) Platelet Count 190 K/UL (150-450) Mean Platelet Volume 7.1 FL (6.5-10.1) Neutrophils (%) (Auto) 84.8 % (45.0-75.0) H Lymphocytes (%) (Auto) 7.5 % (20.0-45.0) L Monocytes (%) (Auto) 6.1 % (1.0-10.0) Eosinophils (%) (Auto) 1.1 % (0.0-3.0) Basophils (%) (Auto) 0.5 % (0.0-2.0) Sodium Level 142 mEQ/L (135-145) Potassium Level 4.2 mEQ/L (3.4-4.9) Chloride Level 100 mEQ/L (98-107) Carbon Dioxide Level 36 mEQ/L (20-30) H Anion Gap 6 (5-15) Blood Urea Nitrogen 9 mg/dL (7-23) Creatinine 0.4 mg/dL (0.7-1.2) L Estimat Glomerular Filtration Rate mL/min (>60) Glucose Level 144 mg/dL (74-106) H Calcium Level 8.2 mg/dL (8.6-10.2) L Microbiology Date/Time Source Procedure Growth Status 04/27/16 14:15 Other(Specify in comment) Catheter Tip Culture - Preliminary NO GROWTH AFTER 48 HOURS Resulted Intake and Output 04/28/16 04/29/16 19:00 07:00 Intake Total 1097.4 ml 1815 ml Output Total 1800 ml 1700 ml Balance -702.6 ml 115 ml Intake Free Water 250 ml IV Total 967.4 ml 850 ml Tube Feeding 130 ml 715 ml Output Urine Total 1800 ml 1700 ml Objective General Appearance: lethargic, thin EENT: normal ENT inspection Neck: non-tender, normal alignment, supple Cardiovascular: normal peripheral pulses, normal rate, regular rhythm, no gallop/murmur, no JVD Respiratory/Chest: Non-rebreatherchest wall non-tender, crackles/rales, rhonchi - bilaterally, expiratory wheezing Abdomen: normal bowel sounds, non tender, soft, no organomegaly, no mass Skin: normal pigmentation, warm/dry Assessment/Plan Problem List: (1) Leukocytosis (2) Pemphigus Assessment & Plan: D/C chronic prednisone therapy per nephrology. (3) Sepsis Assessment & Plan: Coag neg staph. See ID note. D/C vanco and cefepime. Culture PICC line tip per ID (4) Cerebral vascular disease (5) Hemiplegia affecting left nondominant side (6) Aphasia as late effect of cerebrovascular accident (7) Atrial fibrillation Assessment & Plan: Cont novolog; D/C levemir. See endocrinology note. (8) Hypertension (9) Diabetes mellitus (10) Dysphagia as late effect of cerebrovascular accident (CVA) (11) Pneumonia Assessment & Plan: ?aspiration? Repeat chest xray=no new infiltrates. See pulmonary note. D/C vanco and cefepime per ID (12) G tube feedings (13) Atrial fibrillation and flutter (14) Septic shock (15) Hypernatremia Assessment & Plan: See nephrology note. (16) Anemia Assessment & Plan: S/P transfusion 1 unit PRBC on 04/26/16. (17) Respiratory failure Assessment & Plan: worsening; on non-rebreather Status: deteriorating Assessment/Plan Prognosis is guarded. MARCO OLVERA Apr 29, 2016 12:52
--- NOTE | 2016-04-29 14:57 | General Progress Note ---
Assessment/Plan Status: stable Assessment/Plan status: Acute Renal failure- due to sepsis and shock & Dehydration and volume depletion component- and HyperNatremia ALL IMPROVED Other: -CVA (cerebral vascular accident) -Diabetes -G tube feedings -Left hemiparesis Plan: Hydrate- Antibiotics- Monitor renal parameters- Avoid Nephrotoxics- per orders- ? transfusion? Subjective ROS Limited/Unobtainable: No Constitutional: Reports: malaise Allergies: Coded Allergies: No Known Allergies (Unverified , 10/19/15) Objective Last 24 Hour Vital Signs Date Time Temp Pulse Resp B/P Pulse Ox O2 Delivery O2 Flow Rate FiO2 04/29/16 12:00 97.6 94 19 109/65 100 Venturi Mask 04/29/16 11:12 103 20 100 Non-Rebreather 15.0 100 04/29/16 11:12 103 20 100 Non-Rebreather 15.0 04/29/16 10:12 112 130/74 04/29/16 10:12 112 04/29/16 08:00 98.1 112 20 130/74 100 Venturi Mask 04/29/16 07:18 Non-Rebreather 15.0 100 04/29/16 07:18 106 22 100 Non-Rebreather 15.0 04/29/16 07:18 100 Non-Rebreather 15.0 100 04/29/16 07:18 104 20 100 Non-Rebreather 15.0 100 04/29/16 04:00 98.2 109 20 122/58 100 Non-Rebreather 15.0 04/29/16 03:17 120 20 98 Non-Rebreather 15.0 100 04/29/16 03:08 112 24 99 Non-Rebreather 15.0 04/29/16 01:18 99.0 04/29/16 01:17 99.0 04/29/16 00:00 101.1 80 20 121/53 100 Non-Rebreather 10.0 04/28/16 23:47 Non-Rebreather 15.0 04/28/16 23:47 125 Non-Rebreather 15.0 04/28/16 21:00 98.0 127 26 136/98 97 Non-Rebreather 10.0 04/28/16 20:30 98.2 136 40 156/76 92 Nasal Cannula 2.0 04/28/16 20:10 133 142/81 04/28/16 20:00 97.6 128 17 136/98 100 Room Air 04/28/16 19:06 Nasal Cannula 3.0 04/28/16 19:05 133 Nasal Cannula 3.0 04/28/16 19:04 94 Nasal Cannula 3.0 32 04/28/16 19:04 Nasal Cannula 3.0 32 04/28/16 16:00 98.8 116 17 142/81 96 Room Air 04/28/16 15:46 106 24 Nasal Cannula 3.0 32 04/28/16 15:36 99 20 Nasal Cannula 3.0 Intake and Output 04/28/16 04/29/16 19:00 07:00 Intake Total 1097.4 ml 1880 ml Output Total 1800 ml 1700 ml Balance -702.6 ml 180 ml Intake Free Water 250 ml IV Total 967.4 ml 850 ml Tube Feeding 130 ml 780 ml Output Urine Total 1800 ml 1700 ml Laboratory Tests 04/29/16 09:45: White Blood Count 11.4H, Red Blood Count 2.90L, Hemoglobin 9.4L, Hematocrit 30.0L, Mean Corpuscular Volume 104H, Mean Corpuscular Hemoglobin 32.5H, Mean Corpuscular Hemoglobin Concent 31.4L, Red Cell Distribution Width 12.6, Platelet Count 190, Mean Platelet Volume 7.1, Neutrophils (%) (Auto) 84.8H, Lymphocytes (%) (Auto) 7.5L, Monocytes (%) (Auto) 6.1, Eosinophils (%) (Auto) 1.1, Basophils (%) (Auto) 0.5, Sodium Level 142, Potassium Level 4.2, Chloride Level 100, Carbon Dioxide Level 36H, Anion Gap 6, Blood Urea Nitrogen 9, Creatinine 0.4L, Estimat Glomerular Filtration Rate , Glucose Level 144H, Calcium Level 8.2L Height (Feet): 5 Height (Inches): 7.00 Weight (Pounds): 120 General Appearance: no apparent distress Objective no change in PE CRISTY MADDOX Apr 29, 2016 14:57
[2016-04-29 16:00] VITALS: BP 136/64
--- NOTE | 2016-04-29 17:31 | Cardiac Electrophysiology PN ---
Assessment/Plan Assessment/Plan 1. Atrial fibrillation with rapid ventricular response. Controlled on digoxin 0.125 mg and Lopressor 25 bid. 2. Broad-spectrum sepsis. On vancomycin and cefepime under the management of Dr. Bains for bacteremia and aspiration pneumonia. 3. Severe hypernatremia. Na 142 today . 4. Dysphagia, status post PEG placement. 5. Dementia with functional quadriplegia. DW RN Subjective Subjective Nonverbal on IV antibiotics. Comfortable.No events overnight. Objective Last 24 Hour Vital Signs Date Time Temp Pulse Resp B/P Pulse Ox O2 Delivery O2 Flow Rate FiO2 04/29/16 16:00 97.7 80 22 136/64 100 Non-Rebreather 15.0 04/29/16 14:47 104 20 97 Non-Rebreather 15.0 04/29/16 14:47 106 20 99 Non-Rebreather 15.0 100 04/29/16 12:00 97.6 94 19 109/65 100 Venturi Mask 04/29/16 11:12 103 20 100 Non-Rebreather 15.0 100 04/29/16 11:12 103 20 100 Non-Rebreather 15.0 04/29/16 10:12 112 130/74 04/29/16 10:12 112 04/29/16 08:00 98.1 112 20 130/74 100 Venturi Mask 04/29/16 07:18 Non-Rebreather 15.0 100 04/29/16 07:18 106 22 100 Non-Rebreather 15.0 04/29/16 07:18 100 Non-Rebreather 15.0 100 04/29/16 07:18 104 20 100 Non-Rebreather 15.0 100 04/29/16 04:00 98.2 109 20 122/58 100 Non-Rebreather 15.0 04/29/16 03:17 120 20 98 Non-Rebreather 15.0 100 04/29/16 03:08 112 24 99 Non-Rebreather 15.0 04/29/16 01:18 99.0 04/29/16 01:17 99.0 04/29/16 00:00 101.1 80 20 121/53 100 Non-Rebreather 10.0 04/28/16 23:47 Non-Rebreather 15.0 04/28/16 23:47 125 Non-Rebreather 15.0 04/28/16 21:00 98.0 127 26 136/98 97 Non-Rebreather 10.0 04/28/16 20:30 98.2 136 40 156/76 92 Nasal Cannula 2.0 04/28/16 20:10 133 142/81 04/28/16 20:00 97.6 128 17 136/98 100 Room Air 04/28/16 19:06 Nasal Cannula 3.0 04/28/16 19:05 133 Nasal Cannula 3.0 04/28/16 19:04 94 Nasal Cannula 3.0 32 04/28/16 19:04 Nasal Cannula 3.0 32 Intake and Output 04/28/16 04/29/16 19:00 07:00 Intake Total 1097.4 ml 1880 ml Output Total 1800 ml 1700 ml Balance -702.6 ml 180 ml Intake Free Water 250 ml IV Total 967.4 ml 850 ml Tube Feeding 130 ml 780 ml Output Urine Total 1800 ml 1700 ml Laboratory Tests Test 04/29/16 09:45 White Blood Count 11.4 K/UL (4.8-10.8) H Red Blood Count 2.90 M/UL (4.70-6.10) L Hemoglobin 9.4 G/DL (14.2-18.0) L Hematocrit 30.0 % (42.0-52.0) L Mean Corpuscular Volume 104 FL (80-99) H Mean Corpuscular Hemoglobin 32.5 PG (27.0-31.0) H Mean Corpuscular Hemoglobin Concent 31.4 G/DL (32.0-36.0) L Red Cell Distribution Width 12.6 % (11.6-14.8) Platelet Count 190 K/UL (150-450) Mean Platelet Volume 7.1 FL (6.5-10.1) Neutrophils (%) (Auto) 84.8 % (45.0-75.0) H Lymphocytes (%) (Auto) 7.5 % (20.0-45.0) L Monocytes (%) (Auto) 6.1 % (1.0-10.0) Eosinophils (%) (Auto) 1.1 % (0.0-3.0) Basophils (%) (Auto) 0.5 % (0.0-2.0) Sodium Level 142 mEQ/L (135-145) Potassium Level 4.2 mEQ/L (3.4-4.9) Chloride Level 100 mEQ/L (98-107) Carbon Dioxide Level 36 mEQ/L (20-30) H Anion Gap 6 (5-15) Blood Urea Nitrogen 9 mg/dL (7-23) Creatinine 0.4 mg/dL (0.7-1.2) L Estimat Glomerular Filtration Rate mL/min (>60) Glucose Level 144 mg/dL (74-106) H Calcium Level 8.2 mg/dL (8.6-10.2) L Microbiology Date/Time Source Procedure Growth Status 04/27/16 14:15 Other(Specify in comment) Catheter Tip Culture - Preliminary NO GROWTH AFTER 48 HOURS Resulted Objective HEENT: No JVD. LUNGS: Clear CARDIOVASCULAR: Nl S1,S2 with no gallop or murmur. ABDOMEN: G-tube intact EXTREMITIES: Lower extremities contracted with multiple ulcers. HERLINDA BURNETT Apr 29, 2016 17:31
--- NOTE | 2016-04-29 18:23 | Infectious Diseases Prog Note ---
Assessment/Plan Assessment/Plan ASSESSMENT: 75 y/o male with: // CONS bacteremia / - repeat BCx CONS 04/08, probable Ctr line infection - 04/27 Cath tip NGTD - TTE(-) SBE // Probable HCAP / aspiration PNA SP Rx - CXR 04/24: Linear and interstitial opacities are again noted of the mid and lower lung mcgee. No new infiltrates are seen. 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 // Hypernatremia / electrolyte imbalance // DM2 - HbA1c 8.1% // Dementia, h/o CVA // Functional quadriplegia / bedbound // Dysphagia SP PEG // [facility] resident // Negative MRSA, VRE screens // NKDA // Full Code PLAN: - Monitor pt off of ABX for now ( 04/27 SP IV vancomycin, cefepime, flagyl d# ) - f/u final cultures - monitor CBC, temperatures - monitor BMP - monitor CXR - aspiration precautions - wound care Subjective Constitutional: Denies: anorexia, chills, drenching sweats, fatigue, fever, no symptoms, other Allergies: Coded Allergies: No Known Allergies (Unverified , 10/19/15) Subjective Objective Vital Signs Last 24 Hour Vital Signs Date Time Temp Pulse Resp B/P Pulse Ox O2 Delivery O2 Flow Rate FiO2 04/29/16 16:00 97.7 80 22 136/64 100 Non-Rebreather 15.0 04/29/16 14:47 104 20 97 Non-Rebreather 15.0 04/29/16 14:47 106 20 99 Non-Rebreather 15.0 100 04/29/16 12:00 97.6 94 19 109/65 100 Venturi Mask 04/29/16 11:12 103 20 100 Non-Rebreather 15.0 100 04/29/16 11:12 103 20 100 Non-Rebreather 15.0 04/29/16 10:12 112 130/74 04/29/16 10:12 112 04/29/16 08:00 98.1 112 20 130/74 100 Venturi Mask 04/29/16 07:18 Non-Rebreather 15.0 100 04/29/16 07:18 106 22 100 Non-Rebreather 15.0 04/29/16 07:18 100 Non-Rebreather 15.0 100 04/29/16 07:18 104 20 100 Non-Rebreather 15.0 100 04/29/16 04:00 98.2 109 20 122/58 100 Non-Rebreather 15.0 04/29/16 03:17 120 20 98 Non-Rebreather 15.0 100 04/29/16 03:08 112 24 99 Non-Rebreather 15.0 04/29/16 01:18 99.0 04/29/16 01:17 99.0 04/29/16 00:00 101.1 80 20 121/53 100 Non-Rebreather 10.0 04/28/16 23:47 Non-Rebreather 15.0 04/28/16 23:47 125 Non-Rebreather 15.0 04/28/16 21:00 98.0 127 26 136/98 97 Non-Rebreather 10.0 04/28/16 20:30 98.2 136 40 156/76 92 Nasal Cannula 2.0 04/28/16 20:10 133 142/81 04/28/16 20:00 97.6 128 17 136/98 100 Room Air 04/28/16 19:06 Nasal Cannula 3.0 04/28/16 19:05 133 Nasal Cannula 3.0 04/28/16 19:04 94 Nasal Cannula 3.0 32 04/28/16 19:04 Nasal Cannula 3.0 32 Height (Feet): 5 Height (Inches): 7.00 Weight (Pounds): 120 HEENT: anicteric Respiratory/Chest: normal breath sounds Cardiovascular: regular rhythm Abdomen: soft, non tender Microbiology Date/Time Source Procedure Growth Status 04/27/16 14:15 Other(Specify in comment) Catheter Tip Culture - Preliminary NO GROWTH AFTER 48 HOURS Resulted Laboratory Tests Test 04/29/16 09:45 White Blood Count 11.4 K/UL (4.8-10.8) H Red Blood Count 2.90 M/UL (4.70-6.10) L Hemoglobin 9.4 G/DL (14.2-18.0) L Hematocrit 30.0 % (42.0-52.0) L Mean Corpuscular Volume 104 FL (80-99) H Mean Corpuscular Hemoglobin 32.5 PG (27.0-31.0) H Mean Corpuscular Hemoglobin Concent 31.4 G/DL (32.0-36.0) L Red Cell Distribution Width 12.6 % (11.6-14.8) Platelet Count 190 K/UL (150-450) Mean Platelet Volume 7.1 FL (6.5-10.1) Neutrophils (%) (Auto) 84.8 % (45.0-75.0) H Lymphocytes (%) (Auto) 7.5 % (20.0-45.0) L Monocytes (%) (Auto) 6.1 % (1.0-10.0) Eosinophils (%) (Auto) 1.1 % (0.0-3.0) Basophils (%) (Auto) 0.5 % (0.0-2.0) Sodium Level 142 mEQ/L (135-145) Potassium Level 4.2 mEQ/L (3.4-4.9) Chloride Level 100 mEQ/L (98-107) Carbon Dioxide Level 36 mEQ/L (20-30) H Anion Gap 6 (5-15) Blood Urea Nitrogen 9 mg/dL (7-23) Creatinine 0.4 mg/dL (0.7-1.2) L Estimat Glomerular Filtration Rate mL/min (>60) Glucose Level 144 mg/dL (74-106) H Calcium Level 8.2 mg/dL (8.6-10.2) L Current Medications Medications (Trade) Dose Ordered Sig/Joy Route PRN Reason Start Time Stop Time Status Last Admin Dose Admin Acetaminophen (Tylenol) 650 mg Q4H PRN ORAL fever 04/20/16 07:45 05/20/16 07:44 04/29/16 00:12 Albuterol/ Ipratropium (DuoNeb 0.5-3(2.5)mg/3ml) 3 ml Q4H HHN 04/24/16 19:00 04/29/16 18:59 04/29/16 14:47 Aspirin (ASA) 325 mg DAILY GT 04/25/16 09:00 05/25/16 08:59 04/29/16 10:11 Dextrose (D5W 1000ml) 1,000 ml @ 75 mls/hr [id number] IV 04/21/16 12:15 05/21/16 12:14 04/29/16 06:23 Dextrose (Dextrose 50%) STAT PRN IV Hypoglycemia 04/20/16 09:30 05/20/16 09:29 04/27/16 06:04 Digoxin (Lanoxin) 0.125 mg DAILY ORAL 04/20/16 09:00 05/20/16 08:59 04/29/16 10:12 Heparin Sodium (Porcine) (Heparin 5000 units/ml) 5,000 units Q12HR SUBQ 04/27/16 21:00 05/27/16 20:59 04/28/16 20:13 Insulin Aspart (NovoLOG) EVERY 6 HOURS SUBQ 04/22/16 12:00 05/22/16 11:59 04/29/16 17:26 Insulin Detemir (Levemir) 5 units Q12HR@0600,1800 SUBQ 04/27/16 18:00 05/27/16 17:59 04/29/16 17:27 Lactulose (Cephulac) 30 gm DAILYPRN PRN ORAL Constipation 04/20/16 08:00 05/20/16 07:59 Metoprolol Tartrate (Lopressor) 25 mg Q12HR ORAL 04/21/16 21:00 05/21/16 20:59 04/29/16 10:12 Nitroglycerin (Ntg) 0.4 mg Q5MIN X3 DOSES PRN SL Prn Chest Pain 04/20/16 05:45 05/20/16 05:44 Ondansetron HCl (Zofran) 4 mg Q4H PRN IVP Nausea & Vomiting 04/20/16 08:00 05/20/16 07:59 Pantoprazole (Protonix) 40 mg DAILY IVP 04/20/16 09:00 05/20/16 08:59 04/29/16 10:13 Polyethylene Glycol 17 gm 17 gm DAILYPRN PRN ORAL Constipation 04/20/16 07:45 05/20/16 07:44 PAUL FORRESTER M.D. Apr 29, 2016 18:23
[2016-04-29 20:00] VITALS: BP 164/73
--- NOTE | 2016-04-29 22:53 | Pulmonology Progress Note ---
Assessment/Plan Problems: (1) Septic shock (2) Pneumonia (3) ATN (acute tubular necrosis) (4) Diabetes (5) G tube feedings (6) Left hemiparesis (7) CVA (cerebral vascular accident) (8) longterm resident (9) Gastrostomy in place Assessment/Plan sepsis improved H/h unstable poor prognosis, I recommend bioethics about de-escalating the care. pt is already DNR. extremely debilitated, Subjective ROS Limited/Unobtainable: Yes Allergies: Coded Allergies: No Known Allergies (Unverified , 10/19/15) Objective Last 24 Hour Vital Signs Date Time Temp Pulse Resp B/P Pulse Ox O2 Delivery O2 Flow Rate FiO2 04/29/16 20:09 80 136/64 04/29/16 20:00 99.1 139 26 164/73 94 Non-Rebreather 15.0 04/29/16 19:20 85 Non-Rebreather 15.0 100 04/29/16 19:20 Non-Rebreather 15.0 100 04/29/16 16:00 97.7 80 22 136/64 100 Non-Rebreather 15.0 04/29/16 14:47 104 20 97 Non-Rebreather 15.0 04/29/16 14:47 106 20 99 Non-Rebreather 15.0 100 04/29/16 12:00 97.6 94 19 109/65 100 Venturi Mask 04/29/16 11:12 103 20 100 Non-Rebreather 15.0 100 04/29/16 11:12 103 20 100 Non-Rebreather 15.0 04/29/16 10:12 112 130/74 04/29/16 10:12 112 04/29/16 08:00 98.1 112 20 130/74 100 Venturi Mask 04/29/16 07:18 Non-Rebreather 15.0 100 04/29/16 07:18 106 22 100 Non-Rebreather 15.0 04/29/16 07:18 100 Non-Rebreather 15.0 100 04/29/16 07:18 104 20 100 Non-Rebreather 15.0 100 04/29/16 04:00 98.2 109 20 122/58 100 Non-Rebreather 15.0 04/29/16 03:17 120 20 98 Non-Rebreather 15.0 100 04/29/16 03:08 112 24 99 Non-Rebreather 15.0 04/29/16 01:18 99.0 04/29/16 01:17 99.0 04/29/16 00:00 101.1 80 20 121/53 100 Non-Rebreather 10.0 04/28/16 23:47 Non-Rebreather 15.0 04/28/16 23:47 125 Non-Rebreather 15.0 Intake and Output 04/28/16 04/29/16 19:00 07:00 Intake Total 1097.4 ml 1880 ml Output Total 1800 ml 1700 ml Balance -702.6 ml 180 ml Intake Free Water 250 ml IV Total 967.4 ml 850 ml Tube Feeding 130 ml 780 ml Output Urine Total 1800 ml 1700 ml General Appearance: WD/WN HEENT: normocephalic, atraumatic Respiratory/Chest: chest wall non-tender, lungs clear Cardiovascular: normal peripheral pulses, regular rhythm Abdomen: normal bowel sounds Extremities: no cyanosis Neurologic/Psychiatric: hydrogenation still operator II-XII grossly normal Microbiology Date/Time Source Procedure Growth Status 04/27/16 14:15 Other(Specify in comment) Catheter Tip Culture - Preliminary NO GROWTH AFTER 48 HOURS Resulted Laboratory Tests 04/29/16 09:45: White Blood Count 11.4H, Red Blood Count 2.90L, Hemoglobin 9.4L, Hematocrit 30.0L, Mean Corpuscular Volume 104H, Mean Corpuscular Hemoglobin 32.5H, Mean Corpuscular Hemoglobin Concent 31.4L, Red Cell Distribution Width 12.6, Platelet Count 190, Mean Platelet Volume 7.1, Neutrophils (%) (Auto) 84.8H, Lymphocytes (%) (Auto) 7.5L, Monocytes (%) (Auto) 6.1, Eosinophils (%) (Auto) 1.1, Basophils (%) (Auto) 0.5, Sodium Level 142, Potassium Level 4.2, Chloride Level 100, Carbon Dioxide Level 36H, Anion Gap 6, Blood Urea Nitrogen 9, Creatinine 0.4L, Estimat Glomerular Filtration Rate , Glucose Level 144H, Calcium Level 8.2L Current Medications Medications (Trade) Dose Ordered Sig/Joy Route PRN Reason Start Time Stop Time Status Last Admin Dose Admin Acetaminophen (Tylenol) 650 mg Q4H PRN ORAL fever 04/20/16 07:45 05/20/16 07:44 04/29/16 00:12 Aspirin (ASA) 325 mg DAILY GT 04/25/16 09:00 05/25/16 08:59 04/29/16 10:11 Dextrose (D5W 1000ml) 1,000 ml @ 75 mls/hr [id number] IV 04/21/16 12:15 05/21/16 12:14 04/29/16 20:24 Dextrose (Dextrose 50%) STAT PRN IV Hypoglycemia 04/20/16 09:30 05/20/16 09:29 04/27/16 06:04 Digoxin (Lanoxin) 0.125 mg DAILY ORAL 04/20/16 09:00 05/20/16 08:59 04/29/16 10:12 Heparin Sodium (Porcine) (Heparin 5000 units/ml) 5,000 units Q12HR SUBQ 04/27/16 21:00 05/27/16 20:59 04/29/16 20:08 Insulin Aspart (NovoLOG) EVERY 6 HOURS SUBQ 04/22/16 12:00 05/22/16 11:59 04/29/16 17:26 Insulin Detemir (Levemir) 5 units Q12HR@0600,1800 SUBQ 04/27/16 18:00 05/27/16 17:59 04/29/16 17:27 Lactulose (Cephulac) 30 gm DAILYPRN PRN ORAL Constipation 04/20/16 08:00 05/20/16 07:59 Metoprolol Tartrate (Lopressor) 25 mg Q12HR ORAL 04/21/16 21:00 05/21/16 20:59 04/29/16 20:09 Nitroglycerin (Ntg) 0.4 mg Q5MIN X3 DOSES PRN SL Prn Chest Pain 04/20/16 05:45 05/20/16 05:44 Ondansetron HCl (Zofran) 4 mg Q4H PRN IVP Nausea & Vomiting 04/20/16 08:00 05/20/16 07:59 Pantoprazole (Protonix) 40 mg DAILY IVP 04/20/16 09:00 05/20/16 08:59 04/29/16 10:13 Polyethylene Glycol 17 gm 17 gm DAILYPRN PRN ORAL Constipation 04/20/16 07:45 05/20/16 07:44 JAVIER BANKS Apr 29, 2016 22:52
[2016-04-30] VITALS (7 sets, daily range): BP systolic 108–156; BP diastolic 48–85
[2016-04-30] MEDS: NovoLOG Insulin Flexpen SUBQ SCH ×4 (00:11→17:39)
[2016-04-30] MEDS: Levemir Flexpen SUBQ SCH ×2 (05:38→17:38)
[2016-04-30] MEDS: Digoxin 0.125mg tab ORAL SCH (08:42)
[2016-04-30] MEDS: Metoprolol 25mg tab ORAL SCH ×2 (08:43→20:16)
[2016-04-30] MEDS: Pantoprazole Inj IVP SCH (08:43)
[2016-04-30 08:44] LABS: MEAN CORPUSCULAR VOLUME 103 FL (80-99); MEAN PLATELET VOLUME 7.3 FL (6.5-10.1); PLATELET COUNT 185 K/UL (150-450); RED BLOOD COUNT 2.77 M/UL (4.70-6.10); WHITE BLOOD COUNT 11.9 K/UL (4.8-10.8)
[2016-04-30] MEDS: Heparin 5000 units/ml inj SUBQ SCH ×2 (08:46→20:17)
[2016-04-30 09:10] LABS: ANION GAP 4 (5-15); CALCIUM 8.2 mg/dL (8.6-10.2); CARBON DIOXIDE 38 mEQ/L (20-30); CHLORIDE 98 mEQ/L (98-107); CREATININE 0.5 mg/dL (0.7-1.2); HEMOLYSIS 5; POTASSIUM 4.4 mEQ/L (3.4-4.9); SODIUM 140 mEQ/L (135-145)
--- NOTE | 2016-04-30 10:21 | Infectious Diseases Prog Note ---
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 // DM2 - HbA1c 8.1% // Dementia, h/o CVA // Functional quadriplegia / bedbound // Dysphagia SP PEG // [facility] resident // Negative MRSA, VRE screens // NKDA // Full Code PLAN: - IV Zosyn d# 1 ( 04/27 SP IV vancomycin, cefepime, flagyl d# 10 / ) - monitor CBC, temperatures - monitor BMP - monitor CXR :P - aspiration precautions - wound care Subjective Allergies: Coded Allergies: No Known Allergies (Unverified , 10/19/15) Subjective non verbal Objective Vital Signs Last 24 Hour Vital Signs Date Time Temp Pulse Resp B/P Pulse Ox O2 Delivery O2 Flow Rate FiO2 04/30/16 08:43 124 144/64 04/30/16 08:42 124 04/30/16 08:35 63 16 Non-Rebreather 15.0 100 04/30/16 08:35 100 Non-Rebreather 15.0 100 04/30/16 08:35 Non-Rebreather 15.0 100 04/30/16 08:00 97.9 124 20 144/64 100 Venturi Mask 04/30/16 04:00 98.4 64 32 136/69 100 Nasal Cannula 04/30/16 00:00 98.8 121 32 108/48 99 Nasal Cannula 04/29/16 20:09 80 136/64 04/29/16 20:00 99.1 139 26 164/73 94 Non-Rebreather 15.0 04/29/16 19:20 85 Non-Rebreather 15.0 100 04/29/16 19:20 Non-Rebreather 15.0 100 04/29/16 16:00 97.7 80 22 136/64 100 Non-Rebreather 15.0 04/29/16 14:47 104 20 97 Non-Rebreather 15.0 04/29/16 14:47 106 20 99 Non-Rebreather 15.0 100 04/29/16 12:00 97.6 94 19 109/65 100 Venturi Mask 04/29/16 11:12 103 20 100 Non-Rebreather 15.0 100 04/29/16 11:12 103 20 100 Non-Rebreather 15.0 Height (Feet): 5 Height (Inches): 7.00 Weight (Pounds): 120 HEENT: atraumatic Respiratory/Chest: chest wall non-tender, accessory muscle use, crackles/rales Cardiovascular: regular rhythm Abdomen: no organomegaly Neurologic/Psychiatric: no motor/sensory deficits Microbiology Date/Time Source Procedure Growth Status 04/27/16 14:15 Other(Specify in comment) Catheter Tip Culture - Preliminary NO GROWTH AFTER 48 HOURS Resulted Laboratory Tests Test 04/30/16 08:30 White Blood Count 11.9 K/UL (4.8-10.8) H Red Blood Count 2.77 M/UL (4.70-6.10) L Hemoglobin 8.9 G/DL (14.2-18.0) L Hematocrit 28.7 % (42.0-52.0) L Mean Corpuscular Volume 103 FL (80-99) H Mean Corpuscular Hemoglobin 32.0 PG (27.0-31.0) H Mean Corpuscular Hemoglobin Concent 31.0 G/DL (32.0-36.0) L Red Cell Distribution Width 13.0 % (11.6-14.8) Platelet Count 185 K/UL (150-450) Mean Platelet Volume 7.3 FL (6.5-10.1) Neutrophils (%) (Auto) % (45.0-75.0) Lymphocytes (%) (Auto) % (20.0-45.0) Monocytes (%) (Auto) % (1.0-10.0) Eosinophils (%) (Auto) % (0.0-3.0) Basophils (%) (Auto) % (0.0-2.0) Neutrophils % (Manual) Pending Lymphocytes % (Manual) Pending Platelet Estimate Pending Platelet Morphology Pending Sodium Level 140 mEQ/L (135-145) Potassium Level 4.4 mEQ/L (3.4-4.9) Chloride Level 98 mEQ/L (98-107) Carbon Dioxide Level 38 mEQ/L (20-30) H Anion Gap 4 (5-15) L Blood Urea Nitrogen 7 mg/dL (7-23) Creatinine 0.5 mg/dL (0.7-1.2) L Estimat Glomerular Filtration Rate mL/min (>60) Glucose Level 183 mg/dL (74-106) H Calcium Level 8.2 mg/dL (8.6-10.2) L Current Medications Medications (Trade) Dose Ordered Sig/Joy Route PRN Reason Start Time Stop Time Status Last Admin Dose Admin Acetaminophen (Tylenol) 650 mg Q4H PRN ORAL fever 04/20/16 07:45 05/20/16 07:44 04/29/16 00:12 Aspirin (ASA) 325 mg DAILY GT 04/25/16 09:00 05/25/16 08:59 04/30/16 08:42 Dextrose (D5W 1000ml) 1,000 ml @ 75 mls/hr [id number] IV 04/21/16 12:15 05/21/16 12:14 04/29/16 20:24 Dextrose (Dextrose 50%) STAT PRN IV Hypoglycemia 04/20/16 09:30 05/20/16 09:29 04/30/16 05:39 Digoxin (Lanoxin) 0.125 mg DAILY ORAL 04/20/16 09:00 05/20/16 08:59 04/30/16 08:42 Heparin Sodium (Porcine) (Heparin 5000 units/ml) 5,000 units Q12HR SUBQ 04/27/16 21:00 05/27/16 20:59 04/29/16 20:08 Insulin Aspart (NovoLOG) EVERY 6 HOURS SUBQ 04/22/16 12:00 05/22/16 11:59 04/30/16 00:11 Insulin Detemir (Levemir) 5 units Q12HR@0600,1800 SUBQ 04/27/16 18:00 05/27/16 17:59 04/29/16 17:27 Lactulose (Cephulac) 30 gm DAILYPRN PRN ORAL Constipation 04/20/16 08:00 05/20/16 07:59 Metoprolol Tartrate (Lopressor) 25 mg Q12HR ORAL 04/21/16 21:00 05/21/16 20:59 04/30/16 08:43 Nitroglycerin (Ntg) 0.4 mg Q5MIN X3 DOSES PRN SL Prn Chest Pain 04/20/16 05:45 05/20/16 05:44 Ondansetron HCl (Zofran) 4 mg Q4H PRN IVP Nausea & Vomiting 04/20/16 08:00 05/20/16 07:59 Pantoprazole (Protonix) 40 mg DAILY IVP 04/20/16 09:00 05/20/16 08:59 04/30/16 08:43 Polyethylene Glycol 17 gm 17 gm DAILYPRN PRN ORAL Constipation 04/20/16 07:45 05/20/16 07:44 PAUL FORRESTER M.D. Apr 30, 2016 10:21
[2016-04-30 11:38] LABS: BAND NEUTROPHILS % (MANUAL) 5 % (0-8); BASOPHILS % (MANUAL) 0 % (0-2); EOSINOPHILS % (MANUAL) 1 % (0-3); LYMPHOCYTES % (MANUAL) 3 % (20-45); NEUTROPHILS % (MANUAL) 85 % (45-75); PLATELET ESTIMATE ADEQUATE; PLATELET MORPHOLOGY NORMAL; TOTAL CELLS COUNTED 100
[2016-04-30 11:40] LABS: HYPOCHROMASIA 1+; MACROCYTES 1+
--- NOTE | 2016-04-30 12:37 | General Progress Note ---
Assessment/Plan Status: stable - from renal stand Assessment/Plan status: Acute Renal failure- due to sepsis and shock & Dehydration and volume depletion component- and HyperNatremia ALL IMPROVED Other: -CVA (cerebral vascular accident) -Diabetes -G tube feedings -Left hemiparesis Plan: Hydrate- Antibiotics- Monitor renal parameters- Avoid Nephrotoxics- per orders- ? transfusion? Subjective ROS Limited/Unobtainable: No Constitutional: Reports: malaise, weakness Allergies: Coded Allergies: No Known Allergies (Unverified , 10/19/15) Objective Last 24 Hour Vital Signs Date Time Temp Pulse Resp B/P Pulse Ox O2 Delivery O2 Flow Rate FiO2 04/30/16 12:00 97.7 117 20 133/61 100 Venturi Mask 04/30/16 08:43 124 144/64 04/30/16 08:42 124 04/30/16 08:35 63 16 Non-Rebreather 15.0 100 04/30/16 08:35 100 Non-Rebreather 15.0 100 04/30/16 08:35 Non-Rebreather 15.0 100 04/30/16 08:00 97.9 124 20 144/64 100 Venturi Mask 04/30/16 04:00 98.4 64 32 136/69 100 Nasal Cannula 04/30/16 00:00 98.8 121 32 108/48 99 Nasal Cannula 04/29/16 20:09 80 136/64 04/29/16 20:00 99.1 139 26 164/73 94 Non-Rebreather 15.0 04/29/16 19:20 85 Non-Rebreather 15.0 100 04/29/16 19:20 Non-Rebreather 15.0 100 04/29/16 16:00 97.7 80 22 136/64 100 Non-Rebreather 15.0 04/29/16 14:47 104 20 97 Non-Rebreather 15.0 04/29/16 14:47 106 20 99 Non-Rebreather 15.0 100 Intake and Output 04/29/16 04/30/16 19:00 07:00 Intake Total 1265 ml 1510 ml Output Total 950 ml 400 ml Balance 315 ml 1110 ml Intake Free Water 250 ml 250 ml IV Total 300 ml 675 ml Tube Feeding 715 ml 585 ml Output Urine Total 950 ml 400 ml Laboratory Tests 04/30/16 08:30: White Blood Count 11.9H, Red Blood Count 2.77L, Hemoglobin 8.9L, Hematocrit 28.7L, Mean Corpuscular Volume 103H, Mean Corpuscular Hemoglobin 32.0H, Mean Corpuscular Hemoglobin Concent 31.0L, Red Cell Distribution Width 13.0, Platelet Count 185, Mean Platelet Volume 7.3, Neutrophils (%) (Auto) , Lymphocytes (%) (Auto) , Monocytes (%) (Auto) , Eosinophils (%) (Auto) , Basophils (%) (Auto) , Differential Total Cells Counted 100, Neutrophils % ( Manual) 85H, Lymphocytes % (Manual) 3L, Monocytes % (Manual) 6, Eosinophils % ( Manual) 1, Basophils % (Manual) 0, Band Neutrophils 5, Platelet Estimate Adequate, Platelet Morphology Normal, Hypochromasia 1+, Macrocytosis 1+, Sodium Level 140, Potassium Level 4.4, Chloride Level 98, Carbon Dioxide Level 38H, Anion Gap 4L, Blood Urea Nitrogen 7, Creatinine 0.5L, Estimat Glomerular Filtration Rate , Glucose Level 183H, Calcium Level 8.2L Height (Feet): 5 Height (Inches): 7.00 Weight (Pounds): 120 General Appearance: no apparent distress Neck: stiff neck Cardiovascular: tachycardia Respiratory/Chest: decreased breath sounds Abdomen: soft Objective no change in PE CRISTY MADDOX Apr 30, 2016 12:37
[2016-04-30] MEDS: Piperacillin/Tazobactam 3.375 GM in D5W 110 ML IVPB SCH ×2 (13:35→21:17)
[2016-04-30] MEDS ORDERED: NS 275ml ONE (16:47)
[2016-04-30] MEDS ORDERED: Tubing Blood Filter IV ONE (16:47)
[2016-04-30] MEDS ORDERED: Tubing IV Secondary IV ONE (16:47)
--- NOTE | 2016-04-30 16:50 | Internal Med Progress Note ---
Subjective Date of Service: Apr 30, 2016 Physician Name Marco Olvera Attending Physician Adalid Izaguirre MD Current Medications Medications (Trade) Dose Ordered Sig/Joy Route PRN Reason Start Time Stop Time Status Last Admin Dose Admin Acetaminophen (Tylenol) 650 mg Q4H PRN ORAL fever 04/20/16 07:45 05/20/16 07:44 04/29/16 00:12 Aspirin (ASA) 325 mg DAILY GT 04/25/16 09:00 05/25/16 08:59 04/30/16 08:42 Dextrose (D5W 1000ml) 1,000 ml @ 75 mls/hr [id number] IV 04/21/16 12:15 05/21/16 12:14 04/30/16 12:42 Dextrose (Dextrose 50%) STAT PRN IV Hypoglycemia 04/20/16 09:30 05/20/16 09:29 04/30/16 05:39 Digoxin (Lanoxin) 0.125 mg DAILY ORAL 04/20/16 09:00 05/20/16 08:59 04/30/16 08:42 Heparin Sodium (Porcine) 5000 units 5,000 units Q12HR SUBQ 04/27/16 21:00 05/27/16 20:59 04/29/16 20:08 Insulin Aspart (NovoLOG) EVERY 6 HOURS SUBQ 04/22/16 12:00 05/22/16 11:59 04/30/16 11:41 Insulin Detemir (Levemir) 5 units Q12HR@0600,1800 SUBQ 04/27/16 18:00 05/27/16 17:59 04/29/16 17:27 Lactulose (Cephulac) 30 gm DAILYPRN PRN ORAL Constipation 04/20/16 08:00 05/20/16 07:59 Metoprolol Tartrate (Lopressor) 25 mg Q12HR ORAL 04/21/16 21:00 05/21/16 20:59 04/30/16 08:43 Nitroglycerin (Ntg) 0.4 mg Q5MIN X3 DOSES PRN SL Prn Chest Pain 04/20/16 05:45 05/20/16 05:44 Ondansetron HCl (Zofran) 4 mg Q4H PRN IVP Nausea & Vomiting 04/20/16 08:00 05/20/16 07:59 Pantoprazole (Protonix) 40 mg DAILY IVP 04/20/16 09:00 05/20/16 08:59 04/30/16 08:43 Piperacillin Sod/ Tazobactam Sod/ Dextrose (Zosyn/D5W) 110 ml @ 27.5 mls/hr Q8HR IVPB 04/30/16 13:30 05/07/16 13:29 04/30/16 13:35 Polyethylene Glycol 17 gm 17 gm DAILYPRN PRN ORAL Constipation 04/20/16 07:45 05/20/16 07:44 Allergies: Coded Allergies: No Known Allergies (Unverified , 10/19/15) ROS Limited/Unobtainable: Yes Subjective 75 YO M admitted with fever, now with pneumonia. Cover for Int Med-Dr Izaguirre. Failed venturi mask; back on non-rebreather. Await hospice eval-see soc work note. Objective Last Vital Signs Date Time Temp Pulse Resp B/P Pulse Ox O2 Delivery O2 Flow Rate FiO2 04/30/16 16:00 99.7 131 26 149/70 96 Non-Rebreather 15.0 04/30/16 08:35 100 Laboratory Tests Test 04/30/16 08:30 White Blood Count 11.9 K/UL (4.8-10.8) H Red Blood Count 2.77 M/UL (4.70-6.10) L Hemoglobin 8.9 G/DL (14.2-18.0) L Hematocrit 28.7 % (42.0-52.0) L Mean Corpuscular Volume 103 FL (80-99) H Mean Corpuscular Hemoglobin 32.0 PG (27.0-31.0) H Mean Corpuscular Hemoglobin Concent 31.0 G/DL (32.0-36.0) L Red Cell Distribution Width 13.0 % (11.6-14.8) Platelet Count 185 K/UL (150-450) Mean Platelet Volume 7.3 FL (6.5-10.1) Neutrophils (%) (Auto) % (45.0-75.0) Lymphocytes (%) (Auto) % (20.0-45.0) Monocytes (%) (Auto) % (1.0-10.0) Eosinophils (%) (Auto) % (0.0-3.0) Basophils (%) (Auto) % (0.0-2.0) Differential Total Cells Counted 100 Neutrophils % (Manual) 85 % (45-75) H Lymphocytes % (Manual) 3 % (20-45) L Monocytes % (Manual) 6 % (1-10) Eosinophils % (Manual) 1 % (0-3) Basophils % (Manual) 0 % (0-2) Band Neutrophils 5 % (0-8) Platelet Estimate Adequate Platelet Morphology Normal Hypochromasia 1+ Macrocytosis 1+ Sodium Level 140 mEQ/L (135-145) Potassium Level 4.4 mEQ/L (3.4-4.9) Chloride Level 98 mEQ/L (98-107) Carbon Dioxide Level 38 mEQ/L (20-30) H Anion Gap 4 (5-15) L Blood Urea Nitrogen 7 mg/dL (7-23) Creatinine 0.5 mg/dL (0.7-1.2) L Estimat Glomerular Filtration Rate mL/min (>60) Glucose Level 183 mg/dL (74-106) H Calcium Level 8.2 mg/dL (8.6-10.2) L Intake and Output 04/29/16 04/30/16 19:00 07:00 Intake Total 1265 ml 1510 ml Output Total 950 ml 400 ml Balance 315 ml 1110 ml Intake Free Water 250 ml 250 ml IV Total 300 ml 675 ml Tube Feeding 715 ml 585 ml Output Urine Total 950 ml 400 ml Objective General Appearance: lethargic, thin EENT: normal ENT inspection Neck: non-tender, normal alignment, supple Cardiovascular: normal peripheral pulses, normal rate, regular rhythm, no gallop/murmur, no JVD Respiratory/Chest: Non-rebreatherchest wall non-tender, crackles/rales, rhonchi - bilaterally, expiratory wheezing Abdomen: normal bowel sounds, non tender, soft, no organomegaly, no mass Skin: normal pigmentation, warm/dry Assessment/Plan Problem List: (1) Leukocytosis (2) Pemphigus Assessment & Plan: D/C chronic prednisone therapy per nephrology. (3) Sepsis Assessment & Plan: Coag neg staph. See ID note. D/C vanco and cefepime. Culture PICC line tip per ID (4) Cerebral vascular disease (5) Hemiplegia affecting left nondominant side (6) Aphasia as late effect of cerebrovascular accident (7) Atrial fibrillation Assessment & Plan: Cont novolog; D/C levemir. See endocrinology note. (8) Hypertension (9) Diabetes mellitus (10) Dysphagia as late effect of cerebrovascular accident (CVA) (11) Pneumonia Assessment & Plan: ?aspiration? Repeat chest xray=no new infiltrates. See pulmonary note. D/C vanco and cefepime per ID (12) G tube feedings (13) Atrial fibrillation and flutter (14) Septic shock (15) Hypernatremia Assessment & Plan: See nephrology note. (16) Anemia Assessment & Plan: S/P transfusion 1 unit PRBC on 04/26/16. (17) Respiratory failure Assessment & Plan: worsening; on non-rebreather Status: not improved Assessment/Plan Prognosis is guarded. MARCO OLVERA Apr 30, 2016 16:50
--- NOTE | 2016-04-30 17:36 | Pulmonology Progress Note ---
Assessment/Plan Problems: (1) Septic shock (2) Pneumonia (3) ATN (acute tubular necrosis) (4) Diabetes (5) G tube feedings (6) Left hemiparesis (7) CVA (cerebral vascular accident) (8) long term resident (9) Gastrostomy in place Assessment/Plan sepsis improved H/h unstable poor prognosis, contnue antibiotics check cultures wound care f/w wbc, and cultures and electrolytes all notes reviewed SW in contact with pts family about plan of care. Subjective ROS Limited/Unobtainable: No Allergies: Coded Allergies: No Known Allergies (Unverified , 10/19/15) Objective Last 24 Hour Vital Signs Date Time Temp Pulse Resp B/P Pulse Ox O2 Delivery O2 Flow Rate FiO2 04/30/16 16:00 99.7 131 26 149/70 96 Non-Rebreather 15.0 04/30/16 12:00 97.7 117 20 133/61 100 Venturi Mask 04/30/16 08:43 124 144/64 04/30/16 08:42 124 04/30/16 08:35 63 16 Non-Rebreather 15.0 100 04/30/16 08:35 100 Non-Rebreather 15.0 100 04/30/16 08:35 Non-Rebreather 15.0 100 04/30/16 08:00 97.9 124 20 144/64 100 Venturi Mask 04/30/16 04:00 98.4 64 32 136/69 100 Nasal Cannula 04/30/16 00:00 98.8 121 32 108/48 99 Nasal Cannula 04/29/16 20:09 80 136/64 04/29/16 20:00 99.1 139 26 164/73 94 Non-Rebreather 15.0 04/29/16 19:20 85 Non-Rebreather 15.0 100 04/29/16 19:20 Non-Rebreather 15.0 100 Intake and Output 04/29/16 04/30/16 19:00 07:00 Intake Total 1265 ml 1510 ml Output Total 950 ml 400 ml Balance 315 ml 1110 ml Intake Free Water 250 ml 250 ml IV Total 300 ml 675 ml Tube Feeding 715 ml 585 ml Output Urine Total 950 ml 400 ml General Appearance: WD/WN HEENT: normocephalic, atraumatic Respiratory/Chest: chest wall non-tender, lungs clear Abdomen: normal bowel sounds, soft, non tender Genitourinary: normal external genitalia Extremities: no cyanosis Neurologic/Psychiatric: placer miner II-XII grossly normal Laboratory Tests 04/30/16 08:30: White Blood Count 11.9H, Red Blood Count 2.77L, Hemoglobin 8.9L, Hematocrit 28.7L, Mean Corpuscular Volume 103H, Mean Corpuscular Hemoglobin 32.0H, Mean Corpuscular Hemoglobin Concent 31.0L, Red Cell Distribution Width 13.0, Platelet Count 185, Mean Platelet Volume 7.3, Neutrophils (%) (Auto) , Lymphocytes (%) (Auto) , Monocytes (%) (Auto) , Eosinophils (%) (Auto) , Basophils (%) (Auto) , Differential Total Cells Counted 100, Neutrophils % ( Manual) 85H, Lymphocytes % (Manual) 3L, Monocytes % (Manual) 6, Eosinophils % ( Manual) 1, Basophils % (Manual) 0, Band Neutrophils 5, Platelet Estimate Adequate, Platelet Morphology Normal, Hypochromasia 1+, Macrocytosis 1+, Sodium Level 140, Potassium Level 4.4, Chloride Level 98, Carbon Dioxide Level 38H, Anion Gap 4L, Blood Urea Nitrogen 7, Creatinine 0.5L, Estimat Glomerular Filtration Rate , Glucose Level 183H, Calcium Level 8.2L Current Medications Medications (Trade) Dose Ordered Sig/Joy Route PRN Reason Start Time Stop Time Status Last Admin Dose Admin Acetaminophen (Tylenol) 650 mg Q4H PRN ORAL fever 04/20/16 07:45 05/20/16 07:44 04/29/16 00:12 Aspirin (ASA) 325 mg DAILY GT 04/25/16 09:00 05/25/16 08:59 04/30/16 08:42 Dextrose (D5W 1000ml) 1,000 ml @ 75 mls/hr [id number] IV 04/21/16 12:15 05/21/16 12:14 04/30/16 12:42 Dextrose (Dextrose 50%) STAT PRN IV Hypoglycemia 04/20/16 09:30 05/20/16 09:29 04/30/16 05:39 Digoxin (Lanoxin) 0.125 mg DAILY ORAL 04/20/16 09:00 05/20/16 08:59 04/30/16 08:42 Heparin Sodium (Porcine) 5000 units 5,000 units Q12HR SUBQ 04/27/16 21:00 05/27/16 20:59 04/29/16 20:08 Insulin Aspart (NovoLOG) EVERY 6 HOURS SUBQ 04/22/16 12:00 05/22/16 11:59 04/30/16 11:41 Insulin Detemir (Levemir) 5 units Q12HR@0600,1800 SUBQ 04/27/16 18:00 05/27/16 17:59 04/29/16 17:27 Lactulose (Cephulac) 30 gm DAILYPRN PRN ORAL Constipation 04/20/16 08:00 05/20/16 07:59 Metoprolol Tartrate (Lopressor) 25 mg Q12HR ORAL 04/21/16 21:00 05/21/16 20:59 04/30/16 08:43 Nitroglycerin (Ntg) 0.4 mg Q5MIN X3 DOSES PRN SL Prn Chest Pain 04/20/16 05:45 05/20/16 05:44 Ondansetron HCl (Zofran) 4 mg Q4H PRN IVP Nausea & Vomiting 04/20/16 08:00 05/20/16 07:59 Pantoprazole (Protonix) 40 mg DAILY IVP 04/20/16 09:00 05/20/16 08:59 04/30/16 08:43 Piperacillin Sod/ Tazobactam Sod/ Dextrose (Zosyn/D5W) 110 ml @ 27.5 mls/hr Q8HR IVPB 04/30/16 13:30 05/07/16 13:29 04/30/16 13:35 Polyethylene Glycol 17 gm 17 gm DAILYPRN PRN ORAL Constipation 04/20/16 07:45 05/20/16 07:44 JAVIER BANKS Apr 30, 2016 17:36
--- NOTE | 2016-04-30 17:43 | Cardiac Electrophysiology PN ---
Assessment/Plan Assessment/Plan 1. Atrial fibrillation with rapid ventricular response.Continue digoxin 0.125 mg and Lopressor 25 bid. 2. Broad-spectrum sepsis. On vancomycin and cefepime 3. Severe hypernatremia. 4. Dysphagia, status post PEG placement. 5. Dementia with functional quadriplegia. RICHARD RN Subjective Subjective Nonverbal on IV antibiotics with no events Objective Last 24 Hour Vital Signs Date Time Temp Pulse Resp B/P Pulse Ox O2 Delivery O2 Flow Rate FiO2 04/30/16 16:00 99.7 131 26 149/70 96 Non-Rebreather 15.0 04/30/16 12:00 97.7 117 20 133/61 100 Venturi Mask 04/30/16 08:43 124 144/64 04/30/16 08:42 124 04/30/16 08:35 63 16 Non-Rebreather 15.0 100 04/30/16 08:35 100 Non-Rebreather 15.0 100 04/30/16 08:35 Non-Rebreather 15.0 100 04/30/16 08:00 97.9 124 20 144/64 100 Venturi Mask 04/30/16 04:00 98.4 64 32 136/69 100 Nasal Cannula 04/30/16 00:00 98.8 121 32 108/48 99 Nasal Cannula 04/29/16 20:09 80 136/64 04/29/16 20:00 99.1 139 26 164/73 94 Non-Rebreather 15.0 04/29/16 19:20 85 Non-Rebreather 15.0 100 04/29/16 19:20 Non-Rebreather 15.0 100 Intake and Output 04/29/16 04/30/16 19:00 07:00 Intake Total 1265 ml 1510 ml Output Total 950 ml 400 ml Balance 315 ml 1110 ml Intake Free Water 250 ml 250 ml IV Total 300 ml 675 ml Tube Feeding 715 ml 585 ml Output Urine Total 950 ml 400 ml Laboratory Tests Test 04/30/16 08:30 White Blood Count 11.9 K/UL (4.8-10.8) H Red Blood Count 2.77 M/UL (4.70-6.10) L Hemoglobin 8.9 G/DL (14.2-18.0) L Hematocrit 28.7 % (42.0-52.0) L Mean Corpuscular Volume 103 FL (80-99) H Mean Corpuscular Hemoglobin 32.0 PG (27.0-31.0) H Mean Corpuscular Hemoglobin Concent 31.0 G/DL (32.0-36.0) L Red Cell Distribution Width 13.0 % (11.6-14.8) Platelet Count 185 K/UL (150-450) Mean Platelet Volume 7.3 FL (6.5-10.1) Neutrophils (%) (Auto) % (45.0-75.0) Lymphocytes (%) (Auto) % (20.0-45.0) Monocytes (%) (Auto) % (1.0-10.0) Eosinophils (%) (Auto) % (0.0-3.0) Basophils (%) (Auto) % (0.0-2.0) Differential Total Cells Counted 100 Neutrophils % (Manual) 85 % (45-75) H Lymphocytes % (Manual) 3 % (20-45) L Monocytes % (Manual) 6 % (1-10) Eosinophils % (Manual) 1 % (0-3) Basophils % (Manual) 0 % (0-2) Band Neutrophils 5 % (0-8) Platelet Estimate Adequate Platelet Morphology Normal Hypochromasia 1+ Macrocytosis 1+ Sodium Level 140 mEQ/L (135-145) Potassium Level 4.4 mEQ/L (3.4-4.9) Chloride Level 98 mEQ/L (98-107) Carbon Dioxide Level 38 mEQ/L (20-30) H Anion Gap 4 (5-15) L Blood Urea Nitrogen 7 mg/dL (7-23) Creatinine 0.5 mg/dL (0.7-1.2) L Estimat Glomerular Filtration Rate mL/min (>60) Glucose Level 183 mg/dL (74-106) H Calcium Level 8.2 mg/dL (8.6-10.2) L Objective HEENT: No JVD. LUNGS: Clear CARDIOVASCULAR: Nl S1,S2 with no gallop or murmur. ABDOMEN: G-tube intact EXTREMITIES: Lower extremities contracted with multiple ulcers. HERLINDA BURNETT Apr 30, 2016 17:43
[2016-04-30] MEDS ORDERED: Morphine Sulfate 2mg/ml Inj IV PRN (20:15)
--- NOTE | 2016-04-30 21:18 | Geriatric Medicine Prog Note ---
POOR AUDIO QUALITY SUBJECTIVE: The patient appears more comfortable today. OBJECTIVE: VITAL SIGNS: Blood pressure 126/54, pulse 70, respiratory rate 20, temperature . LABORATORY DATA: PLAN: q. 6h. Eddie Dean M.D. DR: SEYMOUR JOB#: [id number] CC:
[2016-05-01] VITALS: BP 144/73
[2016-05-01] MEDS: NovoLOG Insulin Flexpen SUBQ SCH ×4 (00:38→18:25)
[2016-05-01 04:00] VITALS: BP 152/88
[2016-05-01] MEDS: Piperacillin/Tazobactam 3.375 GM in D5W 110 ML IVPB SCH ×3 (06:37→21:41)
[2016-05-01] MEDS: Levemir Flexpen SUBQ SCH ×2 (06:40→18:26)
[2016-05-01 08:00] VITALS: BP 120/60
[2016-05-01] MEDS: Heparin 5000 units/ml inj SUBQ SCH ×2 (09:00→21:46)
--- NOTE | 2016-05-01 09:09 | Infectious Diseases Prog Note ---
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 // DM2 - HbA1c 8.1% // Dementia, h/o CVA // Functional quadriplegia / bedbound // Dysphagia SP PEG // [facility] resident // Negative MRSA, VRE screens // NKDA // Full Code PLAN: - IV Zosyn d# 2 ( 04/27 SP IV vancomycin, cefepime, flagyl d# / ) - monitor CBC, temperatures - monitor BMP - monitor CXR :P - aspiration precautions - wound care - Panculture Subjective Constitutional: Denies: anorexia, chills, drenching sweats, fatigue, fever, no symptoms, other Allergies: Coded Allergies: No Known Allergies (Unverified , 10/19/15) Subjective non verbal Objective Vital Signs Last 24 Hour Vital Signs Date Time Temp Pulse Resp B/P Pulse Ox O2 Delivery O2 Flow Rate FiO2 05/01/16 08:00 97.9 113 20 120/60 100 Venturi Mask 05/01/16 04:00 98.1 130 28 152/88 99 Non-Rebreather 05/01/16 00:00 97.9 132 28 144/73 100 Non-Rebreather 04/30/16 21:51 101.5 04/30/16 21:00 101.5 130 28 150/80 98 Non-Rebreather 15.0 04/30/16 20:45 101.5 04/30/16 20:16 131 149/70 04/30/16 20:00 101.8 140 30 156/85 100 Non-Rebreather 15.0 04/30/16 20:00 101.8 158 28 156/85 90 Non-Rebreather 15.0 04/30/16 19:38 Non-Rebreather 15.0 100 04/30/16 19:38 96 Non-Rebreather 15.0 100 04/30/16 16:00 99.7 131 26 149/70 96 Non-Rebreather 15.0 04/30/16 12:00 97.7 117 20 133/61 100 Venturi Mask Height (Feet): 5 Height (Inches): 7.00 Weight (Pounds): 120 HEENT: atraumatic Respiratory/Chest: lungs clear, no respiratory distress Cardiovascular: regularly irregular Abdomen: no organomegaly Current Medications Medications (Trade) Dose Ordered Sig/Joy Route PRN Reason Start Time Stop Time Status Last Admin Dose Admin Acetaminophen (Tylenol) 650 mg Q4H PRN ORAL fever 04/20/16 07:45 05/20/16 07:44 04/30/16 20:52 Aspirin (ASA) 325 mg DAILY GT 04/25/16 09:00 05/25/16 08:59 04/30/16 08:42 Dextrose (D5W 1000ml) 1,000 ml @ 75 mls/hr [id number] IV 04/21/16 12:15 05/21/16 12:14 04/30/16 12:42 Dextrose (Dextrose 50%) STAT PRN IV Hypoglycemia 04/20/16 09:30 05/20/16 09:29 04/30/16 05:39 Digoxin (Lanoxin) 0.125 mg DAILY ORAL 04/20/16 09:00 05/20/16 08:59 04/30/16 08:42 Heparin Sodium (Porcine) 5000 units 5,000 units Q12HR SUBQ 04/27/16 21:00 05/27/16 20:59 04/30/16 20:17 Insulin Aspart (NovoLOG) EVERY 6 HOURS SUBQ 04/22/16 12:00 05/22/16 11:59 05/01/16 06:39 Insulin Detemir (Levemir) 5 units Q12HR@0600,1800 SUBQ 04/27/16 18:00 05/27/16 17:59 05/01/16 06:40 Lactulose (Cephulac) 30 gm DAILYPRN PRN ORAL Constipation 04/20/16 08:00 05/20/16 07:59 Metoprolol Tartrate (Lopressor) 25 mg Q12HR ORAL 04/21/16 21:00 05/21/16 20:59 04/30/16 20:16 Morphine Sulfate (Morphine Sulfate) 2 mg Q4H PRN IV For Pain 04/30/16 20:15 05/07/16 20:14 04/30/16 20:15 Nitroglycerin (Ntg) 0.4 mg Q5MIN X3 DOSES PRN SL Prn Chest Pain 04/20/16 05:45 05/20/16 05:44 Ondansetron HCl (Zofran) 4 mg Q4H PRN IVP Nausea & Vomiting 04/20/16 08:00 05/20/16 07:59 Pantoprazole (Protonix) 40 mg DAILY IVP 04/20/16 09:00 05/20/16 08:59 04/30/16 08:43 Piperacillin Sod/ Tazobactam Sod/ Dextrose (Zosyn/D5W) 110 ml @ 27.5 mls/hr Q8HR IVPB 04/30/16 13:30 05/07/16 13:29 05/01/16 06:37 Polyethylene Glycol 17 gm 17 gm DAILYPRN PRN ORAL Constipation 04/20/16 07:45 05/20/16 07:44 PAUL FORRESTER M.D. May 01, 2016 09:09
[2016-05-01] MEDS: Digoxin 0.125mg tab ORAL SCH (09:56)
[2016-05-01] MEDS: Metoprolol 25mg tab ORAL SCH ×2 (09:56→21:00)
[2016-05-01] MEDS: Pantoprazole Inj IVP SCH (09:58)
--- NOTE | 2016-05-01 10:03 | Diagnostic Imaging Report ---
Indication: Shortness of breath Technique: One view of the chest Comparison: 04/24/2016 Findings: Reticular opacities are seen in the left midlung, may reflect some acute consolidation that was not evident previously. Generalized interstitial prominence is similar to the prior exam and is likely chronic Impression: Suspect some acute parenchymal disease in the left midlung, new since 04/24/2016
[2016-05-01 12:00] VITALS: BP 103/54
--- NOTE | 2016-05-01 14:09 | General Progress Note ---
Assessment/Plan Status: stable - from renal stand, unchanged Assessment/Plan status: Acute Renal failure- due to sepsis and shock & Dehydration and volume depletion component- and HyperNatremia ALL IMPROVED Other: -CVA (cerebral vascular accident) -Diabetes -G tube feedings -Left hemiparesis Plan: Hydrate- Antibiotics- Monitor renal parameters- Avoid Nephrotoxics- per orders- ? transfusion? Subjective ROS Limited/Unobtainable: Yes Allergies: Coded Allergies: No Known Allergies (Unverified , 10/19/15) Objective Last 24 Hour Vital Signs Date Time Temp Pulse Resp B/P Pulse Ox O2 Delivery O2 Flow Rate FiO2 05/01/16 12:00 98.5 110 18 103/54 92 Venturi Mask 05/01/16 09:56 113 120/60 05/01/16 09:56 113 05/01/16 08:00 97.9 113 20 120/60 100 Venturi Mask 05/01/16 04:00 98.1 130 28 152/88 99 Non-Rebreather 05/01/16 00:00 97.9 132 28 144/73 100 Non-Rebreather 04/30/16 21:51 101.5 04/30/16 21:00 101.5 130 28 150/80 98 Non-Rebreather 15.0 04/30/16 20:45 101.5 04/30/16 20:16 131 149/70 04/30/16 20:00 101.8 140 30 156/85 100 Non-Rebreather 15.0 04/30/16 20:00 101.8 158 28 156/85 90 Non-Rebreather 15.0 04/30/16 19:38 Non-Rebreather 15.0 100 04/30/16 19:38 96 Non-Rebreather 15.0 100 04/30/16 16:00 99.7 131 26 149/70 96 Non-Rebreather 15.0 Intake and Output 04/30/16 05/01/16 19:00 07:00 Intake Total 1190 ml Output Total 300 ml 600 ml Balance 890 ml -600 ml Intake Free Water 250 ml IV Total 225 ml Tube Feeding 715 ml Output Urine Total 300 ml 600 ml Height (Feet): 5 Height (Inches): 7.00 Weight (Pounds): 120 General Appearance: mild distress Neck: stiff neck Respiratory/Chest: decreased breath sounds, rhonchi - bilaterally Abdomen: distended Objective no change in PE CRISTY MADDOX May 01, 2016 14:09
--- NOTE | 2016-05-01 15:56 | Pulmonology Progress Note ---
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 Use morphon prn for dyspnea Subjective ROS Limited/Unobtainable: No Interval Events: slightly more dyspnic Allergies: Coded Allergies: No Known Allergies (Unverified , 10/19/15) Objective Last 24 Hour Vital Signs Date Time Temp Pulse Resp B/P Pulse Ox O2 Delivery O2 Flow Rate FiO2 05/01/16 12:00 98.5 110 18 103/54 92 Venturi Mask 05/01/16 09:56 113 120/60 05/01/16 09:56 113 05/01/16 08:00 97.9 113 20 120/60 100 Venturi Mask 05/01/16 04:00 98.1 130 28 152/88 99 Non-Rebreather 05/01/16 00:00 97.9 132 28 144/73 100 Non-Rebreather 04/30/16 21:51 101.5 04/30/16 21:00 101.5 130 28 150/80 98 Non-Rebreather 15.0 04/30/16 20:45 101.5 04/30/16 20:16 131 149/70 04/30/16 20:00 101.8 140 30 156/85 100 Non-Rebreather 15.0 04/30/16 20:00 101.8 158 28 156/85 90 Non-Rebreather 15.0 04/30/16 19:38 Non-Rebreather 15.0 100 04/30/16 19:38 96 Non-Rebreather 15.0 100 04/30/16 16:00 99.7 131 26 149/70 96 Non-Rebreather 15.0 Intake and Output 04/30/16 05/01/16 19:00 07:00 Intake Total 1190 ml 65 ml Output Total 300 ml 600 ml Balance 890 ml -535 ml Intake Free Water 250 ml IV Total 225 ml Tube Feeding 715 ml 65 ml Output Urine Total 300 ml 600 ml General Appearance: WD/WN HEENT: normocephalic, atraumatic Respiratory/Chest: chest wall non-tender, normal breath sounds Cardiovascular: normal peripheral pulses, normal rate Extremities: no clubbing Neurologic/Psychiatric: fbi special agent II-XII grossly normal, no motor/sensory deficits Current Medications Medications (Trade) Dose Ordered Sig/Joy Route PRN Reason Start Time Stop Time Status Last Admin Dose Admin Acetaminophen (Tylenol) 650 mg Q4H PRN ORAL fever 04/20/16 07:45 05/20/16 07:44 04/30/16 20:52 Aspirin (ASA) 325 mg DAILY GT 04/25/16 09:00 05/25/16 08:59 05/01/16 09:55 Dextrose (D5W 1000ml) 1,000 ml @ 75 mls/hr [id number] IV 04/21/16 12:15 05/21/16 12:14 05/01/16 12:45 Dextrose (Dextrose 50%) STAT PRN IV Hypoglycemia 04/20/16 09:30 05/20/16 09:29 04/30/16 05:39 Digoxin (Lanoxin) 0.125 mg DAILY ORAL 04/20/16 09:00 05/20/16 08:59 05/01/16 09:56 Heparin Sodium (Porcine) 5000 units 5,000 units Q12HR SUBQ 04/27/16 21:00 05/27/16 20:59 04/30/16 20:17 Insulin Aspart (NovoLOG) EVERY 6 HOURS SUBQ 04/22/16 12:00 05/22/16 11:59 05/01/16 12:44 Insulin Detemir (Levemir) 5 units Q12HR@0600,1800 SUBQ 04/27/16 18:00 05/27/16 17:59 05/01/16 06:40 Lactulose (Cephulac) 30 gm DAILYPRN PRN ORAL Constipation 04/20/16 08:00 05/20/16 07:59 Metoprolol Tartrate (Lopressor) 25 mg Q12HR ORAL 04/21/16 21:00 05/21/16 20:59 05/01/16 09:56 Morphine Sulfate (Morphine Sulfate) 2 mg Q4H PRN IV For Pain 04/30/16 20:15 05/07/16 20:14 04/30/16 20:15 Nitroglycerin (Ntg) 0.4 mg Q5MIN X3 DOSES PRN SL Prn Chest Pain 04/20/16 05:45 05/20/16 05:44 Ondansetron HCl (Zofran) 4 mg Q4H PRN IVP Nausea & Vomiting 04/20/16 08:00 05/20/16 07:59 Pantoprazole (Protonix) 40 mg DAILY IVP 04/20/16 09:00 05/20/16 08:59 05/01/16 09:58 Piperacillin Sod/ Tazobactam Sod/ Dextrose (Zosyn/D5W) 110 ml @ 27.5 mls/hr Q8HR IVPB 04/30/16 13:30 05/07/16 13:29 05/01/16 12:45 Polyethylene Glycol 17 gm 17 gm DAILYPRN PRN ORAL Constipation 04/20/16 07:45 05/20/16 07:44 JAVIER BANKS May 01, 2016 15:56
[2016-05-01 16:00] VITALS: BP 103/62
--- NOTE | 2016-05-01 18:03 | Internal Med Progress Note ---
Subjective Date of Service: May 01, 2016 Physician Name Marco Olvera Attending Physician Adalid Izaguirre MD Current Medications Medications (Trade) Dose Ordered Sig/Joy Route PRN Reason Start Time Stop Time Status Last Admin Dose Admin Acetaminophen (Tylenol) 650 mg Q4H PRN ORAL fever 04/20/16 07:45 05/20/16 07:44 04/30/16 20:52 Aspirin (ASA) 325 mg DAILY GT 04/25/16 09:00 05/25/16 08:59 05/01/16 09:55 Dextrose (D5W 1000ml) 1,000 ml @ 75 mls/hr [id number] IV 04/21/16 12:15 05/21/16 12:14 05/01/16 12:45 Dextrose (Dextrose 50%) STAT PRN IV Hypoglycemia 04/20/16 09:30 05/20/16 09:29 04/30/16 05:39 Digoxin (Lanoxin) 0.125 mg DAILY ORAL 04/20/16 09:00 05/20/16 08:59 05/01/16 09:56 Heparin Sodium (Porcine) 5000 units 5,000 units Q12HR SUBQ 04/27/16 21:00 05/27/16 20:59 04/30/16 20:17 Insulin Aspart (NovoLOG) EVERY 6 HOURS SUBQ 04/22/16 12:00 05/22/16 11:59 05/01/16 12:44 Insulin Detemir (Levemir) 5 units Q12HR@0600,1800 SUBQ 04/27/16 18:00 05/27/16 17:59 05/01/16 06:40 Lactulose (Cephulac) 30 gm DAILYPRN PRN ORAL Constipation 04/20/16 08:00 05/20/16 07:59 Metoprolol Tartrate (Lopressor) 25 mg Q12HR ORAL 04/21/16 21:00 05/21/16 20:59 05/01/16 09:56 Morphine Sulfate (Morphine Sulfate) 2 mg Q4H PRN IV For Pain 04/30/16 20:15 05/07/16 20:14 04/30/16 20:15 Nitroglycerin (Ntg) 0.4 mg Q5MIN X3 DOSES PRN SL Prn Chest Pain 04/20/16 05:45 05/20/16 05:44 Ondansetron HCl (Zofran) 4 mg Q4H PRN IVP Nausea & Vomiting 04/20/16 08:00 05/20/16 07:59 Pantoprazole (Protonix) 40 mg DAILY IVP 04/20/16 09:00 05/20/16 08:59 05/01/16 09:58 Piperacillin Sod/ Tazobactam Sod/ Dextrose (Zosyn/D5W) 110 ml @ 27.5 mls/hr Q8HR IVPB 04/30/16 13:30 05/07/16 13:29 05/01/16 12:45 Polyethylene Glycol 17 gm 17 gm DAILYPRN PRN ORAL Constipation 04/20/16 07:45 05/20/16 07:44 Allergies: Coded Allergies: No Known Allergies (Unverified , 10/19/15) ROS Limited/Unobtainable: Yes Subjective 75 YO M admitted with fever, now with pneumonia. Cover for Int Med-Dr Izaguirre. Failed venturi mask; back on non-rebreather. Worsening tachycardia Objective Last Vital Signs Date Time Temp Pulse Resp B/P Pulse Ox O2 Delivery O2 Flow Rate FiO2 05/01/16 16:00 98.1 121 28 103/62 98 Non-Rebreather 15.0 04/30/16 19:38 100 Intake and Output 04/30/16 05/01/16 19:00 07:00 Intake Total 1190 ml 65 ml Output Total 300 ml 600 ml Balance 890 ml -535 ml Intake Free Water 250 ml IV Total 225 ml Tube Feeding 715 ml 65 ml Output Urine Total 300 ml 600 ml Objective General Appearance: lethargic, thin EENT: normal ENT inspection Neck: non-tender, normal alignment, supple Cardiovascular: normal peripheral pulses, normal rate, regular rhythm, no gallop/murmur, no JVD Respiratory/Chest: Non-rebreatherchest wall non-tender, crackles/rales, rhonchi - bilaterally, expiratory wheezing Abdomen: normal bowel sounds, non tender, soft, no organomegaly, no mass Skin: normal pigmentation, warm/dry Assessment/Plan Problem List: (1) Leukocytosis (2) Pemphigus Assessment & Plan: D/C chronic prednisone therapy per nephrology. (3) Sepsis Assessment & Plan: Coag neg staph. See ID note. D/C vanco and cefepime. Culture PICC line tip per ID (4) Cerebral vascular disease (5) Hemiplegia affecting left nondominant side (6) Aphasia as late effect of cerebrovascular accident (7) Atrial fibrillation Assessment & Plan: Cont novolog; D/C levemir. See endocrinology note. (8) Hypertension (9) Diabetes mellitus (10) Dysphagia as late effect of cerebrovascular accident (CVA) (11) Pneumonia Assessment & Plan: ?aspiration? Repeat chest xray=no new infiltrates. See pulmonary note. D/C vanco and cefepime per ID (12) G tube feedings (13) Atrial fibrillation and flutter (14) Septic shock (15) Hypernatremia Assessment & Plan: See nephrology note. (16) Anemia Assessment & Plan: S/P transfusion 1 unit PRBC on 04/26/16. (17) Respiratory failure Assessment & Plan: worsening; on non-rebreather (18) Tachycardia Assessment & Plan: ?septic vs afib? See cardiology note. Status: deteriorating Assessment/Plan Prognosis is guarded. MARCO OLVERA May 01, 2016 18:03
--- NOTE | 2016-05-01 18:34 | Cardiac Electrophysiology PN ---
Assessment/Plan Assessment/Plan 1. Atrial fibrillation with rapid ventricular response.Continue digoxin 0.125 mg and Lopressor 25 bid. Will transfer to [facility] as is tachycardic and likely septic. 2. SOB and sepsis. Blood cultures and chest X ray pending. Evaluated by Dr Landeros as well. Get stat CBC as well. 3. Severe hypernatremia. 4. Dysphagia, status post PEG placement. 5. Dementia with functional quadriplegia. 6. DNR and DNI DW RN and Dr Thomas Subjective Subjective Nonverbal on IV antibiotics but is tachycardic and seems short ob breath. RN at bedside. Objective Last 24 Hour Vital Signs Date Time Temp Pulse Resp B/P Pulse Ox O2 Delivery O2 Flow Rate FiO2 05/01/16 16:00 98.1 121 28 103/62 98 Non-Rebreather 15.0 05/01/16 12:00 98.5 110 18 103/54 92 Venturi Mask 05/01/16 09:56 113 120/60 05/01/16 09:56 113 05/01/16 08:00 97.9 113 20 120/60 100 Venturi Mask 05/01/16 04:00 98.1 130 28 152/88 99 Non-Rebreather 05/01/16 00:00 97.9 132 28 144/73 100 Non-Rebreather 04/30/16 21:51 101.5 04/30/16 21:00 101.5 130 28 150/80 98 Non-Rebreather 15.0 04/30/16 20:45 101.5 04/30/16 20:16 131 149/70 04/30/16 20:00 101.8 140 30 156/85 100 Non-Rebreather 15.0 04/30/16 20:00 101.8 158 28 156/85 90 Non-Rebreather 15.0 04/30/16 19:38 Non-Rebreather 15.0 100 04/30/16 19:38 96 Non-Rebreather 15.0 100 Intake and Output 04/30/16 05/01/16 19:00 07:00 Intake Total 1190 ml 65 ml Output Total 300 ml 600 ml Balance 890 ml -535 ml Intake Free Water 250 ml IV Total 225 ml Tube Feeding 715 ml 65 ml Output Urine Total 300 ml 600 ml Labs Test 04/30/16 08:30 White Blood Count 11.9 K/UL (4.8-10.8) Red Blood Count 2.77 M/UL (4.70-6.10) Hemoglobin 8.9 G/DL (14.2-18.0) Hematocrit 28.7 % (42.0-52.0) Mean Corpuscular Volume 103 FL (80-99) Mean Corpuscular Hemoglobin 32.0 PG (27.0-31.0) Mean Corpuscular Hemoglobin Concent 31.0 G/DL (32.0-36.0) Red Cell Distribution Width 13.0 % (11.6-14.8) Platelet Count 185 K/UL (150-450) Mean Platelet Volume 7.3 FL (6.5-10.1) Neutrophils (%) (Auto) % (45.0-75.0) Lymphocytes (%) (Auto) % (20.0-45.0) Monocytes (%) (Auto) % (1.0-10.0) Eosinophils (%) (Auto) % (0.0-3.0) Basophils (%) (Auto) % (0.0-2.0) Differential Total Cells Counted 100 Neutrophils % (Manual) 85 % (45-75) Lymphocytes % (Manual) 3 % (20-45) Monocytes % (Manual) 6 % (1-10) Eosinophils % (Manual) 1 % (0-3) Basophils % (Manual) 0 % (0-2) Band Neutrophils 5 % (0-8) Platelet Estimate Adequate Platelet Morphology Normal Hypochromasia 1+ Macrocytosis 1+ Sodium Level 140 mEQ/L (135-145) Potassium Level 4.4 mEQ/L (3.4-4.9) Chloride Level 98 mEQ/L (98-107) Carbon Dioxide Level 38 mEQ/L (20-30) Anion Gap 4 (5-15) Blood Urea Nitrogen 7 mg/dL (7-23) Creatinine 0.5 mg/dL (0.7-1.2) Estimat Glomerular Filtration Rate mL/min (>60) Glucose Level 183 mg/dL (74-106) Calcium Level 8.2 mg/dL (8.6-10.2) Objective HEENT: No JVD. LUNGS: Coarse rhonchi CARDIOVASCULAR: Tachycardic S1,S2 with no gallop or murmur. ABDOMEN: G-tube intact EXTREMITIES: Lower extremities contracted with multiple ulcers. HERLINDA BURNETT May 01, 2016 18:34
[2016-05-01 20:00] VITALS: BP 109/58
[2016-05-01] MEDS: Albuterol ud Inhalation HHN SCH ×2 (20:07→22:41)
[2016-05-01 20:19] LABS: MEAN CORPUSCULAR HEMOGLOBIN 33.2 PG (27.0-31.0); MEAN CORPUSCULAR HGB CONC 31.8 G/DL (32.0-36.0); MEAN CORPUSCULAR VOLUME 104 FL (80-99); MEAN PLATELET VOLUME 6.4 FL (6.5-10.1); PLATELET COUNT 176 K/UL (150-450); RED BLOOD COUNT 2.56 M/UL (4.70-6.10); RED CELL DISTRIBUTION WIDTH 12.4 % (11.6-14.8); WHITE BLOOD COUNT 18.8 K/UL (4.8-10.8)
[2016-05-01 20:51] LABS: ANION GAP 4 (5-15); CALCIUM 8.4 mg/dL (8.6-10.2); CARBON DIOXIDE 39 mEQ/L (20-30); CHLORIDE 97 mEQ/L (98-107); CREATININE 0.6 mg/dL (0.7-1.2); HEMOLYSIS 2; POTASSIUM 4.3 mEQ/L (3.4-4.9); SODIUM 140 mEQ/L (135-145)
[2016-05-01 22:05] LABS: BAND NEUTROPHILS % (MANUAL) 26 % (0-8); LYMPHOCYTES % (MANUAL) 9 % (20-45); NEUTROPHILS % (MANUAL) 61 % (45-75); TOTAL CELLS COUNTED 100
[2016-05-01 22:07] LABS: BASOPHILS % (MANUAL) 0 % (0-2); EOSINOPHILS % (MANUAL) 0 % (0-3); PLATELET ESTIMATE ADEQUATE
[2016-05-01 22:10] LABS: ANISOCYTOSIS 1+; MACROCYTES 1+; PLATELET MORPHOLOGY NORMAL; POLYCHROMASIA 1+
[2016-05-02] VITALS (8 sets, daily range): BP systolic 98–130; BP diastolic 54–72
[2016-05-02] MEDS: Albuterol ud Inhalation HHN SCH ×6 (02:38→23:15)
[2016-05-02] MEDS: Piperacillin/Tazobactam 3.375 GM in D5W 110 ML IVPB SCH ×3 (06:55→21:19)
[2016-05-02] MEDS: NovoLOG Insulin Flexpen SUBQ SCH ×3 (06:56→17:32)
[2016-05-02] MEDS: Levemir Flexpen SUBQ SCH ×2 (06:57→17:49)
[2016-05-02 07:57] LABS: BASOPHILS % (AUTO) 0.3 % (0.0-2.0); EOSINOPHILS % (AUTO) 2.2 % (0.0-3.0); LYMPHOCYTES % (AUTO) 14.1 % (20.0-45.0); MEAN CORPUSCULAR HEMOGLOBIN 31.8 PG (27.0-31.0); MEAN CORPUSCULAR VOLUME 96 FL (80-99); MEAN PLATELET VOLUME 6.3 FL (6.5-10.1); MONOCYTES % (AUTO) 5.1 % (1.0-10.0); NEUTROPHILS % (AUTO) 78.3 % (45.0-75.0); PLATELET COUNT 167 K/UL (150-450); RED BLOOD COUNT 2.84 M/UL (4.70-6.10); RED CELL DISTRIBUTION WIDTH 18.3 % (11.6-14.8); WHITE BLOOD COUNT 7.6 K/UL (4.8-10.8)
[2016-05-02] MEDS: Digoxin 0.125mg tab ORAL SCH (08:53)
[2016-05-02] MEDS: Pantoprazole Inj IVP SCH (08:53)
[2016-05-02] MEDS: Heparin 5000 units/ml inj SUBQ SCH ×2 (08:55→21:20)
[2016-05-02] MEDS: Metoprolol 25mg tab ORAL SCH ×2 (08:56→21:19)
--- NOTE | 2016-05-02 10:07 | General Progress Note ---
Assessment/Plan Status: stable - from renal stand, deteriorating - from respiratory stand Assessment/Plan status: Acute Renal failure- due to sepsis and shock & Dehydration and volume depletion component- and HyperNatremia ALL IMPROVED Other: -CVA (cerebral vascular accident) -Diabetes -G tube feedings -Left hemiparesis Plan: Pulmonary toilet- Antibiotics- Monitor renal parameters- Avoid Nephrotoxics- per orders- DNR DNI Subjective ROS Limited/Unobtainable: No Constitutional: Reports: malaise, weakness Allergies: Coded Allergies: No Known Allergies (Unverified , 10/19/15) Objective Last 24 Hour Vital Signs Date Time Temp Pulse Resp B/P Pulse Ox O2 Delivery O2 Flow Rate FiO2 05/02/16 08:56 125 114/58 05/02/16 08:53 125 05/02/16 08:00 Non-Rebreather 05/02/16 07:59 100 05/02/16 07:58 Non-Rebreather 05/02/16 07:56 Non-Rebreather 15.0 100 05/02/16 07:55 96 Non-Rebreather 15.0 100 05/02/16 07:52 97.7 125 26 98/66 100 Non-Rebreather 15.0 05/02/16 04:25 97.9 117 20 121/68 97 Non-Rebreather 05/02/16 04:00 107 05/02/16 02:45 114 20 95 Non-Rebreather 15.0 100 05/02/16 02:40 100 05/02/16 02:39 114 20 95 Non-Rebreather 15.0 100 05/02/16 00:25 97.2 111 36 118/72 96 Non-Rebreather 05/02/16 00:00 111 05/01/16 23:00 119 20 95 Non-Rebreather 15.0 100 05/01/16 22:49 100 05/01/16 22:48 119 20 95 Non-Rebreather 15.0 100 05/01/16 21:00 123 109/58 05/01/16 20:12 122 20 95 Non-Rebreather 05/01/16 20:12 123 20 95 Non-Rebreather 05/01/16 20:11 95 Non-Rebreather 15.0 100 05/01/16 20:11 Non-Rebreather 15.0 100 05/01/16 20:00 99.0 122 20 109/58 96 05/01/16 20:00 124 05/01/16 16:00 98.1 121 28 103/62 98 Non-Rebreather 15.0 05/01/16 12:00 98.5 110 18 103/54 92 Venturi Mask Intake and Output 05/01/16 05/02/16 19:00 07:00 Intake Total 1132.5 ml 110.0 ml Output Total 310 ml Balance 822.5 ml 110.0 ml Intake Free Water 250 ml IV Total 102.5 ml 110.0 ml Tube Feeding 780 ml Output Urine Total 310 ml Laboratory Tests 05/01/16 19:30: White Blood Count 18.8#H, Red Blood Count 2.56L, Hemoglobin 8.5L, Hematocrit 26.7L, Mean Corpuscular Volume 104H, Mean Corpuscular Hemoglobin 33.2H, Mean Corpuscular Hemoglobin Concent 31.8L, Red Cell Distribution Width 12.4, Platelet Count 176, Mean Platelet Volume 6.4L, Neutrophils (%) (Auto) , Lymphocytes (%) (Auto) , Monocytes (%) (Auto) , Eosinophils (%) (Auto) , Basophils (%) (Auto) , Differential Total Cells Counted 100, Neutrophils % ( Manual) 61, Lymphocytes % (Manual) 9L, Monocytes % (Manual) 4, Eosinophils % ( Manual) 0, Basophils % (Manual) 0, Band Neutrophils 26H, Platelet Estimate Adequate, Platelet Morphology Normal, Polychromasia 1+, Anisocytosis 1+, Macrocytosis 1+, Sodium Level 140, Potassium Level 4.3, Chloride Level 97L, Carbon Dioxide Level 39H, Anion Gap 4L, Blood Urea Nitrogen 12, Creatinine 0.6L , Estimat Glomerular Filtration Rate , Glucose Level 85, Calcium Level 8.4L 05/02/16 06:20: White Blood Count 7.6#, Red Blood Count 2.84L, Hemoglobin 9.0L, Hematocrit 27.4L , Mean Corpuscular Volume 96, Mean Corpuscular Hemoglobin 31.8H, Mean Corpuscular Hemoglobin Concent 33.0, Red Cell Distribution Width 18.3H, Platelet Count 167, Mean Platelet Volume 6.3L, Neutrophils (%) (Auto) 78.3H, Lymphocytes (%) (Auto) 14.1L, Monocytes (%) (Auto) 5.1, Eosinophils (%) (Auto) 2.2, Basophils (%) (Auto) 0.3, Sodium Level [Pending], Potassium Level [Pending] , Chloride Level [Pending], Carbon Dioxide Level [Pending], Blood Urea Nitrogen [Pending], Creatinine [Pending], Estimat Glomerular Filtration Rate [Pending], Glucose Level [Pending], Calcium Level [Pending] Height (Feet): 5 Height (Inches): 7.00 Weight (Pounds): 120 General Appearance: mild distress Neck: stiff neck Cardiovascular: tachycardia Respiratory/Chest: decreased breath sounds, rhonchi - bilaterally Abdomen: distended Objective no change in PE CRISTY MADDOX May 02, 2016 10:07
[2016-05-02 10:48] LABS: ANION GAP 7 (5-15); CALCIUM 8.2 mg/dL (8.6-10.2); CARBON DIOXIDE 36 mEQ/L (20-30); CHLORIDE 95 mEQ/L (98-107); CREATININE 0.6 mg/dL (0.7-1.2); HEMOLYSIS 12; POTASSIUM 4.4 mEQ/L (3.4-4.9); SODIUM 138 mEQ/L (135-145)
[2016-05-02] MEDS ORDERED: Albuterol ud Inhalation HHN SCH (11:00)
[2016-05-02] MEDS ORDERED: Acetaminophen 650mg/20.3ml GT PRN ×2 (11:00→15:00)
[2016-05-02] MEDS ORDERED: Nitroglycerin Subl 0.4mg tab (Bottle Of 25) SL PRN ×2 (11:00→14:30)
--- NOTE | 2016-05-02 11:51 | Diagnostic Imaging Report ---
Indication: Dyspnea Comparison: 05/01/2016 A single view chest radiograph was obtained. Findings: Complete opacification of the left hemithorax now demonstrated. The findings are probably on the basis of atelectasis. There is some associated volume loss with shifting of the heart and trachea to the left side. Right lung remains clear. Impression: Complete atelectasis of the left lung. There could be a component of pleural effusion or consolidation, which is certainly not excludable.
[2016-05-02] MEDS ORDERED: NovoLOG Insulin Flexpen SUBQ SCH (12:00)
[2016-05-02] MEDS ORDERED: Morphine Sulfate 2mg/ml Inj IV PRN (12:15)
--- NOTE | 2016-05-02 12:19 | Pulmonology Progress Note ---
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 Use morphon prn for dyspnea Subjective ROS Limited/Unobtainable: Yes Interval Events: transferred to [facility] because of tachycardia Allergies: Coded Allergies: No Known Allergies (Unverified , 10/19/15) Objective Last 24 Hour Vital Signs Date Time Temp Pulse Resp B/P Pulse Ox O2 Delivery O2 Flow Rate FiO2 05/02/16 11:36 98.1 106 25 106/57 100 Non-Rebreather 15.0 05/02/16 11:00 105 05/02/16 10:39 102 22 100 Non-Rebreather 15.0 100 05/02/16 10:33 110 114/54 100 Non-Rebreather 05/02/16 10:30 100 05/02/16 10:29 105 20 99 Non-Rebreather 15.0 100 05/02/16 08:56 125 114/58 05/02/16 08:53 125 05/02/16 08:00 Non-Rebreather 05/02/16 08:00 122 05/02/16 07:59 100 05/02/16 07:58 Non-Rebreather 05/02/16 07:56 Non-Rebreather 15.0 100 05/02/16 07:55 96 Non-Rebreather 15.0 100 05/02/16 07:52 97.7 125 26 98/66 100 Non-Rebreather 15.0 05/02/16 04:25 97.9 117 20 121/68 97 Non-Rebreather 05/02/16 04:00 107 05/02/16 02:45 114 20 95 Non-Rebreather 15.0 100 05/02/16 02:40 100 05/02/16 02:39 114 20 95 Non-Rebreather 15.0 100 05/02/16 00:25 97.2 111 36 118/72 96 Non-Rebreather 05/02/16 00:00 111 05/01/16 23:00 119 20 95 Non-Rebreather 15.0 100 05/01/16 22:49 100 05/01/16 22:48 119 20 95 Non-Rebreather 15.0 100 05/01/16 21:00 123 109/58 05/01/16 20:12 122 20 95 Non-Rebreather 05/01/16 20:12 123 20 95 Non-Rebreather 05/01/16 20:11 95 Non-Rebreather 15.0 100 05/01/16 20:11 Non-Rebreather 15.0 100 05/01/16 20:00 99.0 122 20 109/58 96 05/01/16 20:00 124 05/01/16 16:00 98.1 121 28 103/62 98 Non-Rebreather 15.0 Intake and Output 05/01/16 05/02/16 19:00 07:00 Intake Total 1132.5 ml 110.0 ml Output Total 310 ml Balance 822.5 ml 110.0 ml Intake Free Water 250 ml IV Total 102.5 ml 110.0 ml Tube Feeding 780 ml Output Urine Total 310 ml General Appearance: WD/WN, no acute distress HEENT: normocephalic, atraumatic Respiratory/Chest: chest wall non-tender, lungs clear Cardiovascular: normal peripheral pulses, normal rate Abdomen: normal bowel sounds, soft, non tender Genitourinary: normal external genitalia Extremities: no cyanosis Skin: no rash Neurologic/Psychiatric: communication analyst II-XII grossly normal Microbiology Date/Time Source Procedure Growth Status 05/01/16 14:10 Urine,Clean Catch Urine Culture - Preliminary NO GROWTH Resulted Laboratory Tests 05/01/16 19:30: White Blood Count 18.8#H, Red Blood Count 2.56L, Hemoglobin 8.5L, Hematocrit 26.7L, Mean Corpuscular Volume 104H, Mean Corpuscular Hemoglobin 33.2H, Mean Corpuscular Hemoglobin Concent 31.8L, Red Cell Distribution Width 12.4, Platelet Count 176, Mean Platelet Volume 6.4L, Neutrophils (%) (Auto) , Lymphocytes (%) (Auto) , Monocytes (%) (Auto) , Eosinophils (%) (Auto) , Basophils (%) (Auto) , Differential Total Cells Counted 100, Neutrophils % ( Manual) 61, Lymphocytes % (Manual) 9L, Monocytes % (Manual) 4, Eosinophils % ( Manual) 0, Basophils % (Manual) 0, Band Neutrophils 26H, Platelet Estimate Adequate, Platelet Morphology Normal, Polychromasia 1+, Anisocytosis 1+, Macrocytosis 1+, Sodium Level 140, Potassium Level 4.3, Chloride Level 97L, Carbon Dioxide Level 39H, Anion Gap 4L, Blood Urea Nitrogen 12, Creatinine 0.6L , Estimat Glomerular Filtration Rate , Glucose Level 85, Calcium Level 8.4L 05/02/16 06:20: White Blood Count 7.6#, Red Blood Count 2.84L, Hemoglobin 9.0L, Hematocrit 27.4L , Mean Corpuscular Volume 96, Mean Corpuscular Hemoglobin 31.8H, Mean Corpuscular Hemoglobin Concent 33.0, Red Cell Distribution Width 18.3H, Platelet Count 167, Mean Platelet Volume 6.3L, Neutrophils (%) (Auto) 78.3H, Lymphocytes (%) (Auto) 14.1L, Monocytes (%) (Auto) 5.1, Eosinophils (%) (Auto) 2.2, Basophils (%) (Auto) 0.3 05/02/16 09:45: Sodium Level 138, Potassium Level 4.4, Chloride Level 95L, Carbon Dioxide Level 36H, Anion Gap 7, Blood Urea Nitrogen 14, Creatinine 0.6L, Estimat Glomerular Filtration Rate , Glucose Level 171H, Calcium Level 8.2L, Magnesium Level 2.2 Current Medications Medications (Trade) Dose Ordered Sig/Joy Route PRN Reason Start Time Stop Time Status Last Admin Dose Admin Acetaminophen (Tylenol) 650 mg Q4H PRN GT Mild Pain/Temp > 100.5 05/02/16 11:00 06/01/16 10:59 05/02/16 12:03 Albuterol Sulfate (Proventil) 2.5 mg Q4HRT HHN 05/02/16 11:00 05/07/16 10:59 Aspirin (ASA) 325 mg DAILY GT 05/03/16 09:00 06/02/16 08:59 Dextrose 1,000 ml @ 75 mls/hr [id number] IV 05/02/16 11:00 06/01/16 10:59 Dextrose (Dextrose 50%) STAT PRN IV Hypoglycemia 05/03/16 09:30 06/02/16 09:29 Digoxin (Lanoxin) 0.125 mg DAILY ORAL 05/03/16 09:00 06/02/16 08:59 Heparin Sodium (Porcine) (Heparin 5000 units/ml) 5,000 units Q12HR SUBQ 05/02/16 21:00 06/01/16 20:59 Insulin Aspart (NovoLOG) EVERY 6 HOURS SUBQ 05/02/16 12:00 06/01/16 11:59 05/02/16 12:04 Insulin Detemir (Levemir) 5 units Q12HR@0600,1800 SUBQ 05/02/16 18:00 06/01/16 17:59 Lactulose (Cephulac) 30 gm DAILYPRN PRN ORAL Constipation 05/03/16 08:00 06/02/16 07:59 Metoprolol Tartrate (Lopressor) 25 mg Q12HR ORAL 05/02/16 21:00 06/01/16 20:59 Morphine Sulfate (Morphine Sulfate) 2 mg Q4H PRN IV For Pain 05/02/16 12:15 05/09/16 12:14 Nitroglycerin (Ntg) 0.4 mg Q5MIN X3 DOSES PRN SL Prn Chest Pain 05/02/16 11:00 06/01/16 10:59 Ondansetron HCl (Zofran) 4 mg Q4H PRN IVP Nausea & Vomiting 05/02/16 12:00 06/01/16 11:59 Pantoprazole (Protonix) 40 mg DAILY IVP 05/03/16 09:00 06/02/16 08:59 Piperacillin Sod/ Tazobactam Sod/ Dextrose (Zosyn/D5W) 110 ml @ 27.5 mls/hr Q8HR IVPB 05/02/16 14:00 05/07/16 13:59 Polyethylene Glycol (Miralax) 17 gm DAILYPRN PRN ORAL Constipation 05/03/16 07:45 06/02/16 07:44 JAVIER BANKS May 02, 2016 12:19
--- NOTE | 2016-05-02 12:21 | Internal Med Progress Note ---
Subjective Date of Service: May 02, 2016 Physician Name Marco Olvera Attending Physician Adalid Izaguirre MD Current Medications Medications (Trade) Dose Ordered Sig/Joy Route PRN Reason Start Time Stop Time Status Last Admin Dose Admin Acetaminophen (Tylenol) 650 mg Q4H PRN GT Mild Pain/Temp > 100.5 05/02/16 11:00 06/01/16 10:59 05/02/16 12:03 Albuterol Sulfate (Proventil) 2.5 mg Q4HRT HHN 05/02/16 11:00 05/07/16 10:59 Aspirin (ASA) 325 mg DAILY GT 05/03/16 09:00 06/02/16 08:59 Dextrose 1,000 ml @ 75 mls/hr [id number] IV 05/02/16 11:00 06/01/16 10:59 Dextrose (Dextrose 50%) STAT PRN IV Hypoglycemia 05/03/16 09:30 06/02/16 09:29 Digoxin (Lanoxin) 0.125 mg DAILY ORAL 05/03/16 09:00 06/02/16 08:59 Heparin Sodium (Porcine) (Heparin 5000 units/ml) 5,000 units Q12HR SUBQ 05/02/16 21:00 06/01/16 20:59 Insulin Aspart (NovoLOG) EVERY 6 HOURS SUBQ 05/02/16 12:00 06/01/16 11:59 05/02/16 12:04 Insulin Detemir (Levemir) 5 units Q12HR@0600,1800 SUBQ 05/02/16 18:00 06/01/16 17:59 Lactulose (Cephulac) 30 gm DAILYPRN PRN ORAL Constipation 05/03/16 08:00 06/02/16 07:59 Metoprolol Tartrate (Lopressor) 25 mg Q12HR ORAL 05/02/16 21:00 06/01/16 20:59 Morphine Sulfate (Morphine Sulfate) 2 mg Q4H PRN IV For Pain 05/02/16 12:15 05/09/16 12:14 Nitroglycerin (Ntg) 0.4 mg Q5MIN X3 DOSES PRN SL Prn Chest Pain 05/02/16 11:00 06/01/16 10:59 Ondansetron HCl (Zofran) 4 mg Q4H PRN IVP Nausea & Vomiting 05/02/16 12:00 06/01/16 11:59 Pantoprazole (Protonix) 40 mg DAILY IVP 05/03/16 09:00 06/02/16 08:59 Piperacillin Sod/ Tazobactam Sod/ Dextrose (Zosyn/D5W) 110 ml @ 27.5 mls/hr Q8HR IVPB 05/02/16 14:00 05/07/16 13:59 Polyethylene Glycol (Miralax) 17 gm DAILYPRN PRN ORAL Constipation 05/03/16 07:45 06/02/16 07:44 Allergies: Coded Allergies: No Known Allergies (Unverified , 10/19/15) ROS Limited/Unobtainable: Yes Subjective 75 YO M admitted with fever, now with pneumonia. Cover for Int Med-Dr Izaguirre. Failed venturi mask; back on non-rebreather. Transferred to telemetry last pm for afib with rapid vent rate to 130's. Now sinus tachycardia in low 100's. Objective Last Vital Signs Date Time Temp Pulse Resp B/P Pulse Ox O2 Delivery O2 Flow Rate FiO2 05/02/16 11:36 98.1 106 25 106/57 100 Non-Rebreather 15.0 05/02/16 10:39 100 Laboratory Tests Test 05/01/16 19:30 05/02/16 06:20 05/02/16 09:45 White Blood Count 18.8 K/UL (4.8-10.8) #H 7.6 K/UL (4.8-10.8) # Red Blood Count 2.56 M/UL (4.70-6.10) L 2.84 M/UL (4.70-6.10) L Hemoglobin 8.5 G/DL (14.2-18.0) L 9.0 G/DL (14.2-18.0) L Hematocrit 26.7 % (42.0-52.0) L 27.4 % (42.0-52.0) L Mean Corpuscular Volume 104 FL (80-99) H 96 FL (80-99) Mean Corpuscular Hemoglobin 33.2 PG (27.0-31.0) H 31.8 PG (27.0-31.0) H Mean Corpuscular Hemoglobin Concent 31.8 G/DL (32.0-36.0) L 33.0 G/DL (32.0-36.0) Red Cell Distribution Width 12.4 % (11.6-14.8) 18.3 % (11.6-14.8) H Platelet Count 176 K/UL (150-450) 167 K/UL (150-450) Mean Platelet Volume 6.4 FL (6.5-10.1) L 6.3 FL (6.5-10.1) L Neutrophils (%) (Auto) % (45.0-75.0) 78.3 % (45.0-75.0) H Lymphocytes (%) (Auto) % (20.0-45.0) 14.1 % (20.0-45.0) L Monocytes (%) (Auto) % (1.0-10.0) 5.1 % (1.0-10.0) Eosinophils (%) (Auto) % (0.0-3.0) 2.2 % (0.0-3.0) Basophils (%) (Auto) % (0.0-2.0) 0.3 % (0.0-2.0) Differential Total Cells Counted 100 Neutrophils % (Manual) 61 % (45-75) Lymphocytes % (Manual) 9 % (20-45) L Monocytes % (Manual) 4 % (1-10) Eosinophils % (Manual) 0 % (0-3) Basophils % (Manual) 0 % (0-2) Band Neutrophils 26 % (0-8) H Platelet Estimate Adequate Platelet Morphology Normal Polychromasia 1+ Anisocytosis 1+ Macrocytosis 1+ Sodium Level 140 mEQ/L (135-145) 138 mEQ/L (135-145) Potassium Level 4.3 mEQ/L (3.4-4.9) 4.4 mEQ/L (3.4-4.9) Chloride Level 97 mEQ/L (98-107) L 95 mEQ/L (98-107) L Carbon Dioxide Level 39 mEQ/L (20-30) H 36 mEQ/L (20-30) H Anion Gap 4 (5-15) L 7 (5-15) Blood Urea Nitrogen 12 mg/dL (7-23) 14 mg/dL (7-23) Creatinine 0.6 mg/dL (0.7-1.2) L 0.6 mg/dL (0.7-1.2) L Estimat Glomerular Filtration Rate mL/min (>60) mL/min (>60) Glucose Level 85 mg/dL (74-106) 171 mg/dL (74-106) H Calcium Level 8.4 mg/dL (8.6-10.2) L 8.2 mg/dL (8.6-10.2) L Magnesium Level 2.2 mg/dL (1.7-2.5) Microbiology Date/Time Source Procedure Growth Status 05/01/16 14:10 Urine,Clean Catch Urine Culture - Preliminary NO GROWTH Resulted Intake and Output 05/01/16 05/02/16 19:00 07:00 Intake Total 1132.5 ml 110.0 ml Output Total 310 ml Balance 822.5 ml 110.0 ml Intake Free Water 250 ml IV Total 102.5 ml 110.0 ml Tube Feeding 780 ml Output Urine Total 310 ml Objective General Appearance: lethargic, thin EENT: normal ENT inspection Neck: non-tender, normal alignment, supple Cardiovascular: normal peripheral pulses, normal rate, regular rhythm, no gallop/murmur, no JVD Respiratory/Chest: Non-rebreather, left lung sounds absent; chest wall non- tender, crackles/rales, rhonchi - bilaterally, expiratory wheezing Abdomen: normal bowel sounds, non tender, soft, no organomegaly, no mass Skin: normal pigmentation, warm/dry Assessment/Plan Problem List: (1) Leukocytosis (2) Pemphigus Assessment & Plan: D/C chronic prednisone therapy per nephrology. (3) Sepsis Assessment & Plan: Coag neg staph. See ID note. D/C vanco and cefepime. Culture PICC line tip per ID (4) Cerebral vascular disease (5) Hemiplegia affecting left nondominant side (6) Aphasia as late effect of cerebrovascular accident (7) Atrial fibrillation Assessment & Plan: Now sinus tachycardia. See cardiology note. (8) Hypertension (9) Diabetes mellitus Assessment & Plan: Cont novolog sliding scale. (10) Dysphagia as late effect of cerebrovascular accident (CVA) (11) Pneumonia Assessment & Plan: Repeat chest xray=left opacification. Continue zosyn per ID. See pulmonary note. (12) G tube feedings (13) Septic shock (14) Hypernatremia Assessment & Plan: See nephrology note. (15) Anemia Assessment & Plan: S/P transfusion 1 unit PRBC on 04/26/16. (16) Respiratory failure Assessment & Plan: worsening; on non-rebreather (17) Tachycardia Assessment & Plan: ?septic vs afib? See cardiology note. Status: deteriorating Assessment/Plan Prognosis is guarded. MARCO OLVERA May 02, 2016 12:21
[2016-05-02] MEDS ORDERED: Tubing IV Secondary IV ONE (13:09)
[2016-05-02] MEDS ORDERED: Piperacillin/Tazobactam 3.375 GM in D5W 110 ML IVPB SCH (14:00)
[2016-05-02] MEDS ORDERED: Lactulose 20gm/30ml UDC ORAL PRN (15:00)
[2016-05-02] MEDS ORDERED: Morphine Sulfate 4mg/ml Inj IV PRN (16:15)
[2016-05-02] MEDS ORDERED: Sterile Water Irrig 1000ml IRRIG ONE (17:04)
[2016-05-02] MEDS ORDERED: Levemir Flexpen SUBQ SCH (18:00)
[2016-05-02] MEDS ORDERED: Heparin 5000 units/ml inj SUBQ SCH (21:00)
[2016-05-02] MEDS ORDERED: Metoprolol 25mg tab ORAL SCH (21:00)
--- NOTE | 2016-05-02 22:09 | Cardiac Electrophysiology PN ---
Assessment/Plan Assessment/Plan 1. Atrial fibrillation with rapid ventricular response.Continue digoxin 0.125 mg and Lopressor 25 bid. 2. SOB and sepsis. On Abx 3. Severe hypernatremia. 4. Dysphagia, status post PEG placement. 5. Dementia with functional quadriplegia. 6. DNR and DNI DW RN Subjective Subjective On IV antibiotics. RN at bedside. Objective Last 24 Hour Vital Signs Date Time Temp Pulse Resp B/P Pulse Ox O2 Delivery O2 Flow Rate FiO2 05/02/16 21:19 99 128/71 05/02/16 20:00 98.0 99 18 128/71 99 05/02/16 18:41 103 20 96 Non-Rebreather 15.0 100 05/02/16 18:36 104 20 96 Non-Rebreather 15.0 100 05/02/16 18:36 Non-Rebreather 15.0 100 05/02/16 18:36 96 Non-Rebreather 15.0 100 05/02/16 18:16 97.9 05/02/16 16:12 97.9 101 19 130/64 97 05/02/16 16:00 103 20 100 Non-Rebreather 15.0 100 05/02/16 15:51 100 05/02/16 15:50 100 20 99 Non-Rebreather 15.0 100 05/02/16 12:33 98.1 05/02/16 11:36 98.1 106 25 106/57 100 Non-Rebreather 15.0 05/02/16 11:00 105 05/02/16 10:39 102 22 100 Non-Rebreather 15.0 100 05/02/16 10:33 110 114/54 100 Non-Rebreather 05/02/16 10:30 100 05/02/16 10:29 105 20 99 Non-Rebreather 15.0 100 05/02/16 08:56 125 114/58 05/02/16 08:53 125 05/02/16 08:00 Non-Rebreather 05/02/16 08:00 122 05/02/16 07:59 100 05/02/16 07:58 Non-Rebreather 05/02/16 07:56 Non-Rebreather 15.0 100 05/02/16 07:55 96 Non-Rebreather 15.0 100 05/02/16 07:52 97.7 125 26 98/66 100 Non-Rebreather 15.0 05/02/16 04:25 97.9 117 20 121/68 97 Non-Rebreather 05/02/16 04:00 107 05/02/16 02:45 114 20 95 Non-Rebreather 15.0 100 05/02/16 02:40 100 05/02/16 02:39 114 20 95 Non-Rebreather 15.0 100 05/02/16 00:25 97.2 111 36 118/72 96 Non-Rebreather 05/02/16 00:00 111 05/01/16 23:00 119 20 95 Non-Rebreather 15.0 100 05/01/16 22:49 100 05/01/16 22:48 119 20 95 Non-Rebreather 15.0 100 Intake and Output 05/01/16 05/02/16 19:00 07:00 Intake Total 1132.5 ml 110.0 ml Output Total 310 ml Balance 822.5 ml 110.0 ml Intake Free Water 250 ml IV Total 102.5 ml 110.0 ml Tube Feeding 780 ml Output Urine Total 310 ml Laboratory Tests Test 05/02/16 06:20 05/02/16 09:45 White Blood Count 7.6 K/UL (4.8-10.8) # Red Blood Count 2.84 M/UL (4.70-6.10) L Hemoglobin 9.0 G/DL (14.2-18.0) L Hematocrit 27.4 % (42.0-52.0) L Mean Corpuscular Volume 96 FL (80-99) Mean Corpuscular Hemoglobin 31.8 PG (27.0-31.0) H Mean Corpuscular Hemoglobin Concent 33.0 G/DL (32.0-36.0) Red Cell Distribution Width 18.3 % (11.6-14.8) H Platelet Count 167 K/UL (150-450) Mean Platelet Volume 6.3 FL (6.5-10.1) L Neutrophils (%) (Auto) 78.3 % (45.0-75.0) H Lymphocytes (%) (Auto) 14.1 % (20.0-45.0) L Monocytes (%) (Auto) 5.1 % (1.0-10.0) Eosinophils (%) (Auto) 2.2 % (0.0-3.0) Basophils (%) (Auto) 0.3 % (0.0-2.0) Sodium Level 138 mEQ/L (135-145) Potassium Level 4.4 mEQ/L (3.4-4.9) Chloride Level 95 mEQ/L (98-107) L Carbon Dioxide Level 36 mEQ/L (20-30) H Anion Gap 7 (5-15) Blood Urea Nitrogen 14 mg/dL (7-23) Creatinine 0.6 mg/dL (0.7-1.2) L Estimat Glomerular Filtration Rate mL/min (>60) Glucose Level 171 mg/dL (74-106) H Calcium Level 8.2 mg/dL (8.6-10.2) L Magnesium Level 2.2 mg/dL (1.7-2.5) Microbiology Date/Time Source Procedure Growth Status 05/01/16 14:10 Urine,Clean Catch Urine Culture - Preliminary NO GROWTH Resulted Objective HEENT: No JVD. LUNGS: Coarse rhonchi CARDIOVASCULAR: Tachycardic S1,S2 with no gallop or murmur. ABDOMEN: G-tube intact EXTREMITIES: Lower extremities contracted with multiple ulcers. HERLINDA BURNETT May 02, 2016 22:09
[2016-05-03] MEDS: Albuterol ud Inhalation HHN SCH ×6 (03:12→23:40)
[2016-05-03 04:00] VITALS: BP 108/67
[2016-05-03] MEDS: NovoLOG Insulin Flexpen SUBQ SCH ×4 (06:00→18:16)
[2016-05-03] MEDS: Piperacillin/Tazobactam 3.375 GM in D5W 110 ML IVPB SCH ×3 (06:10→21:20)
[2016-05-03] MEDS: Levemir Flexpen SUBQ SCH ×2 (06:12→18:16)
[2016-05-03] MEDS ORDERED: Miralax 17gm pkt GT PRN (07:45)
[2016-05-03] MEDS ORDERED: Miralax 17gm pkt ORAL PRN (07:45)
[2016-05-03] MEDS ORDERED: Lactulose 20gm/30ml UDC ORAL PRN (08:00)
[2016-05-03 08:04] LABS: BASOPHILS % (AUTO) 0.2 % (0.0-2.0); EOSINOPHILS % (AUTO) 1.6 % (0.0-3.0); LYMPHOCYTES % (AUTO) 9.5 % (20.0-45.0); MEAN CORPUSCULAR HEMOGLOBIN 32.4 PG (27.0-31.0); MEAN CORPUSCULAR HGB CONC 31.6 G/DL (32.0-36.0); MEAN CORPUSCULAR VOLUME 103 FL (80-99); MEAN PLATELET VOLUME 7.1 FL (6.5-10.1); MONOCYTES % (AUTO) 4.1 % (1.0-10.0); NEUTROPHILS % (AUTO) 84.6 % (45.0-75.0); PLATELET COUNT 157 K/UL (150-450); RED BLOOD COUNT 2.56 M/UL (4.70-6.10); RED CELL DISTRIBUTION WIDTH 12.3 % (11.6-14.8); WHITE BLOOD COUNT 10.7 K/UL (4.8-10.8)
[2016-05-03 08:09] LABS: ALANINE AMINOTRANSFERASE 13 U/L (3-41); ALBUMIN/GLOBULIN RATIO 0.4 (1.0-2.7); ANION GAP 5 (5-15); ASPARTATE AMINO TRANSFERASE 18 U/L (5-40); CALCIUM 8.4 mg/dL (8.6-10.2); CARBON DIOXIDE 40 mEQ/L (20-30); CHLORIDE 97 mEQ/L (98-107); CREATININE 0.5 mg/dL (0.7-1.2); HEMOLYSIS 1; POTASSIUM 4.5 mEQ/L (3.4-4.9); SODIUM 142 mEQ/L (135-145); TOTAL PROTEIN 6.4 g/dL (6.6-8.7)
[2016-05-03 08:27] VITALS: BP 142/85
[2016-05-03] MEDS ORDERED: Digoxin 0.125mg tab ORAL SCH (09:00)
[2016-05-03] MEDS ORDERED: Pantoprazole Inj IVP SCH (09:00)
--- NOTE | 2016-05-03 09:06 | General Progress Note ---
Assessment/Plan Problem List: (1) Hypernatremia ICD Codes: E87.0 - Hyperosmolality and hypernatremia SNOMED: 89392958 (2) Altered level of consciousness ICD Codes: R40.4 - Transient alteration of awareness SNOMED: 2778177 (3) Diabetes ICD Codes: E11.9 - Type 2 diabetes mellitus without complications SNOMED: 67547452 Assessment/Plan continue Levemir 5 units bid continue Novolog sliding scale Subjective ROS Limited/Unobtainable: Yes Allergies: Coded Allergies: No Known Allergies (Unverified , 10/19/15) Subjective events noted - interval notes reviewed Objective Last 24 Hour Vital Signs Date Time Temp Pulse Resp B/P Pulse Ox O2 Delivery O2 Flow Rate FiO2 05/03/16 08:27 98.2 117 20 142/85 100 Nasal Cannula 05/03/16 04:00 97.2 107 20 108/67 98 Room Air 05/03/16 03:32 110 20 100 Non-Rebreather 15.0 100 05/03/16 03:14 104 20 100 Non-Rebreather 15.0 100 05/02/16 23:45 98.9 100 20 114/70 100 Room Air 05/02/16 23:09 105 20 100 Non-Rebreather 15.0 100 05/02/16 23:04 103 20 98 Non-Rebreather 15.0 100 05/02/16 21:19 99 128/71 05/02/16 20:00 98.0 99 18 128/71 99 05/02/16 18:41 103 20 96 Non-Rebreather 15.0 100 05/02/16 18:36 104 20 96 Non-Rebreather 15.0 100 05/02/16 18:36 Non-Rebreather 15.0 100 05/02/16 18:36 96 Non-Rebreather 15.0 100 05/02/16 18:16 97.9 05/02/16 16:12 97.9 101 19 130/64 97 05/02/16 16:00 103 20 100 Non-Rebreather 15.0 100 05/02/16 15:51 100 05/02/16 15:50 100 20 99 Non-Rebreather 15.0 100 05/02/16 12:33 98.1 05/02/16 11:36 98.1 106 25 106/57 100 Non-Rebreather 15.0 05/02/16 11:00 105 05/02/16 10:39 102 22 100 Non-Rebreather 15.0 100 05/02/16 10:33 110 114/54 100 Non-Rebreather 05/02/16 10:30 100 05/02/16 10:29 105 20 99 Non-Rebreather 15.0 100 Intake and Output 05/02/16 05/03/16 19:00 07:00 Intake Total 637.5 ml 1352.58 ml Output Total 175 ml 630 ml Balance 462.5 ml 722.58 ml Intake Free Water 250 ml 200 ml IV Total 192.5 ml 437.58 ml Tube Feeding 195 ml 715 ml Output Urine Total 175 ml 630 ml # Bowel Movements 1 1 Laboratory Tests 05/02/16 09:45: Sodium Level 138, Potassium Level 4.4, Chloride Level 95L, Carbon Dioxide Level 36H, Anion Gap 7, Blood Urea Nitrogen 14, Creatinine 0.6L, Estimat Glomerular Filtration Rate , Glucose Level 171H, Calcium Level 8.2L, Magnesium Level 2.2 05/03/16 07:00: Sodium Level 142, Potassium Level 4.5, Chloride Level 97L, Carbon Dioxide Level 40H, Anion Gap 5, Blood Urea Nitrogen 14, Creatinine 0.5L, Estimat Glomerular Filtration Rate , Glucose Level 82, Calcium Level 8.4L, White Blood Count 10.7, Red Blood Count 2.56L, Hemoglobin 8.3L, Hematocrit 26.2L, Mean Corpuscular Volume 103H, Mean Corpuscular Hemoglobin 32.4H, Mean Corpuscular Hemoglobin Concent 31.6L, Red Cell Distribution Width 12.3, Platelet Count 157, Mean Platelet Volume 7.1, Neutrophils (%) (Auto) 84.6H, Lymphocytes (%) (Auto) 9.5L, Monocytes (%) (Auto) 4.1, Eosinophils (%) (Auto) 1.6, Basophils (%) (Auto) 0.2, Total Bilirubin 0.2, Aspartate Amino Transf (AST/SGOT) 18, Alanine Aminotransferase (ALT/SGPT) 13, Alkaline Phosphatase 107, Total Protein 6.4L, Albumin 2.1L, Globulin 4.3, Albumin/Globulin Ratio 0.4L Height (Feet): 5 Height (Inches): 7.00 Weight (Pounds): 120 General Appearance: no apparent distress EENT: pale conjunctivae Neck: normal alignment Cardiovascular: normal rate Respiratory/Chest: decreased breath sounds Abdomen: normal bowel sounds Edema: no edema noted Arm (L), no edema noted Arm (R), no edema noted Leg (L), no edema noted Leg (R), no edema noted Pedal (L), no edema noted Pedal (R), no edema noted Generalized Objective Current Medications Medications (Trade) Dose Ordered Sig/Joy Route PRN Reason Start Time Stop Time Status Last Admin Dose Admin Acetaminophen (Tylenol) 650 mg Q4H PRN GT Mild Pain/Temp > 100.5 05/02/16 15:00 06/01/16 14:59 05/02/16 17:46 Albuterol Sulfate (Proventil) 2.5 mg Q4HRT HHN 05/02/16 15:00 05/07/16 14:59 05/03/16 07:44 Dextrose 1,000 ml @ 75 mls/hr [id number] IV 05/02/16 15:00 06/01/16 14:59 05/02/16 17:45 Dextrose (Dextrose 50%) STAT PRN IV Hypoglycemia 05/02/16 15:30 06/01/16 15:29 Digoxin (Lanoxin) 0.125 mg DAILY ORAL 05/03/16 09:00 06/02/16 08:59 Heparin Sodium (Porcine) (Heparin 5000 units/ml) 5,000 units Q12HR SUBQ 05/02/16 21:00 06/01/16 20:59 05/02/16 21:20 Insulin Aspart (NovoLOG) EVERY 6 HOURS SUBQ 05/02/16 18:00 06/01/16 17:59 Insulin Detemir (Levemir) 5 units Q12HR@0600,1800 SUBQ 05/02/16 18:00 06/01/16 17:59 05/03/16 06:12 Lactulose (Cephulac) 30 gm DAILYPRN PRN ORAL Constipation 05/02/16 15:00 06/01/16 14:59 Metoprolol Tartrate (Lopressor) 25 mg Q12HR ORAL 05/02/16 21:00 06/01/16 20:59 05/02/16 21:19 Morphine Sulfate (Morphine Sulfate) 4 mg Q4H PRN IV Dyspnea and Tachycardia 05/02/16 16:15 05/09/16 16:14 Nitroglycerin (Ntg) 0.4 mg Q5MIN X3 DOSES PRN SL Prn Chest Pain 05/02/16 14:30 06/01/16 14:29 Ondansetron HCl (Zofran) 4 mg Q4H PRN IVP Nausea & Vomiting 05/02/16 15:00 06/01/16 14:59 Pantoprazole (Protonix) 40 mg DAILY IVP 05/03/16 09:00 06/02/16 08:59 Piperacillin Sod/ Tazobactam Sod/ Dextrose (Zosyn/D5W) 110 ml @ 27.5 mls/hr Q8HR IVPB 05/02/16 15:30 05/07/16 15:29 05/03/16 06:10 Polyethylene Glycol (Miralax) 17 gm DAILYPRN PRN GT Constipation UNRELIEVED BY LAC 05/03/16 07:45 06/02/16 07:44 Item Value Date Time Bedside Blood Glucose 104 mg/dl 05/03/16 0612 Bedside Blood Glucose 79 mg/dl 05/03/16 0000 Bedside Blood Glucose 106 mg/dl 05/02/16 1749 Bedside Blood Glucose 133 mg/dl H 05/02/16 1204 JAGRUTI MANN May 03, 2016 09:06
[2016-05-03] MEDS: Digoxin 0.125mg tab ORAL SCH (09:26)
[2016-05-03] MEDS: Metoprolol 25mg tab ORAL SCH ×2 (09:26→21:20)
[2016-05-03] MEDS: Pantoprazole Inj IVP SCH (09:27)
[2016-05-03] MEDS: Heparin 5000 units/ml inj SUBQ SCH ×2 (09:29→21:00)
[2016-05-03] MEDS ORDERED: D5W 275ml ONE (09:50)
[2016-05-03] MEDS ORDERED: D5W 110ml ONE (09:50)
[2016-05-03] MEDS: Vancomycin 750mg/D5W 275ml IVPB SCH ×2 (12:15)
[2016-05-03 12:33] VITALS: BP 131/85
--- NOTE | 2016-05-03 13:06 | Internal Med Progress Note ---
Subjective Date of Service: May 03, 2016 Physician Name Marco Olvera Attending Physician Adalid Izaguirre MD Current Medications Medications (Trade) Dose Ordered Sig/Joy Route PRN Reason Start Time Stop Time Status Last Admin Dose Admin Acetaminophen (Tylenol) 650 mg Q4H PRN GT Mild Pain/Temp > 100.5 05/02/16 15:00 06/01/16 14:59 05/02/16 17:46 Albuterol Sulfate (Proventil) 2.5 mg Q4HRT HHN 05/02/16 15:00 05/07/16 14:59 05/03/16 12:12 Dextrose 1,000 ml @ 75 mls/hr [id number] IV 05/02/16 15:00 06/01/16 14:59 05/02/16 17:45 Dextrose (Dextrose 50%) STAT PRN IV Hypoglycemia 05/02/16 15:30 06/01/16 15:29 Digoxin (Lanoxin) 0.125 mg DAILY ORAL 05/03/16 09:00 06/02/16 08:59 05/03/16 09:26 Heparin Sodium (Porcine) (Heparin 5000 units/ml) 5,000 units Q12HR SUBQ 05/02/16 21:00 06/01/16 20:59 05/03/16 09:29 Insulin Aspart (NovoLOG) EVERY 6 HOURS SUBQ 05/02/16 18:00 06/01/16 17:59 05/03/16 12:29 Insulin Detemir (Levemir) 5 units Q12HR@0600,1800 SUBQ 05/02/16 18:00 06/01/16 17:59 05/03/16 06:12 Lactulose (Cephulac) 30 gm DAILYPRN PRN ORAL Constipation 05/02/16 15:00 06/01/16 14:59 Metoprolol Tartrate (Lopressor) 25 mg Q12HR ORAL 05/02/16 21:00 06/01/16 20:59 05/03/16 09:26 Morphine Sulfate (Morphine Sulfate) 4 mg Q4H PRN IV Dyspnea and Tachycardia 05/02/16 16:15 05/09/16 16:14 Nitroglycerin (Ntg) 0.4 mg Q5MIN X3 DOSES PRN SL Prn Chest Pain 05/02/16 14:30 06/01/16 14:29 Ondansetron HCl (Zofran) 4 mg Q4H PRN IVP Nausea & Vomiting 05/02/16 15:00 06/01/16 14:59 Pantoprazole (Protonix) 40 mg DAILY IVP 05/03/16 09:00 06/02/16 08:59 05/03/16 09:27 Piperacillin Sod/ Tazobactam Sod/ Dextrose (Zosyn/D5W) 110 ml @ 27.5 mls/hr Q8HR IVPB 05/02/16 15:30 05/07/16 15:29 05/03/16 06:10 Polyethylene Glycol (Miralax) 17 gm DAILYPRN PRN GT Constipation UNRELIEVED BY LAC 05/03/16 07:45 06/02/16 07:44 Vancomycin HCl 1 ea 1 ea DAILY PRN MISC Per rx protocol 05/03/16 12:00 06/02/16 11:59 Vancomycin HCl/ Dextrose (Vancomycin/D5W) 275 ml @ 183.708 mls/hr Q12HR@0000,1200 IVPB 05/03/16 12:00 05/08/16 11:59 05/03/16 12:15 Allergies: Coded Allergies: No Known Allergies (Unverified , 10/19/15) ROS Limited/Unobtainable: Yes Subjective 75 YO M admitted with fever, now with pneumonia. Cover for Int Med-Dr Izaguirre. Failed venturi mask; back on non-rebreather. Now sinus tachycardia in low 100' s. Objective Last Vital Signs Date Time Temp Pulse Resp B/P Pulse Ox O2 Delivery O2 Flow Rate FiO2 05/03/16 11:10 118 20 95 Non-Rebreather 15.0 100 05/03/16 09:26 142/85 05/03/16 08:27 98.2 Laboratory Tests Test 05/03/16 07:00 White Blood Count 10.7 K/UL (4.8-10.8) Red Blood Count 2.56 M/UL (4.70-6.10) L Hemoglobin 8.3 G/DL (14.2-18.0) L Hematocrit 26.2 % (42.0-52.0) L Mean Corpuscular Volume 103 FL (80-99) H Mean Corpuscular Hemoglobin 32.4 PG (27.0-31.0) H Mean Corpuscular Hemoglobin Concent 31.6 G/DL (32.0-36.0) L Red Cell Distribution Width 12.3 % (11.6-14.8) Platelet Count 157 K/UL (150-450) Mean Platelet Volume 7.1 FL (6.5-10.1) Neutrophils (%) (Auto) 84.6 % (45.0-75.0) H Lymphocytes (%) (Auto) 9.5 % (20.0-45.0) L Monocytes (%) (Auto) 4.1 % (1.0-10.0) Eosinophils (%) (Auto) 1.6 % (0.0-3.0) Basophils (%) (Auto) 0.2 % (0.0-2.0) Sodium Level 142 mEQ/L (135-145) Potassium Level 4.5 mEQ/L (3.4-4.9) Chloride Level 97 mEQ/L (98-107) L Carbon Dioxide Level 40 mEQ/L (20-30) H Anion Gap 5 (5-15) Blood Urea Nitrogen 14 mg/dL (7-23) Creatinine 0.5 mg/dL (0.7-1.2) L Estimat Glomerular Filtration Rate mL/min (>60) Glucose Level 82 mg/dL (74-106) Calcium Level 8.4 mg/dL (8.6-10.2) L Total Bilirubin 0.2 mg/dL (0.0-1.2) Aspartate Amino Transf (AST/SGOT) 18 U/L (5-40) Alanine Aminotransferase (ALT/SGPT) 13 U/L (3-41) Alkaline Phosphatase 107 U/L (40-129) Total Protein 6.4 g/dL (6.6-8.7) L Albumin 2.1 g/dL (3.5-5.2) L Globulin 4.3 g/dL Albumin/Globulin Ratio 0.4 (1.0-2.7) L Microbiology Date/Time Source Procedure Growth Status 05/01/16 12:15 Blood Blood Culture - Preliminary Resulted 05/01/16 12:00 Blood Blood Culture - Preliminary NO GROWTH AFTER 24 HOURS Resulted 05/01/16 14:10 Urine,Clean Catch Urine Culture - Preliminary YEAST Resulted Intake and Output 05/02/16 05/03/16 19:00 07:00 Intake Total 637.5 ml 1352.58 ml Output Total 175 ml 630 ml Balance 462.5 ml 722.58 ml Intake Free Water 250 ml 200 ml IV Total 192.5 ml 437.58 ml Tube Feeding 195 ml 715 ml Output Urine Total 175 ml 630 ml # Bowel Movements 1 1 Objective General Appearance: lethargic, thin EENT: normal ENT inspection Neck: non-tender, normal alignment, supple Cardiovascular: normal peripheral pulses, normal rate, regular rhythm, no gallop/murmur, no JVD Respiratory/Chest: Non-rebreather, left lung sounds absent; chest wall non- tender, crackles/rales, rhonchi - bilaterally, expiratory wheezing Abdomen: normal bowel sounds, non tender, soft, no organomegaly, no mass Skin: normal pigmentation, warm/dry Assessment/Plan Problem List: (1) Leukocytosis (2) Pemphigus Assessment & Plan: D/C chronic prednisone therapy per nephrology. (3) Sepsis Assessment & Plan: Coag neg staph. See ID note. Cont vanco and zosyn per ID (4) Cerebral vascular disease (5) Hemiplegia affecting left nondominant side (6) Aphasia as late effect of cerebrovascular accident (7) Atrial fibrillation Assessment & Plan: Now sinus tachycardia. See cardiology note. (8) Hypertension (9) Diabetes mellitus Assessment & Plan: Cont novolog sliding scale. (10) Dysphagia as late effect of cerebrovascular accident (CVA) (11) Pneumonia Assessment & Plan: Repeat chest xray=left opacification. Continue vanco and zosyn per ID. See pulmonary note. (12) G tube feedings (13) Septic shock (14) Hypernatremia Assessment & Plan: See nephrology note. (15) Anemia Assessment & Plan: S/P transfusion 1 unit PRBC on 04/26/16. (16) Respiratory failure Assessment & Plan: worsening; on non-rebreather (17) Tachycardia Assessment & Plan: ?septic vs afib? See cardiology note. Assessment/Plan Prognosis is poor MARCO OLVERA May 03, 2016 13:06
--- NOTE | 2016-05-03 13:14 | General Progress Note ---
Assessment/Plan Status: stable - from renal stand Assessment/Plan status: Acute Renal failure- due to sepsis and shock & Dehydration and volume depletion component- and HyperNatremia ALL IMPROVED Other: -CVA (cerebral vascular accident) -Diabetes -G tube feedings -Left hemiparesis Plan: Pulmonary toilet- Antibiotics- Monitor renal parameters- Avoid Nephrotoxics- per orders- DNR DNI Subjective ROS Limited/Unobtainable: No Constitutional: Reports: malaise Allergies: Coded Allergies: No Known Allergies (Unverified , 10/19/15) Objective Last 24 Hour Vital Signs Date Time Temp Pulse Resp B/P Pulse Ox O2 Delivery O2 Flow Rate FiO2 05/03/16 11:10 118 20 95 Non-Rebreather 15.0 100 05/03/16 11:10 119 20 97 Non-Rebreather 15.0 100 05/03/16 09:26 117 142/85 05/03/16 09:26 117 05/03/16 08:27 98.2 117 20 142/85 100 Nasal Cannula 05/03/16 07:51 95 Non-Rebreather 15.0 100 05/03/16 07:51 Non-Rebreather 15.0 100 05/03/16 07:51 114 20 95 Non-Rebreather 15.0 100 05/03/16 07:51 116 20 96 Non-Rebreather 15.0 100 05/03/16 04:00 97.2 107 20 108/67 98 Room Air 05/03/16 03:32 110 20 100 Non-Rebreather 15.0 100 05/03/16 03:14 104 20 100 Non-Rebreather 15.0 100 05/02/16 23:45 98.9 100 20 114/70 100 Room Air 05/02/16 23:09 105 20 100 Non-Rebreather 15.0 100 05/02/16 23:04 103 20 98 Non-Rebreather 15.0 100 05/02/16 21:19 99 128/71 05/02/16 20:00 98.0 99 18 128/71 99 05/02/16 18:41 103 20 96 Non-Rebreather 15.0 100 05/02/16 18:36 104 20 96 Non-Rebreather 15.0 100 05/02/16 18:36 Non-Rebreather 15.0 100 05/02/16 18:36 96 Non-Rebreather 15.0 100 05/02/16 18:16 97.9 05/02/16 16:12 97.9 101 19 130/64 97 05/02/16 16:00 103 20 100 Non-Rebreather 15.0 100 05/02/16 15:51 100 05/02/16 15:50 100 20 99 Non-Rebreather 15.0 100 Intake and Output 05/02/16 05/03/16 19:00 07:00 Intake Total 637.5 ml 1352.58 ml Output Total 175 ml 630 ml Balance 462.5 ml 722.58 ml Intake Free Water 250 ml 200 ml IV Total 192.5 ml 437.58 ml Tube Feeding 195 ml 715 ml Output Urine Total 175 ml 630 ml # Bowel Movements 1 1 Laboratory Tests 05/03/16 07:00: White Blood Count 10.7, Red Blood Count 2.56L, Hemoglobin 8.3L, Hematocrit 26.2L , Mean Corpuscular Volume 103H, Mean Corpuscular Hemoglobin 32.4H, Mean Corpuscular Hemoglobin Concent 31.6L, Red Cell Distribution Width 12.3, Platelet Count 157, Mean Platelet Volume 7.1, Neutrophils (%) (Auto) 84.6H, Lymphocytes (%) (Auto) 9.5L, Monocytes (%) (Auto) 4.1, Eosinophils (%) (Auto) 1.6, Basophils (%) (Auto) 0.2, Sodium Level 142, Potassium Level 4.5, Chloride Level 97L, Carbon Dioxide Level 40H, Anion Gap 5, Blood Urea Nitrogen 14, Creatinine 0.5L, Estimat Glomerular Filtration Rate , Glucose Level 82, Calcium Level 8.4L, Total Bilirubin 0.2, Aspartate Amino Transf (AST/SGOT) 18, Alanine Aminotransferase (ALT/SGPT) 13, Alkaline Phosphatase 107, Total Protein 6.4L, Albumin 2.1L, Globulin 4.3, Albumin/Globulin Ratio 0.4L Height (Feet): 5 Height (Inches): 7.00 Weight (Pounds): 120 General Appearance: mild distress Cardiovascular: tachycardia Respiratory/Chest: decreased breath sounds Abdomen: distended Objective no change in PE CRISTY MADDOX May 03, 2016 13:14
--- NOTE | 2016-05-03 13:18 | Infectious Diseases Prog Note ---
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 // DM2 - HbA1c 8.1% // Dementia, h/o CVA // Functional quadriplegia / bedbound // Dysphagia SP PEG // NH resident // Negative MRSA, VRE screens // NKDA // Full Code PLAN: - IV Zosyn d# 4 , add IV Vanco d# 1 ( 04/27 SP IV vancomycin, cefepime, flagyl d# / ) - monitor CBC, temperatures - monitor BMP - monitor CXR : - aspiration precautions - wound care - Panculture Subjective Constitutional: Denies: anorexia, chills, drenching sweats, fatigue, fever, no symptoms, other Allergies: Coded Allergies: No Known Allergies (Unverified , 10/19/15) Subjective non verbal Objective Vital Signs Last 24 Hour Vital Signs Date Time Temp Pulse Resp B/P Pulse Ox O2 Delivery O2 Flow Rate FiO2 05/03/16 11:10 118 20 95 Non-Rebreather 15.0 100 05/03/16 11:10 119 20 97 Non-Rebreather 15.0 100 05/03/16 09:26 117 142/85 05/03/16 09:26 117 05/03/16 08:27 98.2 117 20 142/85 100 Nasal Cannula 05/03/16 07:51 95 Non-Rebreather 15.0 100 05/03/16 07:51 Non-Rebreather 15.0 100 05/03/16 07:51 114 20 95 Non-Rebreather 15.0 100 05/03/16 07:51 116 20 96 Non-Rebreather 15.0 100 05/03/16 04:00 97.2 107 20 108/67 98 Room Air 05/03/16 03:32 110 20 100 Non-Rebreather 15.0 100 05/03/16 03:14 104 20 100 Non-Rebreather 15.0 100 05/02/16 23:45 98.9 100 20 114/70 100 Room Air 05/02/16 23:09 105 20 100 Non-Rebreather 15.0 100 05/02/16 23:04 103 20 98 Non-Rebreather 15.0 100 05/02/16 21:19 99 128/71 05/02/16 20:00 98.0 99 18 128/71 99 05/02/16 18:41 103 20 96 Non-Rebreather 15.0 100 05/02/16 18:36 104 20 96 Non-Rebreather 15.0 100 05/02/16 18:36 Non-Rebreather 15.0 100 05/02/16 18:36 96 Non-Rebreather 15.0 100 05/02/16 18:16 97.9 05/02/16 16:12 97.9 101 19 130/64 97 05/02/16 16:00 103 20 100 Non-Rebreather 15.0 100 05/02/16 15:51 100 05/02/16 15:50 100 20 99 Non-Rebreather 15.0 100 Height (Feet): 5 Height (Inches): 7.00 Weight (Pounds): 120 HEENT: atraumatic Respiratory/Chest: lungs clear, normal breath sounds Cardiovascular: normal rate, regular rhythm Abdomen: soft, non tender, no organomegaly Microbiology Date/Time Source Procedure Growth Status 05/01/16 12:15 Blood Blood Culture - Preliminary Resulted 05/01/16 12:00 Blood Blood Culture - Preliminary NO GROWTH AFTER 24 HOURS Resulted 05/01/16 14:10 Urine,Clean Catch Urine Culture - Preliminary YEAST Resulted Laboratory Tests Test 05/03/16 07:00 White Blood Count 10.7 K/UL (4.8-10.8) Red Blood Count 2.56 M/UL (4.70-6.10) L Hemoglobin 8.3 G/DL (14.2-18.0) L Hematocrit 26.2 % (42.0-52.0) L Mean Corpuscular Volume 103 FL (80-99) H Mean Corpuscular Hemoglobin 32.4 PG (27.0-31.0) H Mean Corpuscular Hemoglobin Concent 31.6 G/DL (32.0-36.0) L Red Cell Distribution Width 12.3 % (11.6-14.8) Platelet Count 157 K/UL (150-450) Mean Platelet Volume 7.1 FL (6.5-10.1) Neutrophils (%) (Auto) 84.6 % (45.0-75.0) H Lymphocytes (%) (Auto) 9.5 % (20.0-45.0) L Monocytes (%) (Auto) 4.1 % (1.0-10.0) Eosinophils (%) (Auto) 1.6 % (0.0-3.0) Basophils (%) (Auto) 0.2 % (0.0-2.0) Sodium Level 142 mEQ/L (135-145) Potassium Level 4.5 mEQ/L (3.4-4.9) Chloride Level 97 mEQ/L (98-107) L Carbon Dioxide Level 40 mEQ/L (20-30) H Anion Gap 5 (5-15) Blood Urea Nitrogen 14 mg/dL (7-23) Creatinine 0.5 mg/dL (0.7-1.2) L Estimat Glomerular Filtration Rate mL/min (>60) Glucose Level 82 mg/dL (74-106) Calcium Level 8.4 mg/dL (8.6-10.2) L Total Bilirubin 0.2 mg/dL (0.0-1.2) Aspartate Amino Transf (AST/SGOT) 18 U/L (5-40) Alanine Aminotransferase (ALT/SGPT) 13 U/L (3-41) Alkaline Phosphatase 107 U/L (40-129) Total Protein 6.4 g/dL (6.6-8.7) L Albumin 2.1 g/dL (3.5-5.2) L Globulin 4.3 g/dL Albumin/Globulin Ratio 0.4 (1.0-2.7) L Current Medications Medications (Trade) Dose Ordered Sig/Joy Route PRN Reason Start Time Stop Time Status Last Admin Dose Admin Acetaminophen (Tylenol) 650 mg Q4H PRN GT Mild Pain/Temp > 100.5 05/02/16 15:00 06/01/16 14:59 05/02/16 17:46 Albuterol Sulfate (Proventil) 2.5 mg Q4HRT HHN 05/02/16 15:00 05/07/16 14:59 05/03/16 12:12 Dextrose 1,000 ml @ 75 mls/hr [id number] IV 05/02/16 15:00 06/01/16 14:59 05/02/16 17:45 Dextrose (Dextrose 50%) STAT PRN IV Hypoglycemia 05/02/16 15:30 06/01/16 15:29 Digoxin (Lanoxin) 0.125 mg DAILY ORAL 05/03/16 09:00 06/02/16 08:59 05/03/16 09:26 Heparin Sodium (Porcine) (Heparin 5000 units/ml) 5,000 units Q12HR SUBQ 05/02/16 21:00 06/01/16 20:59 05/03/16 09:29 Insulin Aspart (NovoLOG) EVERY 6 HOURS SUBQ 05/02/16 18:00 06/01/16 17:59 05/03/16 12:29 Insulin Detemir (Levemir) 5 units Q12HR@0600,1800 SUBQ 05/02/16 18:00 06/01/16 17:59 05/03/16 06:12 Lactulose (Cephulac) 30 gm DAILYPRN PRN ORAL Constipation 05/02/16 15:00 06/01/16 14:59 Metoprolol Tartrate (Lopressor) 25 mg Q12HR ORAL 05/02/16 21:00 06/01/16 20:59 05/03/16 09:26 Morphine Sulfate (Morphine Sulfate) 4 mg Q4H PRN IV Dyspnea and Tachycardia 05/02/16 16:15 05/09/16 16:14 Nitroglycerin (Ntg) 0.4 mg Q5MIN X3 DOSES PRN SL Prn Chest Pain 05/02/16 14:30 06/01/16 14:29 Ondansetron HCl (Zofran) 4 mg Q4H PRN IVP Nausea & Vomiting 05/02/16 15:00 06/01/16 14:59 Pantoprazole (Protonix) 40 mg DAILY IVP 05/03/16 09:00 06/02/16 08:59 05/03/16 09:27 Piperacillin Sod/ Tazobactam Sod/ Dextrose (Zosyn/D5W) 110 ml @ 27.5 mls/hr Q8HR IVPB 05/02/16 15:30 05/07/16 15:29 05/03/16 06:10 Polyethylene Glycol (Miralax) 17 gm DAILYPRN PRN GT Constipation UNRELIEVED BY LAC 05/03/16 07:45 06/02/16 07:44 Vancomycin HCl 1 ea 1 ea DAILY PRN MISC Per rx protocol 05/03/16 12:00 06/02/16 11:59 Vancomycin HCl/ Dextrose (Vancomycin/D5W) 275 ml @ 183.708 mls/hr Q12HR@0000,1200 IVPB 05/03/16 12:00 05/08/16 11:59 05/03/16 12:15 PAUL FORRESTER M.D. May 03, 2016 13:18
--- NOTE | 2016-05-03 13:29 | Pulmonology Progress Note ---
Assessment/Plan Problems: (1) Septic shock (2) Pneumonia (3) ATN (acute tubular necrosis) (4) Diabetes (5) G tube feedings (6) Left hemiparesis (7) CVA (cerebral vascular accident) (8) residential resident (9) Gastrostomy in place Assessment/Plan Left lung collapse unchaged positional therapy Keep left chest up poor prognosis, contnue antibiotics check cultures wound care f/w wbc, and cultures and electrolytes all notes reviewed SW in contact with pts family about plan of care. Use morphon prn for dyspnea Subjective ROS Limited/Unobtainable: No Constitutional: Reports: no symptoms HEENT: Repors: no symptoms Respiratory: Reports: no symptoms Cardiovascular: Reports: no symptoms Allergies: Coded Allergies: No Known Allergies (Unverified , 10/19/15) Objective Last 24 Hour Vital Signs Date Time Temp Pulse Resp B/P Pulse Ox O2 Delivery O2 Flow Rate FiO2 05/03/16 12:33 97.6 106 20 131/85 100 Simple Mask 05/03/16 11:10 118 20 95 Non-Rebreather 15.0 100 05/03/16 11:10 119 20 97 Non-Rebreather 15.0 100 05/03/16 09:26 117 142/85 05/03/16 09:26 117 05/03/16 08:27 98.2 117 20 142/85 100 Nasal Cannula 05/03/16 07:51 95 Non-Rebreather 15.0 100 05/03/16 07:51 Non-Rebreather 15.0 100 05/03/16 07:51 114 20 95 Non-Rebreather 15.0 100 05/03/16 07:51 116 20 96 Non-Rebreather 15.0 100 05/03/16 04:00 97.2 107 20 108/67 98 Room Air 05/03/16 03:32 110 20 100 Non-Rebreather 15.0 100 05/03/16 03:14 104 20 100 Non-Rebreather 15.0 100 05/02/16 23:45 98.9 100 20 114/70 100 Room Air 05/02/16 23:09 105 20 100 Non-Rebreather 15.0 100 05/02/16 23:04 103 20 98 Non-Rebreather 15.0 100 05/02/16 21:19 99 128/71 05/02/16 20:00 98.0 99 18 128/71 99 05/02/16 18:41 103 20 96 Non-Rebreather 15.0 100 05/02/16 18:36 104 20 96 Non-Rebreather 15.0 100 05/02/16 18:36 Non-Rebreather 15.0 100 05/02/16 18:36 96 Non-Rebreather 15.0 100 05/02/16 18:16 97.9 05/02/16 16:12 97.9 101 19 130/64 97 05/02/16 16:00 103 20 100 Non-Rebreather 15.0 100 05/02/16 15:51 100 05/02/16 15:50 100 20 99 Non-Rebreather 15.0 100 Intake and Output 05/02/16 05/03/16 19:00 07:00 Intake Total 637.5 ml 1352.58 ml Output Total 175 ml 630 ml Balance 462.5 ml 722.58 ml Intake Free Water 250 ml 200 ml IV Total 192.5 ml 437.58 ml Tube Feeding 195 ml 715 ml Output Urine Total 175 ml 630 ml # Bowel Movements 1 1 Objective more awake, less dysnic General Appearance: WD/WN HEENT: normocephalic Respiratory/Chest: chest wall non-tender, normal breath sounds Cardiovascular: normal peripheral pulses Abdomen: normal bowel sounds, no organomegaly Genitourinary: normal external genitalia Extremities: no clubbing Microbiology Date/Time Source Procedure Growth Status 05/01/16 12:15 Blood Blood Culture - Preliminary Resulted 05/01/16 12:00 Blood Blood Culture - Preliminary NO GROWTH AFTER 24 HOURS Resulted 05/01/16 14:10 Urine,Clean Catch Urine Culture - Preliminary YEAST Resulted Laboratory Tests 05/03/16 07:00: White Blood Count 10.7, Red Blood Count 2.56L, Hemoglobin 8.3L, Hematocrit 26.2L , Mean Corpuscular Volume 103H, Mean Corpuscular Hemoglobin 32.4H, Mean Corpuscular Hemoglobin Concent 31.6L, Red Cell Distribution Width 12.3, Platelet Count 157, Mean Platelet Volume 7.1, Neutrophils (%) (Auto) 84.6H, Lymphocytes (%) (Auto) 9.5L, Monocytes (%) (Auto) 4.1, Eosinophils (%) (Auto) 1.6, Basophils (%) (Auto) 0.2, Sodium Level 142, Potassium Level 4.5, Chloride Level 97L, Carbon Dioxide Level 40H, Anion Gap 5, Blood Urea Nitrogen 14, Creatinine 0.5L, Estimat Glomerular Filtration Rate , Glucose Level 82, Calcium Level 8.4L, Total Bilirubin 0.2, Aspartate Amino Transf (AST/SGOT) 18, Alanine Aminotransferase (ALT/SGPT) 13, Alkaline Phosphatase 107, Total Protein 6.4L, Albumin 2.1L, Globulin 4.3, Albumin/Globulin Ratio 0.4L Current Medications Medications (Trade) Dose Ordered Sig/Joy Route PRN Reason Start Time Stop Time Status Last Admin Dose Admin Acetaminophen (Tylenol) 650 mg Q4H PRN GT Mild Pain/Temp > 100.5 05/02/16 15:00 06/01/16 14:59 05/02/16 17:46 Albuterol Sulfate (Proventil) 2.5 mg Q4HRT HHN 05/02/16 15:00 05/07/16 14:59 05/03/16 12:12 Dextrose 1,000 ml @ 75 mls/hr [id number] IV 05/02/16 15:00 06/01/16 14:59 05/02/16 17:45 Dextrose (Dextrose 50%) STAT PRN IV Hypoglycemia 05/02/16 15:30 06/01/16 15:29 Digoxin (Lanoxin) 0.125 mg DAILY ORAL 05/03/16 09:00 06/02/16 08:59 05/03/16 09:26 Heparin Sodium (Porcine) (Heparin 5000 units/ml) 5,000 units Q12HR SUBQ 05/02/16 21:00 06/01/16 20:59 05/03/16 09:29 Insulin Aspart (NovoLOG) EVERY 6 HOURS SUBQ 05/02/16 18:00 06/01/16 17:59 05/03/16 12:29 Insulin Detemir (Levemir) 5 units Q12HR@0600,1800 SUBQ 05/02/16 18:00 06/01/16 17:59 05/03/16 06:12 Lactulose (Cephulac) 30 gm DAILYPRN PRN ORAL Constipation 05/02/16 15:00 06/01/16 14:59 Metoprolol Tartrate (Lopressor) 25 mg Q12HR ORAL 05/02/16 21:00 06/01/16 20:59 05/03/16 09:26 Morphine Sulfate (Morphine Sulfate) 4 mg Q4H PRN IV Dyspnea and Tachycardia 05/02/16 16:15 05/09/16 16:14 Nitroglycerin (Ntg) 0.4 mg Q5MIN X3 DOSES PRN SL Prn Chest Pain 05/02/16 14:30 06/01/16 14:29 Ondansetron HCl (Zofran) 4 mg Q4H PRN IVP Nausea & Vomiting 05/02/16 15:00 06/01/16 14:59 Pantoprazole (Protonix) 40 mg DAILY IVP 05/03/16 09:00 06/02/16 08:59 05/03/16 09:27 Piperacillin Sod/ Tazobactam Sod/ Dextrose (Zosyn/D5W) 110 ml @ 27.5 mls/hr Q8HR IVPB 05/02/16 15:30 05/07/16 15:29 05/03/16 06:10 Polyethylene Glycol (Miralax) 17 gm DAILYPRN PRN GT Constipation UNRELIEVED BY LAC 05/03/16 07:45 06/02/16 07:44 Vancomycin HCl 1 ea 1 ea DAILY PRN MISC Per rx protocol 05/03/16 12:00 06/02/16 11:59 Vancomycin HCl/ Dextrose (Vancomycin/D5W) 275 ml @ 183.708 mls/hr Q12HR@0000,1200 IVPB 05/03/16 12:00 05/08/16 11:59 05/03/16 12:15 JAVIER BANKS May 03, 2016 13:29
[2016-05-03 16:41] VITALS: BP 135/77
[2016-05-03 20:00] VITALS: BP 126/71
[2016-05-03 22:45] VITALS: BP 135/81
[2016-05-04] VITALS: BP 135/81
[2016-05-04] MEDS: Vancomycin 750mg/D5W 275ml IVPB SCH ×2 (00:09)
[2016-05-04] MEDS: Albuterol ud Inhalation HHN SCH ×6 (03:00→23:45)
[2016-05-04 04:00] VITALS: BP 147/89
[2016-05-04] MEDS: Piperacillin/Tazobactam 3.375 GM in D5W 110 ML IVPB SCH (06:16)
[2016-05-04] MEDS: Levemir Flexpen SUBQ SCH ×2 (06:31→18:20)
[2016-05-04] MEDS: NovoLOG Insulin Flexpen SUBQ SCH ×4 (06:32→18:20)
[2016-05-04 06:57] LABS: BASOPHILS % (AUTO) 0.8 % (0.0-2.0); EOSINOPHILS % (AUTO) 1.1 % (0.0-3.0); LYMPHOCYTES % (AUTO) 9.3 % (20.0-45.0); MEAN CORPUSCULAR HEMOGLOBIN 33.9 PG (27.0-31.0); MEAN CORPUSCULAR HGB CONC 32.1 G/DL (32.0-36.0); MEAN CORPUSCULAR VOLUME 106 FL (80-99); MEAN PLATELET VOLUME 6.8 FL (6.5-10.1); MONOCYTES % (AUTO) 4.1 % (1.0-10.0); NEUTROPHILS % (AUTO) 84.8 % (45.0-75.0); PLATELET COUNT 151 K/UL (150-450); RED BLOOD COUNT 2.52 M/UL (4.70-6.10); RED CELL DISTRIBUTION WIDTH 12.5 % (11.6-14.8); WHITE BLOOD COUNT 11.7 K/UL (4.8-10.8)
--- NOTE | 2016-05-04 07:13 | General Progress Note ---
Assessment/Plan Problem List: (1) Hypernatremia ICD Codes: E87.0 - Hyperosmolality and hypernatremia SNOMED: 77558570 (2) Altered level of consciousness ICD Codes: R40.4 - Transient alteration of awareness SNOMED: 3981034 (3) Diabetes ICD Codes: E11.9 - Type 2 diabetes mellitus without complications SNOMED: 82952595 Assessment/Plan continue Levemir 5 units bid continue Novolog sliding scale low dose every 6 hours Subjective ROS Limited/Unobtainable: Yes Allergies: Coded Allergies: No Known Allergies (Unverified , 10/19/15) Subjective events noted - interval notes reviewed Objective Last 24 Hour Vital Signs Date Time Temp Pulse Resp B/P Pulse Ox O2 Delivery O2 Flow Rate FiO2 05/04/16 04:00 100.0 131 24 147/89 100 Non-Rebreather 05/04/16 03:30 130 30 95 Venturi Mask 15.0 50 05/04/16 03:30 130 95 Venturi Mask 15.0 50 05/04/16 00:00 98.4 103 20 135/81 100 Non-Rebreather 05/03/16 23:48 118 20 97 Venturi Mask 14.0 55 05/03/16 23:38 116 24 99 Non-Rebreather 15.0 100 05/03/16 22:45 98.4 103 20 135/81 100 Non-Rebreather 05/03/16 21:20 111 126/71 05/03/16 20:00 97.9 111 20 126/71 100 Venturi Mask 100 05/03/16 19:59 115 22 99 Non-Rebreather 15.0 100 05/03/16 19:51 102 24 99 Non-Rebreather 15.0 100 05/03/16 19:51 Non-Rebreather 15.0 100 05/03/16 19:50 99 Non-Rebreather 15.0 100 05/03/16 16:41 98.4 113 20 135/77 100 Nasal Cannula 05/03/16 15:15 107 20 99 Non-Rebreather 15.0 100 05/03/16 15:10 104 20 99 Non-Rebreather 15.0 100 05/03/16 12:33 97.6 106 20 131/85 100 Simple Mask 05/03/16 11:10 118 20 95 Non-Rebreather 15.0 100 05/03/16 11:10 119 20 97 Non-Rebreather 15.0 100 05/03/16 09:26 117 142/85 05/03/16 09:26 117 05/03/16 08:27 98.2 117 20 142/85 100 Nasal Cannula 05/03/16 07:51 95 Non-Rebreather 15.0 100 05/03/16 07:51 Non-Rebreather 15.0 100 05/03/16 07:51 114 20 95 Non-Rebreather 15.0 100 05/03/16 07:51 116 20 96 Non-Rebreather 15.0 100 Intake and Output 05/03/16 05/04/16 19:00 07:00 Intake Total 593.708 ml 1680 ml Output Total 500 ml 850 ml Balance 93.708 ml 830 ml Intake Free Water 150 ml 250 ml IV Total 183.708 ml 910 ml Tube Feeding 260 ml 520 ml Output Urine Total 500 ml 650 ml Stool Total 200 ml # Bowel Movements 3 Laboratory Tests 05/04/16 05:20: White Blood Count 11.7H, Red Blood Count 2.52L, Hemoglobin 8.6L, Hematocrit 26.6L, Mean Corpuscular Volume 106H, Mean Corpuscular Hemoglobin 33.9H, Mean Corpuscular Hemoglobin Concent 32.1, Red Cell Distribution Width 12.5, Platelet Count 151, Mean Platelet Volume 6.8, Neutrophils (%) (Auto) 84.8H, Lymphocytes ( %) (Auto) 9.3L, Monocytes (%) (Auto) 4.1, Eosinophils (%) (Auto) 1.1, Basophils (%) (Auto) 0.8, Sodium Level [Pending], Potassium Level [Pending], Chloride Level [Pending], Carbon Dioxide Level [Pending], Blood Urea Nitrogen [Pending], Creatinine [Pending], Estimat Glomerular Filtration Rate [Pending], Glucose Level [Pending], Calcium Level [Pending] Height (Feet): 5 Height (Inches): 7.00 Weight (Pounds): 120 General Appearance: no apparent distress EENT: pale conjunctivae Neck: normal alignment Cardiovascular: normal peripheral pulses Respiratory/Chest: decreased breath sounds Abdomen: normal bowel sounds, other - PEG Pelvis: normal external exam Edema: no edema noted Arm (L), no edema noted Arm (R), no edema noted Leg (L), no edema noted Leg (R), no edema noted Pedal (L), no edema noted Pedal (R), no edema noted Generalized Objective Current Medications Medications (Trade) Dose Ordered Sig/Joy Route PRN Reason Start Time Stop Time Status Last Admin Dose Admin Acetaminophen (Tylenol) 650 mg Q4H PRN GT Mild Pain/Temp > 100.5 05/02/16 15:00 06/01/16 14:59 05/02/16 17:46 Albuterol Sulfate (Proventil) 2.5 mg Q4HRT HHN 05/02/16 15:00 05/07/16 14:59 05/03/16 23:40 Dextrose 1,000 ml @ 75 mls/hr [id number] IV 05/02/16 15:00 06/01/16 14:59 05/04/16 05:51 Dextrose (Dextrose 50%) STAT PRN IV Hypoglycemia 05/02/16 15:30 06/01/16 15:29 Digoxin (Lanoxin) 0.125 mg DAILY ORAL 05/03/16 09:00 06/02/16 08:59 05/03/16 09:26 Heparin Sodium (Porcine) (Heparin 5000 units/ml) 5,000 units Q12HR SUBQ 05/02/16 21:00 06/01/16 20:59 05/03/16 09:29 Insulin Aspart (NovoLOG) EVERY 6 HOURS SUBQ 05/02/16 18:00 06/01/16 17:59 05/04/16 06:32 Insulin Detemir (Levemir) 5 units Q12HR@0600,1800 SUBQ 05/02/16 18:00 06/01/16 17:59 05/04/16 06:31 Lactulose (Cephulac) 30 gm DAILYPRN PRN ORAL Constipation 05/02/16 15:00 06/01/16 14:59 Metoprolol Tartrate (Lopressor) 25 mg Q12HR ORAL 05/02/16 21:00 06/01/16 20:59 05/03/16 21:20 Morphine Sulfate (Morphine Sulfate) 4 mg Q4H PRN IV Dyspnea and Tachycardia 05/02/16 16:15 05/09/16 16:14 Nitroglycerin (Ntg) 0.4 mg Q5MIN X3 DOSES PRN SL Prn Chest Pain 05/02/16 14:30 06/01/16 14:29 Ondansetron HCl (Zofran) 4 mg Q4H PRN IVP Nausea & Vomiting 05/02/16 15:00 06/01/16 14:59 Pantoprazole (Protonix) 40 mg DAILY IVP 05/03/16 09:00 06/02/16 08:59 05/03/16 09:27 Piperacillin Sod/ Tazobactam Sod/ Dextrose (Zosyn/D5W) 110 ml @ 27.5 mls/hr Q8HR IVPB 05/02/16 15:30 05/07/16 15:29 05/04/16 06:16 Polyethylene Glycol (Miralax) 17 gm DAILYPRN PRN GT Constipation UNRELIEVED BY LAC 05/03/16 07:45 06/02/16 07:44 Vancomycin HCl 1 ea 1 ea DAILY PRN MISC Per rx protocol 05/03/16 12:00 06/02/16 11:59 Vancomycin HCl/ Dextrose (Vancomycin/D5W) 275 ml @ 183.708 mls/hr Q12HR@0000,1200 IVPB 05/03/16 12:00 05/08/16 11:59 05/04/16 00:09 Item Value Date Time Bedside Blood Glucose 132 mg/dl H 05/04/16 0632 Bedside Blood Glucose 89 mg/dl 05/04/16 0001 Bedside Blood Glucose 169 mg/dl H 05/03/16 1816 Bedside Blood Glucose 117 mg/dl 05/03/16 1229 Bedside Blood Glucose 104 mg/dl 05/03/16 0612 JAGRUTI MANN May 04, 2016 07:13
[2016-05-04 08:00] VITALS: BP 136/82
[2016-05-04 08:12] LABS: ANION GAP 10 (5-15); CALCIUM 8.7 mg/dL (8.6-10.2); CARBON DIOXIDE 36 mEQ/L (20-30); CHLORIDE 92 mEQ/L (98-107); CREATININE 0.5 mg/dL (0.7-1.2); HEMOLYSIS 5; POTASSIUM 5.1 mEQ/L (3.4-4.9); SODIUM 138 mEQ/L (135-145)
[2016-05-04] MEDS: Metoprolol 25mg tab ORAL SCH ×2 (08:46→20:07)
[2016-05-04] MEDS: Digoxin 0.125mg tab ORAL SCH (08:46)
[2016-05-04] MEDS: Pantoprazole Inj IVP SCH (08:47)
[2016-05-04] MEDS: Heparin 5000 units/ml inj SUBQ SCH ×2 (08:50→20:12)
--- NOTE | 2016-05-04 11:38 | Internal Med Progress Note ---
Subjective Date of Service: May 04, 2016 Physician Name Renetta Olvera Attending Physician Adalid Izaguirre MD Current Medications Medications (Trade) Dose Ordered Sig/Joy Route PRN Reason Start Time Stop Time Status Last Admin Dose Admin Acetaminophen (Tylenol) 650 mg Q4H PRN GT Mild Pain/Temp > 100.5 05/02/16 15:00 06/01/16 14:59 05/02/16 17:46 Albuterol Sulfate (Proventil) 2.5 mg Q4HRT HHN 05/02/16 15:00 05/07/16 14:59 05/04/16 10:46 Dextrose 1,000 ml @ 75 mls/hr [id number] IV 05/02/16 15:00 06/01/16 14:59 05/04/16 05:51 Dextrose (Dextrose 50%) STAT PRN IV Hypoglycemia 05/02/16 15:30 06/01/16 15:29 Digoxin (Lanoxin) 0.125 mg DAILY ORAL 05/03/16 09:00 06/02/16 08:59 05/04/16 08:46 Heparin Sodium (Porcine) (Heparin 5000 units/ml) 5,000 units Q12HR SUBQ 05/02/16 21:00 06/01/16 20:59 05/04/16 08:50 Insulin Aspart (NovoLOG) EVERY 6 HOURS SUBQ 05/02/16 18:00 06/01/16 17:59 05/04/16 06:32 Insulin Detemir (Levemir) 5 units Q12HR@0600,1800 SUBQ 05/02/16 18:00 06/01/16 17:59 05/04/16 06:31 Lactulose (Cephulac) 30 gm DAILYPRN PRN ORAL Constipation 05/02/16 15:00 06/01/16 14:59 Metoprolol Tartrate (Lopressor) 25 mg Q12HR ORAL 05/02/16 21:00 06/01/16 20:59 05/04/16 08:46 Morphine Sulfate (Morphine Sulfate) 4 mg Q4H PRN IV Dyspnea and Tachycardia 05/02/16 16:15 05/09/16 16:14 Nitroglycerin (Ntg) 0.4 mg Q5MIN X3 DOSES PRN SL Prn Chest Pain 05/02/16 14:30 06/01/16 14:29 Ondansetron HCl (Zofran) 4 mg Q4H PRN IVP Nausea & Vomiting 05/02/16 15:00 06/01/16 14:59 Pantoprazole (Protonix) 40 mg DAILY IVP 05/03/16 09:00 06/02/16 08:59 05/04/16 08:47 Piperacillin Sod/ Tazobactam Sod/ Dextrose (Zosyn/D5W) 110 ml @ 27.5 mls/hr Q8HR IVPB 05/02/16 15:30 05/07/16 15:29 05/04/16 06:16 Polyethylene Glycol (Miralax) 17 gm DAILYPRN PRN GT Constipation UNRELIEVED BY LAC 05/03/16 07:45 06/02/16 07:44 Vancomycin HCl 1 ea 1 ea DAILY PRN MISC Per rx protocol 05/03/16 12:00 06/02/16 11:59 Vancomycin HCl/ Dextrose (Vancomycin/D5W) 275 ml @ 183.708 mls/hr Q12HR@0000,1200 IVPB 05/03/16 12:00 05/08/16 11:59 05/04/16 00:09 Allergies: Coded Allergies: No Known Allergies (Unverified , 10/19/15) ROS Limited/Unobtainable: Yes Subjective 75 YO M admitted with fever, now with pneumonia. Cover for Int Med-Dr Izaguirre. Tolerating venturi mask. Now tachycardia in low 130's. Objective Last Vital Signs Date Time Temp Pulse Resp B/P Pulse Ox O2 Delivery O2 Flow Rate FiO2 05/04/16 10:35 118 20 97 Venturi Mask 14.0 55 05/04/16 08:46 136/82 05/04/16 08:00 99.3 Laboratory Tests Test 05/04/16 05:20 White Blood Count 11.7 K/UL (4.8-10.8) H Red Blood Count 2.52 M/UL (4.70-6.10) L Hemoglobin 8.6 G/DL (14.2-18.0) L Hematocrit 26.6 % (42.0-52.0) L Mean Corpuscular Volume 106 FL (80-99) H Mean Corpuscular Hemoglobin 33.9 PG (27.0-31.0) H Mean Corpuscular Hemoglobin Concent 32.1 G/DL (32.0-36.0) Red Cell Distribution Width 12.5 % (11.6-14.8) Platelet Count 151 K/UL (150-450) Mean Platelet Volume 6.8 FL (6.5-10.1) Neutrophils (%) (Auto) 84.8 % (45.0-75.0) H Lymphocytes (%) (Auto) 9.3 % (20.0-45.0) L Monocytes (%) (Auto) 4.1 % (1.0-10.0) Eosinophils (%) (Auto) 1.1 % (0.0-3.0) Basophils (%) (Auto) 0.8 % (0.0-2.0) Sodium Level 138 mEQ/L (135-145) Potassium Level 5.1 mEQ/L (3.4-4.9) H Chloride Level 92 mEQ/L (98-107) L Carbon Dioxide Level 36 mEQ/L (20-30) H Anion Gap 10 (5-15) Blood Urea Nitrogen 11 mg/dL (7-23) Creatinine 0.5 mg/dL (0.7-1.2) L Estimat Glomerular Filtration Rate mL/min (>60) Glucose Level 112 mg/dL (74-106) H Calcium Level 8.7 mg/dL (8.6-10.2) Microbiology Date/Time Source Procedure Growth Status 05/01/16 12:15 Blood Blood Culture - Preliminary Staphylococcus Sp Coag Neg Resulted 05/01/16 12:00 Blood Blood Culture - Preliminary NO GROWTH AFTER 48 HOURS Resulted 05/01/16 14:10 Urine,Clean Catch Urine Culture - Final Osiris Albicans Complete Intake and Output 05/03/16 05/04/16 19:00 07:00 Intake Total 593.708 ml 1680 ml Output Total 500 ml 850 ml Balance 93.708 ml 830 ml Intake Free Water 150 ml 250 ml IV Total 183.708 ml 910 ml Tube Feeding 260 ml 520 ml Output Urine Total 500 ml 650 ml Stool Total 200 ml # Bowel Movements 3 Objective General Appearance: lethargic, thin EENT: normal ENT inspection Neck: non-tender, normal alignment, supple Cardiovascular: normal peripheral pulses, normal rate, regular rhythm, no gallop/murmur, no JVD Respiratory/Chest: Venturi mask, left lung sounds absent; chest wall non-tender , crackles/rales, rhonchi - bilaterally, expiratory wheezing Abdomen: normal bowel sounds, non tender, soft, no organomegaly, no mass Skin: normal pigmentation, warm/dry Assessment/Plan Problem List: (1) Leukocytosis (2) Pemphigus Assessment & Plan: D/C chronic prednisone therapy per nephrology. (3) Sepsis Assessment & Plan: Coag neg staph. See ID note. Cont vanco and zosyn per ID (4) Cerebral vascular disease (5) Hemiplegia affecting left nondominant side (6) Aphasia as late effect of cerebrovascular accident (7) Atrial fibrillation Assessment & Plan: Now sinus tachycardia. See cardiology note. (8) Hypertension (9) Diabetes mellitus Assessment & Plan: See endocrinology note. Cont levemir and novolog sliding scale. (10) Dysphagia as late effect of cerebrovascular accident (CVA) (11) Pneumonia Assessment & Plan: Repeat chest xray=left opacification. Continue vanco and zosyn per ID. See pulmonary note. (12) G tube feedings (13) Septic shock (14) Hypernatremia Assessment & Plan: See nephrology note. (15) Anemia Assessment & Plan: S/P transfusion 1 unit PRBC on 04/26/16. (16) Respiratory failure Assessment & Plan: worsening; on venturi mask (17) Tachycardia Assessment & Plan: ?septic vs afib? See cardiology note. Status: deteriorating Assessment/Plan Prognosis is poor RENETTA OLVERA May 04, 2016 11:38
[2016-05-04 12:00] VITALS: BP 148/90
[2016-05-04] MEDS ORDERED: Lidocaine 1% Plain 30 ml INJ PRN (12:30)
[2016-05-04] MEDS ORDERED: Sodium Bicarbonate 8.4% 50ml Inj IV PRN (12:30)
[2016-05-04] MEDS ORDERED: Heparin 2000 units/Ns 1000ml INJ PRN (12:30)
--- NOTE | 2016-05-04 12:46 | Cardiology Report ---
APPROVED REPORT EKG Measurement Heart [id number] Sinus tachycardia Septal infarct, age undetermined Abnormal ECG
--- NOTE | 2016-05-04 13:20 | General Progress Note ---
Assessment/Plan Status: stable - from renal stand Assessment/Plan status: Acute Renal failure- due to sepsis and shock & Dehydration and volume depletion component- and HyperNatremia ALL IMPROVED Other: -CVA (cerebral vascular accident) -Diabetes -G tube feedings -Left hemiparesis Plan: Pulmonary toilet- Antibiotics- Monitor renal parameters- Avoid Nephrotoxics- per orders- DNR DNI Subjective ROS Limited/Unobtainable: No Constitutional: Reports: malaise, weakness Respiratory: Reports: shortness of breath Allergies: Coded Allergies: No Known Allergies (Unverified , 10/19/15) Objective Last 24 Hour Vital Signs Date Time Temp Pulse Resp B/P Pulse Ox O2 Delivery O2 Flow Rate FiO2 05/04/16 12:00 97.2 112 24 148/90 100 Non-Rebreather 15.0 55 05/04/16 10:35 118 20 97 Venturi Mask 14.0 55 05/04/16 10:30 115 24 94 Venturi Mask 15.0 55 05/04/16 08:46 139 136/82 05/04/16 08:46 139 05/04/16 08:04 139 95 Venturi Mask 15.0 55 05/04/16 08:03 139 26 95 Venturi Mask 15.0 55 05/04/16 08:02 95 Venturi Mask 15.0 55 05/04/16 08:02 Venturi Mask 15.0 55 05/04/16 08:00 99.3 135 24 136/82 95 Non-Rebreather 05/04/16 04:00 100.0 131 24 147/89 100 Non-Rebreather 05/04/16 03:30 130 30 95 Venturi Mask 15.0 50 05/04/16 03:30 130 95 Venturi Mask 15.0 50 05/04/16 00:00 98.4 103 20 135/81 100 Non-Rebreather 05/03/16 23:48 118 20 97 Venturi Mask 14.0 55 05/03/16 23:38 116 24 99 Non-Rebreather 15.0 100 05/03/16 22:45 98.4 103 20 135/81 100 Non-Rebreather 05/03/16 21:20 111 126/71 05/03/16 20:00 97.9 111 20 126/71 100 Venturi Mask 100 05/03/16 19:59 115 22 99 Non-Rebreather 15.0 100 05/03/16 19:51 102 24 99 Non-Rebreather 15.0 100 05/03/16 19:51 Non-Rebreather 15.0 100 05/03/16 19:50 99 Non-Rebreather 15.0 100 05/03/16 16:41 98.4 113 20 135/77 100 Nasal Cannula 05/03/16 15:15 107 20 99 Non-Rebreather 15.0 100 05/03/16 15:10 104 20 99 Non-Rebreather 15.0 100 Intake and Output 05/03/16 05/04/16 19:00 07:00 Intake Total 593.708 ml 1680 ml Output Total 500 ml 850 ml Balance 93.708 ml 830 ml Intake Free Water 150 ml 250 ml IV Total 183.708 ml 910 ml Tube Feeding 260 ml 520 ml Output Urine Total 500 ml 650 ml Stool Total 200 ml # Bowel Movements 3 Laboratory Tests 05/04/16 05:20: White Blood Count 11.7H, Red Blood Count 2.52L, Hemoglobin 8.6L, Hematocrit 26.6L, Mean Corpuscular Volume 106H, Mean Corpuscular Hemoglobin 33.9H, Mean Corpuscular Hemoglobin Concent 32.1, Red Cell Distribution Width 12.5, Platelet Count 151, Mean Platelet Volume 6.8, Neutrophils (%) (Auto) 84.8H, Lymphocytes ( %) (Auto) 9.3L, Monocytes (%) (Auto) 4.1, Eosinophils (%) (Auto) 1.1, Basophils (%) (Auto) 0.8, Sodium Level 138, Potassium Level 5.1H, Chloride Level 92L, Carbon Dioxide Level 36H, Anion Gap 10, Blood Urea Nitrogen 11, Creatinine 0.5L , Estimat Glomerular Filtration Rate , Glucose Level 112H, Calcium Level 8.7 Height (Feet): 5 Height (Inches): 7.00 Weight (Pounds): 120 General Appearance: mild distress Cardiovascular: tachycardia Respiratory/Chest: decreased breath sounds Abdomen: distended Objective no change in PE CRISTY MADDOX May 04, 2016 13:20
--- NOTE | 2016-05-04 15:36 | Wound Nurse Progress Note ---
Wound RN Progress Note Wound Consult Reassessment done on this Pt. Still with multiple open and intact blisters all over his body. sacral area and left buttock stage II dressing changed. sizes are same and pinkish in color. will cont same treatment as ordered. TIMA ESPINAL RN May 04, 2016 15:36
[2016-05-04 16:11] VITALS: BP 134/74
[2016-05-04] MEDS ORDERED: Vancomycin 750mg/D5W 275ml IVPB SCH ×2 (18:00)
--- NOTE | 2016-05-04 18:29 | Infectious Diseases Prog Note ---
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 // DM2 - HbA1c 8.1% // Dementia, h/o CVA // Functional quadriplegia / bedbound // Dysphagia SP PEG // [facility] resident // Negative MRSA, VRE screens // NKDA // Full Code PLAN: - IV Zosyn d# 5 , add IV Vanco d# 2 m change to AB Rx to Diflucan d# 1 and Zyvox PO ( no IV Access ) ( 04/27 SP IV vancomycin, cefepime, flagyl d# 10 / 10 ) - monitor CBC, temperatures - monitor BMP - monitor CXR : - aspiration precautions - wound care - monitor panculture Subjective Constitutional: Denies: anorexia, chills, drenching sweats, fatigue, fever, no symptoms, other Allergies: Coded Allergies: No Known Allergies (Unverified , 10/19/15) Subjective non verbal Objective Vital Signs Last 24 Hour Vital Signs Date Time Temp Pulse Resp B/P Pulse Ox O2 Delivery O2 Flow Rate FiO2 05/04/16 16:11 98.8 119 24 134/74 99 Venturi Mask 100 05/04/16 14:30 119 26 99 Venturi Mask 15.0 55 05/04/16 14:25 118 26 96 Venturi Mask 15.0 55 05/04/16 12:00 97.2 112 24 148/90 100 Non-Rebreather 15.0 55 05/04/16 10:35 118 20 97 Venturi Mask 14.0 55 05/04/16 10:30 115 24 94 Venturi Mask 15.0 55 05/04/16 08:46 139 136/82 05/04/16 08:46 139 05/04/16 08:04 139 95 Venturi Mask 15.0 55 05/04/16 08:03 139 26 95 Venturi Mask 15.0 55 05/04/16 08:02 95 Venturi Mask 15.0 55 05/04/16 08:02 Venturi Mask 15.0 55 05/04/16 08:00 99.3 135 24 136/82 95 Non-Rebreather 05/04/16 04:00 100.0 131 24 147/89 100 Non-Rebreather 05/04/16 03:30 130 30 95 Venturi Mask 15.0 50 05/04/16 03:30 130 95 Venturi Mask 15.0 50 05/04/16 00:00 98.4 103 20 135/81 100 Non-Rebreather 05/03/16 23:48 118 20 97 Venturi Mask 14.0 55 05/03/16 23:38 116 24 99 Non-Rebreather 15.0 100 05/03/16 22:45 98.4 103 20 135/81 100 Non-Rebreather 05/03/16 21:20 111 126/71 05/03/16 20:00 97.9 111 20 126/71 100 Venturi Mask 100 05/03/16 19:59 115 22 99 Non-Rebreather 15.0 100 05/03/16 19:51 102 24 99 Non-Rebreather 15.0 100 05/03/16 19:51 Non-Rebreather 15.0 100 05/03/16 19:50 99 Non-Rebreather 15.0 100 Height (Feet): 5 Height (Inches): 7.00 Weight (Pounds): 120 HEENT: anicteric Respiratory/Chest: lungs clear Cardiovascular: regular rhythm Abdomen: no organomegaly Laboratory Tests Test 05/04/16 05:20 White Blood Count 11.7 K/UL (4.8-10.8) H Red Blood Count 2.52 M/UL (4.70-6.10) L Hemoglobin 8.6 G/DL (14.2-18.0) L Hematocrit 26.6 % (42.0-52.0) L Mean Corpuscular Volume 106 FL (80-99) H Mean Corpuscular Hemoglobin 33.9 PG (27.0-31.0) H Mean Corpuscular Hemoglobin Concent 32.1 G/DL (32.0-36.0) Red Cell Distribution Width 12.5 % (11.6-14.8) Platelet Count 151 K/UL (150-450) Mean Platelet Volume 6.8 FL (6.5-10.1) Neutrophils (%) (Auto) 84.8 % (45.0-75.0) H Lymphocytes (%) (Auto) 9.3 % (20.0-45.0) L Monocytes (%) (Auto) 4.1 % (1.0-10.0) Eosinophils (%) (Auto) 1.1 % (0.0-3.0) Basophils (%) (Auto) 0.8 % (0.0-2.0) Sodium Level 138 mEQ/L (135-145) Potassium Level 5.1 mEQ/L (3.4-4.9) H Chloride Level 92 mEQ/L (98-107) L Carbon Dioxide Level 36 mEQ/L (20-30) H Anion Gap 10 (5-15) Blood Urea Nitrogen 11 mg/dL (7-23) Creatinine 0.5 mg/dL (0.7-1.2) L Estimat Glomerular Filtration Rate mL/min (>60) Glucose Level 112 mg/dL (74-106) H Calcium Level 8.7 mg/dL (8.6-10.2) Current Medications Medications (Trade) Dose Ordered Sig/Joy Route PRN Reason Start Time Stop Time Status Last Admin Dose Admin Acetaminophen (Tylenol) 650 mg Q4H PRN GT Mild Pain/Temp > 100.5 05/02/16 15:00 06/01/16 14:59 05/02/16 17:46 Albuterol Sulfate (Proventil) 2.5 mg Q4HRT HHN 05/02/16 15:00 05/07/16 14:59 05/04/16 14:34 Dextrose 1,000 ml @ 75 mls/hr [id number] IV 05/02/16 15:00 06/01/16 14:59 05/04/16 05:51 Dextrose (Dextrose 50%) STAT PRN IV Hypoglycemia 05/02/16 15:30 06/01/16 15:29 Digoxin (Lanoxin) 0.125 mg DAILY ORAL 05/03/16 09:00 06/02/16 08:59 05/04/16 08:46 Heparin Sodium (Porcine) (Heparin 5000 units/ml) 5,000 units Q12HR SUBQ 05/02/16 21:00 06/01/16 20:59 05/04/16 08:50 Heparin Sodium/ Sodium Chloride 2000 unit 2,000 unit ONCE PRN INJ PICC PLACEMENT 05/04/16 12:30 05/05/16 23:59 Insulin Aspart (NovoLOG) EVERY 6 HOURS SUBQ 05/02/16 18:00 06/01/16 17:59 05/04/16 18:20 Insulin Detemir (Levemir) 5 units Q12HR@0600,1800 SUBQ 05/02/16 18:00 06/01/16 17:59 05/04/16 18:20 Lactulose (Cephulac) 30 gm DAILYPRN PRN ORAL Constipation 05/02/16 15:00 06/01/16 14:59 Lidocaine HCl (Xylocaine 1% 30ml) 30 ml ONCE PRN INJ PICC PLACEMENT 05/04/16 12:30 05/05/16 23:59 Metoprolol Tartrate (Lopressor) 25 mg Q12HR ORAL 05/02/16 21:00 06/01/16 20:59 05/04/16 08:46 Morphine Sulfate (Morphine Sulfate) 4 mg Q4H PRN IV Dyspnea and Tachycardia 05/02/16 16:15 05/09/16 16:14 Nitroglycerin (Ntg) 0.4 mg Q5MIN X3 DOSES PRN SL Prn Chest Pain 05/02/16 14:30 06/01/16 14:29 Ondansetron HCl (Zofran) 4 mg Q4H PRN IVP Nausea & Vomiting 05/02/16 15:00 06/01/16 14:59 Pantoprazole (Protonix) 40 mg DAILY IVP 05/03/16 09:00 06/02/16 08:59 05/04/16 08:47 Piperacillin Sod/ Tazobactam Sod/ Dextrose (Zosyn/D5W) 110 ml @ 27.5 mls/hr Q8HR IVPB 05/02/16 15:30 05/07/16 15:29 05/04/16 06:16 Polyethylene Glycol (Miralax) 17 gm DAILYPRN PRN GT Constipation UNRELIEVED BY LAC 05/03/16 07:45 06/02/16 07:44 Sodium Bicarbonate (Sodium Bicarbonate) 50 ml ONCE PRN IV PICC PLACEMENT 05/04/16 12:30 05/05/16 23:59 Vancomycin HCl (Vanco rx to dose) 1 ea DAILY PRN MISC Per rx protocol 05/03/16 12:00 06/02/16 11:59 Vancomycin HCl/ Dextrose (Vancomycin/D5W) 275 ml @ 183.708 mls/hr Q12HR@0600,1800 IVPB 05/04/16 18:00 05/09/16 17:59 05/04/16 18:14 PAUL FORRESTER M.D. May 04, 2016 18:29
[2016-05-04 19:55] VITALS: BP 156/89
[2016-05-04] MEDS: Fluconazole 100mg tab ORAL SCH (20:07)
--- NOTE | 2016-05-04 20:11 | Cardiac Electrophysiology PN ---
Assessment/Plan Assessment/Plan 1. Atrial fibrillation with rapid ventricular response.Continue digoxin 0.125 mg and Lopressor 25 bid. 2. SOB and sepsis. On Abx 3. Severe hypernatremia. Resolved. NA today 138. 4. S/P PEG 5. Dementia with functional quadriplegia. 6. DNR and DNI DW RN Subjective Subjective On IV antibiotics.Nonverbal. No new issues. Objective Last 24 Hour Vital Signs Date Time Temp Pulse Resp B/P Pulse Ox O2 Delivery O2 Flow Rate FiO2 05/04/16 19:55 121 20 98 Venturi Mask 15.0 55 05/04/16 19:55 98.9 121 24 156/89 100 Venturi Mask 100 05/04/16 19:52 121 20 98 Venturi Mask 15.0 55 05/04/16 19:52 Venturi Mask 15.0 55 05/04/16 19:52 98 Venturi Mask 15.0 55 05/04/16 16:11 98.8 119 24 134/74 99 Venturi Mask 100 05/04/16 14:30 119 26 99 Venturi Mask 15.0 55 05/04/16 14:25 118 26 96 Venturi Mask 15.0 55 05/04/16 12:00 97.2 112 24 148/90 100 Non-Rebreather 15.0 55 05/04/16 10:35 118 20 97 Venturi Mask 14.0 55 05/04/16 10:30 115 24 94 Venturi Mask 15.0 55 05/04/16 08:46 139 136/82 05/04/16 08:46 139 05/04/16 08:04 139 95 Venturi Mask 15.0 55 05/04/16 08:03 139 26 95 Venturi Mask 15.0 55 05/04/16 08:02 95 Venturi Mask 15.0 55 05/04/16 08:02 Venturi Mask 15.0 55 05/04/16 08:00 99.3 135 24 136/82 95 Non-Rebreather 05/04/16 04:00 100.0 131 24 147/89 100 Non-Rebreather 05/04/16 03:30 130 30 95 Venturi Mask 15.0 50 05/04/16 03:30 130 95 Venturi Mask 15.0 50 05/04/16 00:00 98.4 103 20 135/81 100 Non-Rebreather 05/03/16 23:48 118 20 97 Venturi Mask 14.0 55 05/03/16 23:38 116 24 99 Non-Rebreather 15.0 100 05/03/16 22:45 98.4 103 20 135/81 100 Non-Rebreather 05/03/16 21:20 111 126/71 Intake and Output 05/03/16 05/04/16 19:00 07:00 Intake Total 593.708 ml 1680 ml Output Total 500 ml 850 ml Balance 93.708 ml 830 ml Intake Free Water 150 ml 250 ml IV Total 183.708 ml 910 ml Tube Feeding 260 ml 520 ml Output Urine Total 500 ml 650 ml Stool Total 200 ml # Bowel Movements 3 Laboratory Tests Test 05/04/16 05:20 White Blood Count 11.7 K/UL (4.8-10.8) H Red Blood Count 2.52 M/UL (4.70-6.10) L Hemoglobin 8.6 G/DL (14.2-18.0) L Hematocrit 26.6 % (42.0-52.0) L Mean Corpuscular Volume 106 FL (80-99) H Mean Corpuscular Hemoglobin 33.9 PG (27.0-31.0) H Mean Corpuscular Hemoglobin Concent 32.1 G/DL (32.0-36.0) Red Cell Distribution Width 12.5 % (11.6-14.8) Platelet Count 151 K/UL (150-450) Mean Platelet Volume 6.8 FL (6.5-10.1) Neutrophils (%) (Auto) 84.8 % (45.0-75.0) H Lymphocytes (%) (Auto) 9.3 % (20.0-45.0) L Monocytes (%) (Auto) 4.1 % (1.0-10.0) Eosinophils (%) (Auto) 1.1 % (0.0-3.0) Basophils (%) (Auto) 0.8 % (0.0-2.0) Sodium Level 138 mEQ/L (135-145) Potassium Level 5.1 mEQ/L (3.4-4.9) H Chloride Level 92 mEQ/L (98-107) L Carbon Dioxide Level 36 mEQ/L (20-30) H Anion Gap 10 (5-15) Blood Urea Nitrogen 11 mg/dL (7-23) Creatinine 0.5 mg/dL (0.7-1.2) L Estimat Glomerular Filtration Rate mL/min (>60) Glucose Level 112 mg/dL (74-106) H Calcium Level 8.7 mg/dL (8.6-10.2) Objective HEENT: No JVD. LUNGS: Coarse rhonchi CARDIOVASCULAR: Tachycardic S1,S2 with no gallop or murmur. ABDOMEN: G-tube intact EXTREMITIES: Contracted with multiple ulcers. HERLINDA BURNETT May 04, 2016 20:11
[2016-05-04] MEDS: Morphine Sulfate 4mg/ml Inj IV PRN (20:46)
[2016-05-05] VITALS: BP 109/60
[2016-05-05] MEDS: NovoLOG Insulin Flexpen SUBQ SCH ×4 (00:36→18:48)
[2016-05-05] MEDS: Morphine Sulfate 4mg/ml Inj IV PRN (00:42)
[2016-05-05] MEDS: Albuterol ud Inhalation HHN SCH ×5 (03:29→20:29)
[2016-05-05 04:00] VITALS: BP 125/73
[2016-05-05] MEDS: Levemir Flexpen SUBQ SCH ×2 (06:09→18:47)
[2016-05-05 07:10] LABS: OTHERS PATHOLOGIST COMMENT
[2016-05-05 07:17] LABS: BASOPHILS % (AUTO) 0.6 % (0.0-2.0); EOSINOPHILS % (AUTO) 1.2 % (0.0-3.0); LYMPHOCYTES % (AUTO) 10.9 % (20.0-45.0); MEAN CORPUSCULAR HGB CONC 32.8 G/DL (32.0-36.0); MEAN CORPUSCULAR VOLUME 104 FL (80-99); MEAN PLATELET VOLUME 6.6 FL (6.5-10.1); MONOCYTES % (AUTO) 4.7 % (1.0-10.0); NEUTROPHILS % (AUTO) 82.6 % (45.0-75.0); PLATELET COUNT 131 K/UL (150-450); RED BLOOD COUNT 2.74 M/UL (4.70-6.10); RED CELL DISTRIBUTION WIDTH 12.3 % (11.6-14.8); WHITE BLOOD COUNT 10.2 K/UL (4.8-10.8)
--- NOTE | 2016-05-05 07:19 | General Progress Note ---
Assessment/Plan Problem List: (1) Hypernatremia ICD Codes: E87.0 - Hyperosmolality and hypernatremia SNOMED: 48403197 (2) Altered level of consciousness ICD Codes: R40.4 - Transient alteration of awareness SNOMED: 3243270 (3) Diabetes ICD Codes: E11.9 - Type 2 diabetes mellitus without complications SNOMED: 91707715 Assessment/Plan continue Levemir 5 units bid continue Novolog sliding scale low dose every 6 hours Subjective ROS Limited/Unobtainable: Yes Allergies: Coded Allergies: No Known Allergies (Unverified , 10/19/15) Subjective events noted - interval notes reviewed Objective Last 24 Hour Vital Signs Date Time Temp Pulse Resp B/P Pulse Ox O2 Delivery O2 Flow Rate FiO2 05/05/16 04:00 98.1 109 22 125/73 96 Non-Rebreather 05/05/16 03:35 99 20 99 Venturi Mask 15.0 55 05/05/16 03:30 50 05/05/16 03:29 104 20 97 Venturi Mask 15.0 55 05/05/16 01:17 98.9 05/05/16 00:00 98.1 106 24 109/60 100 Non-Rebreather 05/04/16 23:47 103 20 100 Venturi Mask 15.0 55 05/04/16 23:46 103 20 99 Venturi Mask 15.0 55 05/04/16 20:07 121 156/89 05/04/16 19:55 121 20 98 Venturi Mask 15.0 55 05/04/16 19:55 98.9 121 24 156/89 100 Venturi Mask 100 05/04/16 19:52 121 20 98 Venturi Mask 15.0 55 05/04/16 19:52 Venturi Mask 15.0 55 05/04/16 19:52 98 Venturi Mask 15.0 55 05/04/16 16:11 98.8 119 24 134/74 99 Venturi Mask 100 05/04/16 14:30 119 26 99 Venturi Mask 15.0 55 05/04/16 14:25 118 26 96 Venturi Mask 15.0 55 05/04/16 12:00 97.2 112 24 148/90 100 Non-Rebreather 15.0 55 05/04/16 10:35 118 20 97 Venturi Mask 14.0 55 05/04/16 10:30 115 24 94 Venturi Mask 15.0 55 05/04/16 08:46 139 136/82 05/04/16 08:46 139 05/04/16 08:04 139 95 Venturi Mask 15.0 55 05/04/16 08:03 139 26 95 Venturi Mask 15.0 55 05/04/16 08:02 95 Venturi Mask 15.0 55 05/04/16 08:02 Venturi Mask 15.0 55 05/04/16 08:00 99.3 135 24 136/82 95 Non-Rebreather Intake and Output 05/04/16 05/05/16 19:00 07:00 Intake Total 1180 ml 1175 ml Output Total 1500 ml Balance 1180 ml -325 ml Intake Free Water 100 ml IV Total 300 ml 525 ml Tube Feeding 780 ml 650 ml Output Urine Total 1500 ml # Voids 1 Laboratory Tests 05/05/16 05:00: White Blood Count 10.2, Red Blood Count 2.74L, Hemoglobin 9.3L, Hematocrit 28.4L , Mean Corpuscular Volume 104H, Mean Corpuscular Hemoglobin 34.0H, Mean Corpuscular Hemoglobin Concent 32.8, Red Cell Distribution Width 12.3, Platelet Count 131L, Mean Platelet Volume 6.6, Neutrophils (%) (Auto) 82.6H, Lymphocytes (%) (Auto) 10.9L, Monocytes (%) (Auto) 4.7, Eosinophils (%) (Auto) 1.2, Basophils (%) (Auto) 0.6, Sodium Level [Pending], Potassium Level [Pending], Chloride Level [Pending], Carbon Dioxide Level [Pending], Blood Urea Nitrogen [ Pending], Creatinine [Pending], Estimat Glomerular Filtration Rate [Pending], Glucose Level [Pending], Calcium Level [Pending], Total Bilirubin [Pending], Aspartate Amino Transf (AST/SGOT) [Pending], Alanine Aminotransferase (ALT/SGPT ) [Pending], Alkaline Phosphatase [Pending], Total Protein [Pending], Albumin [ Pending], Globulin [Pending] Height (Feet): 5 Height (Inches): 7.00 Weight (Pounds): 120 General Appearance: no apparent distress EENT: pale conjunctivae Neck: normal alignment Cardiovascular: normal rate Respiratory/Chest: decreased breath sounds Abdomen: normal bowel sounds Objective Current Medications Medications (Trade) Dose Ordered Sig/Joy Route PRN Reason Start Time Stop Time Status Last Admin Dose Admin Acetaminophen (Tylenol) 650 mg Q4H PRN GT Mild Pain/Temp > 100.5 05/02/16 15:00 06/01/16 14:59 05/02/16 17:46 Albuterol Sulfate (Proventil) 2.5 mg Q4HRT HHN 05/02/16 15:00 05/07/16 14:59 05/05/16 03:29 Dextrose (D5W 1000ml) 1,000 ml @ 75 mls/hr [id number] IV 05/02/16 15:00 06/01/16 14:59 05/04/16 05:51 Dextrose (Dextrose 50%) STAT PRN IV Hypoglycemia 05/02/16 15:30 06/01/16 15:29 Digoxin (Lanoxin) 0.125 mg DAILY ORAL 05/03/16 09:00 06/02/16 08:59 05/04/16 08:46 Fluconazole (Diflucan) 200 mg Q24H ORAL 05/04/16 21:00 05/11/16 20:59 05/04/16 20:07 Heparin Sodium (Porcine) (Heparin 5000 units/ml) 5,000 units Q12HR SUBQ 05/02/16 21:00 06/01/16 20:59 05/04/16 20:12 Heparin Sodium/ Sodium Chloride (Heparin 2000 units/Ns 1000ml premix) 2,000 unit ONCE PRN INJ PICC PLACEMENT 05/04/16 12:30 05/05/16 23:59 Insulin Aspart (NovoLOG) EVERY 6 HOURS SUBQ 05/02/16 18:00 06/01/16 17:59 05/05/16 06:11 Insulin Detemir (Levemir) 5 units Q12HR@0600,1800 SUBQ 05/02/16 18:00 06/01/16 17:59 05/05/16 06:09 Lactulose (Cephulac) 30 gm DAILYPRN PRN ORAL Constipation 05/02/16 15:00 06/01/16 14:59 Lidocaine HCl (Xylocaine 1% 30ml) 30 ml ONCE PRN INJ PICC PLACEMENT 05/04/16 12:30 05/05/16 23:59 Linezolid (Zyvox) 600 mg EVERY 12 HOURS ORAL 05/04/16 21:00 05/09/16 20:59 05/04/16 20:46 Metoprolol Tartrate (Lopressor) 25 mg Q12HR ORAL 05/02/16 21:00 06/01/16 20:59 05/04/16 20:07 Morphine Sulfate (Morphine Sulfate) 4 mg Q4H PRN IV Dyspnea and Tachycardia 05/02/16 16:15 05/09/16 16:14 05/05/16 00:42 Nitroglycerin (Ntg) 0.4 mg Q5MIN X3 DOSES PRN SL Prn Chest Pain 05/02/16 14:30 06/01/16 14:29 Ondansetron HCl (Zofran) 4 mg Q4H PRN IVP Nausea & Vomiting 05/02/16 15:00 06/01/16 14:59 Pantoprazole (Protonix) 40 mg DAILY IVP 05/03/16 09:00 06/02/16 08:59 05/04/16 08:47 Polyethylene Glycol (Miralax) 17 gm DAILYPRN PRN GT Constipation UNRELIEVED BY LAC 05/03/16 07:45 06/02/16 07:44 Sodium Bicarbonate (Sodium Bicarbonate) 50 ml ONCE PRN IV PICC PLACEMENT 05/04/16 12:30 05/05/16 23:59 Item Value Date Time Bedside Blood Glucose 148 mg/dl H 05/05/16 0653 Bedside Blood Glucose 147 mg/dl H 05/05/16 0036 Bedside Blood Glucose 131 mg/dl H 05/04/16 1820 Bedside Blood Glucose 78 mg/dl 05/04/16 1151 Bedside Blood Glucose 132 mg/dl H 05/04/16 0632 JAGRUTI MANN May 05, 2016 07:19
[2016-05-05 07:38] LABS: ALANINE AMINOTRANSFERASE 14 U/L (3-41); ALBUMIN/GLOBULIN RATIO 0.3 (1.0-2.7); ANION GAP 8 (5-15); ASPARTATE AMINO TRANSFERASE 21 U/L (5-40); CALCIUM 8.8 mg/dL (8.6-10.2); CARBON DIOXIDE 36 mEQ/L (20-30); CHLORIDE 97 mEQ/L (98-107); CREATININE 0.4 mg/dL (0.7-1.2); HEMOLYSIS 11; POTASSIUM 5.5 mEQ/L (3.4-4.9); SODIUM 141 mEQ/L (135-145); TOTAL PROTEIN 7.1 g/dL (6.6-8.7)
[2016-05-05] MEDS: Heparin 5000 units/ml inj SUBQ SCH ×2 (08:41→19:55)
[2016-05-05 08:46] VITALS: BP 135/73
[2016-05-05] MEDS: Pantoprazole Inj IVP SCH (09:03)
[2016-05-05] MEDS: Digoxin 0.125mg tab ORAL SCH (09:04)
[2016-05-05] MEDS: Metoprolol 25mg tab ORAL SCH ×2 (09:04→19:55)
--- NOTE | 2016-05-05 09:54 | Infectious Diseases Prog Note ---
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 // DM2 - HbA1c 8.1% // Dementia, h/o CVA // Functional quadriplegia / bedbound // Dysphagia SP PEG // [facility] resident // Negative MRSA, VRE screens // NKDA // Full Code PLAN: - cont Diflucan d# 1 and Zyvox PO d# 2 / 10 ( no IV Access ) ( SP IV Zosyn d# 5 IV Vanco d# 2 ) ( 04/27 SP IV vancomycin, cefepime, flagyl d# 10 / ) - monitor CBC, temperatures - monitor BMP - monitor CXR : - aspiration precautions - wound care - monitor panculture Subjective Constitutional: Denies: anorexia, chills, drenching sweats, fatigue, fever, no symptoms, other Allergies: Coded Allergies: No Known Allergies (Unverified , 10/19/15) Subjective non verbal Objective Vital Signs Last 24 Hour Vital Signs Date Time Temp Pulse Resp B/P Pulse Ox O2 Delivery O2 Flow Rate FiO2 05/05/16 09:04 118 135/73 05/05/16 09:04 118 05/05/16 08:46 98.1 118 19 135/73 100 Venturi Mask 05/05/16 07:45 120 36 Venturi Mask 15.0 55 05/05/16 07:43 Venturi Mask 15.0 55 05/05/16 07:43 99 Venturi Mask 15.0 55 05/05/16 07:35 121 26 99 Venturi Mask 15.0 55 05/05/16 07:30 120 26 99 Venturi Mask 15.0 55 05/05/16 04:00 98.1 109 22 125/73 96 Non-Rebreather 05/05/16 03:35 99 20 99 Venturi Mask 15.0 55 05/05/16 03:30 50 05/05/16 03:29 104 20 97 Venturi Mask 15.0 55 05/05/16 01:17 98.9 05/05/16 00:00 98.1 106 24 109/60 100 Non-Rebreather 05/04/16 23:47 103 20 100 Venturi Mask 15.0 55 05/04/16 23:46 103 20 99 Venturi Mask 15.0 55 05/04/16 20:07 121 156/89 05/04/16 19:55 121 20 98 Venturi Mask 15.0 55 05/04/16 19:55 98.9 121 24 156/89 100 Venturi Mask 100 05/04/16 19:52 121 20 98 Venturi Mask 15.0 55 05/04/16 19:52 Venturi Mask 15.0 55 05/04/16 19:52 98 Venturi Mask 15.0 55 05/04/16 16:11 98.8 119 24 134/74 99 Venturi Mask 100 05/04/16 14:30 119 26 99 Venturi Mask 15.0 55 05/04/16 14:25 118 26 96 Venturi Mask 15.0 55 05/04/16 12:00 97.2 112 24 148/90 100 Non-Rebreather 15.0 55 05/04/16 10:35 118 20 97 Venturi Mask 14.0 55 05/04/16 10:30 115 24 94 Venturi Mask 15.0 55 Height (Feet): 5 Height (Inches): 7.00 Weight (Pounds): 120 HEENT: anicteric Respiratory/Chest: normal breath sounds Cardiovascular: regular rhythm Abdomen: no organomegaly Microbiology Date/Time Source Procedure Growth Status 05/03/16 13:40 Blood Blood Culture - Preliminary NO GROWTH AFTER 24 HOURS Resulted 05/03/16 13:25 Blood Blood Culture - Preliminary NO GROWTH AFTER 24 HOURS Resulted Laboratory Tests Test 05/05/16 05:00 White Blood Count 10.2 K/UL (4.8-10.8) Red Blood Count 2.74 M/UL (4.70-6.10) L Hemoglobin 9.3 G/DL (14.2-18.0) L Hematocrit 28.4 % (42.0-52.0) L Mean Corpuscular Volume 104 FL (80-99) H Mean Corpuscular Hemoglobin 34.0 PG (27.0-31.0) H Mean Corpuscular Hemoglobin Concent 32.8 G/DL (32.0-36.0) Red Cell Distribution Width 12.3 % (11.6-14.8) Platelet Count 131 K/UL (150-450) L Mean Platelet Volume 6.6 FL (6.5-10.1) Neutrophils (%) (Auto) 82.6 % (45.0-75.0) H Lymphocytes (%) (Auto) 10.9 % (20.0-45.0) L Monocytes (%) (Auto) 4.7 % (1.0-10.0) Eosinophils (%) (Auto) 1.2 % (0.0-3.0) Basophils (%) (Auto) 0.6 % (0.0-2.0) Sodium Level 141 mEQ/L (135-145) Potassium Level 5.5 mEQ/L (3.4-4.9) H Chloride Level 97 mEQ/L (98-107) L Carbon Dioxide Level 36 mEQ/L (20-30) H Anion Gap 8 (5-15) Blood Urea Nitrogen 10 mg/dL (7-23) Creatinine 0.4 mg/dL (0.7-1.2) L Estimat Glomerular Filtration Rate mL/min (>60) Glucose Level 112 mg/dL (74-106) H Calcium Level 8.8 mg/dL (8.6-10.2) Total Bilirubin 0.4 mg/dL (0.0-1.2) Aspartate Amino Transf (AST/SGOT) 21 U/L (5-40) Alanine Aminotransferase (ALT/SGPT) 14 U/L (3-41) Alkaline Phosphatase 125 U/L (40-129) Total Protein 7.1 g/dL (6.6-8.7) Albumin 2.0 g/dL (3.5-5.2) L Globulin 5.1 g/dL Albumin/Globulin Ratio 0.3 (1.0-2.7) L Current Medications Medications (Trade) Dose Ordered Sig/Joy Route PRN Reason Start Time Stop Time Status Last Admin Dose Admin Acetaminophen (Tylenol) 650 mg Q4H PRN GT Mild Pain/Temp > 100.5 05/02/16 15:00 06/01/16 14:59 05/02/16 17:46 Albuterol Sulfate (Proventil) 2.5 mg Q4HRT HHN 05/02/16 15:00 05/07/16 14:59 05/05/16 07:43 Dextrose (D5W 1000ml) 1,000 ml @ 75 mls/hr [id number] IV 05/02/16 15:00 06/01/16 14:59 05/04/16 05:51 Dextrose (Dextrose 50%) STAT PRN IV Hypoglycemia 05/02/16 15:30 06/01/16 15:29 Digoxin (Lanoxin) 0.125 mg DAILY ORAL 05/03/16 09:00 06/02/16 08:59 05/05/16 09:04 Fluconazole (Diflucan) 200 mg Q24H ORAL 05/04/16 21:00 05/11/16 20:59 05/04/16 20:07 Heparin Sodium (Porcine) (Heparin 5000 units/ml) 5,000 units Q12HR SUBQ 05/02/16 21:00 06/01/16 20:59 05/04/16 20:12 Heparin Sodium/ Sodium Chloride (Heparin 2000 units/Ns 1000ml premix) 2,000 unit ONCE PRN INJ PICC PLACEMENT 05/04/16 12:30 05/05/16 23:59 Insulin Aspart (NovoLOG) EVERY 6 HOURS SUBQ 05/02/16 18:00 06/01/16 17:59 05/05/16 06:11 Insulin Detemir (Levemir) 5 units Q12HR@0600,1800 SUBQ 05/02/16 18:00 06/01/16 17:59 05/05/16 06:09 Lactulose (Cephulac) 30 gm DAILYPRN PRN ORAL Constipation 05/02/16 15:00 06/01/16 14:59 Lidocaine HCl (Xylocaine 1% 30ml) 30 ml ONCE PRN INJ PICC PLACEMENT 05/04/16 12:30 05/05/16 23:59 Linezolid (Zyvox) 600 mg EVERY 12 HOURS ORAL 05/04/16 21:00 05/09/16 20:59 05/05/16 09:04 Metoprolol Tartrate (Lopressor) 25 mg Q12HR ORAL 05/02/16 21:00 06/01/16 20:59 05/05/16 09:04 Morphine Sulfate (Morphine Sulfate) 4 mg Q4H PRN IV Dyspnea and Tachycardia 05/02/16 16:15 05/09/16 16:14 05/05/16 00:42 Nitroglycerin (Ntg) 0.4 mg Q5MIN X3 DOSES PRN SL Prn Chest Pain 05/02/16 14:30 06/01/16 14:29 Ondansetron HCl (Zofran) 4 mg Q4H PRN IVP Nausea & Vomiting 05/02/16 15:00 06/01/16 14:59 Pantoprazole (Protonix) 40 mg DAILY IVP 05/03/16 09:00 06/02/16 08:59 05/05/16 09:03 Polyethylene Glycol (Miralax) 17 gm DAILYPRN PRN GT Constipation UNRELIEVED BY LAC 05/03/16 07:45 06/02/16 07:44 Sodium Bicarbonate (Sodium Bicarbonate) 50 ml ONCE PRN IV PICC PLACEMENT 05/04/16 12:30 05/05/16 23:59 PAUL FORRESTER M.D. May 05, 2016 09:54
--- NOTE | 2016-05-05 09:54 | Cardiac Electrophysiology PN ---
Assessment/Plan Assessment/Plan 1. Atrial fibrillation with rapid ventricular response.Continue digoxin 0.125 mg and Lopressor 25 bid. 2. SOB and sepsis. On Abx 3. Severe hypernatremia. Resolved. NA today 141 4. S/P PEG 5. Dementia with functional quadriplegia. 6. DNR and DNI 7. Anemia DW RN Subjective Subjective .Nonverbal. No new issues overnight.RN at bedside. Objective Last 24 Hour Vital Signs Date Time Temp Pulse Resp B/P Pulse Ox O2 Delivery O2 Flow Rate FiO2 05/05/16 09:04 118 135/73 05/05/16 09:04 118 05/05/16 08:46 98.1 118 19 135/73 100 Venturi Mask 05/05/16 07:45 120 36 Venturi Mask 15.0 55 05/05/16 07:43 Venturi Mask 15.0 55 05/05/16 07:43 99 Venturi Mask 15.0 55 05/05/16 07:35 121 26 99 Venturi Mask 15.0 55 05/05/16 07:30 120 26 99 Venturi Mask 15.0 55 05/05/16 04:00 98.1 109 22 125/73 96 Non-Rebreather 05/05/16 03:35 99 20 99 Venturi Mask 15.0 55 05/05/16 03:30 50 05/05/16 03:29 104 20 97 Venturi Mask 15.0 55 05/05/16 01:17 98.9 05/05/16 00:00 98.1 106 24 109/60 100 Non-Rebreather 05/04/16 23:47 103 20 100 Venturi Mask 15.0 55 05/04/16 23:46 103 20 99 Venturi Mask 15.0 55 05/04/16 20:07 121 156/89 05/04/16 19:55 121 20 98 Venturi Mask 15.0 55 05/04/16 19:55 98.9 121 24 156/89 100 Venturi Mask 100 05/04/16 19:52 121 20 98 Venturi Mask 15.0 55 05/04/16 19:52 Venturi Mask 15.0 55 05/04/16 19:52 98 Venturi Mask 15.0 55 05/04/16 16:11 98.8 119 24 134/74 99 Venturi Mask 100 05/04/16 14:30 119 26 99 Venturi Mask 15.0 55 05/04/16 14:25 118 26 96 Venturi Mask 15.0 55 05/04/16 12:00 97.2 112 24 148/90 100 Non-Rebreather 15.0 55 05/04/16 10:35 118 20 97 Venturi Mask 14.0 55 05/04/16 10:30 115 24 94 Venturi Mask 15.0 55 Intake and Output 05/04/16 05/05/16 19:00 07:00 Intake Total 1180 ml 1175 ml Output Total 1500 ml Balance 1180 ml -325 ml Intake Free Water 100 ml IV Total 300 ml 525 ml Tube Feeding 780 ml 650 ml Output Urine Total 1500 ml # Voids 1 Laboratory Tests Test 05/05/16 05:00 White Blood Count 10.2 K/UL (4.8-10.8) Red Blood Count 2.74 M/UL (4.70-6.10) L Hemoglobin 9.3 G/DL (14.2-18.0) L Hematocrit 28.4 % (42.0-52.0) L Mean Corpuscular Volume 104 FL (80-99) H Mean Corpuscular Hemoglobin 34.0 PG (27.0-31.0) H Mean Corpuscular Hemoglobin Concent 32.8 G/DL (32.0-36.0) Red Cell Distribution Width 12.3 % (11.6-14.8) Platelet Count 131 K/UL (150-450) L Mean Platelet Volume 6.6 FL (6.5-10.1) Neutrophils (%) (Auto) 82.6 % (45.0-75.0) H Lymphocytes (%) (Auto) 10.9 % (20.0-45.0) L Monocytes (%) (Auto) 4.7 % (1.0-10.0) Eosinophils (%) (Auto) 1.2 % (0.0-3.0) Basophils (%) (Auto) 0.6 % (0.0-2.0) Sodium Level 141 mEQ/L (135-145) Potassium Level 5.5 mEQ/L (3.4-4.9) H Chloride Level 97 mEQ/L (98-107) L Carbon Dioxide Level 36 mEQ/L (20-30) H Anion Gap 8 (5-15) Blood Urea Nitrogen 10 mg/dL (7-23) Creatinine 0.4 mg/dL (0.7-1.2) L Estimat Glomerular Filtration Rate mL/min (>60) Glucose Level 112 mg/dL (74-106) H Calcium Level 8.8 mg/dL (8.6-10.2) Total Bilirubin 0.4 mg/dL (0.0-1.2) Aspartate Amino Transf (AST/SGOT) 21 U/L (5-40) Alanine Aminotransferase (ALT/SGPT) 14 U/L (3-41) Alkaline Phosphatase 125 U/L (40-129) Total Protein 7.1 g/dL (6.6-8.7) Albumin 2.0 g/dL (3.5-5.2) L Globulin 5.1 g/dL Albumin/Globulin Ratio 0.3 (1.0-2.7) L Microbiology Date/Time Source Procedure Growth Status 05/03/16 13:40 Blood Blood Culture - Preliminary NO GROWTH AFTER 24 HOURS Resulted 05/03/16 13:25 Blood Blood Culture - Preliminary NO GROWTH AFTER 24 HOURS Resulted Objective HEENT: No JVD. LUNGS: Coarse rhonchi CARDIOVASCULAR: Nl S1,S2 with no gallop or murmur. ABDOMEN: G-tube intact EXTREMITIES: Contracted with multiple ulcers. HERLINDA BURNETT May 05, 2016 09:54
[2016-05-05] MEDS ORDERED: Sodium Polystyrene Sulfonate 15gm Powder ORAL ONE (11:00)
[2016-05-05 12:00] VITALS: BP 166/95
--- NOTE | 2016-05-05 12:37 | Diagnostic Imaging Report ---
Indication: DYSPNEA Technique: One view of the chest Comparison: 05/03/2016 Findings: Again demonstrated is dense consolidation of much of the left lung. There is left paratracheal opacity which appears increased from the prior study. There is probable pleural fluid on the left. Previously demonstrated right basilar type changes have decreased. Impression: Persistent dense consolidation of the left lung. Increased left paratracheal density. Unclear as to whether this represents increasing soft tissue mass or pleural fluid.
--- NOTE | 2016-05-05 15:18 | General Progress Note ---
Assessment/Plan Status: unchanged, deteriorating Assessment/Plan status: Acute Renal failure- due to sepsis and shock & Dehydration and volume depletion component- and HyperNatremia ALL IMPROVED Other: -CVA (cerebral vascular accident) -Diabetes -G tube feedings -Left hemiparesis Plan: Pulmonary toilet- Antibiotics- Monitor renal parameters- Avoid Nephrotoxics- per orders- DNR DNI Subjective ROS Limited/Unobtainable: Yes Allergies: Coded Allergies: No Known Allergies (Unverified , 10/19/15) Objective Last 24 Hour Vital Signs Date Time Temp Pulse Resp B/P Pulse Ox O2 Delivery O2 Flow Rate FiO2 05/05/16 15:05 119 26 99 Venturi Mask 15.0 55 05/05/16 15:00 118 26 97 Venturi Mask 15.0 55 05/05/16 11:05 120 26 99 Venturi Mask 15.0 55 05/05/16 11:00 115 26 99 Venturi Mask 15.0 55 05/05/16 09:04 118 135/73 05/05/16 09:04 118 05/05/16 08:46 98.1 118 19 135/73 100 Venturi Mask 05/05/16 07:45 120 36 Venturi Mask 15.0 55 05/05/16 07:43 Venturi Mask 15.0 55 05/05/16 07:43 99 Venturi Mask 15.0 55 05/05/16 07:35 121 26 99 Venturi Mask 15.0 55 05/05/16 07:30 120 26 99 Venturi Mask 15.0 55 05/05/16 04:00 98.1 109 22 125/73 96 Non-Rebreather 05/05/16 03:35 99 20 99 Venturi Mask 15.0 55 05/05/16 03:30 50 05/05/16 03:29 104 20 97 Venturi Mask 15.0 55 05/05/16 01:17 98.9 05/05/16 00:00 98.1 106 24 109/60 100 Non-Rebreather 05/04/16 23:47 103 20 100 Venturi Mask 15.0 55 05/04/16 23:46 103 20 99 Venturi Mask 15.0 55 05/04/16 20:07 121 156/89 05/04/16 19:55 121 20 98 Venturi Mask 15.0 55 05/04/16 19:55 98.9 121 24 156/89 100 Venturi Mask 100 05/04/16 19:52 121 20 98 Venturi Mask 15.0 55 05/04/16 19:52 Venturi Mask 15.0 55 05/04/16 19:52 98 Venturi Mask 15.0 55 05/04/16 16:11 98.8 119 24 134/74 99 Venturi Mask 100 Intake and Output 05/04/16 05/05/16 19:00 07:00 Intake Total 1180 ml 1175 ml Output Total 1500 ml Balance 1180 ml -325 ml Intake Free Water 100 ml IV Total 300 ml 525 ml Tube Feeding 780 ml 650 ml Output Urine Total 1500 ml # Voids 1 Laboratory Tests 05/05/16 05:00: White Blood Count 10.2, Red Blood Count 2.74L, Hemoglobin 9.3L, Hematocrit 28.4L , Mean Corpuscular Volume 104H, Mean Corpuscular Hemoglobin 34.0H, Mean Corpuscular Hemoglobin Concent 32.8, Red Cell Distribution Width 12.3, Platelet Count 131L, Mean Platelet Volume 6.6, Neutrophils (%) (Auto) 82.6H, Lymphocytes (%) (Auto) 10.9L, Monocytes (%) (Auto) 4.7, Eosinophils (%) (Auto) 1.2, Basophils (%) (Auto) 0.6, Sodium Level 141, Potassium Level 5.5H, Chloride Level 97L, Carbon Dioxide Level 36H, Anion Gap 8, Blood Urea Nitrogen 10, Creatinine 0.4L, Estimat Glomerular Filtration Rate , Glucose Level 112H, Calcium Level 8.8, Total Bilirubin 0.4, Aspartate Amino Transf (AST/SGOT) 21, Alanine Aminotransferase (ALT/SGPT) 14, Alkaline Phosphatase 125, Total Protein 7.1, Albumin 2.0L, Globulin 5.1, Albumin/Globulin Ratio 0.3L Height (Feet): 5 Height (Inches): 7.00 Weight (Pounds): 120 General Appearance: no apparent distress, mild distress Objective no change in PE CRISTY MADDOX May 05, 2016 15:18
[2016-05-05 16:00] VITALS: BP 144/88
--- NOTE | 2016-05-05 16:29 | Internal Med Progress Note ---
Subjective Date of Service: May 05, 2016 Physician Name Marco Olvera Attending Physician Adalid Izaguirre MD Current Medications Medications (Trade) Dose Ordered Sig/Joy Route PRN Reason Start Time Stop Time Status Last Admin Dose Admin Acetaminophen (Tylenol) 650 mg Q4H PRN GT Mild Pain/Temp > 100.5 05/02/16 15:00 06/01/16 14:59 05/02/16 17:46 Albuterol Sulfate (Proventil) 2.5 mg Q4HRT HHN 05/02/16 15:00 05/07/16 14:59 05/05/16 15:10 Dextrose (D5W 1000ml) 1,000 ml @ 75 mls/hr [id number] IV 05/02/16 15:00 06/01/16 14:59 05/05/16 13:24 Dextrose (Dextrose 50%) STAT PRN IV Hypoglycemia 05/02/16 15:30 06/01/16 15:29 Digoxin (Lanoxin) 0.125 mg DAILY ORAL 05/03/16 09:00 06/02/16 08:59 05/05/16 09:04 Fluconazole (Diflucan) 200 mg Q24H ORAL 05/04/16 21:00 05/11/16 20:59 05/04/16 20:07 Heparin Sodium (Porcine) (Heparin 5000 units/ml) 5,000 units Q12HR SUBQ 05/02/16 21:00 06/01/16 20:59 05/04/16 20:12 Heparin Sodium/ Sodium Chloride (Heparin 2000 units/Ns 1000ml premix) 2,000 unit ONCE PRN INJ PICC PLACEMENT 05/04/16 12:30 05/05/16 23:59 Insulin Aspart (NovoLOG) EVERY 6 HOURS SUBQ 05/02/16 18:00 06/01/16 17:59 05/05/16 13:13 Insulin Detemir (Levemir) 5 units Q12HR@0600,1800 SUBQ 05/02/16 18:00 06/01/16 17:59 05/05/16 06:09 Lactulose (Cephulac) 30 gm DAILYPRN PRN ORAL Constipation 05/02/16 15:00 06/01/16 14:59 Lidocaine HCl (Xylocaine 1% 30ml) 30 ml ONCE PRN INJ PICC PLACEMENT 05/04/16 12:30 05/05/16 23:59 Linezolid (Zyvox) 600 mg EVERY 12 HOURS ORAL 05/04/16 21:00 05/09/16 20:59 05/05/16 09:04 Metoprolol Tartrate (Lopressor) 25 mg Q12HR ORAL 05/02/16 21:00 06/01/16 20:59 05/05/16 09:04 Morphine Sulfate (Morphine Sulfate) 4 mg Q4H PRN IV Dyspnea and Tachycardia 05/02/16 16:15 05/09/16 16:14 05/05/16 00:42 Nitroglycerin (Ntg) 0.4 mg Q5MIN X3 DOSES PRN SL Prn Chest Pain 05/02/16 14:30 06/01/16 14:29 Ondansetron HCl (Zofran) 4 mg Q4H PRN IVP Nausea & Vomiting 05/02/16 15:00 06/01/16 14:59 Pantoprazole (Protonix) 40 mg DAILY IVP 05/03/16 09:00 06/02/16 08:59 05/05/16 09:03 Polyethylene Glycol (Miralax) 17 gm DAILYPRN PRN GT Constipation UNRELIEVED BY LAC 05/03/16 07:45 06/02/16 07:44 Sodium Bicarbonate (Sodium Bicarbonate) 50 ml ONCE PRN IV PICC PLACEMENT 05/04/16 12:30 05/05/16 23:59 Allergies: Coded Allergies: No Known Allergies (Unverified , 10/19/15) ROS Limited/Unobtainable: Yes Subjective 75 YO M admitted with fever, now with pneumonia. Cover for Int Med-Dr Izaguirre. Tolerating venturi mask. Objective Last Vital Signs Date Time Temp Pulse Resp B/P Pulse Ox O2 Delivery O2 Flow Rate FiO2 05/05/16 15:05 119 26 99 Venturi Mask 15.0 55 05/05/16 09:04 135/73 05/05/16 08:46 98.1 Laboratory Tests Test 05/05/16 05:00 White Blood Count 10.2 K/UL (4.8-10.8) Red Blood Count 2.74 M/UL (4.70-6.10) L Hemoglobin 9.3 G/DL (14.2-18.0) L Hematocrit 28.4 % (42.0-52.0) L Mean Corpuscular Volume 104 FL (80-99) H Mean Corpuscular Hemoglobin 34.0 PG (27.0-31.0) H Mean Corpuscular Hemoglobin Concent 32.8 G/DL (32.0-36.0) Red Cell Distribution Width 12.3 % (11.6-14.8) Platelet Count 131 K/UL (150-450) L Mean Platelet Volume 6.6 FL (6.5-10.1) Neutrophils (%) (Auto) 82.6 % (45.0-75.0) H Lymphocytes (%) (Auto) 10.9 % (20.0-45.0) L Monocytes (%) (Auto) 4.7 % (1.0-10.0) Eosinophils (%) (Auto) 1.2 % (0.0-3.0) Basophils (%) (Auto) 0.6 % (0.0-2.0) Sodium Level 141 mEQ/L (135-145) Potassium Level 5.5 mEQ/L (3.4-4.9) H Chloride Level 97 mEQ/L (98-107) L Carbon Dioxide Level 36 mEQ/L (20-30) H Anion Gap 8 (5-15) Blood Urea Nitrogen 10 mg/dL (7-23) Creatinine 0.4 mg/dL (0.7-1.2) L Estimat Glomerular Filtration Rate mL/min (>60) Glucose Level 112 mg/dL (74-106) H Calcium Level 8.8 mg/dL (8.6-10.2) Total Bilirubin 0.4 mg/dL (0.0-1.2) Aspartate Amino Transf (AST/SGOT) 21 U/L (5-40) Alanine Aminotransferase (ALT/SGPT) 14 U/L (3-41) Alkaline Phosphatase 125 U/L (40-129) Total Protein 7.1 g/dL (6.6-8.7) Albumin 2.0 g/dL (3.5-5.2) L Globulin 5.1 g/dL Albumin/Globulin Ratio 0.3 (1.0-2.7) L Microbiology Date/Time Source Procedure Growth Status 05/03/16 13:40 Blood Blood Culture - Preliminary NO GROWTH AFTER 24 HOURS Resulted 1/29/17 13:25 Blood Blood Culture - Preliminary NO GROWTH AFTER 24 HOURS Resulted Intake and Output 05/04/16 05/05/16 19:00 07:00 Intake Total 1180 ml 1175 ml Output Total 1500 ml Balance 1180 ml -325 ml Intake Free Water 100 ml IV Total 300 ml 525 ml Tube Feeding 780 ml 650 ml Output Urine Total 1500 ml # Voids 1 Objective General Appearance: lethargic, thin EENT: normal ENT inspection Neck: non-tender, normal alignment, supple Cardiovascular: normal peripheral pulses, normal rate, regular rhythm, no gallop/murmur, no JVD Respiratory/Chest: Venturi mask, left lung sounds absent; chest wall non-tender , crackles/rales, rhonchi - bilaterally, expiratory wheezing Abdomen: normal bowel sounds, non tender, soft, no organomegaly, no mass Skin: normal pigmentation, warm/dry Assessment/Plan Problem List: (1) Leukocytosis (2) Pemphigus Assessment & Plan: D/C chronic prednisone therapy per nephrology. (3) Sepsis Assessment & Plan: Coag neg staph. See ID note. Cont vanco and zosyn per ID (4) Cerebral vascular disease (5) Hemiplegia affecting left nondominant side (6) Aphasia as late effect of cerebrovascular accident (7) Atrial fibrillation Assessment & Plan: Now sinus tachycardia. See cardiology note. (8) Hypertension (9) Diabetes mellitus Assessment & Plan: See endocrinology note. Cont levemir and novolog sliding scale. (10) Dysphagia as late effect of cerebrovascular accident (CVA) (11) Pneumonia Assessment & Plan: Repeat chest xray=left opacification. Continue vanco and zosyn per ID. See pulmonary note. (12) G tube feedings (13) Septic shock (14) Hypernatremia Assessment & Plan: See nephrology note. (15) Anemia Assessment & Plan: S/P transfusion 1 unit PRBC on 04/26/16. (16) Respiratory failure Assessment & Plan: worsening; on venturi mask (17) Tachycardia Assessment & Plan: ?septic vs afib? See cardiology note. Status: deteriorating Assessment/Plan Prognosis is poor MARCO OLVERA May 05, 2016 16:28
[2016-05-05] MEDS ORDERED: Tubing IV Secondary IV ONE (16:42)
[2016-05-05] MEDS ORDERED: NS 275ml ONE (16:42)
[2016-05-05] MEDS: Fluconazole 100mg tab ORAL SCH (19:56)
[2016-05-05 20:00] VITALS: BP 160/104
--- NOTE | 2016-05-05 23:36 | Pulmonology Progress Note ---
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 Assessment/Plan on bekah Dumont vanco blood culture are most likely contaminated check electrolytes continue IV fluids aspiration precaution wound care gtube site care all labs and notes reviewed Subjective ROS Limited/Unobtainable: Yes Respiratory: Reports: dyspnea at rest, productive cough, shortness of breath, wheezing Allergies: Coded Allergies: No Known Allergies (Unverified , 10/19/15) Objective Last 24 Hour Vital Signs Date Time Temp Pulse Resp B/P Pulse Ox O2 Delivery O2 Flow Rate FiO2 05/05/16 20:30 127 20 97 Venturi Mask 15.0 55 05/05/16 20:30 Venturi Mask 15.0 55 05/05/16 20:30 126 20 97 Venturi Mask 15.0 55 05/05/16 20:30 97 Venturi Mask 15.0 55 05/05/16 20:00 99.1 130 26 160/104 96 Room Air 05/05/16 19:55 117 144/88 05/05/16 16:00 99.0 117 24 144/88 100 Venturi Mask 05/05/16 15:05 119 26 99 Venturi Mask 15.0 55 05/05/16 15:00 118 26 97 Venturi Mask 15.0 55 05/05/16 12:00 98.2 111 19 166/95 100 Venturi Mask 05/05/16 11:05 120 26 99 Venturi Mask 15.0 55 05/05/16 11:00 115 26 99 Venturi Mask 15.0 55 05/05/16 09:04 118 135/73 05/05/16 09:04 118 05/05/16 08:46 98.1 118 19 135/73 100 Venturi Mask 05/05/16 07:45 120 36 Venturi Mask 15.0 55 05/05/16 07:43 Venturi Mask 15.0 55 05/05/16 07:43 99 Venturi Mask 15.0 55 05/05/16 07:35 121 26 99 Venturi Mask 15.0 55 05/05/16 07:30 120 26 99 Venturi Mask 15.0 55 05/05/16 04:00 98.1 109 22 125/73 96 Non-Rebreather 05/05/16 03:35 99 20 99 Venturi Mask 15.0 55 05/05/16 03:30 50 05/05/16 03:29 104 20 97 Venturi Mask 15.0 55 05/05/16 01:17 98.9 05/05/16 00:00 98.1 106 24 109/60 100 Non-Rebreather 05/04/16 23:47 103 20 100 Venturi Mask 15.0 55 05/04/16 23:46 103 20 99 Venturi Mask 15.0 55 Intake and Output 05/04/16 05/05/16 19:00 07:00 Intake Total 1180 ml 1175 ml Output Total 1500 ml Balance 1180 ml -325 ml Intake Free Water 100 ml IV Total 300 ml 525 ml Tube Feeding 780 ml 650 ml Output Urine Total 1500 ml # Voids 1 Objective more awake, less dysnic General Appearance: other - appears dyspneic HEENT: normocephalic, atraumatic, PERRL Respiratory/Chest: chest wall non-tender, decreased breath sounds, accessory muscle use, crackles/rales, rhonchi, expiratory wheezing Cardiovascular: no JVD, bradycardia Abdomen: normal bowel sounds, soft, non tender, no organomegaly, non distended Genitourinary: normal external genitalia Extremities: no cyanosis Neurologic/Psychiatric: abnormal CN, motor weakness, aphasia, depressed affect Microbiology Date/Time Source Procedure Growth Status 05/03/16 13:40 Blood Blood Culture - Preliminary NO GROWTH AFTER 24 HOURS Resulted 05/03/16 13:25 Blood Blood Culture - Preliminary NO GROWTH AFTER 24 HOURS Resulted Laboratory Tests 05/05/16 05:00: White Blood Count 10.2, Red Blood Count 2.74L, Hemoglobin 9.3L, Hematocrit 28.4L , Mean Corpuscular Volume 104H, Mean Corpuscular Hemoglobin 34.0H, Mean Corpuscular Hemoglobin Concent 32.8, Red Cell Distribution Width 12.3, Platelet Count 131L, Mean Platelet Volume 6.6, Neutrophils (%) (Auto) 82.6H, Lymphocytes (%) (Auto) 10.9L, Monocytes (%) (Auto) 4.7, Eosinophils (%) (Auto) 1.2, Basophils (%) (Auto) 0.6, Sodium Level 141, Potassium Level 5.5H, Chloride Level 97L, Carbon Dioxide Level 36H, Anion Gap 8, Blood Urea Nitrogen 10, Creatinine 0.4L, Estimat Glomerular Filtration Rate , Glucose Level 112H, Calcium Level 8.8, Total Bilirubin 0.4, Aspartate Amino Transf (AST/SGOT) 21, Alanine Aminotransferase (ALT/SGPT) 14, Alkaline Phosphatase 125, Total Protein 7.1, Albumin 2.0L, Globulin 5.1, Albumin/Globulin Ratio 0.3L Current Medications Medications (Trade) Dose Ordered Sig/Joy Route PRN Reason Start Time Stop Time Status Last Admin Dose Admin Acetaminophen (Tylenol) 650 mg Q4H PRN GT Mild Pain/Temp > 100.5 05/02/16 15:00 06/01/16 14:59 05/02/16 17:46 Albuterol Sulfate (Proventil) 2.5 mg Q4HRT HHN 05/02/16 15:00 05/07/16 14:59 05/05/16 20:29 Dextrose (D5W 1000ml) 1,000 ml @ 75 mls/hr [id number] IV 05/02/16 15:00 06/01/16 14:59 05/05/16 13:24 Dextrose (Dextrose 50%) STAT PRN IV Hypoglycemia 05/02/16 15:30 06/01/16 15:29 Digoxin (Lanoxin) 0.125 mg DAILY ORAL 05/03/16 09:00 06/02/16 08:59 05/05/16 09:04 Fluconazole (Diflucan) 200 mg Q24H ORAL 05/04/16 21:00 05/11/16 20:59 05/05/16 19:56 Heparin Sodium (Porcine) (Heparin 5000 units/ml) 5,000 units Q12HR SUBQ 05/02/16 21:00 06/01/16 20:59 05/04/16 20:12 Heparin Sodium/ Sodium Chloride (Heparin 2000 units/Ns 1000ml premix) 2,000 unit ONCE PRN INJ PICC PLACEMENT 05/04/16 12:30 05/05/16 23:59 Insulin Aspart (NovoLOG) EVERY 6 HOURS SUBQ 05/02/16 18:00 06/01/16 17:59 05/05/16 18:48 Insulin Detemir (Levemir) 5 units Q12HR@0600,1800 SUBQ 05/02/16 18:00 06/01/16 17:59 05/05/16 18:47 Lactulose (Cephulac) 30 gm DAILYPRN PRN ORAL Constipation 05/02/16 15:00 06/01/16 14:59 Lidocaine HCl (Xylocaine 1% 30ml) 30 ml ONCE PRN INJ PICC PLACEMENT 05/04/16 12:30 05/05/16 23:59 Linezolid (Zyvox) 600 mg EVERY 12 HOURS ORAL 05/04/16 21:00 05/09/16 20:59 05/05/16 19:55 Metoprolol Tartrate (Lopressor) 25 mg Q12HR ORAL 05/02/16 21:00 06/01/16 20:59 05/05/16 19:55 Morphine Sulfate (Morphine Sulfate) 4 mg Q4H PRN IV Dyspnea and Tachycardia 05/02/16 16:15 05/09/16 16:14 05/05/16 00:42 Nitroglycerin (Ntg) 0.4 mg Q5MIN X3 DOSES PRN SL Prn Chest Pain 05/02/16 14:30 06/01/16 14:29 Ondansetron HCl (Zofran) 4 mg Q4H PRN IVP Nausea & Vomiting 05/02/16 15:00 06/01/16 14:59 Pantoprazole (Protonix) 40 mg DAILY IVP 05/03/16 09:00 06/02/16 08:59 05/05/16 09:03 Polyethylene Glycol (Miralax) 17 gm DAILYPRN PRN GT Constipation UNRELIEVED BY LAC 05/03/16 07:45 06/02/16 07:44 Sodium Bicarbonate (Sodium Bicarbonate) 50 ml ONCE PRN IV PICC PLACEMENT 05/04/16 12:30 05/05/16 23:59 JAVIER BANKS May 05, 2016 23:36
--- NOTE | 2016-05-07 12:59 | Diagnostic Imaging Report ---
Indication: Dyspnea Comparison: 05/01/16 A single view chest radiograph was obtained. Findings: Much of the left pleural effusion has resolved. There is considerable airspace parenchymal disease on the left lung. There is a small residual effusion on the left. Mild atelectasis noted at the right lung base. Impression: Significant improvement in size of a left pleural effusion. Extensive airspace disease noted in the left lung, part of which may be reexpansion pulmonary edema.
--- NOTE | 2016-05-07 20:46 | Discharge Summary ---
Discharge Summary Hospital Course Date of Admission Apr 18, 2016 at 03:20 Date of Discharge May 06, 2016 at 00:30 Admitting Diagnosis septic shock, dehydration HPI Guerrero Bains is a 75 year old male who was admitted on Apr 18, 2016 at 03:20 for Septic Shock,Dehydration Hospital Course [id number] Discharge Discharge Disposition Patient Discharge Diagnoses: Marina Onofre NP May 07, 2016 20:46
--- NOTE | 2016-05-08 07:57 | Discharge Summary 2 SIG ---
DATE OF ADMISSION: 04/18/2016 DATE OF DISCHARGE: 05/06/2016 CONSULTANTS: 1. Abilio Sauceda M.D. 2. Ben Shankar M.D. 3. Conner Bains M.D. 4. Winston Caro M.D. 5. Torsten Landeros M.D. BRIEF SUMMARY: The patient is a 75-year-old, male, who presented to ED from group home facility for fever. On evaluation at ED, the patient was febrile at 104 with evidence of leukocytosis. 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 He was pancultured and was started empirically on antibiotics. Infectious Disease was consulted for antibiotic management. Dr. Caro was also consulted for evaluation of renal failure. Renal failure was assessed to be due to sepsis and shock with dehydration and volume depletion and evidence of hypernatremia. Dr. Shankar was also consulted for diabetes management and adrenal insufficiency. The patient was given a stress dose of hydrocortisone. Blood sugars were monitored. Dr Sauceda was consulted for evaluation of tachycardia. EKG showed sinus tachycardia at a rate of 145 beats per minute with T-wave abnormality and inferior ischemia. The patient has been in sinus tachycardia and went into atrial fibrillation with rapid ventricular response. He was given digoxin through G-tube. The patient is not a candidate for anticoagulation. Blood culture showed coagulase-negative Staph bacteremia 2/4. A transthoracic echocardiogram was negative for SBE. Influenza and Legionella urine antigens were negative. He came in with multiple open draining and intact blisters all over the body, sacral DTI, left buttock stage II pressure ulcer, and left fifth metatarsal head DTI. He was given wound care. The patient was for discharge planning to SNF, however, had an episode of anemia. He was given one unit of packed RBC blood transfusion. The patient developed worsening respiratory failure and was placed on Venturi mask. Repeat blood culture showed coagulase-negative Staph 1/4 probable central line infection. Central line was removed and catheter tip was sent for culture, which did not isolate any growth. The patient's condition remained poor. Prognosis guarded. The patient was referred for hospice evaluation. Chest x-ray done showed complete atelectasis of left lung and per family request decided for discharge under hospice to SNF, however, the patient eventually . FINAL DIAGNOSES: 1. Cardiorespiratory arrest. 2. Sepsis with septic shock. 3. Atrial fibrillation with rapid ventricular response. 4. Acute respiratory failure. 5. Pneumonia. 6. Acute tubular necrosis. 7. Cerebrovascular accident with left hemiparesis. 8. Gastrostomy tube dependent. 9. Acute renal failure. 10. Dehydration. 11. Hypernatremia. 12. Acute anemia status post blood transfusion. 13. Bullous pemphigus. 14. Diabetes mellitus out of control. 15. Functional quadriplegia and bed-bound. 16. Dementia. 17. Sacral area and left buttock stage II and multiple open intact blisters, present on admission. Adalid Izaguirre M.D. I have been assigned to dictate discharge summary on this account and I was not involved in the patient's management. Marina Onofre N.P. DR: JACKIE JOB#: [id number] CC: SHELIA
== END 2016-05-06 00:30 | disposition expired | DRG 871 ==
LOC: EDBD 02:26 → EMR 02:35 → ICU 03:20 → EDBEDREQ 04:41 → 4W 04-20 06:24 → 2E 05-01 19:23 → 4E 05-02 14:59 → 4W 05-03 22:40
PROC: 05H633Z Insertion of Infusion Device into Left Subclavian Vein, Percutaneous Approach (ICD-10-PCS; principal; 2016-04-18)
PROC: B517ZZA Fluoroscopy of Left Subclavian Vein, Guidance (ICD-10-PCS; principal; 2016-04-18)
DX: A41.9 Sepsis, unspecified organism (principal); J69.0 Pneumonitis due to inhalation of food and vomit; N17.0 Acute kidney failure with tubular necrosis; J96.00 Acute respiratory failure, unspecified whether with hypoxia or hypercapnia; R65.21 Severe sepsis with septic shock; L89.322 Pressure ulcer of left buttock, stage 2; R53.2 Functional quadriplegia; E87.0 Hyperosmolality and hypernatremia; I48.92 Unspecified atrial flutter; E27.40 Unspecified adrenocortical insufficiency; J98.11 Atelectasis; E11.65 Type 2 diabetes mellitus with hyperglycemia; Z79.4 Long term (current) use of insulin; Z74.01 Bed confinement status; I48.91 Unspecified atrial fibrillation; I10 Essential (primary) hypertension; Z93.1 Gastrostomy status; F03.90 Unspecified dementia, unspecified severity, without behavioral disturbance, psychotic disturbance, mood disturbance, and anxiety; E86.0 Dehydration; L01.03 Bullous impetigo; D64.9 Anemia, unspecified; Z66 Do not resuscitate
CPT/HCPCS: 36415; 36600; 71010; 76775; 80048; 80053; 80162; 80202; 81001; 81003; 82164; 82270; 82378; 82436; 82550; 82553; 82607; 82746; 82803; 82962; 82977; 83540; 83550; 83605; 83615; 83690; 83735; 83880; 83930; 84100; 84133; 84300; 84439; 84484; 84550; 85007; 85025; 85044; 85060; 85610; 85651; 85730; 86140; 86710; 86850; 86900; 86901; 86920; 87040; 87070; 87081; 87086; 87181; 87205; 89050; 93005; 93306; 94640; 94664; 94760; J1815; J2405; J7620; S5561